=== PATIENT | male | born 1940 | race Caucasian/White ===

== ENCOUNTER 2016-11-13 10:37 | Day surgery (SDC) | payer MEDICARE, BC ==
[2016-11-13] MEDS ORDERED: ALBUTEROL NEB (CONC) 2.5 MG/0.5 ML INHALATION STA (11:07)
[2016-11-13 11:08] VITALS: TEMP 97.5
[2016-11-13 11:39] LABS: Glucose,Whole Blood 144 mg/dL (75-99)
[2016-11-13] MEDS ORDERED: LACTATED RINGERS 1,000 ML IV ONE (11:40)
[2016-11-13] MEDS ORDERED: LIDOCAINE 1% 20 ML VIAL (10MG/ML) FOR IV START INTRADERMA ONE (11:41)
[2016-11-13] MEDS ORDERED: LIDOCAINE 1% INJ 10MG/ML (20 ML MDV) ONE (11:46)
[2016-11-13] MEDS ORDERED: PROPOFOL 10 MG/ML 20 ML VIAL IV ONE (11:46)
[2016-11-13] MEDS ORDERED: LIDOCAINE 2% INJ 20 MG/ML INTRATRACH ONE (11:54)
[2016-11-13] MEDS ORDERED: ATROPINE SULFATE 0.4 MG/ML 1 ML VIAL IM ONE (12:00)
[2016-11-13 12:11] VITALS: RESP 16
[2016-11-13 12:30] VITALS: BP 142/84; PULSE 90
--- NOTE | 2016-11-13 20:51 | PCN ---
PREOPERATIVE DIAGNOSIS: Tracheobronchomalacia, bronchiectasis, right middle lobe syndrome, asthma, retained secretions. POSTOPERATIVE DIAGNOSIS: Tracheobronchomalacia, bronchiectasis, right middle lobe syndrome, asthma, retained secretions. ELIGIBILITY SERVICES REPRESENTATIVE provided general anesthesia and unconscious sedation. The patient's procedure was done in room #2. There was informed consent. There was universal timeout. After the patient was adequately sedated and being fully monitored, the bronchoscope was inserted through the right nostril. It passed through the right nasopharynx into the oropharynx. The hypopharynx was identified and topicalized. The hypopharyngeal structures, including the anterior commissure, true cords, false cords, arytenoids, piriform sinus, valleculae and epiglottis all appeared normal. After the area was inspected, the glottic opening was topicalized. The bronchoscope was pushed through the glottic opening into the trachea. Trachea was very collapsible. The patient had clear-cut tracheomalacia. The trachea was somewhat erythematous and hyperemic. There were secretions noted throughout the trachea. Tracheal callie was sharp. Right and left mainstem were topicalized. Likewise, there was significant bronchomalacia bilaterally. Right upper lobe and its 3 segments, right middle lobe and its 3 segments, right lower lobe and its 5 segments, the left upper lobe proper and its 2 segments, lingula and its 2 segments and left lower lobe and its 4 segments all had similar findings of diffuse erythema and hyperemia. There was a fair amount of bronchitis throughout. There was mucosal friability. The bronchial mucosa bled easily. There were no dominant mass or lesions. There were thick secretions noted throughout. They were suctioned. The bronchoscope was then wedged into the right middle lobe. BAL took place. Additional topicalization took place in saline, was used to cleanse the rest of the airways. The patient tolerated the procedure well. The bronchoscope was then withdrawn.
[2016-11-13 21:30] LABS: RBC, Body Fluid 5038 /uL
== END 2016-11-13 12:51 | disposition home or self-care (01) ==
LOC: ORWHC2ENDO 10:37
PROVIDERS: ATTEND Internal Medicine Critical Care Medicine
DX: J40 Bronchitis, not specified as acute or chronic (principal); J39.8 Other specified diseases of upper respiratory tract; J98.09 Other diseases of bronchus, not elsewhere classified; J45.909 Unspecified asthma, uncomplicated; J98.11 Atelectasis; J44.9 Chronic obstructive pulmonary disease, unspecified; K21.9 Gastro-esophageal reflux disease without esophagitis; E11.9 Type 2 diabetes mellitus without complications; Z79.84 Long term (current) use of oral hypoglycemic drugs; Z79.51 Long term (current) use of inhaled steroids; Z79.899 Other long term (current) drug therapy; Z88.2 Allergy status to sulfonamides; Z88.8 Allergy status to other drugs, medicaments and biological substances
CPT/HCPCS: 94640; 88108; 88305; 89050; 87252; 87070; 87205; 87116; 87102; 87077; 87186; 87206; 31624; J2001 ×2; J0461; J2704; 87496; 87498; 87502; 87529; 87798

== ENCOUNTER 2016-11-19 05:53 | Emergency (ER) | payer MEDICARE, BC ==
[2016-11-19] MEDS ORDERED: ACETAMINOPHEN TAB 500 MG TAB PO STA (06:33)
--- NOTE | 2016-11-19 06:37 | ED ---
General Adult HPI - General Source: patient, family, RN notes reviewed Mode of arrival: ambulatory Limitations: no limitations <Bib Pratt - Last Filed: 11/19/16 06:34> <Hawk Holder - Last Filed: 11/19/16 09:51> - General Chief complaint: Fever Stated complaint: Restless Time Seen by Provider: 11/19/16 06:20 - History of Present Illness Initial comments: Patient is a pleasant 76-year-old male presenting to the emergency department for feeling restless. Patient did have a recent bronchoscopy. Patient was found to have pseudomonas and started on meropenem. Patient has 3 doses yesterday, last at 11 PM. Patient has felt restless since that time. Patient had no fever at that time. Patient states he feels tired but just could not sleep. Patient has had some mild cough and dyspnea for several days and that's why the bronchoscopy was done. Patient does have a history of pseudomonas in his lungs multiple times previously. No leg pain or leg swelling. No cough. No dysuria. No abdominal pain. (Bib Pratt) - Related Data Home Medications Medication Instructions Recorded Confirmed Albuterol Inhaler [Ventolin Hfa 2 puff INHALATION Q4H PRN 01/05/14 11/19/16 Inhaler] Linagliptin [Tradjenta] 5 mg PO QAM 01/05/14 11/19/16 Omeprazole [PriLOSEC] 20 mg PO BID 01/05/14 11/19/16 Ramipril [Altace] 2.5 mg PO W/SUPPER 01/05/14 11/19/16 glyBURIDE/METFORMIN HCL 1 tab PO BID 01/05/14 11/19/16 [Glucovance 5-500 mg Tablet] Ipratropium-Albuterol Nebulize 1 applicate IH RT-QID PRN 04/03/15 11/19/16 [Duoneb 0.5 mg-3 mg/3 ml Soln] Fluticasone Propionate [Flovent 2 puff INHALATION RT-BID 08/08/15 11/19/16 Hfa 220MCG] Salmeterol Xinafoate [Serevent 1 puff IH RT-BID 10/13/15 11/19/16 Diskus] Exenatide Microspheres [Bydureon 2 mg INJ SA 03/13/16 11/19/16 Pen] Amoxic-Pot Clav 875-125Mg 1 tab PO Q12HR PRN 10/15/16 11/19/16 [Augmentin 875-125] Ketotifen Fumarate [Zaditor] 1 drop BOTH EYES DAILY PRN 11/19/16 11/19/16 Meropenem [Merrem] 1 gm IVPB TID 11/19/16 11/19/16 Mometasone Furoate [Nasonex Nasal 2 spr EA NOSTRIL DAILY PRN 11/19/16 11/19/16 [place]] Allergies Allergy/AdvReac Type Severity Reaction Status Date / Time aspirin Allergy Dyspnea Verified 11/19/16 08:45 levofloxacin [From Levaquin] Allergy "HAD Verified 11/19/16 08:45 RUPTURED TENDON" NSAIDS (Non-Steroidal Allergy Dyspnea Verified 11/19/16 08:45 Anti-Inflamma Sulfa (Sulfonamide Allergy Rash/Hives Verified 11/19/16 08:45 Antibiotics) cephalexin [Cephalexin] AdvReac Nausea & Verified 11/19/16 08:45 Vomiting codeine phosphate AdvReac Vomiting Verified 11/19/16 08:45 [From Tylenol-Codeine #3] erythromycin base AdvReac Abdominal Verified 11/19/16 08:45 [Erythromycin Base] Pain prednisone AdvReac TRIES TO Verified 11/19/16 08:45 AVOID, "GAVE HIM CATARACTS" DAIRY PRODUCTS Allergy WAS TESTED Uncoded 11/19/16 06:00 & TOLD ALLERGIC Review of Systems ROS Other: All systems not noted in ROS Statement are negative. Constitutional: Reports: chills Eyes: Denies: eye pain ENT: Denies: ear pain Respiratory: Reports: cough, dyspnea Cardiovascular: Denies: chest pain Endocrine: Reports: fatigue Gastrointestinal: Reports: nausea, vomiting (Times one). Denies: abdominal pain Genitourinary: Denies: dysuria Musculoskeletal: Denies: back pain Skin: Denies: rash Neurological: Denies: weakness <Bib Pratt - Last Filed: 11/19/16 06:34> ROS Other: All systems not noted in ROS Statement are negative. <Hawk Holder - Last Filed: 11/19/16 09:51> ROS Statement: Those systems with pertinent positive or pertinent negative responses have been documented in the HPI. Past Medical History Past Medical History: Asthma, Cancer, COPD, Diabetes Mellitus, GERD/Reflux, Respiratory Disorder Additional Past Medical History / Comment(s): PULMONARY PSEUDOMONAS, SKIN CA NOSE and LIP, History of Any Multi-Drug Resistant Organisms: MRSA Date of last positivie culture/infection: 08/13/2012 MDRO Source:: SPUTUM Past Surgical History: Hernia Repair, Orthopedic Surgery Additional Past Surgical History / Comment(s): PORT RT. CHEST, PREVIOUS BRONCHOSCOPIES, Rt Foot(Achilles) Surgery, Sinus Surgery x 3, Picc line & removed,skin cancer removed from lower lip & nose- removal of part of lower lip with reconstruction, ray cataracts with lens implants, umbilical hernia, Past Anesthesia/Blood Transfusion Reactions: No Reported Reaction Additional Past Anesthesia/Blood Transfusion Reaction / Comment(s): . Past Psychological History: No Psychological Hx Reported Smoking Status: Former smoker Past Alcohol Use History: None Reported Additional Past Alcohol Use History / Comment(s): quit smoking 1970-started age 16(1956)-25 yrs total was 2 ppd Past Drug Use History: None Reported - Past Family History Mother Family Medical History: Deep Vein Thrombosis (DVT) Father Family Medical History: Osteoarthritis (OA) Sister(s) Family Medical History: Cancer, Deep Vein Thrombosis (DVT) Additional Family Medical History / Comment(s): one sister with colon ca- then went to lung & brain, <Bib Pratt - Last Filed: 11/19/16 06:34> General Exam Limitations: no limitations General appearance: alert, in no apparent distress Head exam: Present: atraumatic Eye exam: Present: normal appearance, PERRL ENT exam: Present: normal oropharynx Neck exam: Present: normal inspection Respiratory exam: Present: wheezes, rales Cardiovascular Exam: Present: regular rate, normal rhythm GI/Abdominal exam: Present: soft. Absent: tenderness Extremities exam: Present: normal inspection Neurological exam: Present: alert Psychiatric exam: Present: normal affect, normal mood Skin exam: Present: other (Patient has a mild erythematous appearance diffusely of the skin which he states is chronic.) <Bib Pratt - Last Filed: 11/19/16 06:34> EKG Findings - EKG Comments: EKG Findings:: Normal sinus rhythm and 96. Normal intervals. Left axis. Voltage criteria for LVH. Inverted T waves inferior. <Pratt,Bib - Last Filed: 11/19/16 06:34> Medical Decision Making <Bib Pratt - Last Filed: 11/19/16 06:34> - Lab Data Result diagrams: 11/19/16 06:30 11/19/16 06:30 <Hawk Holder - Last Filed: 11/19/16 09:51> - Medical Decision Making I went back into reevaluate the patient he wanted to be discharged home because he felt back to his baseline. I spoke with Dr. Armstrong he was in agreement with discharging the patient is on C continue with antibiotics treatment. (Hawk Holder) - Lab Data Lab Results 11/19/16 11/19/16 11/19/16 Range/Units 06:30 06:30 06:30 WBC 8.1 (3.8-10.6) k/uL RBC 4.66 (4.30-5.90) m/uL Hgb 14.4 (13.0-17.5) gm/dL Hct 45.5 (39.0-53.0) % MCV 97.6 (80.0-100.0) fL MCH 30.8 (25.0-35.0) pg MCHC 31.6 (31.0-37.0) g/dL RDW 13.6 (11.5-15.5) % Plt Count 187 (150-450) k/uL Neutrophils % 93 % Lymphocytes % 2 % Monocytes % 2 % Eosinophils % 2 % Basophils % 0 % Neutrophils # 7.5 (1.3-7.7) k/uL Lymphocytes # 0.1 L (1.0-4.8) k/uL Monocytes # 0.2 (0-1.0) k/uL Eosinophils # 0.1 (0-0.7) k/uL Basophils # 0.0 (0-0.2) k/uL PT (9.0-12.0) sec INR (<1.1) APTT (22.0-30.0) sec Sodium 137 (137-145) mmol/L Potassium 4.7 (3.5-5.1) mmol/L Chloride 103 (98-107) mmol/L Carbon Dioxide 27 (22-30) mmol/L Anion Gap 7 mmol/L BUN 13 (9-20) mg/dL Creatinine 1.26 H (0.66-1.25) mg/dL Est GFR (MDRD) Af Amer >60 (>60 ml/min/1.73 sqM) Est GFR (MDRD) Non-Af 56 (>60 ml/min/1.73 sqM) Glucose 242 H (74-99) mg/dL Plasma Lactic Acid Angelo (0.7-2.0) mmol/L Calcium 9.1 (8.4-10.2) mg/dL Total Bilirubin 1.2 (0.2-1.3) mg/dL AST 27 (17-59) U/L ALT 36 (21-72) U/L Alkaline Phosphatase 66 (38-126) U/L Total Creatine Kinase 96 (55-170) U/L CK-MB (CK-2) 1.1 (0.0-2.4) ng/mL CK-MB (CK-2) Rel Index 1.1 Troponin I <0.012 (0.000-0.034) ng/mL Total Protein 6.4 (6.3-8.2) g/dL Albumin 3.6 (3.5-5.0) g/dL Urine Color Urine Appearance (Clear) Urine pH (5.0-8.0) Ur Specific [place] (1.001-1.035) Urine Protein (Negative) Urine Glucose (UA) (Negative) Urine Ketones (Negative) Urine Blood (Negative) Urine Nitrate (Negative) Urine Bilirubin (Negative) Urine Urobilinogen (<2.0) mg/dL Ur Leukocyte Esterase (Negative) Urine WBC (0-5) /hpf Ur Squamous Epith Cells (0-4) /hpf Influenza Type A RNA (Not Detectd) Influenza Type B (PCR) (Not Detectd) 11/19/16 11/19/16 11/19/16 Range/Units 06:30 06:30 06:35 WBC (3.8-10.6) k/uL RBC (4.30-5.90) m/uL Hgb (13.0-17.5) gm/dL Hct (39.0-53.0) % MCV (80.0-100.0) fL MCH (25.0-35.0) pg MCHC (31.0-37.0) g/dL RDW (11.5-15.5) % Plt Count (150-450) k/uL Neutrophils % % Lymphocytes % % Monocytes % % Eosinophils % % Basophils % % Neutrophils # (1.3-7.7) k/uL Lymphocytes # (1.0-4.8) k/uL Monocytes # (0-1.0) k/uL Eosinophils # (0-0.7) k/uL Basophils # (0-0.2) k/uL PT 10.3 (9.0-12.0) sec INR 1.0 (<1.1) APTT 23.4 (22.0-30.0) sec Sodium (137-145) mmol/L Potassium (3.5-5.1) mmol/L Chloride (98-107) mmol/L Carbon Dioxide (22-30) mmol/L Anion Gap mmol/L BUN (9-20) mg/dL Creatinine (0.66-1.25) mg/dL Est GFR (MDRD) Af Amer (>60 ml/min/1.73 sqM) Est GFR (MDRD) Non-Af (>60 ml/min/1.73 sqM) Glucose (74-99) mg/dL Plasma Lactic Acid Angelo 1.2 (0.7-2.0) mmol/L Calcium (8.4-10.2) mg/dL Total Bilirubin (0.2-1.3) mg/dL AST (17-59) U/L ALT (21-72) U/L Alkaline Phosphatase (38-126) U/L Total Creatine Kinase (55-170) U/L CK-MB (CK-2) (0.0-2.4) ng/mL CK-MB (CK-2) Rel Index Troponin I (0.000-0.034) ng/mL Total Protein (6.3-8.2) g/dL Albumin (3.5-5.0) g/dL Urine Color Urine Appearance (Clear) Urine pH (5.0-8.0) Ur Specific [place] (1.001-1.035) Urine Protein (Negative) Urine Glucose (UA) (Negative) Urine Ketones (Negative) Urine Blood (Negative) Urine Nitrate (Negative) Urine Bilirubin (Negative) Urine Urobilinogen (<2.0) mg/dL Ur Leukocyte Esterase (Negative) Urine WBC (0-5) /hpf Ur Squamous Epith Cells (0-4) /hpf Influenza Type A RNA Not Detected (Not Detectd) Influenza Type B (PCR) Not Detected (Not Detectd) 11/19/16 Range/Units 08:00 WBC (3.8-10.6) k/uL RBC (4.30-5.90) m/uL Hgb (13.0-17.5) gm/dL Hct (39.0-53.0) % MCV (80.0-100.0) fL MCH (25.0-35.0) pg MCHC (31.0-37.0) g/dL RDW (11.5-15.5) % Plt Count (150-450) k/uL Neutrophils % % Lymphocytes % % Monocytes % % Eosinophils % % Basophils % % Neutrophils # (1.3-7.7) k/uL Lymphocytes # (1.0-4.8) k/uL Monocytes # (0-1.0) k/uL Eosinophils # (0-0.7) k/uL Basophils # (0-0.2) k/uL PT (9.0-12.0) sec INR (<1.1) APTT (22.0-30.0) sec Sodium (137-145) mmol/L Potassium (3.5-5.1) mmol/L Chloride (98-107) mmol/L Carbon Dioxide (22-30) mmol/L Anion Gap mmol/L BUN (9-20) mg/dL Creatinine (0.66-1.25) mg/dL Est GFR (MDRD) Af Amer (>60 ml/min/1.73 sqM) Est GFR (MDRD) Non-Af (>60 ml/min/1.73 sqM) Glucose (74-99) mg/dL Plasma Lactic Acid Angelo (0.7-2.0) mmol/L Calcium (8.4-10.2) mg/dL Total Bilirubin (0.2-1.3) mg/dL AST (17-59) U/L ALT (21-72) U/L Alkaline Phosphatase (38-126) U/L Total Creatine Kinase (55-170) U/L CK-MB (CK-2) (0.0-2.4) ng/mL CK-MB (CK-2) Rel Index Troponin I (0.000-0.034) ng/mL Total Protein (6.3-8.2) g/dL Albumin (3.5-5.0) g/dL Urine Color Yellow Urine Appearance Clear (Clear) Urine pH 6.5 (5.0-8.0) Ur Specific [place] 1.017 (1.001-1.035) Urine Protein 1+ H (Negative) Urine Glucose (UA) 1+ H (Negative) Urine Ketones Negative (Negative) Urine Blood Negative (Negative) Urine Nitrate Negative (Negative) Urine Bilirubin Negative (Negative) Urine Urobilinogen <2.0 (<2.0) mg/dL Ur Leukocyte Esterase Negative (Negative) Urine WBC 3 (0-5) /hpf Ur Squamous Epith Cells <1 (0-4) /hpf Influenza Type A RNA (Not Detectd) Influenza Type B (PCR) (Not Detectd) Disposition <Bib Pratt - Last Filed: 11/19/16 06:34> Time of Disposition: 09:51 <Hawk Holder - Last Filed: 11/19/16 09:51> Clinical Impression: Pneumonia Disposition: HOME SELF-CARE Instructions: Pneumonia (ED) Additional Instructions: Patient should continue following through with his outpatient antibiotic treatments Referrals: Alberto Rodriguez MD [Primary Care Provider] - 1-2 days
[2016-11-19] MEDS: SODIUM CHLORIDE 0.9% 500 ML IV SCH ×2 (06:44→10:22)
[2016-11-19 06:45] LABS: Basophils % (A) 0 %; CH 32.1; Eosinophils # (A) 0.1 k/uL (0-0.7); Eosinophils % (A) 2 %; HCT 45.5 % (39.0-53.0); HDW 2.65; HGB 14.4 gm/dL (13.0-17.5); Luc # (Auto) 0.07; Luc % (Auto) 1; Lymphocytes # (A) 0.1 k/uL (1.0-4.8); Lymphocytes % (A) 2 %; MCH 30.8 pg (25.0-35.0); MCHC 31.6 g/dL (31.0-37.0); MCV 97.6 fL (80.0-100.0); Mean Platelet Volume 7.2; Monocytes # (A) 0.2 k/uL (0-1.0); Monocytes % (A) 2 %; Neutrophils # (A) 7.5 k/uL (1.3-7.7); Neutrophils % (A) 93 %; RBC 4.66 m/uL (4.30-5.90); RDW 13.6 % (11.5-15.5); WBC 8.1 k/uL (3.8-10.6); WBC (Perox) 8.16
[2016-11-19 06:55] LABS: Partial Thromboplastin Time 23.4 sec (22.0-30.0); Prothrombin Time 10.3 sec (9.0-12.0)
[2016-11-19 06:57] LABS: ALT 36 U/L (21-72); AST 27 U/L (17-59); Alkaline Phosphatase 66 U/L (38-126); Anion Gap 7 mmol/L; Blood Urea Nitrogen 13 mg/dL (9-20); Calcium 9.1 mg/dL (8.4-10.2); Carbon Dioxide 27 mmol/L (22-30); Chloride 103 mmol/L (98-107); Glucose 242 mg/dL (74-99); Non-African American GFR(MDRD) 56 (>60 ml/min/1.73 sqM); Potassium 4.7 mmol/L (3.5-5.1); Sodium 137 mmol/L (137-145); Total Bilirubin 1.2 mg/dL (0.2-1.3); Total Protein 6.4 g/dL (6.3-8.2)
[2016-11-19 07:12] LABS: Creatine Kinase 96 U/L (55-170)
[2016-11-19 07:14] VITALS: RESP 14
[2016-11-19 07:22] LABS: Creatine Kinase MB 1.1 ng/mL (0.0-2.4)
[2016-11-19 07:26] LABS: Troponin I <0.012 ng/mL (0.000-0.034)
--- NOTE | 2016-11-19 07:45 | XR ---
EXAMINATION TYPE: XR chest 2V DATE OF EXAM: 11/19/2016 7:00 AM COMPARISON: Prior chest x-ray April 30, 2016. HISTORY: Fever. TECHNIQUE: Frontal and lateral views of the chest are obtained. FINDINGS: Right internal jugular Mediport catheter is stable in appearance. There is and bibasilar o pacity present. There is no pleural effusion or pneumothorax seen. Underlying emphysematous change is felt present. The cardiac silhouette size is within normal limits with atherosclerotic thoracic aort a. The osseous structures are intact. IMPRESSION: Right greater than left bibasilar infiltrate and/or atelectasis identified similar in ap pearance to prior study.
[2016-11-19 08:39] LABS: Appearance,Urine Clear (Clear); Bilirubin,Urine Negative (Negative); Glucose,Urine (UA) 1+ (Negative); Ketones,Urine Negative (Negative); Leukocyte Esterase,Urine Negative (Negative); Nitrite,Urine Negative (Negative); PH, Urine 6.5 (5.0-8.0); Particle Count 632; Protein,Urine 1+ (Negative); Specific Gravity,Urine 1.017 (1.001-1.035); Squamous Epithelial Cell,Urine <1 /hpf (0-4); UA Billing (MACRO vs. MICRO) MICRO; Urobilinogen,Urine <2.0 mg/dL (<2.0); WBC,Urine 3 /hpf (0-5)
[2016-11-19 10:21] VITALS: BP 133/79; PULSE 81; TEMP 97.9
== END 2016-11-19 10:22 | disposition home or self-care (01) ==
LOC: EC 05:53
DX: J44.0 Chronic obstructive pulmonary disease with (acute) lower respiratory infection (principal); J18.9 Pneumonia, unspecified organism; E11.9 Type 2 diabetes mellitus without complications; J45.909 Unspecified asthma, uncomplicated; K21.9 Gastro-esophageal reflux disease without esophagitis; Z85.828 Personal history of other malignant neoplasm of skin; Z87.891 Personal history of nicotine dependence; Z88.6 Allergy status to analgesic agent; Z88.1 Allergy status to other antibiotic agents; Z88.2 Allergy status to sulfonamides; Z91.011 Allergy to milk products; Z88.5 Allergy status to narcotic agent; Z79.84 Long term (current) use of oral hypoglycemic drugs; Z79.51 Long term (current) use of inhaled steroids; Z79.899 Other long term (current) drug therapy
CPT/HCPCS: 36415; 71020; 80053; 81001; 82533; 82550; 82553; 83605; 84484; 85025; 85610; 85730; 87040; 87086; 87502; 93005; 96360; 96361; 99284

== ENCOUNTER 2016-11-25 08:17 | Day surgery (SDC) | payer MEDICARE, BC ==
[2016-11-24 11:21] VITALS: BMI 29.6
[2016-11-25 08:34] VITALS: BP 161/97; PULSE 82; RESP 20; TEMP 98.2
[2016-11-25 08:35] LABS: Glucose,Whole Blood 166 mg/dL (75-99)
[2016-11-25] MEDS ORDERED: IODIXANOL 320 MG/ML 100 ML IV ONE (08:44)
--- NOTE | 2016-12-05 15:04 | IR ---
Fluoroscopic portogram([facility]). HISTORY: Device malfunction. The patient presented to the CVL with a Forte needle within the port. Preliminary fluoroscopy demons trated the catheter to be intact. Fluoro 0.2 min IMPRESSION: 1. No obstruction or extravasation. See above.
== END 2016-11-25 09:15 | disposition home or self-care (01) ==
LOC: CATHCVL 08:17
PROVIDERS: ATTEND Radiology Diagnostic Radiology
DX: T85.618A Breakdown (mechanical) of other specified internal prosthetic devices, implants and grafts, initial encounter (principal)
CPT/HCPCS: 36598; Q9967

== ENCOUNTER → 2017-01-06 | Outpatient (CLI) | payer MEDICARE, BC ==
--- NOTE | 2017-01-06 12:27 | US ---
EXAMINATION TYPE: US duplex aorta DATE OF EXAM: 01/06/2017 11:05 AM COMPARISON: NONE CLINICAL HISTORY: Z13.9 ENCOUNTER FOR SCREENING. EXAM MEASUREMENTS: Abdominal Aorta: Proximal: 2.0 x 2.4 cm Mid: 2.0 x 1.9 cm Distal: only measured in transverse 1.9 cm Bifurcation: right 1.4 cm left 1.3 cm Patient is obese with a large belly and imaging is technically difficult, imaged areas of aorta are w nl. Exam is suboptimal per technologist. Visualized portion show no evidence of aneurysmal change. IMPRESSION: Suboptimal study, visualized portion of aorta shows no greater than 3 cm aneurysm.
== END | disposition home or self-care (01) ==
LOC: RADUSWWP 09:59
PROVIDERS: ATTEND Family Medicine
DX: Z13.9 Encounter for screening, unspecified (principal); I71.4 Abdominal aortic aneurysm, without rupture; B96.5 Pseudomonas (aeruginosa) (mallei) (pseudomallei) as the cause of diseases classified elsewhere
CPT/HCPCS: 93979

== ENCOUNTER 2017-01-19 19:54 | Emergency (ER) | payer MEDICARE, BC ==
[2017-01-19] MEDS ORDERED: IPRATROPIUM-ALBUTEROL 3 ML NEB INHALATION STA (21:25)
--- NOTE | 2017-01-19 21:26 | ED ---
General Adult HPI - General Chief complaint: Shortness of Breath Stated complaint: JOE Time Seen by Provider: 01/19/17 21:06 Source: patient Mode of arrival: ambulatory Limitations: no limitations - History of Present Illness Initial comments: 76-year-old male presenting for cough and shortness of breath. Patient states that he has a history of recurrent pseudomonal pneumonias. He states he follows with Dr. Armstrong for this. He was recently on a 10 day course of cefepime through his mediport. However his symptoms did not improve. States that he has had a bronchoscopy every 3 months for the last 20 years. However he did not recently have a bronchoscopy done prior to antibiotic initiation and believes he needs one. States he is coughing up brown colored sputum. Does have a history of COPD. States he's had some intermittent fevers as well. He states he took Tylenol shortly prior to coming to the ER tonight. He denies any chest pain associated. - Related Data Home Medications Medication Instructions Recorded Confirmed Albuterol Inhaler [Ventolin Hfa 2 puff INHALATION RT-Q4H PRN 01/05/14 01/19/17 Inhaler] Linagliptin [Tradjenta] 5 mg PO QAM 01/05/14 01/19/17 Omeprazole [PriLOSEC] 20 mg PO BID 01/05/14 01/19/17 Ramipril [Altace] 2.5 mg PO W/SUPPER 01/05/14 01/19/17 Ipratropium-Albuterol Nebulize 1 applicate INHALATION RT-QID PRN 04/03/15 [Duoneb 0.5 mg-3 mg/3 ml Soln] Fluticasone Propionate [Flovent 2 puff INHALATION RT-BID 08/08/15 01/19/17 Hfa 220MCG] Salmeterol Xinafoate [Serevent 1 puff INHALATION RT-BID 10/13/15 01/19/17 Diskus] Exenatide Microspheres [Bydureon 2 mg SQ YAÑEZ 03/13/16 01/19/17 Pen] Budesonide [Pulmicort Flexhaler] 3 - 4 puff INHALATION RT-BID 01/19/17 01/19/17 Furosemide [Lasix] 20 mg PO DAILY 01/19/17 01/19/17 Hydrocortisone Pr Cream 1 applic RECTAL TID PRN 01/19/17 01/19/17 [Proctosol-Hc 2.5%] Mupirocin [Mupirocin 2%] 1 applic TOPICAL BID 01/19/17 01/19/17 Nystatin 100,000 Unit/ml Susp 5 ml PO QID PRN 01/19/17 01/19/17 [Mycostatin Oral Susp] glyBURIDE/METFORMIN HCL 1 tab PO BID 01/19/17 01/19/17 [Glucovance 2.5-500 mg Tablet] Allergies Allergy/AdvReac Type Severity Reaction Status Date / Time aspirin Allergy Dyspnea Verified 01/19/17 21:53 levofloxacin [From Levaquin] Allergy "HAD Verified 01/19/17 21:53 RUPTURED TENDON" NSAIDS (Non-Steroidal Allergy Dyspnea Verified 01/19/17 21:53 Anti-Inflamma Sulfa (Sulfonamide Allergy Rash/Hives Verified 01/19/17 21:53 Antibiotics) cephalexin [Cephalexin] AdvReac Nausea & Verified 01/19/17 21:53 Vomiting codeine phosphate AdvReac Vomiting Verified 01/19/17 21:53 [From Tylenol-Codeine #3] erythromycin base AdvReac Abdominal Verified 01/19/17 21:53 [Erythromycin Base] Pain prednisone AdvReac TRIES TO Verified 01/19/17 21:53 AVOID, "GAVE HIM CATARACTS" DAIRY PRODUCTS Allergy WAS TESTED Uncoded 01/16/17 11:01 & TOLD ALLERGIC Review of Systems ROS Statement: Those systems with pertinent positive or pertinent negative responses have been documented in the HPI. ROS Other: All systems not noted in ROS Statement are negative. Past Medical History Past Medical History: Asthma, Cancer, COPD, Diabetes Mellitus, GERD/Reflux, Respiratory Disorder Additional Past Medical History / Comment(s): PULMONARY PSEUDOMONAS, SKIN CA NOSE and LIP, History of Any Multi-Drug Resistant Organisms: MRSA Date of last positivie culture/infection: 08/13/2012 MDRO Source:: SPUTUM Past Surgical History: Hernia Repair, Orthopedic Surgery Additional Past Surgical History / Comment(s): PORT RT. CHEST, PREVIOUS BRONCHOSCOPIES, Rt Foot(Achilles) Surgery, Sinus Surgery x 3, Picc line & removed,skin cancer removed from lower lip & nose- removal of part of lower lip with reconstruction, ray cataracts with lens implants, umbilical hernia, Past Anesthesia/Blood Transfusion Reactions: No Reported Reaction Additional Past Anesthesia/Blood Transfusion Reaction / Comment(s): . Past Psychological History: No Psychological Hx Reported Smoking Status: Never smoker Past Alcohol Use History: None Reported Additional Past Alcohol Use History / Comment(s): quit smoking 1971-started age 16(1956)-25 yrs total was 2 ppd Past Drug Use History: None Reported - Past Family History Mother Family Medical History: Deep Vein Thrombosis (DVT) Father Family Medical History: Osteoarthritis (OA) Sister(s) Family Medical History: Cancer, Deep Vein Thrombosis (DVT) Additional Family Medical History / Comment(s): one sister with colon ca- then went to lung & brain, General Exam - General Exam Comments Initial Comments: General: Awake and Alert. No acute distress. Does not appear acutely ill. Eyes: SORIN, EOM intact. No nystagmus. No scleral icterus. HENT: Atraumatic, normocephalic. Mucous membranes moist. Trachea midline. Neck: The neck is supple, there is no tenderness or JVD. Cardiovascular: Regular rate and rhythm. No murmur, rub, or gallop is appreciated. Distal pulses intact. Respiratory: Lungs are clear to auscultation bilaterally. Mild wheezes. No rales, rhonchi. No respiratory distress. Gastrointestinal: Soft, Nontender. No rebound or guarding. Non-distended. No masses or organomegaly noted. No CVA tenderness. Musculoskeletal: No tenderness. Normal ROM. No gross deformity. No strength deficits. Neurological: A&Ox3. CN II-XII grossly intact, There are no obvious motor or sensory deficits. Coordination appears grossly intact. Speech is normal. Skin: Skin is warm and dry and no rashes or lesions are noted. Mediport present right chest. Psychiatric: Cooperative, appropriate mood & affect, normal judgment. Limitations: no limitations Course Vital Signs 01/19/17 01/19/17 01/19/17 20:51 21:55 22:18 Temperature 98.7 F 99.4 F Pulse Rate 93 82 92 Respiratory 20 16 Rate Blood Pressure 192/108 191/101 O2 Sat by Pulse 95 95 Oximetry 01/19/17 01/19/17 01/20/17 22:31 23:00 00:24 Temperature 98.8 F Pulse Rate 94 78 81 Respiratory 18 20 Rate Blood Pressure 154/90 156/82 O2 Sat by Pulse 97 98 Oximetry Medical Decision Making - Medical Decision Making 76 year old male with history of recurrent pseudomonal pneumonias presenting for persistent symptoms in spite of cefepime regimen as an outpatient. States he followed up with Dr. Armstrong earlier today. Patient states he feels he needs a bronchoscopy done. Discussed plan for workup and imaging. Breathing treatment ordered. Vitals stable, afebrile, no hypoxia. Lab work is stable CBC. Stable BMP. Chest x-ray stable. Patient reevaluated and feeling improved after breathing treatment. Appears nontoxic, does not appear to be septic at this time. Breathing is unlabored without respiratory distress. Spoke with Dr. Lowe who agrees with assessment the patient doesn't meet for admission criteria at this time. He recommends continued outpatient infusions as patient has a port and does not appear septic at this time. I called and spoke with Dr. Armstrong as well. He agrees with the plan for discharge home and outpatient follow-up for continued infusions. I did review prior bronchiolar lavage cultures. Patient has had multiple different organisms on prior cultures. He did have a pseudomonal infection previously that was susceptible to meropenem. Patient was given a dose of meropenem in the ED. Discussed continued infusions as an outpatient. Patient appears stable this time. No respiratory distress. Data patient on results and imaging. Discussed recommendation for further outpatient management of this time. He is agreeable to that. Discussed follow-up with Dr. Armstrong tomorrow. Patient with noted hypertension during his course the ED. Denies being on any antihypertensive. This did come down on its own without intervention. Discussed follow-up with PCP for repeat BP testing. Discussed concerning signs symptoms for immediate return to the ED. Patient and family agreeable with plan and discharge home. - Lab Data Result diagrams: 01/19/17 21:10 01/19/17 21:10 Lab Results 01/19/17 01/19/17 Range/Units 21:10 21:10 WBC 7.8 (3.8-10.6) k/uL RBC 4.63 (4.30-5.90) m/uL Hgb 14.1 (13.0-17.5) gm/dL Hct 43.8 (39.0-53.0) % MCV 94.7 (80.0-100.0) fL MCH 30.6 (25.0-35.0) pg MCHC 32.3 (31.0-37.0) g/dL RDW 13.5 (11.5-15.5) % Plt Count 195 (150-450) k/uL Neutrophils % 78 % Lymphocytes % 12 % Monocytes % 6 % Eosinophils % 1 % Basophils % 0 % Neutrophils # 6.1 (1.3-7.7) k/uL Lymphocytes # 1.0 (1.0-4.8) k/uL Monocytes # 0.4 (0-1.0) k/uL Eosinophils # 0.1 (0-0.7) k/uL Basophils # 0.0 (0-0.2) k/uL Sodium 134 L (137-145) mmol/L Potassium 5.1 (3.5-5.1) mmol/L Chloride 103 (98-107) mmol/L Carbon Dioxide 24 (22-30) mmol/L Anion Gap 7 mmol/L BUN 20 (9-20) mg/dL Creatinine 1.18 (0.66-1.25) mg/dL Est GFR (MDRD) Af Amer >60 (>60 ml/min/1.73 sqM) Est GFR (MDRD) Non-Af >60 (>60 ml/min/1.73 sqM) Glucose 191 H (74-99) mg/dL Calcium 9.5 (8.4-10.2) mg/dL - Radiology Data Radiology results: report reviewed, image reviewed Disposition Clinical Impression: History of Pseudomonas pneumonia, Productive cough Disposition: HOME SELF-CARE Condition: Stable Instructions: Chronic Cough (ED) Additional Instructions: Please follow up with Dr. Armstrong tomorrow and discuss further evaluation and antibiotic management. You received a dose of Meropenem tonight. Referrals: Alberto Rodriguez MD [Primary Care Provider] - 1-2 days Moe Armstrong DO [Doctor of Osteopathic Medicine] - 1-2 days Time of Disposition: 00:27
[2017-01-19 21:49] LABS: Basophils % (A) 0 %; CH 31.6; CHCM 33.5; Eosinophils # (A) 0.1 k/uL (0-0.7); Eosinophils % (A) 1 %; HCT 43.8 % (39.0-53.0); HDW 2.53; HGB 14.1 gm/dL (13.0-17.5); Luc # (Auto) 0.18; Luc % (Auto) 2; Lymphocytes % (A) 12 %; MCH 30.6 pg (25.0-35.0); MCHC 32.3 g/dL (31.0-37.0); MCV 94.7 fL (80.0-100.0); Mean Platelet Volume 6.9; Monocytes # (A) 0.4 k/uL (0-1.0); Monocytes % (A) 6 %; Neutrophils # (A) 6.1 k/uL (1.3-7.7); Neutrophils % (A) 78 %; RBC 4.63 m/uL (4.30-5.90); RDW 13.5 % (11.5-15.5); WBC 7.8 k/uL (3.8-10.6); WBC (Perox) 7.69
[2017-01-19 22:02] LABS: Anion Gap 7 mmol/L; Blood Urea Nitrogen 20 mg/dL (9-20); Calcium 9.5 mg/dL (8.4-10.2); Carbon Dioxide 24 mmol/L (22-30); Chloride 103 mmol/L (98-107); Glucose 191 mg/dL (74-99); Non-African American GFR(MDRD) >60 (>60 ml/min/1.73 sqM); Potassium 5.1 mmol/L (3.5-5.1); Sodium 134 mmol/L (137-145)
[2017-01-19] MEDS ORDERED: MEROPENEM 1 GM in SODIUM CHLORIDE 0.9% 100 ML IVPB STA (23:02)
--- NOTE | 2017-01-19 23:09 | XR ---
EXAM: XR Chest, 2 Views CLINICAL HISTORY: Reason: cough TECHNIQUE: Frontal and lateral views of the chest. COMPARISON: 11/19/16 two-view chest. FINDINGS: Lungs: If anything there has been some interval improvement in bibasilar aeration. Persistent linear opacity is seen suggesting atelectasis or scarring at the right base. No new superimposed infiltrate. Pleural space: Unremarkable. No pneumothorax. Heart: Unremarkable. No cardiomegaly. Mediastinum: Mediastinal contours are stable including mild aortic ectasia. Bones/joints: Bones stable including degenerative changes. Tubes, lines and devices: Stable appearance of right IJ catheter with tip again located just inferior to the right clavicular head. IMPRESSION: Stable to slight improvement in bibasilar aeration, without new superimposed acute process seen within the chest, as above.
[2017-01-20 00:25] VITALS: BP 156/82; PULSE 81; RESP 20; TEMP 98.8
== END 2017-01-20 00:36 | disposition home or self-care (01) ==
LOC: EC 19:54
DX: R05 Cough (principal); I10 Essential (primary) hypertension; R06.02 Shortness of breath; R50.9 Fever, unspecified; J45.909 Unspecified asthma, uncomplicated; J44.9 Chronic obstructive pulmonary disease, unspecified; E11.9 Type 2 diabetes mellitus without complications; K21.9 Gastro-esophageal reflux disease without esophagitis; Z87.891 Personal history of nicotine dependence; Z79.84 Long term (current) use of oral hypoglycemic drugs; Z79.51 Long term (current) use of inhaled steroids; Z79.899 Other long term (current) drug therapy; Z88.6 Allergy status to analgesic agent; Z88.2 Allergy status to sulfonamides; Z88.1 Allergy status to other antibiotic agents; Z88.5 Allergy status to narcotic agent; Z88.8 Allergy status to other drugs, medicaments and biological substances; Z91.011 Allergy to milk products; Z87.01 Personal history of pneumonia (recurrent); Z85.828 Personal history of other malignant neoplasm of skin; Z98.890 Other specified postprocedural states
CPT/HCPCS: 99285; 96365; 36415; 94640; 80048; 85025; 71020; J2185

== ENCOUNTER 2017-01-23 05:16 | Emergency (ER) | payer MEDICARE, BC ==
[2017-01-23] MEDS ORDERED: IPRATROPIUM-ALBUTEROL 3 ML NEB INHALATION STA (07:43)
[2017-01-23] MEDS ORDERED: hydrALAZINE HCL 20 MG/ML 1 ML VIAL IVP STA (07:44)
[2017-01-23 08:43] VITALS: RESP 20
--- NOTE | 2017-01-23 08:57 | XR ---
EXAMINATION TYPE: XR chest 2V DATE OF EXAM: 01/23/2017 8:17 AM COMPARISON: 01/19/2017 HISTORY: 76-year-old male difficulty in breathing and shortness of breath TECHNIQUE: PA and lateral views FINDINGS: Right anterior chest wall injection port with catheter tip at the extremity and brachiocephalic vein confluence. Heart is normal size. Mild elongation of the thoracic aorta. Mild interstitial prominence is unchanged. There is some patchy medial right basilar opacity noted. No pleural effusion. IMPRESSION: Chronic changes with some patchy medial right basilar atelectasis or early infiltrate.
[2017-01-23 09:17] LABS: Basophils % (A) 0 %; CH 31.2; Eosinophils # (A) 0.1 k/uL (0-0.7); Eosinophils % (A) 1 %; HCT 43.6 % (39.0-53.0); HDW 2.52; HGB 14.5 gm/dL (13.0-17.5); Luc # (Auto) 0.19; Luc % (Auto) 2; Lymphocytes % (A) 9 %; MCH 31.6 pg (25.0-35.0); MCHC 33.3 g/dL (31.0-37.0); MCV 95.1 fL (80.0-100.0); Mean Platelet Volume 7.2; Monocytes # (A) 0.5 k/uL (0-1.0); Monocytes % (A) 4 %; Neutrophils # (A) 9.7 k/uL (1.3-7.7); Neutrophils % (A) 84 %; RBC 4.59 m/uL (4.30-5.90); RDW 13.2 % (11.5-15.5); WBC 11.5 k/uL (3.8-10.6); WBC (Perox) 11.66
[2017-01-23] MEDS ORDERED: CEFEPIME 2 GM in SODIUM CHLORIDE 0.9% 50 ML IVPB STA (09:18)
[2017-01-23 09:20] LABS: ALT 29 U/L (21-72); AST 18 U/L (17-59); Alkaline Phosphatase 67 U/L (38-126); Anion Gap 14 mmol/L; Blood Urea Nitrogen 29 mg/dL (9-20); Calcium 9.6 mg/dL (8.4-10.2); Carbon Dioxide 18 mmol/L (22-30); Chloride 105 mmol/L (98-107); Glucose 180 mg/dL (74-99); Non-African American GFR(MDRD) >60 (>60 ml/min/1.73 sqM); Potassium 4.6 mmol/L (3.5-5.1); Sodium 137 mmol/L (137-145); Total Bilirubin 1.3 mg/dL (0.2-1.3); Total Protein 7.3 g/dL (6.3-8.2)
--- NOTE | 2017-01-23 09:22 | ED ---
General Adult HPI - General Chief complaint: Recheck/Abnormal Lab/Rx Stated complaint: High BP Time Seen by Provider: 01/23/17 07:14 Source: patient, family, RN notes reviewed Mode of arrival: ambulatory Limitations: no limitations - History of Present Illness Initial comments: Patient is a pleasant 76-year-old male presenting to the emergency department with complaints of cough. 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 Patient has had multiple previous bronchoscopies. Patient requests starting on merrem or Fortaz. Patient states he did recently see Dr. Armstrong and Dr. Tong. No fever. Patient does have occasional productive sputum. - Related Data Home Medications Medication Instructions Recorded Confirmed Albuterol Inhaler [Ventolin Hfa 2 puff INHALATION RT-Q4H PRN 01/05/14 01/23/17 Inhaler] Linagliptin [Tradjenta] 5 mg PO QAM 01/05/14 01/23/17 Omeprazole [PriLOSEC] 20 mg PO BID 01/05/14 01/23/17 Ramipril [Altace] 2.5 mg PO W/SUPPER 01/05/14 01/23/17 Ipratropium-Albuterol Nebulize 3 ml INHALATION RT-QID PRN 04/03/15 01/23/17 [Duoneb 0.5 mg-3 mg/3 ml Soln] Fluticasone Propionate [Flovent 2 puff INHALATION RT-BID 08/08/15 01/23/17 Hfa 220MCG] Salmeterol Xinafoate [Serevent 1 puff INHALATION RT-BID 10/13/15 01/23/17 Diskus] Exenatide Microspheres [Bydureon 2 mg SQ YAÑEZ 03/13/16 01/23/17 Pen] Budesonide [Pulmicort Flexhaler] 3 - 4 puff INHALATION RT-BID 01/19/17 01/23/17 Furosemide [Lasix] 20 mg PO DAILY 01/19/17 01/23/17 Hydrocortisone Pr Cream 1 applic RECTAL TID PRN 01/19/17 01/23/17 [Proctosol-Hc 2.5%] Mupirocin [Mupirocin 2%] 1 applic TOPICAL BID 01/19/17 01/23/17 Nystatin 100,000 Unit/ml Susp 500,000 unit PO QID PRN 01/19/17 01/23/17 [Mycostatin Oral Susp] glyBURIDE/METFORMIN HCL 1 tab PO BID 01/19/17 01/23/17 [Glucovance 2.5-500 mg Tablet] Previous Rx's Medication Instructions Recorded amLODIPine [Norvasc] 5 mg PO DAILY #7 tab 01/23/17 Allergies Allergy/AdvReac Type Severity Reaction Status Date / Time aspirin Allergy Dyspnea Verified 01/23/17 07:55 levofloxacin [From Levaquin] Allergy "HAD Verified 01/23/17 07:55 RUPTURED TENDON" Milk Containing Products Allergy WAS TESTED Verified 01/23/17 07:56 [Dairy] & TOLD ALLERGIC NSAIDS (Non-Steroidal Allergy Dyspnea Verified 01/23/17 07:55 Anti-Inflamma Sulfa (Sulfonamide Allergy Rash/Hives Verified 01/23/17 07:55 Antibiotics) cephalexin [Cephalexin] AdvReac Nausea & Verified 01/23/17 07:55 Vomiting codeine phosphate AdvReac Vomiting Verified 01/23/17 07:55 [From Tylenol-Codeine #3] erythromycin base AdvReac Abdominal Verified 01/23/17 07:55 [Erythromycin Base] Pain prednisone AdvReac TRIES TO Verified 01/23/17 07:55 AVOID, "GAVE HIM CATARACTS" Review of Systems ROS Statement: Those systems with pertinent positive or pertinent negative responses have been documented in the HPI. ROS Other: All systems not noted in ROS Statement are negative. Constitutional: Denies: fever Eyes: Denies: eye pain ENT: Denies: ear pain Respiratory: Reports: cough, dyspnea Cardiovascular: Denies: chest pain Endocrine: Reports: fatigue Gastrointestinal: Denies: abdominal pain Genitourinary: Denies: dysuria Musculoskeletal: Denies: back pain Skin: Denies: rash Neurological: Denies: weakness Past Medical History Past Medical History: Asthma, Cancer, COPD, Diabetes Mellitus, GERD/Reflux, Respiratory Disorder Additional Past Medical History / Comment(s): PULMONARY PSEUDOMONAS, SKIN CA NOSE and LIP, History of Any Multi-Drug Resistant Organisms: MRSA Date of last positivie culture/infection: 08/13/2012 MDRO Source:: SPUTUM Past Surgical History: Hernia Repair, Orthopedic Surgery Additional Past Surgical History / Comment(s): PORT RT. CHEST, PREVIOUS BRONCHOSCOPIES, Rt Foot(Achilles) Surgery, Sinus Surgery x 3, Picc line & removed,skin cancer removed from lower lip & nose- removal of part of lower lip with reconstruction, ray cataracts with lens implants, umbilical hernia, Past Anesthesia/Blood Transfusion Reactions: No Reported Reaction Additional Past Anesthesia/Blood Transfusion Reaction / Comment(s): . Past Psychological History: No Psychological Hx Reported Smoking Status: Never smoker Past Alcohol Use History: None Reported Additional Past Alcohol Use History / Comment(s): quit smoking 1971-started age 16(1956)-25 yrs total was 2 ppd Past Drug Use History: None Reported - Past Family History Mother Family Medical History: Deep Vein Thrombosis (DVT) Father Family Medical History: Osteoarthritis (OA) Sister(s) Family Medical History: Cancer, Deep Vein Thrombosis (DVT) Additional Family Medical History / Comment(s): one sister with colon ca- then went to lung & brain, General Exam Limitations: no limitations General appearance: alert, in no apparent distress Head exam: Present: atraumatic Eye exam: Present: normal appearance, PERRL ENT exam: Present: normal oropharynx Neck exam: Present: normal inspection Respiratory exam: Present: wheezes Cardiovascular Exam: Present: regular rate, normal rhythm GI/Abdominal exam: Present: soft. Absent: tenderness Extremities exam: Present: normal inspection Neurological exam: Present: alert Psychiatric exam: Present: normal affect, normal mood Skin exam: Present: normal color Course Vital Signs 01/23/17 01/23/17 01/23/17 05:22 06:57 07:00 Temperature 98.0 F Pulse Rate 83 91 Respiratory 16 18 Rate Blood Pressure 186/104 192/96 181/100 O2 Sat by Pulse 98 96 Oximetry 01/23/17 01/23/17 01/23/17 08:03 08:09 08:42 Temperature Pulse Rate 84 88 87 Respiratory 20 Rate Blood Pressure 178/115 O2 Sat by Pulse 97 Oximetry - Reevaluation(s) Reevaluation #1: 01/23/17 09:19 Case was discussed in detail with Dr. Tong who is familiar with this patient. He states we can start cefepime 2 g and he will continue this as an outpatient. Dr. Lowe was contacted who deferred to Dr. Armstrong. Dr. Armstrong is out of town. Medical Decision Making - Medical Decision Making Patient reevaluated and resting comfortably in bed. Patient and family updated on results and need for follow-up. - Lab Data Result diagrams: 01/23/17 08:48 01/23/17 08:48 Lab Results 01/23/17 01/23/17 Range/Units 08:48 08:48 WBC 11.5 H (3.8-10.6) k/uL RBC 4.59 (4.30-5.90) m/uL Hgb 14.5 (13.0-17.5) gm/dL Hct 43.6 (39.0-53.0) % MCV 95.1 (80.0-100.0) fL MCH 31.6 (25.0-35.0) pg MCHC 33.3 (31.0-37.0) g/dL RDW 13.2 (11.5-15.5) % Plt Count 220 (150-450) k/uL Neutrophils % 84 % Lymphocytes % 9 % Monocytes % 4 % Eosinophils % 1 % Basophils % 0 % Neutrophils # 9.7 H (1.3-7.7) k/uL Lymphocytes # 1.0 (1.0-4.8) k/uL Monocytes # 0.5 (0-1.0) k/uL Eosinophils # 0.1 (0-0.7) k/uL Basophils # 0.0 (0-0.2) k/uL Sodium 137 (137-145) mmol/L Potassium 4.6 (3.5-5.1) mmol/L Chloride 105 (98-107) mmol/L Carbon Dioxide 18 L (22-30) mmol/L Anion Gap 14 mmol/L BUN 29 H (9-20) mg/dL Creatinine 1.10 (0.66-1.25) mg/dL Est GFR (MDRD) Af Amer >60 (>60 ml/min/1.73 sqM) Est GFR (MDRD) Non-Af >60 (>60 ml/min/1.73 sqM) Glucose 180 H (74-99) mg/dL Calcium 9.6 (8.4-10.2) mg/dL Total Bilirubin 1.3 (0.2-1.3) mg/dL AST 18 (17-59) U/L ALT 29 (21-72) U/L Alkaline Phosphatase 67 (38-126) U/L Total Protein 7.3 (6.3-8.2) g/dL Albumin 4.2 (3.5-5.0) g/dL - Radiology Data Radiology results: image reviewed (Chest x-ray shows right middle lung atelectasis versus early infiltrate. Previous x-rays with similar findings.) Disposition Clinical Impression: Bronchitis, Hypertension Disposition: HOME SELF-CARE Condition: Stable Instructions: Acute Bronchitis (ED), Hypertension (ED) Additional Instructions: Please call Dr. Tong office today to get set up for further antibiotic infusion. Please follow-up with Dr. Armstrong in the beginning of the week. Return for fevers, weakness, difficulty breathing, worsening symptoms or other concerns. Please also follow-up primary care physician in the beginning of the week regarding high blood pressure. Prescriptions: amLODIPine [Norvasc] 5 mg PO DAILY #7 tab Referrals: Alberto Rodriguez MD [Primary Care Provider] - 1-2 days Alberto Tong MD [STAFF PHYSICIAN] - 1-2 days Moe Armstrong DO [Doctor of Osteopathic Medicine] - 1-2 days
[2017-01-23] MEDS ORDERED: amLODIPine 5 MG TAB PO STA (09:47)
[2017-01-23 11:18] VITALS: BP 180/96; PULSE 83; TEMP 98.5
== END 2017-01-23 11:40 | disposition home or self-care (01) ==
LOC: EC 05:16
DX: J40 Bronchitis, not specified as acute or chronic (principal); I10 Essential (primary) hypertension; E11.9 Type 2 diabetes mellitus without complications; J44.9 Chronic obstructive pulmonary disease, unspecified; K21.9 Gastro-esophageal reflux disease without esophagitis; Z85.828 Personal history of other malignant neoplasm of skin; Z79.51 Long term (current) use of inhaled steroids; Z79.899 Other long term (current) drug therapy; Z79.84 Long term (current) use of oral hypoglycemic drugs; Z88.6 Allergy status to analgesic agent; Z88.1 Allergy status to other antibiotic agents; Z91.011 Allergy to milk products; Z88.2 Allergy status to sulfonamides; Z88.5 Allergy status to narcotic agent; Z88.8 Allergy status to other drugs, medicaments and biological substances
CPT/HCPCS: 99283; 96365; 96375; 36415; 94640; 80053; 85025; 87040; 71020; J0360; J0692

== ENCOUNTER 2017-03-06 10:55 | Day surgery (SDC) | payer MEDICARE, BC ==
[~2017-03-06 10:55] MED LIST: ALBUTEROL NEB (CONC) 2.5 MG/0.5 ML INHALATION ONE; ATROPINE SULFATE 0.4 MG/ML 1 ML VIAL IM ONE; LACTATED RINGERS 1,000 ML IV ONE; LIDOCAINE 2% (PF) 20 MG/ML 10ML INHALATION ONE; Pre Op ABX Message 1 EACH MISC MISCELLANE ONE
[2017-03-06 11:37] VITALS: RESP 16; TEMP 98.1
[2017-03-06] MEDS ORDERED: LIDOCAINE 1% 20 ML VIAL (10MG/ML) FOR IV START INTRADERMA ONE (11:37)
[2017-03-06 12:02] LABS: Glucose,Whole Blood 129 mg/dL (75-99)
[2017-03-06] MEDS ORDERED: PROPOFOL 10 MG/ML 20 ML VIAL IV ONE (12:19)
[2017-03-06] MEDS ORDERED: LIDOCAINE 2% INJ 20 MG/ML INTRATRACH ONE (12:35)
--- NOTE | 2017-03-06 12:51 | P.PCN ---
Date of Procedure: 03/06/17 Preoperative Diagnosis: Tracheo bronchomalacia, right middle lobe syndrome, asthma Postoperative Diagnosis: as above Procedure(s) Performed: Bronchoscopy, BAL RML Implants: Anesthesia: SNEHAA Surgeon: Moe Armstrong Pathology: other (BAL fluid sent for cytology and microbiology) Condition: stable Disposition: other (discharge home) Indications for Procedure: Tracheobronhomalacia, asthma, bronchiectasis Operative Findings: bronchitis, retained secretions Description of Procedure: as above Plan - Discharge Summary New Discharge Prescriptions: No Action Albuterol Inhaler [Ventolin Hfa Inhaler] 2 puff INHALATION RT-Q4H PRN PRN Reason: Shortness Of Breath Ramipril [Altace] 10 mg PO DAILY Omeprazole [PriLOSEC] 20 mg PO BID Linagliptin [Tradjenta] 5 mg PO QAM Ipratropium-Albuterol Nebulize [Duoneb 0.5 mg-3 mg/3 ml Soln] 3 ml INHALATION RT-QID PRN PRN Reason: COPD Fluticasone Propionate [Flovent Hfa 220MCG] 2 puff INHALATION RT-BID Salmeterol Xinafoate [Serevent Diskus] 1 puff INHALATION RT-BID Exenatide Microspheres [Bydureon Pen] 2 mg SQ YAÑEZ Budesonide [Pulmicort Flexhaler] 3 - 4 puff INHALATION RT-BID Nystatin 100,000 Unit/ml Susp [Mycostatin Oral Susp] 500,000 unit PO QID PRN PRN Reason: Mouth Irritation Hydrocortisone Pr Cream [Proctosol-Hc 2.5%] 1 applic RECTAL TID PRN PRN Reason: Hemorrhoids Mupirocin [Mupirocin 2%] 1 applic TOPICAL BID PRN PRN Reason: skin breakdown Furosemide [Lasix] 20 mg PO DAILY PRN PRN Reason: Edema glyBURIDE/METFORMIN HCL [Glucovance 2.5-500 mg Tablet] 1 tab PO BID predniSONE 5 mg PO DAILY Tiotropium Garrison [Spiriva Respimat] 2 puff INHALATION DAILY Ciprofloxacin HCl [Cipro] 500 mg PO BID Discharge Medication List Albuterol Inhaler [Ventolin Hfa Inhaler] 2 puff INHALATION RT-Q4H PRN 01/05/14 [ History] Linagliptin [Tradjenta] 5 mg PO QAM 01/05/14 [History] Omeprazole [PriLOSEC] 20 mg PO BID 01/05/14 [History] Ramipril [Altace] 10 mg PO DAILY 01/05/14 [History] Ipratropium-Albuterol Nebulize [Duoneb 0.5 mg-3 mg/3 ml Soln] 3 ml INHALATION RT -QID PRN 04/03/15 [History] Fluticasone Propionate [Flovent Hfa 220MCG] 2 puff INHALATION RT-BID 08/08/15 [ History] Salmeterol Xinafoate [Serevent Diskus] 1 puff INHALATION RT-BID 10/13/15 [ History] Exenatide Microspheres [Bydureon Pen] 2 mg SQ YAÑEZ 03/13/16 [History] Budesonide [Pulmicort Flexhaler] 3 - 4 puff INHALATION RT-BID 01/19/17 [History] Furosemide [Lasix] 20 mg PO DAILY PRN 01/19/17 [History] Hydrocortisone Pr Cream [Proctosol-Hc 2.5%] 1 applic RECTAL TID PRN 01/19/17 [ History] Mupirocin [Mupirocin 2%] 1 applic TOPICAL BID PRN 01/19/17 [History] Nystatin 100,000 Unit/ml Susp [Mycostatin Oral Susp] 500,000 unit PO QID PRN [History] glyBURIDE/METFORMIN HCL [Glucovance 2.5-500 mg Tablet] 1 tab PO BID 01/19/17 [ History] predniSONE 5 mg PO DAILY 01/29/17 [History] Tiotropium [place] [Spiriva Respimat] 2 puff INHALATION DAILY 03/05/17 [History] Ciprofloxacin HCl [Cipro] 500 mg PO BID 03/06/17 [History]
[2017-03-06 12:59] VITALS: BP 132/80; PULSE 102
[2017-03-06] MEDS ORDERED: LACTATED RINGERS 1,000 ML IV SCH (13:01)
[2017-03-06 17:29] LABS: RBC, Body Fluid 250 /uL
--- NOTE | 2017-04-15 10:55 | CDI ---
Dear. Dr. Armstrong, In order to code and bill the procedure for this encounter, a procedure description is necessary. Unfortunately,"Bronchoscopy, BAL RML" is only the title/name of a procedure and not actually a description. Please provide a detailed description of the procedure performed in an addendum to the operative report. Thank you, GHAZALA Marino
--- NOTE | 2017-04-21 09:33 | CDI ---
Dear. Dr. Armstrong, This is the 2nd query request and an answer is needed. In order to code and bill the procedure for this encounter, a procedure description is necessary. Unfortunately,"Bronchoscopy, BAL RML" is only the title/name of a procedure and not actually a description. Please provide a detailed description of the procedure performed in an addendum to the operative report. If you do not understand what is needed from you, please contact my manager pipeline, Greta Paul [phone]. Thank you, GHAZALA Marino
== END 2017-03-06 13:21 | disposition home or self-care (01) ==
LOC: ORWHC2ENDO 10:55
PROVIDERS: ATTEND Internal Medicine Critical Care Medicine
DX: J98.09 Other diseases of bronchus, not elsewhere classified (principal); J98.19 Other pulmonary collapse; J98.11 Atelectasis; J47.9 Bronchiectasis, uncomplicated; J40 Bronchitis, not specified as acute or chronic; I10 Essential (primary) hypertension; E11.9 Type 2 diabetes mellitus without complications; E61.1 Iron deficiency; K21.9 Gastro-esophageal reflux disease without esophagitis; Z79.51 Long term (current) use of inhaled steroids; Z79.899 Other long term (current) drug therapy; Z79.2 Long term (current) use of antibiotics; Z79.84 Long term (current) use of oral hypoglycemic drugs; Z79.52 Long term (current) use of systemic steroids; Z88.6 Allergy status to analgesic agent; Z88.1 Allergy status to other antibiotic agents; Z88.5 Allergy status to narcotic agent; Z88.2 Allergy status to sulfonamides; Z87.891 Personal history of nicotine dependence
CPT/HCPCS: 94640; 87798 ×4; 87496; 87498; 87529 ×2; 88108; 88305; 89050; 87252; 87502 ×2; 87070; 87205; 87116; 87102; 87206; 31624; J2001 ×2; J0461; J2704

== ENCOUNTER → 2017-03-26 | Outpatient (CLI) | payer MEDICARE, BC ==
--- NOTE | 2017-03-26 13:40 | ECHOF ---
Referral Reason:R06.00 Dyspnea MEASUREMENTS -------- HEIGHT: 172.7 cm WEIGHT: 83.9 kg BP: 155/90 RVIDd: 3.4 cm (< 3.3) IVSd: 1.2 cm (0.6 - 1.1) LVIDd: 4.9 cm (3.9 - 5.3) LVPWd: 1.1 cm (0.6 - 1.1) IVSs: 1.7 cm LVIDs: 3.3 cm LVPWs: 2.0 cm LA Diam: 3.8 cm (2.7 - 3.8) LAESV Index (A-L): 29.49 ml/m Ao Diam: 3.9 cm (2.0 - 3.7) AV Cusp: 2.3 cm (1.5 - 2.6) MV EXCURSION: 13.189 mm (> 18.000) MV EF SLOPE: 67 mm/s (70 - 150) EPSS: 0.9 cm MV E Jozef: 0.70 m/s MV DecT: 163 ms MV A Jozef: 0.91 m/s MV E/A Ratio: 0.76 FINDINGS -------- Sinus rhythm with extra systolic beats. This was a technically good study. The left ventricular size is normal. There is borderline concentric left ventricular hypertrophy. Overall left ventricular systolic function is low-normal with, an EF between 50 - 55 %. The right ventricle is mildly enlarged. LA is midly dilated 29-33ml/m2. The right atrium is normal in size. The aortic valve is trileaflet and appears structurally normal. Trace to mild aortic regurgitation. The mitral valve is normal. There is trace to mild mitral regurgitation. The tricuspid valve appears structurally normal. The pulmonic valve is normal. The aortic root is dilated measuring 3.9cm. Normal inferior vena cava with normal inspiratory collapse consistent with estimated right atrial pressure of 5 mmHg. There is no pericardial effusion. CONCLUSIONS -------- 1. Sinus rhythm with extra systolic beats. 2. There is trace to mild mitral regurgitation. 3. The tricuspid valve appears structurally normal. 4. The pulmonic valve is normal. 5. The aortic root is dilated measuring 3.9cm. 6. Normal inferior vena cava with normal inspiratory collapse consistent with estimated right atrial pressure of 5 mmHg. 7. There is no pericardial effusion. 8. This was a technically good study. 9. There is borderline concentric left ventricular hypertrophy. 10. Overall left ventricular systolic function is low-normal with, an EF between 50 - 55 %. 11. The right ventricle is mildly enlarged. 12. LA is midly dilated 29-33ml/m2. 13. The aortic valve is trileaflet and appears structurally normal. 14. Trace to mild aortic regurgitation. 15. The mitral valve is normal. WEB DEVELOPER PROGRAMMER: Cynthia Curry RDCS
== END | disposition home or self-care (01) ==
LOC: RADECHMAIN 11:11
PROVIDERS: ATTEND Family Medicine
DX: I08.0 Rheumatic disorders of both mitral and aortic valves (principal)
CPT/HCPCS: 93306

== ENCOUNTER 2017-04-09 09:37 | Emergency (ER) | payer MEDICARE, BC ==
[2017-04-09 09:58] VITALS: BP 157/81; PULSE 102; RESP 20; TEMP 98.1
--- NOTE | 2017-04-09 10:18 | ED ---
ENT HPI - General Chief complaint: ENT Stated complaint: Throat pain Time Seen by Provider: 04/09/17 10:06 Source: patient Mode of arrival: ambulatory Limitations: no limitations - History of Present Illness Initial comments: This 76-year-old white male presents with a complaint of a hoarse voice. He states that he was prescribed some all case in January and it seems as though his symptoms started shortly thereafter. He is stop the Altace but the hoarseness has continued. He is maximized PPI medications without relief. His primary doctor also put him on some nystatin without relief. His been on a prednisone taper and this has not caused any relief of his symptoms. He states that this morning it was somewhat worse. He is wondering if there is anything further that we could do for treatment for him in the emergency department. He normally sees Dr. Valenzuela from ENT and has been told that he likely will need a ENT scope for further evaluation. He denies any throat pain or soreness. He denies any neck pain or fever. There is no shortness of breath. No other complaints or modifying factors. - Related Data Home Medications Medication Instructions Recorded Confirmed Albuterol Inhaler [Ventolin Hfa 2 puff INHALATION RT-Q4H PRN 01/05/14 03/06/17 Inhaler] Linagliptin [Tradjenta] 5 mg PO QAM 01/05/14 03/06/17 Omeprazole [PriLOSEC] 20 mg PO BID 01/05/14 03/06/17 Ramipril [Altace] 10 mg PO DAILY 01/05/14 03/06/17 Ipratropium-Albuterol Nebulize 3 ml INHALATION RT-QID PRN 04/03/15 03/06/17 [Duoneb 0.5 mg-3 mg/3 ml Soln] Fluticasone Propionate [Flovent 2 puff INHALATION RT-BID 08/08/15 03/06/17 Hfa 220MCG] Salmeterol Xinafoate [Serevent 1 puff INHALATION RT-BID 10/13/15 03/06/17 Diskus] Exenatide Microspheres [Bydureon 2 mg SQ YAÑEZ 03/13/16 03/06/17 Pen] Budesonide [Pulmicort Flexhaler] 3 - 4 puff INHALATION RT-BID 01/19/17 03/06/17 Furosemide [Lasix] 20 mg PO DAILY PRN 01/19/17 03/06/17 Hydrocortisone Pr Cream 1 applic RECTAL TID PRN 01/19/17 03/06/17 [Proctosol-Hc 2.5%] Mupirocin [Mupirocin 2%] 1 applic TOPICAL BID PRN 01/19/17 03/06/17 Nystatin 100,000 Unit/ml Susp 500,000 unit PO QID PRN 01/19/17 03/06/17 [Mycostatin Oral Susp] glyBURIDE/METFORMIN HCL 1 tab PO BID 01/19/17 03/06/17 [Glucovance 2.5-500 mg Tablet] predniSONE 5 mg PO DAILY 01/29/17 03/06/17 Tiotropium Colstrip [Spiriva 2 puff INHALATION DAILY 03/05/17 03/06/17 Respimat] Ciprofloxacin HCl [Cipro] 500 mg PO BID 03/06/17 03/06/17 Allergies Allergy/AdvReac Type Severity Reaction Status Date / Time aspirin Allergy Dyspnea Verified 04/09/17 09:58 levofloxacin [From Levaquin] Allergy "HAD Verified 04/09/17 09:58 RUPTURED TENDON" Milk Containing Products Allergy WAS TESTED Verified 04/09/17 09:58 [Dairy] & TOLD ALLERGIC NSAIDS (Non-Steroidal Allergy Dyspnea Verified 04/09/17 09:58 Anti-Inflamma Sulfa (Sulfonamide Allergy Rash/Hives Verified 04/09/17 09:58 Antibiotics) cephalexin [Cephalexin] AdvReac Nausea & Verified 04/09/17 09:58 Vomiting codeine phosphate AdvReac Vomiting Verified 04/09/17 09:58 [From Tylenol-Codeine #3] erythromycin base AdvReac Abdominal Verified 04/09/17 09:58 [Erythromycin Base] Pain Review of Systems ROS Statement: Those systems with pertinent positive or pertinent negative responses have been documented in the HPI. ROS Other: All systems not noted in ROS Statement are negative. Past Medical History Past Medical History: Asthma, Cancer, COPD, Diabetes Mellitus, GERD/Reflux, Respiratory Disorder Additional Past Medical History / Comment(s): PULMONARY PSEUDOMONAS, SKIN CA NOSE and LIP, History of Any Multi-Drug Resistant Organisms: MRSA Date of last positivie culture/infection: 08/13/2012 MDRO Source:: SPUTUM Past Surgical History: Hernia Repair, Orthopedic Surgery Additional Past Surgical History / Comment(s): PORT RT. CHEST, PREVIOUS BRONCHOSCOPIES, Rt Foot(Achilles) Surgery, Sinus Surgery x 3, Picc line & removed,skin cancer removed from lower lip & nose- removal of part of lower lip with reconstruction, ray cataracts with lens implants, umbilical hernia, Past Anesthesia/Blood Transfusion Reactions: No Reported Reaction Additional Past Anesthesia/Blood Transfusion Reaction / Comment(s): . Past Psychological History: No Psychological Hx Reported Smoking Status: Former smoker Past Alcohol Use History: None Reported Past Drug Use History: None Reported - Past Family History Mother Family Medical History: Deep Vein Thrombosis (DVT) Father Family Medical History: Osteoarthritis (OA) Sister(s) Family Medical History: Cancer, Deep Vein Thrombosis (DVT) Additional Family Medical History / Comment(s): one sister with colon ca- then went to lung & brain, General Exam Limitations: no limitations General appearance: alert, in no apparent distress Head exam: Present: atraumatic, normocephalic Eye exam: Present: normal appearance ENT exam: Present: normal exam, normal oropharynx, mucous membranes moist Neck exam: Present: normal inspection. Absent: tenderness, lymphadenopathy Respiratory exam: Present: normal lung sounds bilaterally. Absent: respiratory distress, wheezes, rales, rhonchi Cardiovascular Exam: Present: regular rate, normal rhythm Course Vital Signs 04/09/17 09:54 Temperature 98.1 F Pulse Rate 102 H Respiratory 20 Rate Blood Pressure 157/81 O2 Sat by Pulse 95 Oximetry Medical Decision Making - Medical Decision Making The patient was seen and examined. Overall, it is felt as though he is on maximal treatment for his symptoms currently and that he is certainly in need of further evaluation with ENT and likely would benefit from an ENT scope to rule out further pathology in the larynx region. He is in understanding. He subsequently discharge and states that he will set up an appointment with his doctor as soon as possible. Disposition Clinical Impression: Hoarseness of voice Disposition: HOME SELF-CARE Condition: Good Additional Instructions: We saw you today for having a hoarse voice. Please follow-up with ENT as soon as possible for further evaluation. Referrals: Alberto Rodriguez MD [Primary Care Provider] - 1-2 days Harsh Neville DO [Doctor of Osteopathic Medicine] - 1-2 days Time of Disposition: 10:18
== END 2017-04-09 10:30 | disposition home or self-care (01) ==
LOC: EC 09:37
DX: R49.0 Dysphonia (principal); J45.909 Unspecified asthma, uncomplicated; E11.9 Type 2 diabetes mellitus without complications; J44.9 Chronic obstructive pulmonary disease, unspecified; K21.9 Gastro-esophageal reflux disease without esophagitis; Z88.1 Allergy status to other antibiotic agents; Z88.2 Allergy status to sulfonamides; Z88.5 Allergy status to narcotic agent; Z88.6 Allergy status to analgesic agent; Z91.011 Allergy to milk products; Z79.51 Long term (current) use of inhaled steroids; Z79.84 Long term (current) use of oral hypoglycemic drugs; Z79.899 Other long term (current) drug therapy; Z87.891 Personal history of nicotine dependence
CPT/HCPCS: 99282

== ENCOUNTER 2017-09-14 06:19 | Day surgery (SDC) | payer MEDICARE, BC ==
[2017-09-09 23:26] VITALS: BMI 27.2
[~2017-09-14 06:19] MED LIST changes: -ALBUTEROL NEB (CONC) 2.5 MG/0.5 ML INHALATION ONE; +ALPRAZolam 0.25 MG TAB PO PRN; -ATROPINE SULFATE 0.4 MG/ML 1 ML VIAL IM ONE; -LACTATED RINGERS 1,000 ML IV ONE; -LIDOCAINE 2% (PF) 20 MG/ML 10ML INHALATION ONE; -Pre Op ABX Message 1 EACH MISC MISCELLANE ONE; +SODIUM CHLORIDE 0.9% 1,000 ML in EMPTY BAG 1 BAG IV ONE
[2017-09-14 07:11] LABS: Glucose,Whole Blood 128 mg/dL (75-99)
[2017-09-14] MEDS ORDERED: LIDOCAINE 2% INJ 20 MG/ML (20 ML MDV) ONE (07:20)
[2017-09-14] MEDS ORDERED: IV FLUID CONTINUATION 950 ML IV ONE (07:21)
[2017-09-14] MEDS ORDERED: diphenhydrAMINE 50 MG/ML 1 ML VIAL ONE (07:27)
[2017-09-14] MEDS ORDERED: MIDAZOLAM 2 MG/2 ML VIAL ONE (07:27)
[2017-09-14] MEDS ORDERED: diphenhydrAMINE 50 MG/ML 1 ML VIAL IVP ONE (07:47)
[2017-09-14] MEDS: MIDAZOLAM 2 MG/2 ML VIAL IV ONE ×3 (07:49→08:13)
[2017-09-14] MEDS ORDERED: LIDOCAINE 2% INJ 20 MG/ML SQ ONE (08:04)
[2017-09-14] MEDS ORDERED: niCARdipine 25 MG/10 ML VIAL ONE (08:05)
[2017-09-14] MEDS ORDERED: BIVALIRUDIN BOLUS 250 MG/50 ML IV ONE (08:09)
[2017-09-14] MEDS ORDERED: BIVALIRUDIN 250 MG in SODIUM CHLORIDE 0.9% 50 ML IV ONE (08:10)
[2017-09-14] MEDS: NITROGLYCERIN 1000MCG/10ML SYRINGE INTRACORON ONE ×3 (08:12→08:55)
[2017-09-14] MEDS ORDERED: CLOPIDOGREL 75 MG TAB ONE (08:37)
[2017-09-14] MEDS ORDERED: niCARdipine Syringe (1,000 mcg/10 mL) INTRACORON ONE (08:55)
[2017-09-14] MEDS ORDERED: NITROGLYCERIN SL TABS 0.4 MG TAB SUBLINGUAL PRN (09:04)
[2017-09-14] MEDS ORDERED: ALBUTEROL NEBULIZED 2.5 MG/3 ML INHALATION PRN (09:04)
[2017-09-14] MEDS ORDERED: NYSTATIN 100,000 UNIT/ML SUSP 500,000 UNIT/5 ML CUP PO PRN (09:04)
[2017-09-14] MEDS ORDERED: IPRATROPIUM-ALBUTEROL 3 ML NEB INHALATION PRN (09:04)
[2017-09-14] MEDS ORDERED: HYDROCORTISONE 2.5% RECTAL CREAM 30 GM TUBE RECTAL PRN (09:04)
[2017-09-14] MEDS ORDERED: IODIXANOL 320 MG/ML 100 ML INTRAARTER ONE (09:10)
[2017-09-14] MEDS ORDERED: CLOPIDOGREL 75 MG TAB PO ONE (09:10)
[2017-09-14] MEDS ORDERED: SODIUM CHLORIDE 0.9% 1,000 ML IV SCH (09:45)
[2017-09-14 12:10] LABS: Glucose,Whole Blood 106 mg/dL (75-99)
--- NOTE | 2017-09-14 12:34 | PTCA ---
PERCUTANEOUSTRANS CORORONARY ANGIOGRAPHY DATE OF SERVICE: 09/14/2017 PERFORMING PHYSICIAN: Tanner Fink MD, Rehab Physician. PROCEDURES PERFORMED: 1. Successful stenting of the mid LAD using 2.25 x 32 mm Promus Premier drug-eluting stent with good angiographic results. 2. Successful stenting of the proximal LAD using 2.75 x 38 mm Xience Alpine drug- eluting stent with good angiographic results. 3. Successful stenting of the second diagonal branch of the LAD using 2.5 x 18 mm Xience Alpine drug-eluting stent with good angiographic results. INDICATION: This is a pleasant 77-year-old gentleman who was admitted to the hospital a few weeks ago with acute non-STEMI and underwent a heart catheterization by Dr. Alicia and was found to have severe triple-vessel CAD. He underwent stenting of the RCA and left circumflex and was brought today to undergo stenting of the LAD. APPROACH: Right common femoral artery. COMPLICATION: None. LEVEL OF SEDATION: Moderate with sedation length of 53 minutes. PROCEDURE DESCRIPTION: After obtaining an informed consent, the patient was brought to the Cardiac Business Banking Relationship Manager. The right common femoral artery was cannulated using micropuncture technique and a micropuncture wire passed easily, then I placed a 6-Nepalese sheath in the right common femoral artery. After that, I did selective left coronary angiogram. At that point, anticoagulation was initiated using Angiomax. I took an XB3.5 LAD guide and the left main was engaged. A Whisper wire was used to cross the chronic total occlusion in the mid LAD. After that, I did balloon angioplasty initially using 1.5 mm balloon and then using 2.0 mm balloon. After that, I deployed in the distal LAD 2.25 x 32 mm Promus Premier drug-eluting stent where the stent was positioned under fluoroscopy guidance and deployed under its nominal pressure. In the proximal LAD, I deployed 2.75 x 38 mm another Xience RAFAEL where the stent was again positioned under fluoroscopy guidance with about 2 mm overlap between the previous stent and the second stent was deployed under its nominal pressure. The following angiogram showed good angiographic results. After that, I did direct my wire towards the second diagonal branch where I did direct stenting on that lesion using 2.5 x 18 mm Xience Bovine drug-eluting stent where the stent again was positioned under fluoroscopy guidance and deployed under its nominal pressure. The following angiogram showed great angiographic results. The procedure was completed without any complication. POSTPROCEDURE MANAGEMENT: 1. Dual anti-platelet therapy. 2. Risk factor modifications. 3. Follow up with the patient. SCOTT / KAYLA: [id number] /
[2017-09-14 15:08] VITALS: RESP 18
--- NOTE | 2017-09-14 15:53 | P.CNPUL ---
History of Present Illness Consult date: 09/14/17 Requesting physician: Tanner Fink Reason for consult: COPD Chief complaint: Coronary artery disease, status post stenting of the LAD. History of present illness: This is a 77-year-old white male familiar to my service, known history of COPD, recent acute non-ST elevation myocardial infarction requiring [address] Brumfield, RCA was stented at the time, patient was eventually discharged home on multiple cardiac meds including Plavix and aspirin. Patient is known to have history of significant COPD and underlying pseudomonal infection for which she finished a recent course of ciprofloxacin. He normally sees Dr. Armstrong on a regular basis for his pseudomonal infection and underlying COPD. His last cardiac catheterization showed totally occluded LAD, collaterals from the right, patient had previous stenting of the circumflex, and I believe he underwent stenting of the RCA. Today, the patient had successful stenting of the mid LAD, successful stenting of the proximal LAD, and successful stenting of the second diagonal branch of the LAD. Previously he had stenting of the RCA and left circumflex successfully. Considering his COPD and history of pseudomonal infections, I was asked to see him on consultation. Presently the patient is asymptomatic, no cough no wheezing no shortness of breath, just finished recently a course of ciprofloxacin. Presently the patient is asymptomatic, no chest pain, no fever, no chills, no nausea, no vomiting, no abdominal pain. Review of Systems 14 point review of systems were obtained please refer to pertinent positives and negatives in HPI otherwise remaining systems are negative. Past Medical History Past Medical History: Asthma, Cancer, COPD, Diabetes Mellitus, GERD/Reflux, Hypertension, Myocardial Infarction ([place]), Respiratory Disorder Additional Past Medical History / Comment(s): Bronchiectasis, acquired bronchomalacia, recurrent pseudomonal infections, right middle lobe syndrome, skin cancer of the nose and lip,pt has dry thin fragile skin please use paper tape only. Last Myocardial Infarction Date:: 08/25/17 History of Any Multi-Drug Resistant Organisms: MRSA Date of last positivie culture/infection: 08/13/2012 MDRO Source:: SPUTUM Past Surgical History: Heart Catheterization With Stent, Hernia Repair, Orthopedic Surgery Additional Past Surgical History / Comment(s): PORT RT. CHEST, PREVIOUS BRONCHOSCOPIES, Rt Foot(Achilles) Surgery, Sinus Surgery x 3, Picc line & removed,skin cancer removed from lower lip & nose- removal of part of lower lip with reconstruction, ray cataracts with lens implants, umbilical hernia, bronchoscopy, 3 stents placed on 08/26/17. Past Anesthesia/Blood Transfusion Reactions: No Reported Reaction Additional Past Anesthesia/Blood Transfusion Reaction / Comment(s): . Date of Last Stent Placement:: 08/26/17 Smoking Status: Former smoker - Past Family History Mother Family Medical History: Deep Vein Thrombosis (DVT) Father Family Medical History: Osteoarthritis (OA) Sister(s) Family Medical History: Cancer, Deep Vein Thrombosis (DVT) Additional Family Medical History / Comment(s): one sister with colon ca- then went to lung & brain, Medications and Allergies Home Medications Medication Instructions Recorded Confirmed Type Albuterol Inhaler [Ventolin Hfa 2 puff INHALATION RT-Q4H PRN 01/05/14 09/09/17 History Inhaler] Linagliptin [Tradjenta] 5 mg PO DAILY 01/05/14 09/14/17 History Omeprazole [PriLOSEC] 20 mg PO BID 01/05/14 09/09/17 History Ipratropium-Albuterol Nebulize 3 ml INHALATION RT-QID PRN 04/03/15 09/09/17 History [Duoneb 0.5 mg-3 mg/3 ml Soln] Fluticasone Propionate [Flovent 2 puff INHALATION RT-BID 08/08/15 09/09/17 History Hfa 220MCG] Salmeterol Xinafoate [Serevent 1 puff INHALATION RT-BID 10/13/15 09/09/17 History Diskus] Exenatide Microspheres [Bydureon 2 mg SQ TU 03/13/16 09/14/17 History Pen] Furosemide [Lasix] 40 mg PO DAILY 01/19/17 09/14/17 History Hydrocortisone Pr Cream 1 applic RECTAL TID PRN 01/19/17 09/09/17 History [Proctosol-Hc 2.5%] Nystatin 100,000 Unit/ml Susp 500,000 unit PO QID PRN 01/19/17 09/14/17 History [Mycostatin Oral Susp] Mometasone Furoate [Asmanex Hfa] 1 puff INHALATION RT-DAILY 07/01/17 09/14/17 History Aspirin 81 mg PO DAILY #30 chew 08/27/17 09/09/17 Rx Atorvastatin [Lipitor] 40 mg PO DAILY #30 tab 08/27/17 09/14/17 Rx Clopidogrel [Plavix] 75 mg PO DAILY #30 tab 08/27/17 09/09/17 Rx Losartan [Cozaar] 25 mg PO DAILY #30 tab 08/27/17 09/09/17 Rx Metoprolol Succinate (ER) [Toprol 50 mg PO DAILY #30 tab.er.24h 08/27/17 Rx XL] Nitroglycerin Sl Tabs [Nitrostat] 0.4 mg SUBLINGUAL Q5M PRN #25 tab 08/27/1704/24 Rx Insulin Degludec [Tresiba 16 unit SQ [id number] 09/09/17 09/14/17 History Flextouch U-100] Azithromycin [Azithromycin] 250 mg PO MOWEFR@1900 09/14/17 09/14/17 History Allergies Allergy/AdvReac Type Severity Reaction Status Date / Time NUNU Inhibitors Allergy Dyspnea Verified 09/09/17 15:12 aspirin Allergy Dyspnea Verified 09/09/17 15:12 levofloxacin [From Levaquin] Allergy "HAD Verified 09/09/17 15:12 RUPTURED TENDON" Milk Containing Products Allergy WAS TESTED Verified 09/09/17 15:12 [Dairy] & TOLD ALLERGIC NSAIDS (Non-Steroidal Allergy Dyspnea Verified 09/09/17 15:12 Anti-Inflamma Sulfa (Sulfonamide Allergy Rash/Hives Verified 09/09/17 15:12 Antibiotics) cephalexin [Cephalexin] AdvReac Nausea & Verified 09/09/17 15:12 Vomiting codeine phosphate AdvReac Vomiting Verified 09/09/17 15:12 [From Tylenol-Codeine #3] erythromycin base AdvReac Abdominal Verified 09/09/17 15:12 [Erythromycin Base] Pain Physical Exam Vitals: Vital Signs Temp Pulse Resp BP BP BP Pulse Ox 09/14/17 14:20 18 130/70 97 09/14/17 13:30 18 133/77 98 09/14/17 12:30 18 132/80 97 09/14/17 11:30 20 130/83 97 09/14/17 11:15 20 132/80 124/77 98 09/14/17 11:00 20 140/66 128/83 98 09/14/17 10:45 20 140/66 129/77 98 09/14/17 10:15 20 125/85 140/66 98 09/14/17 10:00 18 141/76 146/68 99 09/14/17 09:45 20 144/70 125/85 98 09/14/17 09:30 18 141/76 148/72 97 09/14/17 06:52 98.0 F 82 20 165/95 140/78 96 Intake and Output 09/14/17 09/14/17 09/14/17 06:59 14:59 22:59 Intake Total 740.8 Balance 740.8 Intake: IV 340.8 Sodium Chloride 0.9% 1, 100 000 ml @ 100 mls/hr IV . Q10H KENIA Rx#:[id number] Oral 400 Physical Exam: Revealed a 77-year-old white male in no distress. HEENT:[Neck is supple.] [No neck masses.] [No thyromegaly.] [No JVD.] Chest: [Diminished breath sounds at the bases no crackles, no rhonchi, no wheezes.] No chest wall tenderness. Cardiac Exam: [Normal S1 and S2, no S3 gallop, no murmur.] Abdomen: [Soft, nontender, no megaly, no rebound, no guarding, normal bowel sounds.] Extremities: [No clubbing, no edema, no cyanosis.] Neurological Exam: [No focal neurologic deficit.] Pharynx: No lymphadenopathy Psychiatric: Normal mood affect and mental status exam. Results - Laboratory Findings Abnormal lab findings: Abnormal Labs 09/14/17 09/14/17 07:01 12:07 POC Glucose (mg/dL) 128 H 106 H Assessment and Plan Assessment: Impression: 1 successful stenting of the mid LAD, proximal LAD and second diagonal branch of the LAD. 2 Previous stenting of the RCA and left circumflex, this was done on the last admission. Multiple comorbidities including severe COPD, recurrent pseudomonal infections, diabetes, hypertension, previous [place], and history of GERD history of bronchiectasis and tracheobronchomalacia. History of right middle lobe syndrome. History of non-ST segment elevation myocardial infarction history of ischemic cardiomyopathy and LV dysfunction with ejection fraction of 35-40%. Recommendation: Fully agree with the present treatment plan, patient will likely be discharged home in the morning. And he will follow up with Dr. Armstrong on outpatient basis. Time with Patient: Greater than 30
[2017-09-14 17:24] LABS: Glucose,Whole Blood 169 mg/dL (75-99)
[2017-09-14] MEDS ORDERED: AZITHROMYCIN 250 MG TAB PO SCH (19:00)
[2017-09-14] MEDS: FORMOTEROL FUMARATE 20 MCG/2 ML NEBU INHALATION SCH (20:32)
[2017-09-14] MEDS: BUDESONIDE 1 MG/2 ML NEBU INHALATION SCH (20:32)
[2017-09-14 20:52] LABS: Glucose,Whole Blood 258 mg/dL (75-99)
[2017-09-14] MEDS: PANTOPRAZOLE 40 MG TABLET PO SCH (21:51)
[2017-09-15] MEDS: PANTOPRAZOLE 40 MG TABLET PO SCH (06:18)
[2017-09-15 06:30] LABS: Glucose,Whole Blood 155 mg/dL (75-99)
[2017-09-15] MEDS ORDERED: MOMETASONE FUROATE INHALATION SCH (08:00)
[2017-09-15] MEDS: FUROSEMIDE 40 MG TAB PO SCH ×2 (08:24→08:38)
[2017-09-15 08:41] VITALS: BP 111/70; TEMP 97.1
[2017-09-15] MEDS: BUDESONIDE 1 MG/2 ML NEBU INHALATION SCH (08:56)
[2017-09-15] MEDS: FORMOTEROL FUMARATE 20 MCG/2 ML NEBU INHALATION SCH (08:56)
[2017-09-15 08:57] LABS: Basophils # (A) 0.1 k/uL (0-0.2); Basophils % (A) 1 %; Eosinophils # (A) 0.1 k/uL (0-0.7); Eosinophils % (A) 2 %; HGB 11.5 gm/dL (13.0-17.5); Lymphocytes # (A) 0.8 k/uL (1.0-4.8); Lymphocytes % (A) 12 %; MCH 30.4 pg (25.0-35.0); MCHC 32.1 g/dL (31.0-37.0); MCV 94.8 fL (80.0-100.0); Mean Platelet Volume 7.2; Monocytes # (A) 0.4 k/uL (0-1.0); Monocytes % (A) 5 %; Neutrophils # (A) 5.4 k/uL (1.3-7.7); Neutrophils % (A) 79 %; Platelet Count 200 k/uL (150-450); RDW 13.9 % (11.5-15.5); WBC 6.8 k/uL (3.8-10.6)
[2017-09-15] MEDS ORDERED: BYDUREON 2 MG SQ SCH (09:00)
[2017-09-15] MEDS ORDERED: LINAGLIPTIN 5 MG TABLET PO SCH (09:00)
[2017-09-15] MEDS ORDERED: CLOPIDOGREL 75 MG TAB PO SCH (09:00)
[2017-09-15] MEDS ORDERED: ATORVASTATIN 40 MG TAB PO SCH (09:00)
[2017-09-15] MEDS ORDERED: LOSARTAN 25 MG TAB PO SCH (09:00)
[2017-09-15] MEDS ORDERED: METOPROLOL SUCCINATE (ER) 50 MG TAB.ER.24H PO SCH (09:00)
[2017-09-15] MEDS ORDERED: ASPIRIN 81 MG PO SCH (09:00)
[2017-09-15 09:11] VITALS: PULSE 80
[2017-09-15 09:25] LABS: Anion Gap 6 mmol/L; Blood Urea Nitrogen 20 mg/dL (9-20); Carbon Dioxide 28 mmol/L (22-30); Chloride 104 mmol/L (98-107); Glucose 172 mg/dL (74-99); Potassium 4.1 mmol/L (3.5-5.1); Sodium 138 mmol/L (137-145)
--- NOTE | 2017-09-15 13:20 | DS ---
DISCHARGE SUMMARY ADMISSION DATE: September 14, 2017. DISCHARGE DATE: September 15, 2017. BRIEF HISTORY: This is a pleasant 77-year-old gentleman who sees Dr. Alicia in the office as an outpatient who was admitted to the hospital and underwent successful stenting of the LAD as well as 2nd diagonal branch of the LAD with good angiographic results and without any complication. The procedure was performed from the right groin. The patient continues to be stable and asymptomatic during the night. There was no blood work from the last night and I just ordered a CBC and BMP on him. He continues to be on dual anti-platelet therapy. The patient is going to be discharged home and follow up with Dr. Alicia in the office in a week. MMODL / IJN: [id number] /
--- NOTE | 2017-09-15 14:37 | P.PN ---
Subjective Progress Note Date: 09/15/17 Principal diagnosis: Coronary artery disease This is a 77-year-old white male familiar to my service, known history of COPD, recent acute non-ST elevation myocardial infarction requiring [address] Fink, RCA was stented at the time, patient was eventually discharged home on multiple cardiac meds including Plavix and aspirin. Patient is known to have history of significant COPD and underlying pseudomonal infection for which she finished a recent course of ciprofloxacin. He normally sees Dr. Armstrong on a regular basis for his pseudomonal infection and underlying COPD. His last cardiac catheterization showed totally occluded LAD, collaterals from the right, patient had previous stenting of the circumflex, and I believe he underwent stenting of the RCA. Today, the patient had successful stenting of the mid LAD, successful stenting of the proximal LAD, and successful stenting of the second diagonal branch of the LAD. Previously he had stenting of the RCA and left circumflex successfully. Considering his COPD and history of pseudomonal infections, I was asked to see him on consultation. Presently the patient is asymptomatic, no cough no wheezing no shortness of breath, just finished recently a course of ciprofloxacin. Presently the patient is asymptomatic, no chest pain, no fever, no chills, no nausea, no vomiting, no abdominal pain. The patient is seen again today 09/15/2017 in follow-up on the selective care unit. He is awake and alert in no acute distress. He denies any shortness of breath, cough or congestion. He has completed his round of Cipro. He is maintained on a azithromycin Thursday for his pseudomonal infection. He denies any chest pain, palpitations lightheadedness or dizziness. He's been up ambulating in the malhotra without any distress. He is anxious to go home. Hemoglobin 11.5 creatinine 1.38. Objective - Vital Signs Vital signs: Vital Signs Temp 97.1 F L 09/15/17 08:00 Pulse 80 09/15/17 09:12 Resp 18 09/15/17 08:00 BP 111/70 09/15/17 08:00 Pulse Ox 97 09/15/17 08:00 Intake & Output 09/14/17 09/15/17 09/15/17 18:59 06:59 18:59 Intake Total 980.8 1000 240 Output Total 400 Balance 580.8 1000 240 Weight 81.193 kg 82.8 kg Intake: IV 340.8 Sodium Chloride 0.9% 1, 100 000 ml @ 100 mls/hr IV . Q10H KENIA Rx#:[id number] Intake, IV Titration 1000 Amount Sodium Chloride 0.9% 1, 1000 000 ml @ 100 mls/hr IV . Q10H KENIA Rx#:[id number] Oral 640 240 Output: Urine 400 Other: Voiding Method Urinal Urinal Urinal # Voids 2 - Exam GENERAL EXAM: Alert, active, comfortable in no apparent distress. HEAD: Normocephalic. EYES: Normal reaction of pupils, equal size. NOSE: Clear with pink turbinates. THROAT: No erythema or exudates. NECK: No masses, no JVD. CHEST: No chest wall deformity. LUNGS: Equal air entry with no crackles, wheeze, rhonchi or dullness. CVS: S1 and S2 normal with no audible murmur, regular rhythm. ABDOMEN: No hepatosplenomegaly, normal bowel sounds, no guarding or rigidity. SPINE: No scoliosis or deformity SKIN: No rashes CENTRAL NERVOUS SYSTEM: No focal deficits, tone is normal in all 4 extremities. EXTREMITIES: There is no peripheral edema. No clubbing, no cyanosis. Peripheral pulses are intact. - Labs CBC & Chem 7: 09/15/17 08:42 09/15/17 08:42 Labs: Abnormal Lab Results - Last 24 Hours (Table) 09/14/17 09/14/17 09/15/17 Range/Units 16:59 20:50 06:20 RBC (4.30-5.90) m/uL Hgb (13.0-17.5) gm/dL Hct (39.0-53.0) % Lymphocytes # (1.0-4.8) k/uL Creatinine (0.66-1.25) mg/dL Glucose (74-99) mg/dL POC Glucose (mg/dL) 169 H 258 H 155 H (75-99) mg/dL 09/15/17 09/15/17 Range/Units 08:42 08:42 RBC 3.80 L (4.30-5.90) m/uL Hgb 11.5 L (13.0-17.5) gm/dL Hct 36.0 L (39.0-53.0) % Lymphocytes # 0.8 L (1.0-4.8) k/uL Creatinine 1.38 H (0.66-1.25) mg/dL Glucose 172 H (74-99) mg/dL POC Glucose (mg/dL) (75-99) mg/dL Assessment and Plan Assessment: Impression: #1 Coronary artery disease status post stenting of the mid LAD, proximal LAD and second diagonal branch of the LAD. #2 Previous stenting of the RCA and left circumflex on previous admission. #3 Ischemic cardiomyopathy with left ventricular systolic function of 35-40%. #4 Chronic obstructive pulmonary disease, currently inactive and stable. #4 Recurrent pseudomonal infections treated with Cipro and remains on a Zithromax and Thursday. 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 #6 Hypertension. #7 Gastroesophageal reflux disease. #8 Diabetes mellitus, type II. Plan: The patient was seen and evaluated by Dr. Keyes. He is stable from the pulmonary standpoint. He is cleared for discharge once cleared by cardiology. He'll follow up with Dr. Armstrong in our office as scheduled. He is however encouraged to call with any pulmonary concerns or complaints. I, the cosigning physician, have performed a history and physical examination on the patient. Lung sounds are clear. Maintaining good O2 saturations in the 90s on room air. I have discussed the assessment and plan of care with my nurse practitioner, Holly Pak. I attest to the above note as dictated by her.
== END 2017-09-15 10:20 | disposition home or self-care (01) ==
LOC: CATHCVL 06:19 → 6SEL 09:02 → CATHCVL 09-15 10:20
PROVIDERS: ATTEND Internal Medicine Interventional Cardiology
DX: I25.10 Atherosclerotic heart disease of native coronary artery without angina pectoris (principal); I25.82 Chronic total occlusion of coronary artery; J47.9 Bronchiectasis, uncomplicated; J98.09 Other diseases of bronchus, not elsewhere classified; A49.8 Other bacterial infections of unspecified site; I25.2 Old myocardial infarction; Z95.5 Presence of coronary angioplasty implant and graft; I11.9 Hypertensive heart disease without heart failure; I25.5 Ischemic cardiomyopathy; E11.9 Type 2 diabetes mellitus without complications; E78.2 Mixed hyperlipidemia; K21.9 Gastro-esophageal reflux disease without esophagitis; Z85.828 Personal history of other malignant neoplasm of skin; Z79.84 Long term (current) use of oral hypoglycemic drugs; Z79.02 Long term (current) use of antithrombotics/antiplatelets; Z79.4 Long term (current) use of insulin; Z79.82 Long term (current) use of aspirin; Z79.51 Long term (current) use of inhaled steroids; Z79.899 Other long term (current) drug therapy; Z79.2 Long term (current) use of antibiotics; Z86.14 Personal history of Methicillin resistant Staphylococcus aureus infection; Z88.6 Allergy status to analgesic agent; Z88.1 Allergy status to other antibiotic agents; Z88.5 Allergy status to narcotic agent; Z88.8 Allergy status to other drugs, medicaments and biological substances; Z88.2 Allergy status to sulfonamides; Z87.891 Personal history of nicotine dependence
CPT/HCPCS: 94640 ×4; 80048; 85025; C9600; C9601; C1769 ×3; C1725 ×4; C1887; C1894; C1874 ×2; J2001; J2250; J1200; Q9967; J0583

== ENCOUNTER 2017-12-08 10:34 | Day surgery (SDC) | payer MEDICARE, BC ==
[2017-12-07 09:28] VITALS: BMI 26.6
[~2017-12-08 10:34] MED LIST changes: +ALBUTEROL NEB (CONC) 2.5 MG/0.5 ML INHALATION ONE; -ALPRAZolam 0.25 MG TAB PO PRN; +ATROPINE SULFATE 0.4 MG/ML 1 ML VIAL IM ONE; +LACTATED RINGERS 1,000 ML IV ONE; +LACTATED RINGERS 1,000 ML IV SCH; +LIDOCAINE 2% (PF) 20 MG/ML 2 ML AMP INHALATION ONE; +Pre Op ABX Message 1 EACH MISC MISCELLANE ONE; -SODIUM CHLORIDE 0.9% 1,000 ML in EMPTY BAG 1 BAG IV ONE
[2017-12-08 11:27] LABS: Glucose,Whole Blood 135 mg/dL (75-99)
[2017-12-08 11:28] VITALS: TEMP 98
[2017-12-08] MEDS ORDERED: LIDOCAINE 1% 20 ML VIAL (10MG/ML) FOR IV START INTRADERMA ONE (11:28)
[2017-12-08] MEDS ORDERED: PROPOFOL 10 MG/ML 20 ML VIAL IV ONE (12:00)
[2017-12-08] MEDS ORDERED: LIDOCAINE 2% INJ 20 MG/ML INTRATRACH ONE ×2 (12:07→12:10)
[2017-12-08 12:27] VITALS: BP 98/54
[2017-12-08 12:45] VITALS: PULSE 80; RESP 18
[2017-12-08 14:26] LABS: Appearance,BF Hazy; Nucleated Cells, Body Fluid 1100 /uL
[2017-12-08 14:27] LABS: RBC, Body Fluid 4660 /uL
[2017-12-08 14:30] LABS: Mononuclear WBC,Body Fluid 10 %; Polynuclear WBC,Body Fluid 90 %; Total Cells Counted,Body Fluid 100
--- NOTE | 2017-12-08 18:11 | PCN ---
PROCEDURE NOTE PROCEDURE: Bronchoscopy, airway examination, therapeutic lavage, BAL right middle lobe. PREOPERATIVE DIAGNOSES: 1. Severe asthma. 2. Tracheobronchomalacia. 3. Bronchiectasis. 4. Right middle lobe syndrome. POSTOPERATIVE DIAGNOSES: 1. Severe asthma. 2. Tracheobronchomalacia. 3. Bronchiectasis. 4. Right middle lobe syndrome. ULTRA SOUND TECHNICIAN provided unconscious sedation with general anesthesia. The patient's procedure was done in room #2. There was universal timeout and informed consent. DESCRIPTION OF PROCEDURE: After the patient was adequately sedated and being fully monitored, the bronchoscope was inserted through the right nostril. It passed through the right nasopharynx into the oropharynx. The hypopharynx was identified. There were some secretions noted in the hypopharynx. The anterior commissure, true cords, false cords, arytenoids, piriform sinuses, right and left valleculae all appeared normal. After topicalization, the bronchoscope was placed through the glottic opening into the trachea. There was a severe degree of tracheomalacia. There were secretions noted throughout the trachea. They were yellow and thick. They were suctioned with some difficulty. There was no bleeding. There was no dominant mass. The tracheal callie was sharp. The right and left mainstem were topicalized. The right upper lobe and its 3 segments, right middle lobe and its 2 segments, the right lower lobe and its 5 segments, the left upper lobe proper and its 2 segments, the lingula and its 2 segments and the left lower lobe and its 4 segments all had similar findings of diffuse moderate to severe bronchitis. There was diffuse erythema and hyperemia of the airways. The airways were friable. They bled easily. There were secretions noted throughout. They were yellow and thick. There was no dominant mass or lesion. The airways were suctioned with saline assistance. Next the bronchoscope was wedged into the right middle lobe. The BAL took place. The patient tolerated the procedure well. After all the secretions were suctioned, the bronchoscope was withdrawn. There was no immediate complication. The patient will be taken next door to be recovered. MMODL / IJN: [id number] /
== END 2017-12-08 12:57 | disposition home or self-care (01) ==
LOC: ORWHC2ENDO 10:34
PROVIDERS: ATTEND Internal Medicine Critical Care Medicine
DX: J45.909 Unspecified asthma, uncomplicated (principal); J98.09 Other diseases of bronchus, not elsewhere classified; J47.9 Bronchiectasis, uncomplicated; J98.19 Other pulmonary collapse; I25.10 Atherosclerotic heart disease of native coronary artery without angina pectoris; Z95.5 Presence of coronary angioplasty implant and graft; R60.9 Edema, unspecified; I10 Essential (primary) hypertension; D50.9 Iron deficiency anemia, unspecified; E11.9 Type 2 diabetes mellitus without complications; K21.9 Gastro-esophageal reflux disease without esophagitis; I25.2 Old myocardial infarction; Z88.1 Allergy status to other antibiotic agents; Z88.5 Allergy status to narcotic agent; Z79.02 Long term (current) use of antithrombotics/antiplatelets; Z79.4 Long term (current) use of insulin; Z79.51 Long term (current) use of inhaled steroids; Z79.899 Other long term (current) drug therapy; Z79.84 Long term (current) use of oral hypoglycemic drugs; Z87.891 Personal history of nicotine dependence
CPT/HCPCS: 94640; 88108; 88305; 89050; 87252; 87070; 87205; 87116; 87102; 87206; 31624; J2001 ×2; J2704; 87077; 87186; 87496; 87498; 87502; 87529; 87634; 87798

== ENCOUNTER → 2017-12-11 | Day surgery (SDC) | payer MEDICARE, BC ==
[~2017-12-11] MED LIST changes: -ALBUTEROL NEB (CONC) 2.5 MG/0.5 ML INHALATION ONE; -ATROPINE SULFATE 0.4 MG/ML 1 ML VIAL IM ONE; -LACTATED RINGERS 1,000 ML IV ONE; -LACTATED RINGERS 1,000 ML IV SCH; -LIDOCAINE 2% (PF) 20 MG/ML 2 ML AMP INHALATION ONE; +LIDOCAINE 2% INJ 20 MG/ML SQ ONE; +MEROPENEM 1 GM in SODIUM CHLORIDE 0.9% 100 ML IVPB STA; -Pre Op ABX Message 1 EACH MISC MISCELLANE ONE
[2017-12-11 11:00] VITALS: BP 156/83; PULSE 87; RESP 20; TEMP 98.1
--- NOTE | 2017-12-11 12:58 | IR ---
PICC LINE PLACEMENT: HISTORY: Infection requiring long-term antibiotic therapy PROCEDURE: Ultrasound and fluoroscopic guidance of PICC line placement. COMPLICATIONS: None ANESTHESIA: 1. 1% Lidocaine locally. FINDINGS/TECHNIQUE: The procedure was explained to the patient. The risks, complications, benefits and alternatives were discussed and any questions were answered. Informed consent was obtained. The patient was placed supine on the fluoroscopic table and prepped and draped in the usual sterile [facility] ion. Utilizing a 21 gauge needle and sonographic and fluoroscopic guidance, access in the vein was achieved and there is placement of a 0.018 guidewire. The vein is patent. A 4-F sheath was placed o edda the guidewire. The guidewire and dilator were removed and a 4-F. PICC line was placed through th e sheath with the tip at the level of the SVC. The sheath was removed, the catheter was flushed and sutured into position. The patient was stable throughout the procedure and remained stable upon disc harge from the Department of Radiology. The vein puncture was patent under ultrasound. A holliday scale image was obtained to document patency of the vein punctured. All elements of the maximal barrier technique were utilized. FLUOROSCOPY TIME: 1.2 minutes, one image submitted IMPRESSION: Successful PICC line placement under ultrasound and fluoroscopic guidance.
== END ==
LOC: CATHCVL 10:29
PROVIDERS: ATTEND Radiology Diagnostic Radiology
DX: J47.9 Bronchiectasis, uncomplicated (principal); B96.5 Pseudomonas (aeruginosa) (mallei) (pseudomallei) as the cause of diseases classified elsewhere; J98.09 Other diseases of bronchus, not elsewhere classified; J98.19 Other pulmonary collapse; J45.909 Unspecified asthma, uncomplicated; I25.10 Atherosclerotic heart disease of native coronary artery without angina pectoris; I10 Essential (primary) hypertension; E11.9 Type 2 diabetes mellitus without complications; D50.9 Iron deficiency anemia, unspecified; I25.2 Old myocardial infarction; Z95.5 Presence of coronary angioplasty implant and graft; Z79.02 Long term (current) use of antithrombotics/antiplatelets; Z79.899 Other long term (current) drug therapy; Z79.84 Long term (current) use of oral hypoglycemic drugs; Z79.4 Long term (current) use of insulin; Z88.1 Allergy status to other antibiotic agents; Z88.5 Allergy status to narcotic agent; Z87.891 Personal history of nicotine dependence
CPT/HCPCS: 36569; 76937; 77001; C1751; C1769 ×2; J2001; J2185

== ENCOUNTER 2018-02-19 10:20 | Day surgery (SDC) | payer MEDICARE, BC ==
[2018-02-16 14:21] VITALS: BMI 28.1
[~2018-02-19 10:20] MED LIST changes: +LACTATED RINGERS 1,000 ML IV SCH; -LIDOCAINE 2% INJ 20 MG/ML SQ ONE; -MEROPENEM 1 GM in SODIUM CHLORIDE 0.9% 100 ML IVPB STA; +Pre Op ABX Message 1 EACH MISC MISCELLANE ONE
[2018-02-19 10:51] VITALS: TEMP 97.1
[2018-02-19] MEDS ORDERED: LIDOCAINE 1% 20 ML VIAL (10MG/ML) FOR IV START INTRADERMA ONE (10:51)
[2018-02-19 10:54] LABS: Glucose,Whole Blood 107 mg/dL (75-99)
[2018-02-19] MEDS ORDERED: LIDOCAINE 2% (PF) 20 MG/ML 2 ML AMP INHALATION ONE (10:54)
[2018-02-19] MEDS ORDERED: PROPOFOL 10 MG/ML 20 ML VIAL IV ONE (11:29)
[2018-02-19] MEDS ORDERED: LIDOCAINE 1% INJ 10MG/ML (20 ML MDV) ONE (11:29)
[2018-02-19] MEDS ORDERED: MIDAZOLAM 2 MG/2 ML VIAL ONE (11:29)
[2018-02-19] MEDS ORDERED: GLYCOPYRROLATE 0.2 MG/ML 2 ML VIAL ONE (11:29)
[2018-02-19] MEDS ORDERED: KETAMINE 10 MG/ML 20 ML VIAL ONE (11:29)
[2018-02-19] MEDS ORDERED: LIDOCAINE 1% INJ 10MG/ML (20 ML MDV) INTRATRACH ONE (11:46)
[2018-02-19] MEDS ORDERED: ALBUTEROL NEB (CONC) 2.5 MG/0.5 ML INHALATION SCH (12:00)
--- NOTE | 2018-02-19 12:01 | PCN ---
PROCEDURE NOTE PROCEDURE NOTE: Bronchoscopy, airway examination, therapeutic lavage, BAL right middle lobe. PREOPERATIVE DIAGNOSIS: Retained secretions, asthma, bronchiectasis, and tracheobronchomalacia. POSTOPERATIVE DIAGNOSIS: Retained secretions, asthma, bronchiectasis, and tracheobronchomalacia. Dr. Joshi and nurse practitioner provided unconscious sedation and general anesthesia. The patient's procedure took place in room #1. There was informed consent and universal timeout. The operators were Dr. Armstrong and Dr. Pak. After the patient was adequately sedated and being fully monitored, the bronchoscope was inserted through the right nostril. It passed through the right nasopharynx into the oropharynx. The hypopharynx was identified and topicalized. The hypopharyngeal structures including anterior commissure, true cords, false cords, arytenoids, piriform sinuses, right and left vallecula and epiglottis all appeared relatively normal. After topicalization, the bronchoscope was pushed through the glottic opening into the trachea. Trachea appeared normal. Trachea callie was sharp. There were thick secretions noted in the mid to distal trachea. Next, after topicalization of the right and left mainstem, the right upper lobe and its 3 segments, right middle lobe and its 2 segments, right lower lobe and its 5 segments, left upper lobe proper and its 2 segments, lingula and its 2 segments and left lower lobe and its 4 segments were evaluated. Findings were similar, although secretion load was much greater in the right lower lobe. Anyway, there was diffuse bronchitis. There was mild to diffuse erythema and hyperemia of the airways. No dominant mass or tumor. Secretions were noted throughout. They were much thicker and much more significant quantity in the right middle lobe and right lower lobe. Next, the bronchoscope was wedged into the right middle lobe. The BAL took place. There was no immediate complication. Additional secretions were suctioned with the aid of saline lavage. Subsequent to that, the bronchoscope was withdrawn. There was no immediate complication. The patient will be recovered. MMODL / IJN: [id number] /
[2018-02-19 12:19] VITALS: BP 128/89; PULSE 89; RESP 18
[2018-02-19 12:27] LABS: Glucose,Whole Blood 105 mg/dL (75-99)
[2018-02-19 14:54] LABS: Appearance,BF Cloudy; Nucleated Cells, Body Fluid 840 /uL; RBC, Body Fluid 6490 /uL
[2018-02-19 14:59] LABS: Mononuclear WBC,Body Fluid 10 %; Polynuclear WBC,Body Fluid 90 %; Total Cells Counted,Body Fluid 100
== END 2018-02-19 12:36 | disposition home or self-care (01) ==
LOC: ORWHC2ENDO 10:20
PROVIDERS: ATTEND Internal Medicine Critical Care Medicine
DX: J47.9 Bronchiectasis, uncomplicated (principal); J39.8 Other specified diseases of upper respiratory tract; J98.19 Other pulmonary collapse; I25.2 Old myocardial infarction; E11.9 Type 2 diabetes mellitus without complications; I25.10 Atherosclerotic heart disease of native coronary artery without angina pectoris; I10 Essential (primary) hypertension; J98.11 Atelectasis; Z95.5 Presence of coronary angioplasty implant and graft; Z79.82 Long term (current) use of aspirin; Z79.899 Other long term (current) drug therapy; Z88.6 Allergy status to analgesic agent; Z88.5 Allergy status to narcotic agent; Z88.1 Allergy status to other antibiotic agents; Z88.3 Allergy status to other anti-infective agents; Z79.02 Long term (current) use of antithrombotics/antiplatelets; Z79.51 Long term (current) use of inhaled steroids; Z79.84 Long term (current) use of oral hypoglycemic drugs; Z87.891 Personal history of nicotine dependence
CPT/HCPCS: 94640; 87798 ×3; 87496; 87498; 87529 ×2; 88108; 88305; 89050; 87252; 87502; 87634; 87070; 87205; 87116; 87102; 87077; 87186; 87206; 31624; J2250; J2001 ×2; J2704

== ENCOUNTER → 2018-02-24 | Day surgery (SDC) | payer MEDICARE, BC ==
[2018-02-23 11:06] VITALS: BMI 28.1
[~2018-02-24] MED LIST changes: +HEPARIN SODIUM 1,000 UN/ML (10ML VL) ONE; -LACTATED RINGERS 1,000 ML IV SCH; +LIDOCAINE 2% SYG (PF) 100 MG/5 ML MISCELLANE ONE; +MEROPENEM 1 GM in SODIUM CHLORIDE 0.9% 100 ML IVPB ONE; -Pre Op ABX Message 1 EACH MISC MISCELLANE ONE
[2018-02-24 13:56] VITALS: RESP 18; TEMP 98.2
[2018-02-24 13:59] LABS: Glucose,Whole Blood 131 mg/dL (75-99)
[2018-02-24 14:06] LABS: Basophils % (A) 0 %; Eosinophils # (A) 0.2 k/uL (0-0.7); Eosinophils % (A) 2 %; HCT 40.8 % (39.0-53.0); HGB 13.3 gm/dL (13.0-17.5); Lymphocytes # (A) 1.2 k/uL (1.0-4.8); Lymphocytes % (A) 13 %; MCH 31.8 pg (25.0-35.0); MCHC 32.5 g/dL (31.0-37.0); MCV 97.9 fL (80.0-100.0); Mean Platelet Volume 7.4; Monocytes # (A) 0.5 k/uL (0-1.0); Monocytes % (A) 5 %; Neutrophils # (A) 7.5 k/uL (1.3-7.7); Neutrophils % (A) 79 %; Platelet Count 166 k/uL (150-450); RBC 4.17 m/uL (4.30-5.90); RDW 14.8 % (11.5-15.5); WBC 9.5 k/uL (3.8-10.6)
[2018-02-24 14:14] LABS: Potassium 4.1 mmol/L (3.5-5.1)
[2018-02-24 15:40] VITALS: BP 138/84; PULSE 74
--- NOTE | 2018-02-25 12:13 | IR ---
PICC LINE PLACEMENT: HISTORY: Infection requiring long-term antibiotic therapy PROCEDURE: Ultrasound and fluoroscopic guidance of PICC line placement. COMPLICATIONS: None ANESTHESIA: 1. 1% Lidocaine locally. FINDINGS/TECHNIQUE: The procedure was explained to the patient. The risks, complications, benefits and alternatives were discussed and any questions were answered. Informed consent was obtained. The patient was placed supine on the fluoroscopic table and prepped and draped in the usual sterile [facility] ion. Utilizing a 21 gauge needle and sonographic and fluoroscopic guidance, access in the vein was achieved and there is placement of a 0.018 guidewire. The vein is patent. A 4-F sheath was placed o edda the guidewire. The guidewire and dilator were removed and a 4-F. PICC line was placed through th e sheath with the tip at the level of the SVC. The sheath was removed, the catheter was flushed and sutured into position. The patient was stable throughout the procedure and remained stable upon disc harge from the Department of Radiology. The vein puncture was patent under ultrasound. A ohlliday scale image was obtained to document patency of the vein punctured. All elements of the maximal barrier technique were utilized. FLUOROSCOPY TIME: 0.5 minutes, one image submitted IMPRESSION: Successful PICC line placement under ultrasound and fluoroscopic guidance.
== END ==
LOC: CATHCVL 13:10
PROVIDERS: ATTEND Radiology Diagnostic Radiology
DX: J47.9 Bronchiectasis, uncomplicated (principal); J98.19 Other pulmonary collapse; J98.09 Other diseases of bronchus, not elsewhere classified; J39.8 Other specified diseases of upper respiratory tract; E11.9 Type 2 diabetes mellitus without complications; D50.9 Iron deficiency anemia, unspecified; I10 Essential (primary) hypertension; I25.10 Atherosclerotic heart disease of native coronary artery without angina pectoris; R60.9 Edema, unspecified; I25.2 Old myocardial infarction; Z95.5 Presence of coronary angioplasty implant and graft; Z79.02 Long term (current) use of antithrombotics/antiplatelets; Z79.82 Long term (current) use of aspirin; Z79.51 Long term (current) use of inhaled steroids; Z79.899 Other long term (current) drug therapy; Z79.4 Long term (current) use of insulin; Z88.6 Allergy status to analgesic agent; Z88.1 Allergy status to other antibiotic agents; Z88.5 Allergy status to narcotic agent; Z88.2 Allergy status to sulfonamides; Z87.891 Personal history of nicotine dependence
CPT/HCPCS: 36569; 76937; 77001; 80051; 82565; 84520; 85025; C1751; C1769; J2001; J2185

== ENCOUNTER → 2018-03-04 | Outpatient (CLI) | payer MEDICARE, BC ==
--- NOTE | 2018-03-04 10:30 | XR ---
EXAMINATION TYPE: XR chest 2V DATE OF EXAM: 03/04/2018 COMPARISON: 08/30/2017 HISTORY: 77-year-old male Port-A-Cath malfunction, preop exam TECHNIQUE: Frontal and lateral views FINDINGS: Right anterior chest wall injection port with catheter looped in the internal jugular vein. Left PICC tip at the lower SVC level. Heart normal size. Mild elongation thoracic aorta. Mild diffuse intersti tial prominence unchanged. Strandy atelectasis at both lung bases. No consolidation or pleural effusi on. IMPRESSION: 1. Right-sided injection port catheter looped multiple times in the internal jugular vein region, sim ilar to 08/30/2017. 2. Left PICC tip in the lower SVC. 3. Chronic changes with strandy bibasilar atelectasis.
== END | disposition home or self-care (01) ==
LOC: RADXRMAIN 09:57
PROVIDERS: ATTEND Surgery
DX: J98.11 Atelectasis (principal); Z98.890 Other specified postprocedural states; T82.9XXA Unspecified complication of cardiac and vascular prosthetic device, implant and graft, initial encounter
CPT/HCPCS: 71046

== ENCOUNTER 2018-05-12 06:00 | Day surgery (SDC) | payer MEDICARE, BC ==
[2018-05-06 11:56] VITALS: BMI 29.2
[~2018-05-12 06:00] MED LIST changes: -HEPARIN SODIUM 1,000 UN/ML (10ML VL) ONE; +HEPARIN SODIUM,PORCINE 5,000 UNIT/ML 1 ML VIAL SQ ONE; -LIDOCAINE 2% SYG (PF) 100 MG/5 ML MISCELLANE ONE; -MEROPENEM 1 GM in SODIUM CHLORIDE 0.9% 100 ML IVPB ONE; +Pre Op ABX Message 1 EACH MISC MISCELLANE ONE
[2018-05-12] MEDS ORDERED: ONDANSETRON 4 MG/2 ML VIAL IVP ONE (06:09)
[2018-05-12] MEDS ORDERED: SCOPOLAMINE 1.5MG/72HR PATCH TRANSDERM ONE (06:09)
[2018-05-12] MEDS ORDERED: MIDAZOLAM 2 MG/2 ML VIAL IV PRN (06:09)
[2018-05-12] MEDS ORDERED: LACTATED RINGERS 1,000 ML IV SCH (06:09)
[2018-05-12] MEDS ORDERED: LIDOCAINE 1% 20 ML VIAL (10MG/ML) FOR IV START INTRADERMA PRN (06:09)
[2018-05-12] MEDS ORDERED: DEXAMETHASONE SOD PHOSPHATE 10 MG/ML 1 ML VIAL IV ONE (06:09)
[2018-05-12] MEDS ORDERED: HYDROmorphone 0.5 MG/0.5 ML SYRINGE IVP PRN (06:09)
[2018-05-12 06:23] VITALS: TEMP 97.9
[2018-05-12 06:34] LABS: Glucose,Whole Blood 139 mg/dL (75-99)
[2018-05-12] MEDS ORDERED: LACTATED RINGERS 1,000 ML IV ONE (06:42)
--- NOTE | 2018-05-12 07:54 | P.GSHP ---
History of Present Illness H&P Date: 05/12/18 Chief Complaint: Malfunctioning Port-A-Cath Patient here today for Port-A-Cath removal and replacement. Patient's Port-A- Cath was placed over a year ago. Shortly after placement the catheter was noted to extend from the insertion site in the neck proximally into the distal IJ. He believes is related to a vibrating vest he was wearing. He requires the catheter chronically for frequent antibiotic use. 8 [place] catheter preferred. Past Medical History Past Medical History: Asthma, Coronary Artery Disease (CAD), Cancer, COPD, Diabetes Mellitus, GERD/Reflux, Hypertension, Myocardial Infarction (DE), Respiratory Disorder, Skin Disorder Additional Past Medical History / Comment(s): Bronchiectasis, acquired bronchomalacia, recurrent pseudomonal infections, right middle lobe syndrome, skin cancer of the nose and lip, pt has dry thin fragile skin please use paper tape only. Last Myocardial Infarction Date:: 08/25/17 History of Any Multi-Drug Resistant Organisms: MRSA Date of last positivie culture/infection: 08/13/2012 MDRO Source:: SPUTUM Past Surgical History: Heart Catheterization With Stent, Hernia Repair, Orthopedic Surgery Additional Past Surgical History / Comment(s): PORT RT. CHEST, PREVIOUS BRONCHOSCOPIES, Rt Foot(Achilles) Surgery, Sinus Surgery x 3, Picc line/later removed,skin cancer removed from lower lip & nose- removal of part of lower lip with reconstruction, ray cataracts with lens implants, umbilical hernia, 3 cardiac stents placed on 08/26/17 and 2 stents 09/14/17 Past Anesthesia/Blood Transfusion Reactions: No Reported Reaction Additional Past Anesthesia/Blood Transfusion Reaction / Comment(s): . Date of Last Stent Placement:: 09/24/17 Smoking Status: Former smoker - Past Family History Mother Family Medical History: Deep Vein Thrombosis (DVT) Father Family Medical History: Osteoarthritis (OA) Sister(s) Family Medical History: Cancer, Deep Vein Thrombosis (DVT) Additional Family Medical History / Comment(s): one sister with colon ca- then went to lung & brain, Medications and Allergies Home Medications Medication Instructions Recorded Confirmed Type Albuterol Inhaler [Ventolin Hfa 2 puff INHALATION Q4HR PRN 01/05/14 05/06/18 History Inhaler] Linagliptin [Tradjenta] 5 mg PO DAILY 01/05/14 05/06/18 History Omeprazole [PriLOSEC] 20 mg PO BID 01/05/14 05/06/18 History Ipratropium-Albuterol Nebulize 3 ml INHALATION QID PRN 04/03/15 05/06/18 History [Duoneb 0.5 mg-3 mg/3 ml Soln] Fluticasone Propionate [Flovent 2 puff INHALATION BID 08/08/15 05/06/18 History Hfa 220MCG] Salmeterol Xinafoate [Serevent 1 puff INHALATION BID 10/13/15 05/06/18 History Diskus] Furosemide [Lasix] 80 mg PO HS 01/19/17 05/06/18 History Hydrocortisone Pr Cream 1 applic RECTAL TID PRN 01/19/17 05/06/18 History [Proctosol-Hc 2.5%] Nystatin 100,000 Unit/ml Susp 500,000 unit PO QID PRN 01/19/17 05/06/18 History [Mycostatin Oral Susp] Mometasone Furoate [Asmanex Hfa] 2 puff INHALATION DAILY 07/01/17 05/06/18 History Aspirin 81 mg PO DAILY #30 chew 08/27/17 05/06/18 Rx Atorvastatin [Lipitor] 40 mg PO DAILY #30 tab 08/27/17 05/06/18 Rx Clopidogrel [Plavix] 75 mg PO DAILY #30 tab 08/27/17 05/06/18 Rx Losartan [Cozaar] 25 mg PO DAILY #30 tab 08/27/17 05/06/18 Rx Metoprolol Succinate (ER) [Toprol 50 mg PO DAILY #30 tab.er.24h 08/27/17 Rx XL] Nitroglycerin Sl Tabs [Nitrostat] 0.4 mg SUBLINGUAL Q5M PRN #25 tab 08/27/17 Rx Insulin Degludec [Tresiba 30 unit SQ AC-BRKFST 09/09/17 05/06/18 History Flextouch U-100] Exenatide Microspheres [Bydureon 2 mg SQ TU 12/07/17 05/06/18 History Pen] Mometasone Furoate [Nasonex Nasal 2 spr EA NOSTRIL DAILY PRN 12/11/17 05/06/18 History [place]] Azithromycin 250 mg PO MOWEFR 05/06/18 05/06/18 History Allergies Allergy/AdvReac Type Severity Reaction Status Date / Time NUNU Inhibitors Allergy Dyspnea Verified 05/06/18 11:50 adhesive tape Allergy skin Verified 05/06/18 11:50 irritations aspirin Allergy Dyspnea Verified 05/06/18 11:50 levofloxacin [From Levaquin] Allergy "HAD Verified 05/06/18 11:50 RUPTURED TENDON" Milk Containing Products Allergy WAS TESTED Verified 05/06/18 11:50 [Dairy] & TOLD ALLERGIC NSAIDS (Non-Steroidal Allergy Dyspnea Verified 05/06/18 11:50 Anti-Inflamma Sulfa (Sulfonamide Allergy Rash/Hives Verified 05/06/18 11:50 Antibiotics) cephalexin [Cephalexin] AdvReac Nausea & Verified 05/06/18 11:50 Vomiting codeine phosphate AdvReac Vomiting Verified 05/06/18 11:50 [From Tylenol-Codeine #3] erythromycin base AdvReac Abdominal Verified 05/06/18 11:50 [Erythromycin Base] Pain prednisone AdvReac yeast Verified 05/06/18 11:50 infection of vocal cords Surgical - Exam Vital Signs Temp Pulse Resp BP Pulse Ox 97.9 F 77 18 139/81 95 05/12/18 06:22 05/12/18 06:22 05/12/18 06:22 05/12/18 06:22 05/12/18 06:22 Physical exam: General: Well-developed, well-nourished HEENT: Normocephalic, sclerae nonicteric Abdomen: Nontender, nondistended Extremities: No edema Neuro: Alert and oriented Results - Labs Abnormal Lab Results - Last 24 Hours (Table) 05/12/18 Range/Units 06:32 POC Glucose (mg/dL) 139 H (75-99) mg/dL Assessment and Plan (1) Poor intravenous access Narrative/Plan: Will proceed with Port-A-Cath removal and replacement at this time. Risks of bleeding, infection, DVT, pneumothorax, catheter malfunction, anesthesia related complications were discussed. The patient understands and wishes to proceed. Current Visit: No Status: Acute Code(s): Z78.9 - OTHER SPECIFIED HEALTH STATUS SNOMED Code(s): 638091958
[2018-05-12] MEDS ORDERED: LIDOCAINE 1% INJ 10MG/ML (20 ML MDV) ONE (08:07)
[2018-05-12] MEDS ORDERED: PROPOFOL 10 MG/ML 20 ML VIAL IV ONE (08:07)
[2018-05-12] MEDS ORDERED: MIDAZOLAM 2 MG/2 ML VIAL ONE (08:07)
[2018-05-12] MEDS ORDERED: SODIUM CHLORIDE 0.9% 50 ML with CLINDAMYCIN 600 MG IV ONE ×2 (08:20)
[2018-05-12] MEDS ORDERED: LIDOCAINE 1% (PF) 10 MG/ML (30 ML SDV) SQ ONE (08:23)
[2018-05-12] MEDS ORDERED: LIDOCAINE 1% INJ 10MG/ML (20 ML MDV) SQ ONE (08:23)
--- NOTE | 2018-05-12 09:05 | FL ---
Fluoroscopy INDICATION: Pain FINDINGS: Fluoroscopy time: 32 seconds. Images obtained: 1. IMPRESSIONS: 1. Documentation of fluoroscopy.
[2018-05-12] MEDS ORDERED: NALOXONE 0.4 MG/ML 1 ML VIAL IV PRN (09:15)
--- NOTE | 2018-05-12 09:18 | P.OP ---
Date of Procedure: 05/12/18 Procedure(s) Performed: PREOPERATIVE DIAGNOSIS: Chronic lung infection with poor IV access, Port-A-Cath malfunction POSTOPERATIVE DIAGNOSIS: Same PROCEDURE: Port-A-Cath removal and replacement SURGEON: Kaila EBL: Minimal ANESTHESIA: Sedation COMPLICATIONS: None OPERATIVE PROCEDURE: Patient was placed in the supine position. The patient was sedated per anesthesia that time. The chest was prepped and draped in the usual sterile fashion. The skin was localized with Marcaine solution. The previous incision was re-incised using a scalpel. The port was easily excised using accommodation of blunt dissection sharp dissection and electrocautery. The ultrasound probe was used to identify the location of the right internal jugular vein. The skin was localized with lidocaine. The size of the right internal jugular vein was extremely small. I was able to access this using the Seldinger needle needle with the ultrasound guidance however I was unable to advance the guidewire. This appeared to be chronically partially occluded. I decided at that point to move the left chest. The left neck was evaluated using the ultrasound probe. The course of the left IJ was identified. The Seldinger needle was advanced into the left IJ under ultrasound guidance. The wire was advanced through the needle under fluoroscopic guidance into the superior vena cava. A port pocket was created in the left infraclavicular location. The catheter was tunneled from the wire entrance site to the port pocket. The port was then connected to the catheter. The dilator introducer was threaded over the guidewire. The guidewire and dilator were then removed. The catheter was advanced through the introducer and introducer was then removed. The tip was seen to be in the right atrial junction. Port was flushed with both saline and a Hep-Lock solution. There was good flow both in and out of the port. The port was sutured in underlying tissues using 3-0 silk sutures. The subcutaneous tissues were reapproximated using 3-0 Vicryl sutures and the skin at both locations using 4-0 Monocryl sutures. Steri-Strips and sterile dressings then applied. DISPOSITION: Stable to recovery room
[2018-05-12 09:36] VITALS: BP 119/74; PULSE 69; RESP 16
== END 2018-05-12 10:08 | disposition home or self-care (01) ==
LOC: OR 06:00
PROVIDERS: ATTEND Surgery
DX: T85.618A Breakdown (mechanical) of other specified internal prosthetic devices, implants and grafts, initial encounter (principal); A49.8 Other bacterial infections of unspecified site; J47.9 Bronchiectasis, uncomplicated; I25.10 Atherosclerotic heart disease of native coronary artery without angina pectoris; I10 Essential (primary) hypertension; Z87.891 Personal history of nicotine dependence; J98.19 Other pulmonary collapse; E11.9 Type 2 diabetes mellitus without complications; K21.9 Gastro-esophageal reflux disease without esophagitis; I25.2 Old myocardial infarction; Z86.14 Personal history of Methicillin resistant Staphylococcus aureus infection; Z79.2 Long term (current) use of antibiotics; Z79.4 Long term (current) use of insulin; Z79.51 Long term (current) use of inhaled steroids; Z79.899 Other long term (current) drug therapy
CPT/HCPCS: 77001; 36590; 36561; 76937; C1788; J2250; J1644; J1100; J2405; J2001; J1642; J2704

== ENCOUNTER 2018-06-03 09:47 | Day surgery (SDC) | payer MEDICARE, BC ==
[2018-06-01 11:31] VITALS: BMI 29.6
[~2018-06-03 09:47] MED LIST changes: +ALBUTEROL NEB (CONC) 2.5 MG/0.5 ML INHALATION ONE; +ATROPINE SULFATE 0.4 MG/ML 1 ML VIAL IM ONE; -HEPARIN SODIUM,PORCINE 5,000 UNIT/ML 1 ML VIAL SQ ONE; +LACTATED RINGERS 1,000 ML IV ONE; +LACTATED RINGERS 1,000 ML IV SCH; +LIDOCAINE 2% (PF) 20 MG/ML 2 ML AMP INHALATION ONE; +LIDOCAINE VISCOUS 300 MG/15 ML CUP MUCOUS MEM NR; -Pre Op ABX Message 1 EACH MISC MISCELLANE ONE
[2018-06-03] MEDS ORDERED: LIDOCAINE 1% 20 ML VIAL (10MG/ML) FOR IV START INTRADERMA ONE (10:13)
[2018-06-03 10:14] VITALS: RESP 18; TEMP 97.7
[2018-06-03 10:18] LABS: Glucose,Whole Blood 95 mg/dL (75-99)
[2018-06-03] MEDS ORDERED: KETAMINE 10 MG/ML 20 ML VIAL ONE (11:08)
[2018-06-03] MEDS ORDERED: MIDAZOLAM 2 MG/2 ML VIAL ONE (11:08)
[2018-06-03] MEDS ORDERED: GLYCOPYRROLATE 0.2 MG/ML 2 ML VIAL ONE (11:08)
[2018-06-03] MEDS ORDERED: LIDOCAINE 1% INJ 10MG/ML (20 ML MDV) ONE (11:08)
[2018-06-03] MEDS ORDERED: PROPOFOL 10 MG/ML 20 ML VIAL IV ONE (11:08)
[2018-06-03] MEDS ORDERED: LIDOCAINE 2% INJ 20 MG/ML INTRATRACH ONE (11:16)
[2018-06-03 11:41] VITALS: BP 119/71; PULSE 88
--- NOTE | 2018-06-03 11:52 | PCN ---
PROCEDURE NOTE PROCEDURE: Bronchoscopy, airway examination, therapeutic lavage, and BAL right middle lobe. PREOPERATIVE DIAGNOSIS: Chronic obstructive pulmonary disease/asthma, retained secretions, tracheobronchomalacia, right middle lobe syndrome. POSTOPERATIVE DIAGNOSIS: Chronic obstructive pulmonary disease/asthma, retained secretions, tracheobronchomalacia, right middle lobe syndrome. OPERATORS: Dr. Armstrong and Dr. Pak. The ORDER BOOKER provided IV unconscious sedation and general anesthesia. PROCEDURE: There was informed consent. There was universal timeout. After the patient was adequately sedated and being fully monitored, the bronchoscope was inserted through the right nostril. It passed through the right nasopharynx into the oropharynx. The hypopharynx was identified and topicalized. There were some secretions noted in the piriform sinuses bilaterally. The hypopharynx looked otherwise normal. The anterior commissure, true cords, false cords, arytenoids, piriform sinuses, right and left vallecula and epiglottis all appeared relatively normal. After topicalization, the bronchoscope was pushed through the glottic opening into the trachea. The trachea appeared relatively normal. There was some collapsibility to the trachea. Tracheal callie was sharp. There was some thick yellow secretions noted in the mid to distal trachea. The right and left mainstem were topicalized. After topicalization, the left upper lobe proper and its 2 segments, the lingula and its 2 segments, the left lower lobe and its 4 segments, the right upper lobe and its 3 segments, the right middle lobe and its 2 segments and the right lower lobe and its 5 segments were evaluated. The patient had diffuse similar findings throughout including erythema, hyperemia, mucosal friability, engorged blood vessels and thick yellow-green secretions noted throughout. After topicalization, the bronchoscope was wedged into the right middle lobe. The BAL took place. The patient tolerated the procedure well. The fluid will be sent for analysis. Additional secretions were suctioned with the aid of the saline lavage. After the procedure was performed and all the secretions were removed, the bronchoscope was withdrawn. The patient will be recovered. There was no immediate complication. SCOTT / JERALDN: [id number] /
[2018-06-03 17:40] LABS: Appearance,BF Hazy; Color,BF Colorless; Nucleated Cells, Body Fluid 1195 /uL; RBC, Body Fluid 290 /uL
[2018-06-03 17:43] LABS: Mononuclear WBC,Body Fluid 3 %; Polynuclear WBC,Body Fluid 97 %; Total Cells Counted,Body Fluid 100
== END 2018-06-03 12:05 | disposition home or self-care (01) ==
LOC: ORWHC2ENDO 09:47
PROVIDERS: ATTEND Internal Medicine Critical Care Medicine
DX: J47.9 Bronchiectasis, uncomplicated (principal); J98.09 Other diseases of bronchus, not elsewhere classified; Z88.6 Allergy status to analgesic agent; Z88.2 Allergy status to sulfonamides; Z88.1 Allergy status to other antibiotic agents; E11.9 Type 2 diabetes mellitus without complications; I10 Essential (primary) hypertension; J45.909 Unspecified asthma, uncomplicated; I25.10 Atherosclerotic heart disease of native coronary artery without angina pectoris; I25.2 Old myocardial infarction; J98.11 Atelectasis; E78.5 Hyperlipidemia, unspecified; K21.9 Gastro-esophageal reflux disease without esophagitis; Z88.3 Allergy status to other anti-infective agents; Z79.82 Long term (current) use of aspirin; Z79.899 Other long term (current) drug therapy; Z95.5 Presence of coronary angioplasty implant and graft; Z79.02 Long term (current) use of antithrombotics/antiplatelets; Z79.51 Long term (current) use of inhaled steroids; Z79.84 Long term (current) use of oral hypoglycemic drugs; Z87.891 Personal history of nicotine dependence
CPT/HCPCS: 94640; 88108; 88305; 89050; 87252; 87070; 87205; 87116; 87102; 87206; 31624; J2001 ×3; J2250; J2704; 87077; 87186; 87496; 87498; 87502; 87529; 87634; 87798

== ENCOUNTER 2018-09-16 09:36 | Day surgery (SDC) | payer MEDICARE, BC ==
[2018-09-15 09:14] VITALS: BMI 30.4
[~2018-09-16 09:36] MED LIST changes: +LIDOCAINE 1% 20 ML VIAL (10MG/ML) FOR IV START INTRADERMA PRN; -LIDOCAINE 2% (PF) 20 MG/ML 2 ML AMP INHALATION ONE; +LIDOCAINE HCL/PF 20 MG/ML ML INHALATION ONE; +LIDOCAINE VISCOUS 2% 15 ML CUP MUCOUS MEM ONE; -LIDOCAINE VISCOUS 300 MG/15 ML CUP MUCOUS MEM NR
[2018-09-16 10:32] VITALS: RESP 16; TEMP 98.3
[2018-09-16] MEDS ORDERED: MIDAZOLAM 2 MG/2 ML VIAL ONE (11:00)
[2018-09-16] MEDS ORDERED: GLYCOPYRROLATE 0.2 MG/ML 2 ML VIAL ONE (11:00)
[2018-09-16] MEDS ORDERED: LIDOCAINE 1% INJ 10MG/ML (20 ML MDV) ONE (11:00)
[2018-09-16] MEDS ORDERED: fentaNYL (PF) 50 MCG/ML 2 ML AMP ONE (11:00)
[2018-09-16] MEDS ORDERED: PROPOFOL 10 MG/ML 20 ML VIAL IV ONE (11:00)
[2018-09-16] MEDS ORDERED: MORPHINE SULFATE IR 15 MG TABLET ONE (11:00)
[2018-09-16 11:12] LABS: Glucose,Whole Blood 111 mg/dL (75-99)
[2018-09-16] MEDS ORDERED: LIDOCAINE 2% INJ 20 MG/ML INTRATRACH ONE (11:22)
[2018-09-16 11:36] LABS: Glucose,Whole Blood 130 mg/dL (75-99)
--- NOTE | 2018-09-16 11:52 | PCN ---
PROCEDURE NOTE PROCEDURE NOTE: Bronchoscopy, airway examination, therapeutic lavage, BAL right middle lobe, brushes right middle lobe. PREOPERATIVE DIAGNOSIS: Severe asthma, tracheobronchomalacia, bronchiectasis, and right middle lobe syndrome. POSTOPERATIVE DIAGNOSIS: Severe asthma, tracheobronchomalacia, bronchiectasis, and right middle lobe syndrome. ANESTHESIA: Provided on conscious sedation/general anesthesia. The patient's procedure was done in room #2. There was informed consent, there was universal timeout. After the patient was adequately sedated, the bronchoscope was inserted through the right nostril. It passed through the right nasopharynx into the oropharynx. The hypopharynx was identified and topicalized. The hypopharyngeal structures including anterior commissure, true cords, false cords, arytenoids, piriform sinuses, right and left vallecula and epiglottis all appeared relatively normal. There were a few secretions noted in the hypopharynx. After topicalization, bronchoscope was pushed through the glottic opening into the trachea. There was significant tracheomalacia. The membranous trachea ballooned anteriorly throughout the procedure. The tracheal callie was sharp. The right and left mainstem were topicalized. The right upper lobe and its three segments, the right lower lobe and its five segments, the left upper lobe proper and its two segments, the lingula and its two segments and the left lower lobe and its four segments all had similar findings of diffuse moderate bronchitis. There was airway erythema and hyperemia. There was some secretions noted throughout. They were suctioned. Next, the bronchoscope was moved into the right middle lobe. We noted that the anterior portion of the entrance of the right middle lobe was a little unusual in its appearance. It seemed to bulge a little bit. The mucosa appeared erythematous and abnormal. We brushed this area. Next, the bronchoscope was wedged into the right middle lobe. The BAL took place. The patient tolerated the procedure well. The bronchoscope was withdrawn. There was no significant bleeding. The patient will be recovered. The patient will follow up in my office for results of the sampling. MMODL / IJN: [id number] /
[2018-09-16 12:20] VITALS: BP 124/74; PULSE 80
[2018-09-16 16:00] LABS: Appearance,BF Cloudy; Color,BF Red
[2018-09-16 16:53] LABS: Nucleated Cells, Body Fluid 100 /uL; RBC, Body Fluid 1600 /uL
[2018-09-16 16:58] LABS: Mononuclear WBC,Body Fluid 12 %; Polynuclear WBC,Body Fluid 88 %; Total Cells Counted,Body Fluid 100
== END 2018-09-16 12:23 | disposition home or self-care (01) ==
LOC: ORWHC2ENDO 09:36
PROVIDERS: ATTEND Internal Medicine Critical Care Medicine
DX: J40 Bronchitis, not specified as acute or chronic (principal); J47.9 Bronchiectasis, uncomplicated; J98.11 Atelectasis; J45.909 Unspecified asthma, uncomplicated; J39.8 Other specified diseases of upper respiratory tract; J98.09 Other diseases of bronchus, not elsewhere classified; I25.10 Atherosclerotic heart disease of native coronary artery without angina pectoris; I11.0 Hypertensive heart disease with heart failure; I50.9 Heart failure, unspecified; F17.200 Nicotine dependence, unspecified, uncomplicated; J44.9 Chronic obstructive pulmonary disease, unspecified; E11.9 Type 2 diabetes mellitus without complications; I25.2 Old myocardial infarction; E78.5 Hyperlipidemia, unspecified; K21.9 Gastro-esophageal reflux disease without esophagitis; Z79.02 Long term (current) use of antithrombotics/antiplatelets; Z79.4 Long term (current) use of insulin; Z79.899 Other long term (current) drug therapy; Z88.6 Allergy status to analgesic agent; Z88.1 Allergy status to other antibiotic agents; Z88.5 Allergy status to narcotic agent; Z88.2 Allergy status to sulfonamides; Z88.8 Allergy status to other drugs, medicaments and biological substances; Z91.09 Other allergy status, other than to drugs and biological substances
CPT/HCPCS: 94640; 87798 ×3; 87496; 87498; 87529 ×2; 88104; 88108; 88305; 89050; 87252; 87502; 87634; 87070; 87205; 87116; 87102; 87077; 87186; 87206; 31623; 31624; J2001 ×3; J2250; J3010; J2704

== ENCOUNTER 2018-12-17 11:15 | Day surgery (SDC) | payer MEDICARE, BC ==
[2018-12-16 09:31] VITALS: BMI 31.9
[~2018-12-17 11:15] MED LIST changes: -LACTATED RINGERS 1,000 ML IV ONE; -LIDOCAINE 1% 20 ML VIAL (10MG/ML) FOR IV START INTRADERMA PRN; +LIDOCAINE 2% (PF) 20 MG/ML 10 ML AMP INHALATION ONE; -LIDOCAINE HCL/PF 20 MG/ML ML INHALATION ONE; -LIDOCAINE VISCOUS 2% 15 ML CUP MUCOUS MEM ONE; +LIDOCAINE VISCOUS 300 MG/15 ML CUP MUCOUS MEM ONE; +SODIUM CHLORIDE 0.9% 1,000 ML IV SCH
[2018-12-17 11:27] VITALS: RESP 18; TEMP 97.8
[2018-12-17] MEDS ORDERED: LIDOCAINE 2% (PF) 20 MG/ML 5 ML VIAL INHALATION ONE (11:40)
[2018-12-17 11:46] LABS: Glucose,Whole Blood 176 mg/dL (75-99)
[2018-12-17] MEDS ORDERED: LIDOCAINE 1% 20 ML VIAL (10MG/ML) FOR IV START INTRADERMA ONE (11:46)
[2018-12-17] MEDS ORDERED: KETAMINE 10 MG/ML 20 ML VIAL ONE (12:27)
[2018-12-17] MEDS ORDERED: MIDAZOLAM 2 MG/2 ML VIAL ONE (12:27)
[2018-12-17] MEDS ORDERED: PROPOFOL 10 MG/ML 20 ML VIAL IV ONE (12:27)
[2018-12-17] MEDS ORDERED: LIDOCAINE 2% INJ 20 MG/ML INTRATRACH ONE (12:38)
[2018-12-17 12:54] VITALS: PULSE 67
--- NOTE | 2018-12-17 13:08 | PCN ---
PROCEDURE NOTE PROCEDURE: Bronchoscopy, airway examination, therapeutic lavage, BAL. PREOPERATIVE DIAGNOSIS: Severe asthma, tracheobronchomalacia, right middle lobe syndrome, retained secretions. POSTOPERATIVE DIAGNOSIS: Severe asthma, tracheobronchomalacia, right middle lobe syndrome, retained secretions. COMFORT ADVISOR provided general anesthesia/unconscious sedation. The patient's procedure was done in the endoscopy suite [facility]. There was informed consent. There was universal timeout. ARCHITECTURAL DRAFTER: Dr. Armstrong. PROCEDURE: After the patient was adequately sedated and being fully monitored, the bronchoscope was inserted through the right nostril. It passed through the right nasopharynx into the oropharynx. The hypopharynx was identified and topicalized. The hypopharyngeal structures including anterior commissure, true cords, false cords, arytenoids, piriform sinuses, right and left vallecula and epiglottis all appeared normal. There was some pooled secretions noted in the hypopharynx. These were suctioned. The glottic opening was topicalized. The bronchoscope was pushed through the glottic opening into the trachea. The trachea was erythematous. The trachea showed evidence of malacia. Tracheal callie was sharp. Right and left mainstem were topicalized. The right upper lobe and its 3 segments, right middle lobe and its 2 segments, right lower lobe and its 5 segments, the left upper lobe proper and its 2 segments, the lingula and its 2 segments and the left lower lobe and its 4 segments all had similar findings of diffuse erythema and hyperemia of the airways. There was diffuse moderate bronchitis throughout. There was some vascular engorgement. There was some mucosal friability. There was no dominant mass. There were thick yellow secretions noted throughout. The bronchoscope was wedged into the right middle lobe. We did a BAL. The patient tolerated the procedure well. Thirty milliliters was recovered. It will be sent to the laboratory for analysis. Thick yellow purulent secretions were suctioned with saline assistance. There was no immediate complication. The bronchoscope was withdrawn and the patient will be recovered. MMODL / IJN: [id number] /
[2018-12-17 13:11] VITALS: BP 116/75
[2018-12-17 18:13] LABS: Color,BF Red
[2018-12-17 18:14] LABS: Appearance,BF Cloudy; Nucleated Cells, Body Fluid 2200 /uL; RBC, Body Fluid 8550 /uL
[2018-12-17 18:18] LABS: Mononuclear WBC,Body Fluid 7 %; Polynuclear WBC,Body Fluid 93 %; Total Cells Counted,Body Fluid 100
== END 2018-12-17 13:21 | disposition home or self-care (01) ==
LOC: ORWHC2ENDO 11:15
PROVIDERS: ATTEND Internal Medicine Critical Care Medicine
DX: J44.9 Chronic obstructive pulmonary disease, unspecified (principal); J98.09 Other diseases of bronchus, not elsewhere classified; J98.11 Atelectasis; J39.8 Other specified diseases of upper respiratory tract; E11.9 Type 2 diabetes mellitus without complications; I25.10 Atherosclerotic heart disease of native coronary artery without angina pectoris; I10 Essential (primary) hypertension; E78.5 Hyperlipidemia, unspecified; I25.2 Old myocardial infarction; K21.9 Gastro-esophageal reflux disease without esophagitis; D50.9 Iron deficiency anemia, unspecified; Z95.5 Presence of coronary angioplasty implant and graft; Z87.01 Personal history of pneumonia (recurrent); Z79.02 Long term (current) use of antithrombotics/antiplatelets; Z79.82 Long term (current) use of aspirin; Z79.4 Long term (current) use of insulin; Z79.51 Long term (current) use of inhaled steroids; Z79.899 Other long term (current) drug therapy; Z88.6 Allergy status to analgesic agent; Z88.1 Allergy status to other antibiotic agents; Z88.5 Allergy status to narcotic agent; Z87.891 Personal history of nicotine dependence
CPT/HCPCS: 94640; 87798 ×3; 87496; 87498; 87529; 88108; 88305; 89050; 87252; 87502; 87634; 87070; 87205; 87116; 87102; 87077; 87186; 87206; 31624; J2001 ×2; J2250; J2704

== ENCOUNTER → 2019-01-24 | Outpatient (CLI) | payer MEDICARE, BC ==
--- NOTE | 2019-01-24 15:43 | XR ---
EXAMINATION TYPE: XR chest 2V DATE OF EXAM: 01/24/2019 COMPARISON: 03/04/2018 INDICATION: Pneumonia TECHNIQUE: Frontal and lateral views of the chest are obtained. FINDINGS: The heart size is normal. The pulmonary vasculature is normal. The lungs are clear. Port is present on the left with the tip in the superior vena cava region. No p neumothorax is evident. Previous left-sided PICC is been removed. Previous right sided central venous catheter is been removed. IMPRESSION: 1. No acute pulmonary process. 2. Left side port present with the tip in the superior vena cava region.
== END | disposition home or self-care (01) ==
LOC: RADXRMAIN 15:12
PROVIDERS: ATTEND Internal Medicine Infectious Disease
DX: J15.1 Pneumonia due to Pseudomonas (principal); Z98.890 Other specified postprocedural states
CPT/HCPCS: 71046

== ENCOUNTER 2019-07-05 10:23 | Day surgery (SDC) | payer MEDICARE ==
[2019-07-04 08:38] VITALS: BMI 32.2
[~2019-07-05 10:23] MED LIST changes: +LIDOCAINE 1% 20 ML VIAL (10MG/ML) FOR IV START INTRADERMA PRN; -LIDOCAINE 2% (PF) 20 MG/ML 10 ML AMP INHALATION ONE; +LIDOCAINE 2% (PF) 20 MG/ML 5 ML VIAL INHALATION ONE
[2019-07-05 10:51] VITALS: TEMP 97.4
[2019-07-05 11:04] LABS: Glucose,Whole Blood 120 mg/dL (75-99)
[2019-07-05] MEDS ORDERED: PROPOFOL 10 MG/ML 20 ML VIAL IV ONE (11:30)
[2019-07-05] MEDS ORDERED: LIDOCAINE 1% INJ 10MG/ML (20 ML MDV) ONE (11:30)
[2019-07-05] MEDS ORDERED: MIDAZOLAM 2 MG/2 ML VIAL ONE (11:30)
[2019-07-05] MEDS ORDERED: fentaNYL (PF) 50 MCG/ML 2 ML AMP ONE (11:30)
[2019-07-05] MEDS ORDERED: KETAMINE 10 MG/ML 20 ML VIAL ONE (11:30)
[2019-07-05] MEDS ORDERED: GLYCOPYRROLATE 0.2 MG/ML 2 ML VIAL ONE (11:30)
[2019-07-05] MEDS ORDERED: LIDOCAINE 2% INJ 20 MG/ML INTRATRACH ONE (11:40)
[2019-07-05 12:07] VITALS: BP 122/71; PULSE 84; RESP 16
--- NOTE | 2019-07-05 12:19 | PCN ---
PROCEDURE NOTE PROCEDURE: Bronchoscopy, airway examination, therapeutic lavage, BAL. PREOPERATIVE DIAGNOSIS: Retained secretions, bronchiectasis, tracheobronchomalacia, right middle lobe syndrome. POSTOPERATIVE DIAGNOSIS: Retained secretions, bronchiectasis, tracheobronchomalacia, right middle lobe syndrome. Maren Carrero CRNA provided unconscious sedation and general anesthesia. RENEWABLE ENERGY BROKER: Dr. Armstrong and Dr. Pak. There was informed consent and universal timeout. The patient's procedure took place in room #2. After the patient was adequately sedated and being fully monitored, the bronchoscope was inserted through the right nostril. It passed through the right nasopharynx into the oropharynx. The hypopharynx was then evaluated. The hypopharyngeal structures including anterior commissure, true cords, false cords, arytenoids, piriform sinuses, right and left valleculae and epiglottis all appeared relatively normal. There was some crowding in the hypopharynx and there were some secretions noted in the hypopharynx. No mass or tumor. After topicalization of the glottic opening, the bronchoscope was pushed through the glottic opening into the trachea. There was a slight saber-sheath appearance of the trachea. There were thick secretions noted throughout the trachea. They were suctioned with saline assistance. The tracheal callie was sharp. The right and left mainstem were topicalized. The right upper lobe and its 3 segments, right middle lobe and its 2 segments, right lower lobe and its 5 segments, the left upper lobe proper and its 2 segments, the lingula and its 2 segments, and the left lower lobe and its 4 segments all had similar findings of diffuse airway erythema, edema and hyperemia. There were thick secretions noted throughout. They were purulent in nature. There was no dominant mass or tumor. There was no active bleeding. The secretions were thick. The bronchoscope was wedged into the right middle lobe. The BAL took place. The patient tolerated the procedure well. Afterwards, saline was used to cleanse the rest of the airways from the secretions. The patient tolerated the procedure well and the bronchoscope was withdrawn. There was no immediate complication. The patient will be recovered. MMODL / IJN: [id number] /
[2019-07-05 16:30] LABS: Appearance,BF Cloudy; Color,BF Colorless
[2019-07-05 18:12] LABS: Nucleated Cells, Body Fluid 1300 /uL; RBC, Body Fluid 300 /uL
[2019-07-05 18:14] LABS: Mononuclear WBC,Body Fluid 15 %; Polynuclear WBC,Body Fluid 85 %; Total Cells Counted,Body Fluid 100
== END 2019-07-05 12:20 | disposition home or self-care (01) ==
LOC: ORWHC2ENDO 10:23
PROVIDERS: ATTEND Internal Medicine Critical Care Medicine
DX: J47.9 Bronchiectasis, uncomplicated (principal); J39.8 Other specified diseases of upper respiratory tract; J98.19 Other pulmonary collapse; I25.10 Atherosclerotic heart disease of native coronary artery without angina pectoris; I25.2 Old myocardial infarction; I10 Essential (primary) hypertension; E11.9 Type 2 diabetes mellitus without complications; N28.9 Disorder of kidney and ureter, unspecified; K21.9 Gastro-esophageal reflux disease without esophagitis; Z88.1 Allergy status to other antibiotic agents; Z91.048 Other nonmedicinal substance allergy status; Z88.2 Allergy status to sulfonamides; Z88.5 Allergy status to narcotic agent; Z91.011 Allergy to milk products; Z88.6 Allergy status to analgesic agent; Z79.4 Long term (current) use of insulin; Z79.02 Long term (current) use of antithrombotics/antiplatelets; Z79.52 Long term (current) use of systemic steroids; Z79.899 Other long term (current) drug therapy; Z95.5 Presence of coronary angioplasty implant and graft; Z87.891 Personal history of nicotine dependence
CPT/HCPCS: 94640; 87798 ×3; 87496; 87498; 87529; 88108; 88305; 89050; 87252; 87502; 87634; 87070; 87205; 87116; 87102; 87077; 87186; 87206; 31624; J2001 ×3; J2250; J3010; J2704

== ENCOUNTER → 2020-02-22 | Day surgery (SDC) | payer MEDICARE ==
[2020-02-20 14:49] VITALS: BMI 32.6
[~2020-02-22] MED LIST changes: +KETAMINE 10 MG/ML 20 ML VIAL ONE; +LIDOCAINE 1% (10MG/ML) FOR IV START INTRADERMA ONE; -LIDOCAINE 1% 20 ML VIAL (10MG/ML) FOR IV START INTRADERMA PRN; +LIDOCAINE 1% INJ 10MG/ML (20 ML MDV) ONE; +LIDOCAINE 2% INJ 20 MG/ML INTRATRACH ONE; +PROPOFOL 10 MG/ML 20 ML VIAL IV ONE; +fentaNYL (PF) 50 MCG/ML 2 ML AMP ONE
[2020-02-22 12:33] VITALS: TEMP 97
[2020-02-22 12:39] LABS: Glucose,Whole Blood 140 mg/dL (75-99)
[2020-02-22 13:59] VITALS: BP 137/82; PULSE 70; RESP 20
--- NOTE | 2020-02-22 17:32 | PCN ---
PROCEDURE NOTE PROCEDURE: Bronchoscopy, airway examination, therapeutic lavage, BAL. OPERATORS: Dr. Armstrong and Zena Lucero. PREOPERATIVE DIAGNOSIS: Bronchiectasis, COPD, retained secretions, chronic infection, right middle lobe syndrome. POSTOPERATIVE DIAGNOSIS: Bronchiectasis, COPD, retained secretions, chronic infection, right middle lobe syndrome. There was informed consent and universal timeout. GUM MIXER provided general anesthesia. The patient's procedure was done in room #1. After the patient was adequately sedated and being fully monitored, the bronchoscope was inserted through the right nostril. It passed through the right nasopharynx into the oropharynx. The hypopharynx was identified. The hypopharyngeal structures, including the anterior commissure, true cords, false cords, arytenoids, piriform sinuses, right and left vallecula, epiglottis and tongue frenulum were all normal. After topicalization, the bronchoscope was pushed through the glottic opening into the trachea. The trachea was very collapsible. The patient did have a degree of moderate tracheomalacia. There was thick secretions noted within the trachea. The tracheal callie was sharp. Right mainstem and left mainstem were topicalized. The left upper lobe proper and its two segments, the lingula and its two segments, the left lower lobe and its four segments, right upper lobe and its three segments, the right middle lobe and its two segments and the right lower lobe and its five segments all had similar findings of diffuse moderate bronchitis. There was hyperemia and erythema of the airways. There was mucosal friability. There was vascular engorgement. There were thick yellow secretions noted throughout. They were suctioned with some difficulty. 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 Hence, right middle lobe syndrome. Bronchoscope was wedged in the area of the right middle lobe and BAL took place. Thirty mL of fluid was recovered. It was quite purulent. The patient tolerated the procedure well. The bronchoscope was withdrawn. The fluid will be sent for analysis. MMODL / IJN: [id number] /
[2020-02-22 17:45] LABS: Appearance,BF Hazy; Color,BF Colorless; Nucleated Cells, Body Fluid 250 /uL; RBC, Body Fluid 400 /uL
[2020-02-22 21:25] LABS: Mononuclear WBC,Body Fluid 8 %; Polynuclear WBC,Body Fluid 92 %; Total Cells Counted,Body Fluid 100
== END | disposition home or self-care (01) ==
LOC: ORWHC2ENDO 11:24
PROVIDERS: ATTEND Internal Medicine Critical Care Medicine
DX: J18.9 Pneumonia, unspecified organism (principal); J39.8 Other specified diseases of upper respiratory tract; J40 Bronchitis, not specified as acute or chronic; J81.1 Chronic pulmonary edema; J47.0 Bronchiectasis with acute lower respiratory infection; J98.4 Other disorders of lung; J98.19 Other pulmonary collapse; E11.9 Type 2 diabetes mellitus without complications; I25.10 Atherosclerotic heart disease of native coronary artery without angina pectoris; I25.2 Old myocardial infarction; I10 Essential (primary) hypertension; D50.9 Iron deficiency anemia, unspecified; N28.9 Disorder of kidney and ureter, unspecified; J98.09 Other diseases of bronchus, not elsewhere classified; K21.9 Gastro-esophageal reflux disease without esophagitis; Z88.6 Allergy status to analgesic agent; Z88.2 Allergy status to sulfonamides; Z88.1 Allergy status to other antibiotic agents; Z88.5 Allergy status to narcotic agent; Z88.8 Allergy status to other drugs, medicaments and biological substances; Z79.51 Long term (current) use of inhaled steroids; Z79.82 Long term (current) use of aspirin; Z79.899 Other long term (current) drug therapy; Z79.02 Long term (current) use of antithrombotics/antiplatelets; Z79.4 Long term (current) use of insulin; Z87.09 Personal history of other diseases of the respiratory system; Z87.891 Personal history of nicotine dependence; Z98.890 Other specified postprocedural states; Z98.49 Cataract extraction status, unspecified eye; Z95.5 Presence of coronary angioplasty implant and graft; Z86.19 Personal history of other infectious and parasitic diseases; Z97.2 Presence of dental prosthetic device (complete) (partial)
CPT/HCPCS: 88108; 88305; 89050; 87252; 87070; 87205; 87116; 87102; 87206; 31624; J2001 ×2; J3010; J2704; 87077; 87186; 87496; 87498; 87502; 87529; 87634; 87798

== ENCOUNTER 2020-07-04 11:16 | Day surgery (SDC) | payer MEDICARE ==
[2020-07-03 08:40] VITALS: BMI 32.6
[~2020-07-04 11:16] MED LIST changes: -KETAMINE 10 MG/ML 20 ML VIAL ONE; -LIDOCAINE 1% (10MG/ML) FOR IV START INTRADERMA ONE; -LIDOCAINE 1% INJ 10MG/ML (20 ML MDV) ONE; -LIDOCAINE 2% INJ 20 MG/ML INTRATRACH ONE; +ONDANSETRON 4 MG/2 ML VIAL IVP PRN; -PROPOFOL 10 MG/ML 20 ML VIAL IV ONE; +fentaNYL (PF) 50 MCG/ML 2 ML AMP IV PRN; -fentaNYL (PF) 50 MCG/ML 2 ML AMP ONE
[2020-07-04 12:00] VITALS: TEMP 98.2
[2020-07-04] MEDS ORDERED: LIDOCAINE 1% (10MG/ML) FOR IV START INTRADERMA ONE (12:09)
[2020-07-04 12:17] LABS: Glucose,Whole Blood 77 mg/dL (75-99)
[2020-07-04] MEDS ORDERED: PROPOFOL 10 MG/ML 20 ML VIAL IV ONE (12:59)
[2020-07-04] MEDS ORDERED: KETAMINE 10 MG/ML 20 ML VIAL ONE (12:59)
[2020-07-04] MEDS ORDERED: MIDAZOLAM 2 MG/2 ML VIAL ONE (12:59)
[2020-07-04] MEDS ORDERED: fentaNYL (PF) 50 MCG/ML 2 ML AMP ONE (12:59)
[2020-07-04] MEDS ORDERED: GLYCOPYRROLATE 0.2 MG/ML 2 ML VIAL ONE (12:59)
[2020-07-04] MEDS ORDERED: LIDOCAINE 2% INJ 20 MG/ML INTRATRACH ONE (13:12)
[2020-07-04 13:27] LABS: Glucose,Whole Blood 74 mg/dL (75-99)
[2020-07-04 13:36] VITALS: BP 132/82; PULSE 92; RESP 16
[2020-07-04 15:30] LABS: Appearance,BF Blood Tinged; Nucleated Cells, Body Fluid 145 /uL; RBC, Body Fluid 1920 /uL
[2020-07-04 15:40] LABS: Mononuclear WBC,Body Fluid 21 %; Polynuclear WBC,Body Fluid 79 %; Total Cells Counted,Body Fluid 100
--- NOTE | 2020-07-04 17:08 | PCN ---
PROCEDURE NOTE PROCEDURE: Bronchoscopy, BAL, right middle lobe airway exam therapeutic lavage. OPERATORS: Dr. Armstrong. There was informed consent and universal timeout. The patient's procedure took place in room #1. PREOPERATIVE DIAGNOSIS: Severe bronchitis, bronchiectasis, and tracheobronchomalacia. POSTOPERATIVE DIAGNOSIS: Severe bronchitis, bronchiectasis, and tracheobronchomalacia. The bronchoscope was inserted through the right nostril after the patient was sedated and being fully monitored, and it passed through the nasopharynx into the oropharynx and then into the hypopharynx. The hypopharynx was identified to be relatively normal although there were some secretions noted in the piriform sinuses right and left. Anterior commissure, true cords, false cords, arytenoids, piriform sinuses, right and left vallecula all otherwise appeared normal. After topicalization, the glottic opening was traversed with the bronchoscope into the trachea. The trachea was quite erythematous and hyperemic. There were secretions noted throughout the trachea. There was severe degree of tracheomalacia. There were some purulent secretions noted throughout. The tracheal callie was sharp. The right and left mainstem were topicalized. The right upper lobe and its 3 segments, right middle lobe and its 2 segments, right lower lobe and its 5 segments, the left upper lobe proper and its 2 segments, the lingula and its 2 segments and the left lower lobe and its 4 segments all had similar findings of diffuse airway erythema and hyperemia. There was acute bronchitis. There was mucosal friability. There was vascular engorgement. There were thick secretions noted throughout. The bronchoscope was then wedged into the right middle lobe. BAL took place. Thirty mL of fluid was recovered. The fluid will be sent for analysis. Additional secretions were removed with the aid of saline lavage. The patient tolerated the procedure well and will be taken over to the recovery area. The fluid will be sent for analysis. The patient tolerated the procedure well. There was no immediate complication. MMODL / IJN: [id number] /
== END 2020-07-04 13:50 | disposition home or self-care (01) ==
LOC: ORWHC2ENDO 11:16
PROVIDERS: ATTEND Internal Medicine Critical Care Medicine
DX: J47.0 Bronchiectasis with acute lower respiratory infection (principal); J81.1 Chronic pulmonary edema; J39.8 Other specified diseases of upper respiratory tract; J98.09 Other diseases of bronchus, not elsewhere classified; I25.10 Atherosclerotic heart disease of native coronary artery without angina pectoris; I25.2 Old myocardial infarction; J98.19 Other pulmonary collapse; I10 Essential (primary) hypertension; E11.9 Type 2 diabetes mellitus without complications; D50.9 Iron deficiency anemia, unspecified; E78.5 Hyperlipidemia, unspecified; Z88.6 Allergy status to analgesic agent; Z88.2 Allergy status to sulfonamides; Z88.1 Allergy status to other antibiotic agents; Z88.5 Allergy status to narcotic agent; Z79.51 Long term (current) use of inhaled steroids; Z79.82 Long term (current) use of aspirin; Z79.899 Other long term (current) drug therapy; Z79.02 Long term (current) use of antithrombotics/antiplatelets; Z79.52 Long term (current) use of systemic steroids; Z79.4 Long term (current) use of insulin; Z87.891 Personal history of nicotine dependence; Z98.890 Other specified postprocedural states; Z87.19 Personal history of other diseases of the digestive system; Z95.5 Presence of coronary angioplasty implant and graft; Z97.2 Presence of dental prosthetic device (complete) (partial)
CPT/HCPCS: 88108; 88305; 89050; 87252; 87070; 87205; 87116; 87102; 87206; 31624; J2001; J2250; J3010; J2704; 87496; 87498; 87502; 87529; 87634; 87798

== ENCOUNTER → 2020-09-06 | Day surgery (SDC) | payer MEDICARE ==
[2020-09-05 08:47] VITALS: BMI 32.6
[~2020-09-06] MED LIST changes: +DEXAMETHASONE SOD PHOSPHATE 4 MG/ML 1 ML VIAL IV ONE; +GLYCOPYRROLATE 0.2 MG/ML 2 ML VIAL ONE; +KETAMINE 10 MG/ML 20 ML VIAL ONE; +LIDOCAINE 1% (10MG/ML) FOR IV START INTRADERMA PRN; +LIDOCAINE 1% INJ 10MG/ML (20 ML MDV) ONE; +ONDANSETRON 4 MG/2 ML VIAL IVP ONE; -ONDANSETRON 4 MG/2 ML VIAL IVP PRN; +PROPOFOL 10 MG/ML 20 ML VIAL IV ONE; -fentaNYL (PF) 50 MCG/ML 2 ML AMP IV PRN; +fentaNYL (PF) 50 MCG/ML 2 ML AMP ONE
[2020-09-06 10:28] VITALS: TEMP 97.4
[2020-09-06 10:32] LABS: Glucose,Whole Blood 180 mg/dL (75-99)
[2020-09-06 12:04] VITALS: RESP 18
[2020-09-06 12:13] VITALS: BP 142/73; PULSE 88
--- NOTE | 2020-09-06 12:49 | OP ---
OPERATIVE REPORT PULMONARY/CRITICAL CARE PROCEDURE NOTE: PROCEDURE: A bronchoscopy, BAL right middle lobe, airway examination, therapeutic lavage. OPERATORS: Dr. Armstrong and Dr. Pak. PREOPERATIVE DIAGNOSIS: Severe COPD with retained secretions. POSTOP DIAGNOSIS: Severe COPD with retained secretions. PROCEDURE IN DETAIL: The patient's procedure was done in room #1. There was informed consent and universal timeout. Anesthesia provided unconscious sedation/general anesthesia. After the patient was adequately sedated, the bronchoscope was inserted through the right nostril. It passed through the right nasopharynx into the oropharynx. The hypopharynx was identified and topicalized. Hypopharyngeal structures including anterior commissure, true cords, false cords, arytenoids, piriform sinuses, right and left valleculae and epiglottis all appeared normal. After topicalization, bronchoscope was pushed through the glottic opening into the trachea. There was a significant amount of tracheomalacia. There were thick purulent secretions noted throughout the trachea. They were suctioned. The tracheal callie was sharp. The right and left mainstem were topicalized. The right upper lobe and its 3 segments, right middle lobe and its 2 segments, right lower lobe and its 5 segments, the left upper lobe proper and its 2 segments, the lingula and its 2 segments and the left lower lobe and its 4 segments all had similar findings of diffuse moderate to severe erythema and hyperemia of the airways. There was some vascular engorgement. There was some mucosal friability. The secretions noted throughout were very thick and tenacious. They were difficult to suction. At one point, the scope had to be removed and reinserted because the working channel of the scope was completely obstructed by mucus. The mucus was suctioned with the assistance of saline lavage. The bronchoscope was then wedged into the right middle lobe. A 30 cc BAL was obtained. The patient tolerated the procedure well. Any additional secretions were suctioned and removed. The bronchoscope was withdrawn. The patient will be recovered. The patient tolerated the procedure well. There was no immediate complication. MMODL / IJN: [id number] /
[2020-09-10 16:59] LABS: Appearance,BF Cloudy; Color,BF Colorless; Nucleated Cells, Body Fluid 1633 /uL; RBC, Body Fluid 556 /uL
[2020-09-10 17:02] LABS: Mononuclear WBC,Body Fluid 16 %; Polynuclear WBC,Body Fluid 84 %; Total Cells Counted,Body Fluid 100
== END | disposition home or self-care (01) ==
LOC: ORWHC2ENDO 10:03
PROVIDERS: ATTEND Internal Medicine Critical Care Medicine
DX: J47.9 Bronchiectasis, uncomplicated (principal); J39.8 Other specified diseases of upper respiratory tract; I10 Essential (primary) hypertension; I25.10 Atherosclerotic heart disease of native coronary artery without angina pectoris; I25.2 Old myocardial infarction; D50.9 Iron deficiency anemia, unspecified; E78.5 Hyperlipidemia, unspecified; E11.9 Type 2 diabetes mellitus without complications; Z79.4 Long term (current) use of insulin; Z79.02 Long term (current) use of antithrombotics/antiplatelets; Z79.899 Other long term (current) drug therapy; Z91.048 Other nonmedicinal substance allergy status; Z88.2 Allergy status to sulfonamides; Z88.5 Allergy status to narcotic agent; Z88.6 Allergy status to analgesic agent; Z88.1 Allergy status to other antibiotic agents; Z95.5 Presence of coronary angioplasty implant and graft; Z98.890 Other specified postprocedural states
CPT/HCPCS: 87798 ×3; 87496; 87498; 87529; 88108; 88305; 87502; 87634; 31624; J2001; J3010; J2704

== ENCOUNTER 2020-11-12 10:52 | Observation (INO) | payer MEDICARE ==
--- NOTE | 2020-11-12 11:28 | ED ---
SOB HPI - General Chief Complaint: Shortness of Breath Stated Complaint: Dr Armstrong sent Time Seen by Provider: 11/12/20 11:00 Source: patient Mode of arrival: ambulatory Limitations: no limitations - History of Present Illness Initial Comments: Patient is an 80-year-old male with history of asthma, COPD, diabetes, recurrent lung infections, presenting to the emergency Department with complaints of cough and congestion for the past week and a half. Patient states he gets frequent lung infections and usually requires IV antibiotics. He does have a port and works with Dr. Armstrong. Patient gets frequent broncho flushes every 3 months. Patient states he was recently on 10 days of Zosyn and was feeling improvement in his symptoms however once that has finished, his symptoms returned, for the last week. Patient states he called Dr. Armstrong's office on Thursday and he recommended going into the ER for further evaluation/treatment. Patient denies any fevers, no chest pains. He states he wears 2 L of oxygen at night, does daily a beat are all treatments, 4 times daily. She denies any abdominal pain, no nausea or vomiting. He has no further complaints. Upon arrival to the ER, he is slightly tachycardia at 103, 94% on room air, afebrile. - Related Data Home Medications Medication Instructions Recorded Confirmed Omeprazole [PriLOSEC] 20 mg PO BID 01/05/14 11/12/20 Ipratropium-Albuterol Nebulize 3 ml INHALATION RT-QID PRN 04/03/15 11/12/20 [Duoneb 0.5 mg-3 mg/3 ml Soln] Fluticasone Propionate [Flovent 2 puff INHALATION RT-BID 08/08/15 11/12/20 Hfa 220 mcg] Salmeterol Xinafoate [Serevent 1 puff INHALATION RT-BID 10/13/15 11/12/20 Diskus] Insulin Degludec [Tresiba 40 unit SQ AC-BRKFST 09/09/17 11/12/20 Flextouch U-100] Azithromycin 250 mg PO MOWEFR 05/06/18 11/12/20 sitaGLIPtin [Januvia] 100 mg PO DAILY 12/16/18 11/12/20 Albuterol Sulfate [Proair Hfa] 2 puff INHALATION RT-QID PRN 11/12/20 11/12/20 Cholecalciferol [Vitamin D3 (25 25 mcg PO DAILY 11/12/20 11/12/20 Mcg = 1000 Iu)] Ciprofloxacin HCl [Cipro] 250 mg PO BID 11/12/20 11/12/20 EPINEPHrine (Auto Inject) [Epipen] 0.3 mg IM ONCE PRN 11/12/20 11/12/20 Furosemide [Lasix] 80 mg PO DAILY 11/12/20 11/12/20 Mometasone Inhalr 220 Mcg/Puff 2 puff INHALATION RT-BID 11/12/20 11/12/20 [Asmanex] Mupirocin 2% Oint [Bactroban 2% 1 applic TOPICAL BID PRN 11/12/20 11/12/20 Oint] Ozempic 0.25-0.5 0.5 mg SQ TH 11/12/20 11/12/20 Spironolactone [Aldactone] 25 mg PO DAILY 11/12/20 11/12/20 predniSONE 5 mg PO DAILY 11/12/20 11/12/20 Previous Rx's Medication Instructions Recorded Aspirin 81 mg PO DAILY #30 chew 08/27/17 Atorvastatin [Lipitor] 40 mg PO DAILY #30 tab 08/27/17 Clopidogrel [Plavix] 75 mg PO DAILY #30 tab 08/27/17 Losartan [Cozaar] 25 mg PO DAILY #30 tab 08/27/17 Metoprolol Succinate (ER) [Toprol 50 mg PO DAILY #30 tab.er.24h 08/27/17 XL] Nitroglycerin Sl Tabs [Nitrostat] 0.4 mg SUBLINGUAL Q5M PRN #25 tab 08/27/17 Allergies Allergy/AdvReac Type Severity Reaction Status Date / Time NUNU Inhibitors Allergy Dyspnea Verified 11/12/20 12:00 adhesive tape Allergy skin Verified 11/12/20 12:00 irritations aspirin Allergy Dyspnea Verified 11/12/20 12:00 levofloxacin [From Levaquin] Allergy "HAD Verified 11/12/20 12:00 RUPTURED TENDON" Milk Containing Products Allergy WAS TESTED Verified 11/12/20 12:00 [Dairy] & TOLD ALLERGIC NSAIDS (Non-Steroidal Allergy Dyspnea Verified 11/12/20 12:00 Anti-Inflamma Sulfa (Sulfonamide Allergy Rash/Hives Verified 11/12/20 12:00 Antibiotics) cephalexin [Cephalexin] AdvReac Nausea & Verified 11/12/20 12:00 Vomiting codeine phosphate AdvReac Vomiting Verified 11/12/20 12:00 [From Tylenol-Codeine #3] erythromycin base AdvReac Abdominal Verified 11/12/20 12:00 [Erythromycin Base] Pain Review of Systems ROS Statement: Those systems with pertinent positive or pertinent negative responses have been documented in the HPI. ROS Other: All systems not noted in ROS Statement are negative. 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 port a cath left chest Last Myocardial Infarction Date:: 08/25/17 History of Any Multi-Drug Resistant Organisms: MRSA, Other MDRO Date of last positivie culture/infection: 08/13/2012 MDRO Source:: BRONCH WASH Past Surgical History: Heart Catheterization With Stent, Hernia Repair, Orthopedic Surgery Additional Past Surgical History / Comment(s): MULT BRONCHOSCOPIES, Rt Foot(Achilles) Surgery, Sinus Surgery x 3, Picc line/later removed,skin cancer removed from lower lip & nose- removal of part of lower lip with reconstruction, ray cataracts with lens implants, umbilical hernia, 3 cardiac stents placed on 08/26/17 and 2 stents 09/14/17, 05/12/18 port a cath removal and replaced on left side Past Anesthesia/Blood Transfusion Reactions: No Reported Reaction Additional Past Anesthesia/Blood Transfusion Reaction / Comment(s): diff IV starts Date of Last Stent Placement:: 09/24/17 Past Psychological History: No Psychological Hx Reported Smoking Status: Former smoker Past Alcohol Use History: None Reported Past Drug Use History: None Reported - Past Family History Mother Family Medical History: Deep Vein Thrombosis (DVT) Father Family Medical History: Osteoarthritis (OA) Sister(s) Family Medical History: Cancer, Deep Vein Thrombosis (DVT) Additional Family Medical History / Comment(s): one sister with colon ca- then went to lung & brain, General Exam - General Exam Comments Initial Comments: GENERAL: Patient is well-developed and well-nourished. Patient is nontoxic and in no acute distress. HEAD: Atraumatic, normocephalic. EYES: Pupils equal round and reactive to light, extraocular movements intact, sclera anicteric, conjunctiva are normal. Eyelids were unremarkable. ENT: TMs normal, nares patent, oropharynx clear without exudates. Moist mucous membranes. NECK: Normal range of motion, supple without lymphadenopathy or JVD. LUNGS: Unlabored respirations. Scattered wheezes and rhonchi, decreased sounds on the lower lentz. HEART: Regular rate and rhythm without murmurs, rubs or gallops. ABDOMEN: Soft, nontender, normoactive bowel sounds. No guarding, no rebound. No masses appreciated. : Deferred MUSCULOSKELETAL: Normal extremities with adequate strength and normal range of motion, no pitting or edema. No clubbing or cyanosis. NEUROLOGICAL: Patient is alert and oriented x 3. Motor and sensory are also intact. Cranial nerves II through XII grossly intact. Symmetrical smile. Normal speech, normal gait. PSYCH: Normal mood, normal affect. SKIN: Warm, Dry, normal turgor, no rashes or lesions noted. Limitations: no limitations Course Vital Signs 11/12/20 10:55 Temperature 97.8 F Pulse Rate 103 H Respiratory 18 Rate Blood Pressure 144/92 O2 Sat by Pulse 94 L Oximetry Medical Decision Making - Medical Decision Making Patient is an 80-year-old male with history of COPD, chronic lung infections here for cough, congestion or shortness of breath over the past week. He currently has a port, was on 10 days of Zosyn, has been off for one week and continues to feel worse. He was sent into the ER by Dr. Armstrong. He is currently 94% on room air, he wears 2 L at night. Scattered wheezes, rhonchi throughout. Labs show white count 13.4, lactic acid is 2.1. Creatinine is 1.92. Troponin is normal, BNP is 1000. Chest x-ray shows chronic emphysema Changes with new bibasilar opacities favoring atelectasis and/or developing acute infiltrate. Patient will be admitted with consult pulmonology. Patient will be started on cefepime, continue with breathing treatments. Patient accepted by Dr. Gonzalez with Nathaniel on consult. Case discussed with Dr. Holder. - Lab Data Result diagrams: 11/12/20 11:43 11/12/20 11:43 Lab Results 11/12/20 11/12/20 11/12/20 Range/Units 11:43 11:43 11:43 WBC 13.4 H (3.8-10.6) k/uL RBC 3.97 L (4.30-5.90) m/uL Hgb 12.5 L (13.0-17.5) gm/dL Hct 37.1 L (39.0-53.0) % MCV 93.4 (80.0-100.0) fL MCH 31.5 (25.0-35.0) pg MCHC 33.7 (31.0-37.0) g/dL RDW 13.2 (11.5-15.5) % Plt Count 167 (150-450) k/uL MPV 7.8 Neutrophils % 91 % Lymphocytes % 4 % Monocytes % 4 % Eosinophils % 1 % Basophils % 0 % Neutrophils # 12.2 H (1.3-7.7) k/uL Lymphocytes # 0.5 L (1.0-4.8) k/uL Monocytes # 0.5 (0-1.0) k/uL Eosinophils # 0.1 (0-0.7) k/uL Basophils # 0.0 (0-0.2) k/uL PT 9.6 (9.0-12.0) sec INR 0.9 (<1.2) APTT 19.6 L (22.0-30.0) sec Sodium 135 L (137-145) mmol/L Potassium 4.6 (3.5-5.1) mmol/L Chloride 100 (98-107) mmol/L Carbon Dioxide 27 (22-30) mmol/L Anion Gap 8 mmol/L BUN 43 H (9-20) mg/dL Creatinine 1.92 H (0.66-1.25) mg/dL Est GFR (CKD-EPI)AfAm 37 (>60 ml/min/1.73 sqM) Est GFR (CKD-EPI)NonAf 32 (>60 ml/min/1.73 sqM) Glucose 170 H (74-99) mg/dL POC Glucose (mg/dL) (75-99) mg/dL POC Glu Research Tech ID Plasma Lactic Acid Angelo (0.7-2.0) mmol/L Calcium 8.8 (8.4-10.2) mg/dL Magnesium 1.7 (1.6-2.3) mg/dL Total Bilirubin 0.7 (0.2-1.3) mg/dL AST 24 (17-59) U/L ALT 24 (4-49) U/L Alkaline Phosphatase 88 (38-126) U/L Troponin I (0.000-0.034) ng/mL NT-Pro-B Natriuret Pep pg/mL Total Protein 6.4 (6.3-8.2) g/dL Albumin 3.6 (3.5-5.0) g/dL 11/12/20 11/12/20 11/12/20 Range/Units 11:43 11:43 11:43 WBC (3.8-10.6) k/uL RBC (4.30-5.90) m/uL Hgb (13.0-17.5) gm/dL Hct (39.0-53.0) % MCV (80.0-100.0) fL MCH (25.0-35.0) pg MCHC (31.0-37.0) g/dL RDW (11.5-15.5) % Plt Count (150-450) k/uL MPV Neutrophils % % Lymphocytes % % Monocytes % % Eosinophils % % Basophils % % Neutrophils # (1.3-7.7) k/uL Lymphocytes # (1.0-4.8) k/uL Monocytes # (0-1.0) k/uL Eosinophils # (0-0.7) k/uL Basophils # (0-0.2) k/uL PT (9.0-12.0) sec INR (<1.2) APTT (22.0-30.0) sec Sodium (137-145) mmol/L Potassium (3.5-5.1) mmol/L Chloride (98-107) mmol/L Carbon Dioxide (22-30) mmol/L Anion Gap mmol/L BUN (9-20) mg/dL Creatinine (0.66-1.25) mg/dL Est GFR (CKD-EPI)AfAm (>60 ml/min/1.73 sqM) Est GFR (CKD-EPI)NonAf (>60 ml/min/1.73 sqM) Glucose (74-99) mg/dL POC Glucose (mg/dL) (75-99) mg/dL POC Glu Research Tech ID Plasma Lactic Acid Angelo 2.1 H* (0.7-2.0) mmol/L Calcium (8.4-10.2) mg/dL Magnesium (1.6-2.3) mg/dL Total Bilirubin (0.2-1.3) mg/dL AST (17-59) U/L ALT (4-49) U/L Alkaline Phosphatase (38-126) U/L Troponin I 0.024 (0.000-0.034) ng/mL NT-Pro-B Natriuret Pep 999 pg/mL Total Protein (6.3-8.2) g/dL Albumin (3.5-5.0) g/dL 11/12/20 Range/Units 12:29 WBC (3.8-10.6) k/uL RBC (4.30-5.90) m/uL Hgb (13.0-17.5) gm/dL Hct (39.0-53.0) % MCV (80.0-100.0) fL MCH (25.0-35.0) pg MCHC (31.0-37.0) g/dL RDW (11.5-15.5) % Plt Count (150-450) k/uL MPV Neutrophils % % Lymphocytes % % Monocytes % % Eosinophils % % Basophils % % Neutrophils # (1.3-7.7) k/uL Lymphocytes # (1.0-4.8) k/uL Monocytes # (0-1.0) k/uL Eosinophils # (0-0.7) k/uL Basophils # (0-0.2) k/uL PT (9.0-12.0) sec INR (<1.2) APTT (22.0-30.0) sec Sodium (137-145) mmol/L Potassium (3.5-5.1) mmol/L Chloride (98-107) mmol/L Carbon Dioxide (22-30) mmol/L Anion Gap mmol/L BUN (9-20) mg/dL Creatinine (0.66-1.25) mg/dL Est GFR (CKD-EPI)AfAm (>60 ml/min/1.73 sqM) Est GFR (CKD-EPI)NonAf (>60 ml/min/1.73 sqM) Glucose (74-99) mg/dL POC Glucose (mg/dL) 163 H (75-99) mg/dL POC Glu Research Tech ID Bárbara Colon Plasma Lactic Acid Angelo (0.7-2.0) mmol/L Calcium (8.4-10.2) mg/dL Magnesium (1.6-2.3) mg/dL Total Bilirubin (0.2-1.3) mg/dL AST (17-59) U/L ALT (4-49) U/L Alkaline Phosphatase (38-126) U/L Troponin I (0.000-0.034) ng/mL NT-Pro-B Natriuret Pep pg/mL Total Protein (6.3-8.2) g/dL Albumin (3.5-5.0) g/dL Disposition Clinical Impression: Dyspnea, COPD exacerbation Disposition: ADMITTED IP TO THIS HOSP Condition: Stable Decision Date: 11/12/20 Decision Time: 13:17
[2020-11-12 11:58] LABS: Basophils % (A) 0 %; Eosinophils # (A) 0.1 k/uL (0-0.7); Eosinophils % (A) 1 %; HCT 37.1 % (39.0-53.0); HGB 12.5 gm/dL (13.0-17.5); Lymphocytes # (A) 0.5 k/uL (1.0-4.8); Lymphocytes % (A) 4 %; MCH 31.5 pg (25.0-35.0); MCHC 33.7 g/dL (31.0-37.0); MCV 93.4 fL (80.0-100.0); Mean Platelet Volume 7.8; Monocytes # (A) 0.5 k/uL (0-1.0); Monocytes % (A) 4 %; Neutrophils # (A) 12.2 k/uL (1.3-7.7); Neutrophils % (A) 91 %; Platelet Count 167 k/uL (150-450); RBC 3.97 m/uL (4.30-5.90); RDW 13.2 % (11.5-15.5); WBC 13.4 k/uL (3.8-10.6)
--- NOTE | 2020-11-12 12:04 | XR ---
EXAMINATION TYPE: XR chest 2V DATE OF EXAM: 11/12/2020 COMPARISON: Chest x-ray January 24, 2019. HISTORY: Cough and congestion. TECHNIQUE: Frontal and lateral views of the chest are obtained. FINDINGS: Stable left internal jugular Mediport catheter. There is chronic parenchymal change in low lung volumes with new patchy bibasilar opacities. The cardiac silhouette size is more prominent but remains within normal limits. The osseous structures are intact. Left circumflex coronary stent red emonstrated. IMPRESSION: Chronic emphysematous and parenchymal fibrotic changes with new bibasilar opacities favo ring atelectasis and/or developing acute infiltrate.
[2020-11-12 12:09] LABS: Albumin 3.6 g/dL (3.5-5.0); Calcium 8.8 mg/dL (8.4-10.2); INR 0.9 (<1.2); Magnesium 1.7 mg/dL (1.6-2.3); Potassium 4.6 mmol/L (3.5-5.1); Prothrombin Time 9.6 sec (9.0-12.0); Total Bilirubin 0.7 mg/dL (0.2-1.3); Total Protein 6.4 g/dL (6.3-8.2)
[2020-11-12 12:19] LABS: Partial Thromboplastin Time 19.6 sec (22.0-30.0)
[2020-11-12 12:32] LABS: Glucose,Whole Blood 163 mg/dL (75-99)
[2020-11-12] MEDS ORDERED: ONDANSETRON 4 MG/2 ML VIAL IVP PRN (13:10)
[2020-11-12] MEDS ORDERED: NALOXONE 0.4 MG/ML 1 ML VIAL IV PRN (13:10)
[2020-11-12] MEDS ORDERED: ACETAMINOPHEN TAB 325 MG TAB PO PRN (13:10)
[2020-11-12] MEDS ORDERED: CEFEPIME 2 GM in SODIUM CHLORIDE 0.9% 100 ML IVPB STA (13:15)
[2020-11-12] MEDS: ALBUTEROL NEBULIZED 2.5 MG/3 ML INHALATION SCH (18:15)
--- NOTE | 2020-11-12 18:16 | P.CNPUL ---
History of Present Illness Consult date: 11/12/20 Requesting physician: Jose Gonzalez Reason for consult: COPD Chief complaint: Shortness of breath and cough History of present illness: This is an 80-year-old white male with history of severe COPD, bronchiectasis, tracheobronchomalacia, right middle lobe syndrome, recurrent pulmonary infection s including infections normally Pseudomonas, and most recently stenotrophomonas, this was based on a bronchoscopy that was done by Dr. zhang on 09/10/2020. However this was mostly sensitive to Levaquin, Fortaz, and Bactrim. Patient had poor tolerance to Levaquin and to Bactrim, hence he was placed on IV Zosyn on outpatient basis. Finished at least 2 weeks course of treatment but continues to have significant cough, cough is productive with greenish and sometimes brownish phlegm. Associated with wheezing, no fever, no chills, no hemoptysis. Patient called Dr. Zhang today about his symptoms, and he suggested that he comes into the ER. Workup in the ER included a chest x-ray showing chronic emphysematous changes and parenchymal fibrotic changes with a new bibasilar opacities could be atelectasis or acute infiltrate. Patient was admitted, and this consult was initiated. CBC showed a bit of a leukocytosis with WBC count of 13.4. Hemoglobin is 12.5. Creatinine 1.92. And lactic acid was 2.1, follow-up lactic was 1.4. After evaluating the patient and noting his last BAL culture, I recommended that he goes on Fortaz. In the meantime we have requested sputum for Gram stain culture and sensitivity, patient may or may not require bronchoscopy and BAL. Review of Systems Constitutional: No fever no chills no weight loss. HEENT: Negative. Pulmonary: As noted in HPI. Cardiac: Negative. Endocrine: Negative. Hematologic: Negative. Psychiatric: Negative. Endocrine: Negative. Genitourinary: Negative. GI: Negative. Neurologic: Negative. Musculoskeletal: Negative. Past Medical History Past Medical History: Asthma, Coronary Artery Disease (CAD), Cancer, COPD, Diabetes Mellitus, GERD/Reflux, Hypertension, Myocardial Infarction ([place]), Respiratory Disorder, Skin Disorder Additional Past Medical History / Comment(s): Bronchiectasis, acquired bronchomalacia, recurrent pseudomonal infections in lungs, right middle lobe syndrome, skin cancer of the nose and lip, pt has dry thin fragile skin- please use paper tape only. port a cath left chest Last Myocardial Infarction Date:: 08/25/17 History of Any Multi-Drug Resistant Organisms: MRSA, Other MDRO Date of last positivie culture/infection: 08/13/2012 MDRO Source:: BRONCH WASH Past Surgical History: Heart Catheterization With Stent, Hernia Repair, Orthopedic Surgery Additional Past Surgical History / Comment(s): MULT BRONCHOSCOPIES, Rt Foot(Achilles) Surgery, Sinus Surgery x 3, Picc line/later removed,skin cancer removed from lower lip & nose- removal of part of lower lip with reconstruction, ray cataracts with lens implants, umbilical hernia, 3 cardiac stents placed on 08/26/17 and 2 stents 09/14/17, 05/12/18 port a cath removal and replaced on left side Past Anesthesia/Blood Transfusion Reactions: No Reported Reaction Additional Past Anesthesia/Blood Transfusion Reaction / Comment(s): diff IV starts Date of Last Stent Placement:: 09/24/17 Past Psychological History: No Psychological Hx Reported Smoking Status: Former smoker Past Alcohol Use History: None Reported Past Drug Use History: None Reported - Past Family History Mother Family Medical History: Deep Vein Thrombosis (DVT) Father Family Medical History: Osteoarthritis (OA) Sister(s) Family Medical History: Cancer, Deep Vein Thrombosis (DVT) Additional Family Medical History / Comment(s): one sister with colon ca- then went to lung & brain, Medications and Allergies Home Medications Medication Instructions Recorded Confirmed Type Omeprazole [PriLOSEC] 20 mg PO BID 01/05/14 11/12/20 History Ipratropium-Albuterol Nebulize 3 ml INHALATION RT-QID PRN 04/03/15 11/12/20 History [Duoneb 0.5 mg-3 mg/3 ml Soln] Fluticasone Propionate [Flovent 2 puff INHALATION RT-BID 08/08/15 11/12/20 History Hfa 220 mcg] Salmeterol Xinafoate [Serevent 1 puff INHALATION RT-BID 10/13/15 11/12/20 History Diskus] Aspirin 81 mg PO DAILY #30 chew 08/27/17 11/12/20 Rx Atorvastatin [Lipitor] 40 mg PO DAILY #30 tab 08/27/17 11/12/20 Rx Clopidogrel [Plavix] 75 mg PO DAILY #30 tab 08/27/17 11/12/20 Rx Losartan [Cozaar] 25 mg PO DAILY #30 tab 08/27/17 11/12/20 Rx Metoprolol Succinate (ER) [Toprol 50 mg PO DAILY #30 tab.er.24h 08/27/17 11/12/20 Rx XL] Nitroglycerin Sl Tabs [Nitrostat] 0.4 mg SUBLINGUAL Q5M PRN #25 tab 08/27/17 11/12/20 Rx Insulin Degludec [Tresiba 40 unit SQ AC-BRKFST 09/09/17 11/12/20 History Flextouch U-100] Azithromycin 250 mg PO MOWEFR 05/06/18 11/12/20 History sitaGLIPtin [Januvia] 100 mg PO DAILY 12/16/18 11/12/20 History Albuterol Sulfate [Proair Hfa] 2 puff INHALATION RT-QID PRN 11/12/20 11/12/20 History Cholecalciferol [Vitamin D3 (25 25 mcg PO DAILY 11/12/20 11/12/20 History Mcg = 1000 Iu)] Ciprofloxacin HCl [Cipro] 250 mg PO BID 11/12/20 11/12/20 History EPINEPHrine (Auto Inject) [Epipen] 0.3 mg IM ONCE PRN 11/12/20 11/12/20 History Furosemide [Lasix] 80 mg PO DAILY 11/12/20 11/12/20 History Mometasone Inhalr 220 Mcg/Puff 2 puff INHALATION RT-BID 11/12/20 11/12/20 History [Asmanex] Mupirocin 2% Oint [Bactroban 2% 1 applic TOPICAL BID PRN 11/12/20 11/12/20 History Oint] Ozempic 0.25-0.5 0.5 mg SQ TH 11/12/20 11/12/20 History Spironolactone [Aldactone] 25 mg PO DAILY 11/12/20 11/12/20 History predniSONE 5 mg PO DAILY 11/12/20 11/12/20 History Allergies Allergy/AdvReac Type Severity Reaction Status Date / Time NUNU Inhibitors Allergy Dyspnea Verified 11/12/20 12:00 adhesive tape Allergy skin Verified 11/12/20 12:00 irritations aspirin Allergy Dyspnea Verified 11/12/20 12:00 levofloxacin [From Levaquin] Allergy "HAD Verified 11/12/20 12:00 RUPTURED TENDON" Milk Containing Products Allergy WAS TESTED Verified 11/12/20 12:00 [Dairy] & TOLD ALLERGIC NSAIDS (Non-Steroidal Allergy Dyspnea Verified 11/12/20 12:00 Anti-Inflamma Sulfa (Sulfonamide Allergy Rash/Hives Verified 11/12/20 12:00 Antibiotics) cephalexin [Cephalexin] AdvReac Nausea & Verified 11/12/20 12:00 Vomiting codeine phosphate AdvReac Vomiting Verified 11/12/20 12:00 [From Tylenol-Codeine #3] erythromycin base AdvReac Abdominal Verified 11/12/20 12:00 [Erythromycin Base] Pain Physical Exam Vitals: Vital Signs Temp Pulse Resp BP Pulse Ox 11/12/20 10:55 97.8 F 103 H 18 144/92 94 L Intake and Output 11/12/20 11/12/20 11/12/20 06:59 14:59 22:59 Other: Weight 97.522 kg Physical Exam: Revealed 80-year-old white male pleasant in no distress, on room air. Head: Atraumatic, normocephalic. HEENT:[Neck is supple.] [No neck masses.] [No thyromegaly.] [No JVD.] Chest: [Minimal fine crackles at the bases, wheezing on forced expiratory maneuver only. Cardiac Exam: [Normal S1 and S2, no S3 gallop, no murmur.] Abdomen: [Soft, nontender, no megaly, no rebound, no guarding, normal bowel sounds.] Extremities: [No clubbing, no edema, no cyanosis.] Neurological Exam: [No focal neurologic deficit.] Alert and oriented 3. Psychiatric: Normal mood, affect and normal mental status examination. Skin: No rashes. Musculoskeletal: Normal range of motion, no limitations, and no deformities. Results - Laboratory Findings CBC and BMP: 11/12/20 11:43 11/12/20 11:43 PT/INR, D-dimer PT 9.6 sec (9.0-12.0) 11/12/20 11:43 INR 0.9 (<1.2) 11/12/20 11:43 Abnormal lab findings: Abnormal Labs 11/12/20 11/12/20 11/12/20 11:43 11:43 11:43 WBC 13.4 H RBC 3.97 L Hgb 12.5 L Hct 37.1 L Neutrophils # 12.2 H Lymphocytes # 0.5 L APTT 19.6 L Sodium 135 L BUN 43 H Creatinine 1.92 H Glucose 170 H POC Glucose (mg/dL) Plasma Lactic Acid Angelo 11/12/20 11/12/20 11:43 12:29 WBC RBC Hgb Hct Neutrophils # Lymphocytes # APTT Sodium BUN Creatinine Glucose POC Glucose (mg/dL) 163 H Plasma Lactic Acid Angelo 2.1 H* - Diagnostic Findings Chest x-ray: image reviewed (As noted in history) Assessment and Plan Assessment: Impression: Acute exacerbation of COPD Bronchiectasis, possible underlying pneumonia secondary to pseudomonas or stenotrophomonas History of tracheobronchomalacia History of ischemic cardiomyopathy and LV dysfunction. History of coronary artery disease and previous stenting of LAD. As well as stenting of RCA. Benign essential hypertension Dyslipidemia Bronchiectasis requiring multiple bronchoscopies and BAL. History of right middle lobe syndrome Type 2 diabetes Recommendation: Patient will be placed on bronchodilators in the form of DuoNeb. Antibiotics in the form of Fortaz. Methylprednisolone 60 mg IV push every 6 hours. Sputum cultures were ordered, patient may or may not require bronchoscopy. GI and DVT prophylaxis. Resume home meds and specifically cardiac meds. We will continue to follow. We will decide on bronchoscopy in the next 24-48 hours. Time with Patient: Greater than 30
[2020-11-12] MEDS: methylPREDNISolone SOD SUCCI 125 MG/2 ML VIAL IV SCH (18:40)
[2020-11-12] MEDS: SYMBICORT 160-4.5 MCG INHALER INHALATION SCH (20:36)
[2020-11-12] MEDS: IPRATROPIUM-ALBUTEROL 3 ML NEB INHALATION SCH (20:36)
[2020-11-13] MEDS: IPRATROPIUM-ALBUTEROL 3 ML NEB INHALATION SCH ×5 (00:43→15:37)
[2020-11-13] MEDS: INSULIN ASPART (NovoLOG) 100 UNIT/ML VIAL SQ SCH ×3 (00:43→12:23)
[2020-11-13] MEDS: methylPREDNISolone SOD SUCCI 125 MG/2 ML VIAL IV SCH ×3 (00:52→12:23)
[2020-11-13 06:17] LABS: Glucose,Whole Blood 458 mg/dL (75-99)
[2020-11-13] MEDS ORDERED: PANTOPRAZOLE 40 MG TABLET PO SCH (07:30)
[2020-11-13] MEDS: SYMBICORT 160-4.5 MCG INHALER INHALATION SCH (07:39)
[2020-11-13] MEDS: ALBUTEROL NEBULIZED 2.5 MG/3 ML INHALATION SCH (07:42)
[2020-11-13] MEDS ORDERED: CHOLECALCIFEROL 25 MCG (1000 IU) TABLET PO SCH (09:00)
[2020-11-13] MEDS ORDERED: LINAGLIPTIN 5 MG TABLET PO SCH (09:00)
[2020-11-13] MEDS ORDERED: METOPROLOL SUCCINATE (ER) 50 MG TAB.ER.24H PO SCH (09:00)
[2020-11-13] MEDS ORDERED: LOSARTAN 25 MG TAB PO SCH (09:00)
[2020-11-13] MEDS ORDERED: CLOPIDOGREL 75 MG TAB PO SCH (09:00)
[2020-11-13] MEDS ORDERED: ASPIRIN 81 MG PO SCH (09:00)
[2020-11-13] MEDS ORDERED: ENOXAPARIN 30 MG/0.3 ML SYRINGE SQ SCH (09:00)
[2020-11-13] MEDS ORDERED: ATORVASTATIN 40 MG TAB PO SCH (09:00)
[2020-11-13] MEDS ORDERED: FUROSEMIDE 80 MG TAB PO SCH (09:45)
[2020-11-13] MEDS ORDERED: MUPIROCIN 2% OINT 22 GM TUBE TOPICAL PRN (11:10)
[2020-11-13] MEDS ORDERED: NITROGLYCERIN SL TABS 0.4 MG TAB SUBLINGUAL PRN (11:10)
[2020-11-13] MEDS ORDERED: SPIRONOLACTONE 25 MG TAB PO SCH (11:15)
[2020-11-13 11:48] VITALS: PULSE 84
[2020-11-13 12:15] LABS: Glucose,Whole Blood 232 mg/dL (75-99)
[2020-11-13] MEDS ORDERED: INSULIN ASPART (NovoLOG) 100 UNIT/ML VIAL SQ ONE (13:08)
--- NOTE | 2020-11-13 13:13 | P.PN ---
Subjective Progress Note Date: 11/13/20 Principal diagnosis: Acute exacerbation of COPD and bronchiectasis This is an 80-year-old white male with history of severe COPD, bronchiectasis, tracheobronchomalacia, right middle lobe syndrome, recurrent pulmonary infections including infections normally Pseudomonas, and most recently stenotrophomonas, this was based on a bronchoscopy that was done by Dr. zhang on 09/10/2020. However this was mostly sensitive to Levaquin, Fortaz, and Bactrim. Patient had poor tolerance to Levaquin and to Bactrim, hence he was placed on IV Zosyn on outpatient basis. Finished at least 2 weeks course of treatment but continues to have significant cough, cough is productive with greenish and sometimes brownish phlegm. Associated with wheezing, no fever, no chills, no hemoptysis. Patient called Dr. Zhang today about his symptoms, and he suggested that he comes into the ER. Workup in the ER included a chest x-ray showing chronic emphysematous changes and parenchymal fibrotic changes with a new bibasilar opacities could be atelectasis or acute infiltrate. Patient was admitted, and this consult was initiated. CBC showed a bit of a leukocytosis with WBC count of 13.4. Hemoglobin is 12.5. Creatinine 1.92. And lactic acid was 2.1, follow-up lactic was 1.4. After evaluating the patient and noting his last BAL culture, I recommended that he goes on Fortaz. In the meantime we have requested sputum for Gram stain culture and sensitivity, patient may or may not require bronchoscopy and BAL. Patient was reevaluated today on 11/13/2020, patient is feeling much better today, breathing a lot easier, has been ambulating in the hallway without any difficulty, he is on room air, his dose of Fortaz was adjusted by pharmacy because of his renal functioning down to 2 g every 24 hours. Patient is clinically doing great, hence I recommended that we could potentially treat him with bronchodilators, IV ceftazidime and oral prednisone burst and taper on outpatient basis and he is to see Dr. Zhang in 2 weeks. Patient tolerated his first dose of Fortaz quite well, and had no side effects related to the Fortaz. Objective - Vital Signs Vital signs: Vital Signs Temp 97.8 F 11/12/20 10:55 Pulse 84 11/13/20 11:48 Resp 18 11/13/20 04:13 BP 135/85 11/13/20 04:13 Pulse Ox 93 L 11/13/20 04:13 Intake & Output 11/12/20 11/13/20 11/13/20 18:59 06:59 18:59 Weight 97.522 kg 97.522 kg - Exam Physical Exam: Revealed 80-year-old white male pleasant in no distress, on room air. Head: Atraumatic, normocephalic. HEENT:[Neck is supple.] [No neck masses.] [No thyromegaly.] [No JVD.] Chest: [Minimal fine crackles at the bases, no rhonchi no wheezes. Cardiac Exam: [Normal S1 and S2, no S3 gallop, no murmur.] Abdomen: [Soft, nontender, no megaly, no rebound, no guarding, normal bowel sounds.] Extremities: [No clubbing, no edema, no cyanosis.] Neurological Exam: [No focal neurologic deficit.] Alert and oriented 3. Psychiatric: Normal mood, affect and normal mental status examination. Skin: No rashes. Musculoskeletal: Normal range of motion, no limitations, and no deformities. - Labs CBC & Chem 7: 11/12/20 11:43 11/12/20 11:43 Labs: Abnormal Lab Results - Last 24 Hours (Table) 11/13/20 11/13/20 Range/Units 06:16 12:11 POC Glucose (mg/dL) 458 H 232 H (75-99) mg/dL Microbiology - Last 24 Hours (Table) 11/13/20 04:15 Sputum Culture - Preliminary Sputum Assessment and Plan Assessment: Impression: Acute exacerbation of COPD Bronchiectasis, possible underlying pneumonia secondary to pseudomonas or stenotrophomonas History of tracheobronchomalacia History of ischemic cardiomyopathy and LV dysfunction. History of coronary artery disease and previous stenting of LAD. As well as stenting of RCA. Benign essential hypertension Dyslipidemia Bronchiectasis requiring multiple bronchoscopies and BAL. History of right middle lobe syndrome Type 2 diabetes Recommendation: Clear patient to be discharged home today on oral prednisone burst and taper, Fortaz 2 g IV piggyback every 24 hours for the next 10 days, and back on his usual bronchodilators. Patient to follow-up with Dr. Zhang in 2 weeks. No need for bronchoscopy. Clinically the patient is doing great, Discussed his condition with Dr. Gonzalez, Cleared for discharge. Time with Patient: Less than 30
[2020-11-13 14:33] VITALS: BP 128/69; RESP 16; TEMP 96.4
[2020-11-13 15:21] LABS: Hemoglobin A1C 9.2 % (4.0-6.0)
--- NOTE | 2020-11-14 16:51 | P.HPIM ---
History of Present Illness H&P Date: 11/13/20 Chief Complaint: Cough shortness of breath History of presenting complaint: This is a pleasant 80-year-old patient follows a Dr. Alberto Rodriguez. He follows with agility instructor Dr. Armstrong. Patient's chronic stable medical conditions include coronary artery disease with stent, diabetes, GERD, hypertension, chronic kidney disease, bronchiectasis, bronchomalacia, iron deficiency anemia. Patient's had multiple pulmonary infections been treated by Dr. Cifuentes. Patient's had Aspergillus fumigatus infections before and and Pseudomonas. Last course of antibiotics was 7 days ago. Patient again started feeling unwell some shortness of breath. Started bringing up brown and green sputum. Patient does bronchoscopy was in September of this year. Patient was sent in for IV antibi otics. Patient was started on IV cefepime in the ER. Denies any obvious fever and chills. Appetite has been fair Patient's son at the bedside. Review of systems: GEN.: Tired EYES: None HEENT: None NECK: None RESPIRATORY: [As above CARDIOVASCULAR: None GASTROINTESTINAL: None GENITOURINARY: None MUSCULOSKELETAL: Some joint pains LYMPHATICS: None HEMATOLOGICAL: None PSYCHIATRY: None NEUROLOGICAL: None Past medical history to include: COPD, coronary artery disease with stent, diabetes, GERD, hypertension, chronic kidney disease, frequent lung infections including Aspergillus and Pseudomonas, bronchomalacia Social history: Lives alone. Smoked from 1956 through 1974. No alcohol. Physical examination: VITAL SIGNS: 97.8, 103, 18, 144/92, 94% on room air GENERAL: BMI 32.7, sitting up on the chair, awake. EYES: Pupils equal. Conjunctiva normal. HEENT: External appearance of nose and ears normal, oral cavity grossly normal. NECK: JVD not raised; masses not palpable. HEART: First and second heart sounds are normal; no edema. LUNGS: Respiratory rate increased; decreased breath sounds mild crackle. ABDOMEN: Soft, nontender, liver spleen not palpable, no masses palpable. PSYCH: Alert and oriented x3; mood and affect normal. NEUROLOGICAL: Cranial nerves grossly intact; no facial asymmetry, power and sensation grossly intact. Muscular skeletal: Evidence of OA, the hands LYMPHATICS: No lymph nodes palpable in the axilla and neck INVESTIGATIONS, reviewed in the clinical context: White count 13.4 hemoglobin 12.5 platelets 167 potassium 4.6 bun 43 creatinine 1.9 to blood glucose 170 lactic acid 2.1 ProBNP 999 Troponin I 0.024 Coronavirus [PCR]-not detected EKG tracing personally reviewed by me-normal sinus rhythm Chest x-ray film personally reviewed by me-right basilar infiltrate Assessment and plan: -This is a patient with recurrent pulmonary infections from underlying bronchiectasis present multiple course of antibiotic sent the past and again presents with pneumonia suspected Pseudomonas. Last was of antibiotic was about a week ago. Patient was started on IV cefepime in the ER. -Acute COPD exacerbation in an ex-smoker. Put on bronchodilators, steroids -Diabetes mellitus type 2 chronically on insulin, uncontrolled with hyperglycemia -Coronary artery disease with stent, continue with aspirin and Lipitor Plavix, Toprol-XL -GERD continue with Prilosec -Essential hypertension continue with Cozaar, beta rip -Chronic kidney disease, stage III likely from nephrosclerosis and diabetic nephropathy -Acquired bronchomalacia from recurrent infections Dr. Keyes from pulmonary was consulted. Other medications to continue. Past Medical History Past Medical History: Asthma, Coronary Artery Disease (CAD), Cancer, COPD, Diabetes Mellitus, GERD/Reflux, Hypertension, Myocardial Infarction ([place]), Pneumonia, Renal Disease, Respiratory Disorder, Skin Disorder Additional Past Medical History / Comment(s): Frequent lung infections tx with antibiotics and bronch/BALs, bronchiectasis, acquired bronchomalacia, recurrent pseudomonal infections in lungs, right middle lobe syndrome, IDDM type II, CKD stage unknown, iron anemia, skin cancer of the nose and lip, pt has dry thin fragile skin- please use paper tape only and has port a cath left chest, bilateral lower leg edema. Last Myocardial Infarction Date:: 08/25/17 History of Any Multi-Drug Resistant Organisms: MRSA, Other MDRO Date of last positivie culture/infection: 08/13/2012 MDRO Source:: BRONCH WASH Past Surgical History: Heart Catheterization With Stent, Hernia Repair, Orthopedic Surgery Additional Past Surgical History / Comment(s): MULT BRONCHOSCOPIES, Rt Foot(Achilles) Surgery, Sinus Surgery x 4, Picc line/later removed,skin cancer removed from lower lip & nose- removal of part of lower lip with reconstruction, ray cataracts with lens implants, umbilical hernia, 3 cardiac stents placed on 08/26/17 and 2 stents 09/14/17, 05/12/18 R port a cath removal and replaced on left side Past Anesthesia/Blood Transfusion Reactions: No Reported Reaction Additional Past Anesthesia/Blood Transfusion Reaction / Comment(s): diff IV starts Date of Last Stent Placement:: 09/24/17 Smoking Status: Former smoker - Past Family History Mother Family Medical History: Deep Vein Thrombosis (DVT) Father Family Medical History: Osteoarthritis (OA) Sister(s) Family Medical History: Cancer, Deep Vein Thrombosis (DVT) Additional Family Medical History / Comment(s): One sister with 3 different types of cancer, 1 or 2 sisters with DVTS Son(s) Family Medical History: Deep Vein Thrombosis (DVT) Medications and Allergies Home Medications Medication Instructions Recorded Confirmed Type Omeprazole [PriLOSEC] 20 mg PO BID 01/05/14 11/14/20 History Ipratropium-Albuterol Nebulize 3 ml INHALATION RT-QID PRN 04/03/15 11/14/20 History [Duoneb 0.5 mg-3 mg/3 ml Soln] Fluticasone Propionate [Flovent 2 puff INHALATION RT-BID 08/08/15 11/14/20 History Hfa 220 mcg] Salmeterol Xinafoate [Serevent 1 puff INHALATION RT-BID 10/13/15 11/14/20 History Diskus] Aspirin 81 mg PO DAILY #30 chew 08/27/17 11/14/20 Rx Atorvastatin [Lipitor] 40 mg PO DAILY #30 tab 08/27/17 11/14/20 Rx Clopidogrel [Plavix] 75 mg PO DAILY #30 tab 08/27/17 11/14/20 Rx Losartan [Cozaar] 25 mg PO DAILY #30 tab 08/27/17 11/14/20 Rx Metoprolol Succinate (ER) [Toprol 50 mg PO DAILY #30 tab.er.24h 08/27/17 11/14/20 Rx XL] Nitroglycerin Sl Tabs [Nitrostat] 0.4 mg SUBLINGUAL Q5M PRN #25 tab 08/27/17 11/14/20 Rx Insulin Degludec [Tresiba 40 unit SQ AC-BRKFST 09/09/17 11/14/20 History Flextouch U-100] sitaGLIPtin [Januvia] 100 mg PO DAILY 12/16/18 11/14/20 History Albuterol Sulfate [Proair Hfa] 2 puff INHALATION RT-QID PRN 11/12/20 11/14/20 History Cholecalciferol [Vitamin D3 (25 25 mcg PO DAILY 11/12/20 11/14/20 History Mcg = 1000 Iu)] Furosemide [Lasix] 80 mg PO DAILY 11/12/20 11/14/20 History Mometasone Inhalr 220 Mcg/Puff 2 puff INHALATION RT-BID 11/12/20 11/14/20 History [Asmanex] Mupirocin 2% Oint [Bactroban 2% 1 applic TOPICAL BID PRN 11/12/20 11/14/20 History Oint] Ozempic 0.25-0.5 0.5 mg SQ TH 11/12/20 11/14/20 History Spironolactone [Aldactone] 25 mg PO DAILY 11/12/20 11/14/20 History predniSONE 5 mg PO DAILY 11/12/20 11/14/20 History predniSONE 0 mg PO DIRECTED #10 tab 11/13/20 11/14/20 Rx Allergies Allergy/AdvReac Type Severity Reaction Status Date / Time NUNU Inhibitors Allergy Dyspnea Verified 11/14/20 08:54 adhesive tape Allergy skin Verified 11/14/20 08:54 irritations aspirin Allergy Dyspnea Verified 11/14/20 08:54 levofloxacin [From Levaquin] Allergy "HAD Verified 11/14/20 08:54 RUPTURED TENDON" Milk Containing Products Allergy WAS TESTED Verified 11/14/20 08:54 [Dairy] & TOLD ALLERGIC NSAIDS (Non-Steroidal Allergy Dyspnea Verified 11/14/20 08:54 Anti-Inflamma Sulfa (Sulfonamide Allergy Rash/Hives Verified 11/14/20 08:54 Antibiotics) cephalexin [Cephalexin] AdvReac Nausea & Verified 11/14/20 08:54 Vomiting codeine phosphate AdvReac Vomiting Verified 11/14/20 08:54 [From Tylenol-Codeine #3] erythromycin base AdvReac Abdominal Verified 11/14/20 08:54 [Erythromycin Base] Pain Physical Exam Vitals: Vital Signs Pulse Resp BP Pulse Ox 11/13/20 07:49 80 11/13/20 07:39 84 11/13/20 04:31 86 11/13/20 04:18 88 11/13/20 04:13 86 18 135/85 93 L 11/13/20 00:57 84 11/13/20 00:56 84 15 127/85 98 11/13/20 00:43 86 11/12/20 20:50 82 11/12/20 20:37 81 11/12/20 18:28 104 H 11/12/20 18:18 101 H Intake and Output 11/12/20 11/13/20 11/13/20 22:59 06:59 14:59 Other: Weight 97.522 kg Results CBC & Chem 7: 11/12/20 11:43 11/12/20 11:43 Labs: Abnormal Lab Results - Last 24 Hours (Table) 11/12/20 11/12/20 11/12/20 Range/Units 11:43 11:43 11:43 WBC 13.4 H (3.8-10.6) k/uL RBC 3.97 L (4.30-5.90) m/uL Hgb 12.5 L (13.0-17.5) gm/dL Hct 37.1 L (39.0-53.0) % Neutrophils # 12.2 H (1.3-7.7) k/uL Lymphocytes # 0.5 L (1.0-4.8) k/uL APTT 19.6 L (22.0-30.0) sec Sodium 135 L (137-145) mmol/L BUN 43 H (9-20) mg/dL Creatinine 1.92 H (0.66-1.25) mg/dL Glucose 170 H (74-99) mg/dL POC Glucose (mg/dL) (75-99) mg/dL Plasma Lactic Acid Angelo (0.7-2.0) mmol/L 11/12/20 11/12/20 11/13/20 Range/Units 11:43 12:29 06:16 WBC (3.8-10.6) k/uL RBC (4.30-5.90) m/uL Hgb (13.0-17.5) gm/dL Hct (39.0-53.0) % Neutrophils # (1.3-7.7) k/uL Lymphocytes # (1.0-4.8) k/uL APTT (22.0-30.0) sec Sodium (137-145) mmol/L BUN (9-20) mg/dL Creatinine (0.66-1.25) mg/dL Glucose (74-99) mg/dL POC Glucose (mg/dL) 163 H 458 H (75-99) mg/dL Plasma Lactic Acid Angelo 2.1 H* (0.7-2.0) mmol/L Microbiology - Last 24 Hours (Table) 11/13/20 04:15 Sputum Culture - Preliminary Sputum Thrombosis Risk Factor Assmnt - Choose All That Apply Any of the Below Risk Factors Present?: Yes Each Factor Represents 1 point: Abnormal pulmonary function (COPD), Obesity (BMI >25), Serious lung disease incl. pneumonia (< 1month) Other Risk Factors: Yes Each Risk Factor Represents 2 Points: Malignancy Each Risk Factor Represents 3 Points: Age 75 years or older Other congenital or acquired thrombophilia - If yes, enter type in comment: No Thrombosis Risk Factor Assessment Total Risk Factor Score: 8 Thrombosis Risk Factor Assessment Level: High Risk
--- NOTE | 2020-11-14 16:57 | P.DS ---
Providers Date of admission: 11/12/20 13:17 Expected date of discharge: 11/13/20 Attending physician: Jose Gonzalez Consults: 11/12/20 13:11 Consult Physician Urgent Consulting Provider: Moe Armstrong Consult Reason/Comments: cough, dyspnea, chronic lung infections Do you want consulting provider notified?: Yes Primary care physician: Alberto Saeed [facility] Hospital Course: Chief Complaint: Cough shortness of breath History of presenting complaint: This is a pleasant 80-year-old patient follows a DrAbdoul Rodriguez. He follows with diamond selector Dr. Armstrong. Patient's chronic stable medical conditions include coronary artery disease with stent, diabetes, GERD, hypertension, chronic kidney disease, bronchiectasis, bronchomalacia, iron deficiency anemia. Patient's had multiple pulmonary infections been treated by Dr. Cifuentes. Patient's had Aspergillus fumigatus infections before and and Pseudomonas. Last course of antibiotics was 7 days ago. Patient again started feeling unwell some shortness of breath. Started bringing up brown and green sputum. Patient does bronchoscopy was in September of this year. Patient was sent in for IV antibiotics. Patient was started on IV cefepime in the ER. Denies any obvious fever and chills. Appetite has been fair Patient's son at the bedside. Patient admitted with pneumonia. Seen by Dr. Dyson from pulmonary. Patient with swished over to IV ceftaz. Home antibiotics and being arranged. Care was discussed with the patient. She did respond well to bronchodilators steroids burst. I discussed with Dr. Dyson. Okay to DC home. He'll follow up with Dr. Armstrong in the office. Propellant Charge Loader: Dr. Keyes from pulmonary Past medical history to include: COPD, coronary artery disease with stent, diabetes, GERD, hypertension, chronic kidney disease, frequent lung infections including Aspergillus and Pseudomonas, bronchomalacia Social history: Lives alone. Smoked from 1956 through 1974. No alcohol. Physical examination: VITAL SIGNS: 97.8, 103, 18, 144/92, 94% on room air GENERAL: BMI 32.7, sitting up on the chair, awake. EYES: Pupils equal. Conjunctiva normal. HEENT: External appearance of nose and ears normal, oral cavity grossly normal. NECK: JVD not raised; masses not palpable. HEART: First and second heart sounds are normal; no edema. LUNGS: Respiratory rate increased; decreased breath sounds mild crackle. ABDOMEN: Soft, nontender, liver spleen not palpable, no masses palpable. PSYCH: Alert and oriented x3; mood and affect normal. Muscular skeletal: Evidence of OA, the hands INVESTIGATIONS, reviewed in the clinical context: White count 13.4 hemoglobin 12.5 platelets 167 potassium 4.6 bun 43 creatinine 1.9 to blood glucose 170 lactic acid 2.1 ProBNP 999 Troponin I 0.024 Coronavirus [PCR]-not detected EKG tracing personally reviewed by me-normal sinus rhythm Chest x-ray film personally reviewed by me-right basilar infiltrate Assessment and plan: -This is a patient with recurrent pulmonary infections from underlying bronchiectasis present multiple course of antibiotic sent the past and again presents with pneumonia suspected Pseudomonas. Last was of antibiotic was about a week ago. Patient being discharged on IV ceftazidime -Acute COPD exacerbation in an ex-smoker. Put on bronchodilators, steroids -Diabetes mellitus type 2 chronically on insulin, uncontrolled with hyperglycemia -Coronary artery disease with stent, continue with aspirin and Lipitor Plavix, Toprol-XL -GERD continue with Prilosec -Essential hypertension continue with Cozaar, beta rip -Chronic kidney disease, stage III likely from nephrosclerosis and diabetic nephropathy -Acquired bronchomalacia from recurrent infections Disposition: Home Patient Condition at Discharge: Stable Plan - Discharge Summary Discharge Rx Participant: No New Discharge Prescriptions: New predniSONE 0 mg PO DIRECTED #10 tab Continue Omeprazole [PriLOSEC] 20 mg PO BID Ipratropium-Albuterol Nebulize [Duoneb 0.5 mg-3 mg/3 ml Soln] 3 ml INHALATION RT-QID PRN PRN Reason: Wheezing Fluticasone Propionate [Flovent Hfa 220 mcg] 2 puff INHALATION RT-BID Salmeterol Xinafoate [Serevent Diskus] 1 puff INHALATION RT-BID Clopidogrel [Plavix] 75 mg PO DAILY #30 tab Aspirin 81 mg PO DAILY #30 chew Atorvastatin [Lipitor] 40 mg PO DAILY #30 tab Losartan [Cozaar] 25 mg PO DAILY #30 tab Metoprolol Succinate (ER) [Toprol XL] 50 mg PO DAILY #30 tab.er.24h Nitroglycerin Sl Tabs [Nitrostat] 0.4 mg SUBLINGUAL Q5M PRN #25 tab PRN Reason: Chest Pain Insulin Degludec [Tresiba Flextouch U-100] 40 unit SQ AC-BRKFST sitaGLIPtin [Januvia] 100 mg PO DAILY Ozempic 0.25-0.5 0.5 mg SQ TH Mometasone Inhalr 220 Mcg/Puff [Asmanex] 2 puff INHALATION RT-BID Cholecalciferol [Vitamin D3 (25 Mcg = 1000 Iu)] 25 mcg PO DAILY Albuterol Sulfate [Proair Hfa] 2 puff INHALATION RT-QID PRN PRN Reason: Shortness Of Breath predniSONE 5 mg PO DAILY Spironolactone [Aldactone] 25 mg PO DAILY Mupirocin 2% Oint [Bactroban 2% Oint] 1 applic TOPICAL BID PRN PRN Reason: Rash Furosemide [Lasix] 80 mg PO DAILY Discontinued Azithromycin 250 mg PO MOWEFR EPINEPHrine (Auto Inject) [Epipen] 0.3 mg IM ONCE PRN PRN Reason: Anaphylaxis Ciprofloxacin HCl [Cipro] 250 mg PO BID Discharge Medication List Omeprazole [PriLOSEC] 20 mg PO BID 01/05/14 [History] Ipratropium-Albuterol Nebulize [Duoneb 0.5 mg-3 mg/3 ml Soln] 3 ml INHALATION RT-QID PRN 04/03/15 [History] Fluticasone Propionate [Flovent Hfa 220 mcg] 2 puff INHALATION RT-BID 08/08/15 [History] Salmeterol Xinafoate [Serevent Diskus] 1 puff INHALATION RT-BID 10/13/15 [History] Aspirin 81 mg PO DAILY #30 chew 08/27/17 [Rx] Atorvastatin [Lipitor] 40 mg PO DAILY #30 tab 08/27/17 [Rx] Clopidogrel [Plavix] 75 mg PO DAILY #30 tab 08/27/17 [Rx] Losartan [Cozaar] 25 mg PO DAILY #30 tab 08/27/17 [Rx] Metoprolol Succinate (ER) [Toprol XL] 50 mg PO DAILY #30 tab.er.24h 08/27/17 [Rx] Nitroglycerin Sl Tabs [Nitrostat] 0.4 mg SUBLINGUAL Q5M PRN #25 tab 08/27/17 [Rx] Insulin Degludec [Tresiba Flextouch U-100] 40 unit SQ AC-BRKFST 09/09/17 [History] sitaGLIPtin [Januvia] 100 mg PO DAILY 12/16/18 [History] Albuterol Sulfate [Proair Hfa] 2 puff INHALATION RT-QID PRN 11/12/20 [History] Cholecalciferol [Vitamin D3 (25 Mcg = 1000 Iu)] 25 mcg PO DAILY 11/12/20 [History] Furosemide [Lasix] 80 mg PO DAILY 11/12/20 [History] Mometasone Inhalr 220 Mcg/Puff [Asmanex] 2 puff INHALATION RT-BID 11/12/20 [History] Mupirocin 2% Oint [Bactroban 2% Oint] 1 applic TOPICAL BID PRN 11/12/20 [History] Ozempic 0.25-0.5 0.5 mg SQ TH 11/12/20 [History] Spironolactone [Aldactone] 25 mg PO DAILY 11/12/20 [History] predniSONE 5 mg PO DAILY 11/12/20 [History] predniSONE 0 mg PO DIRECTED #10 tab 11/13/20 [Rx] Follow up Appointment(s)/Referral(s): [facility] [NON-STAFF] - 1-2 Days Alberto Rodriguez MD [Primary Care Provider] - 11/20/20 3:00 pm Moe Armstrong DO [Doctor of Osteopathic Medicine] - 11/16/20 3:15 pm & Silva Hernandez Procedures [REFERRING] - 11/14/20 9:00 am Patient Instructions/Handouts: COPD (Chronic Obstructive Pulmonary Disease) (DC) Discharge Disposition: HOME SELF-CARE
== END 2020-11-13 16:01 | disposition home health service (06) ==
LOC: EC 10:52 → INTOOBSV 13:17 → 4SSUR 13:17 → 1SOBS 11-13 07:09 → UNDODISIN 11-13 16:01
PROVIDERS: ADMIT Hospitalist; ATTEND Hospitalist
DX: J18.9 Pneumonia, unspecified organism (principal); J47.0 Bronchiectasis with acute lower respiratory infection; I25.10 Atherosclerotic heart disease of native coronary artery without angina pectoris; Z95.5 Presence of coronary angioplasty implant and graft; K21.9 Gastro-esophageal reflux disease without esophagitis; D63.1 Anemia in chronic kidney disease; Z20.822 Contact with and (suspected) exposure to COVID-19; I12.9 Hypertensive chronic kidney disease with stage 1 through stage 4 chronic kidney disease, or unspecified chronic kidney disease; E11.65 Type 2 diabetes mellitus with hyperglycemia; E11.22 Type 2 diabetes mellitus with diabetic chronic kidney disease; N18.30 Chronic kidney disease, stage 3 unspecified; R21 Rash and other nonspecific skin eruption; E78.5 Hyperlipidemia, unspecified; J98.11 Atelectasis; I25.5 Ischemic cardiomyopathy; Z91.048 Other nonmedicinal substance allergy status; E66.9 Obesity, unspecified; Z68.32 Body mass index [BMI] 32.0-32.9, adult; J98.09 Other diseases of bronchus, not elsewhere classified; R00.0 Tachycardia, unspecified; I25.2 Old myocardial infarction; Z87.891 Personal history of nicotine dependence; Z98.890 Other specified postprocedural states; Z79.4 Long term (current) use of insulin; Z79.51 Long term (current) use of inhaled steroids; Z79.899 Other long term (current) drug therapy; Z79.82 Long term (current) use of aspirin; Z79.02 Long term (current) use of antithrombotics/antiplatelets; Z88.6 Allergy status to analgesic agent; Z88.1 Allergy status to other antibiotic agents; Z91.011 Allergy to milk products; Z88.5 Allergy status to narcotic agent; Z88.2 Allergy status to sulfonamides; Z88.8 Allergy status to other drugs, medicaments and biological substances; Z87.01 Personal history of pneumonia (recurrent); Z85.828 Personal history of other malignant neoplasm of skin; Z86.14 Personal history of Methicillin resistant Staphylococcus aureus infection; Z80.0 Family history of malignant neoplasm of digestive organs; Z82.49 Family history of ischemic heart disease and other diseases of the circulatory system; Z82.61 Family history of arthritis
CPT/HCPCS: 96372; 96376 ×2; 96365; 96366; 96375; 99285; 36415; 94640 ×3; 93005; 83880; 80053; 83605; 83735; 84484; 85025; 85610; 85730; 87070; 87205; 83036; 87635; 71046; G0378 ×3; J2930 ×2; J0692; J1650; J0713

== ENCOUNTER 2021-02-28 09:38 | Day surgery (SDC) | payer MEDICARE ==
[~2021-02-28 09:38] MED LIST changes: -DEXAMETHASONE SOD PHOSPHATE 4 MG/ML 1 ML VIAL IV ONE; -GLYCOPYRROLATE 0.2 MG/ML 2 ML VIAL ONE; -KETAMINE 10 MG/ML 20 ML VIAL ONE; -LIDOCAINE 1% (10MG/ML) FOR IV START INTRADERMA PRN; -LIDOCAINE 1% INJ 10MG/ML (20 ML MDV) ONE; -ONDANSETRON 4 MG/2 ML VIAL IVP ONE; -PROPOFOL 10 MG/ML 20 ML VIAL IV ONE; -SODIUM CHLORIDE 0.9% 1,000 ML IV SCH; -fentaNYL (PF) 50 MCG/ML 2 ML AMP ONE
[2021-02-28 10:09] VITALS: TEMP 98.1
[2021-02-28 10:27] LABS: Glucose,Whole Blood 81 mg/dL (75-99)
[2021-02-28] MEDS ORDERED: LIDOCAINE 1% INJ 10MG/ML (20 ML MDV) ONE (10:28)
[2021-02-28] MEDS ORDERED: PROPOFOL 10 MG/ML 20 ML VIAL IV ONE (10:28)
[2021-02-28 11:02] VITALS: BP 127/69; PULSE 84; RESP 20
--- NOTE | 2021-02-28 12:28 | PCN ---
PROCEDURE NOTE PULMONARY/CRITICAL CARE PROCEDURE NOTE: PROCEDURE PERFORMED: Bronchoscopy, airway examination, therapeutic lavage and BAL. PREOP DIAGNOSES: Bronchiectasis, bronchomalacia, and chronic obstructive pulmonary disease. POSTOP DIAGNOSES: Bronchiectasis, bronchomalacia, and chronic obstructive pulmonary disease. ANESTHESIA: QI SPECIALIST provided general anesthesia. PROCEDURE DETAILS: The procedure was done in room #2. There was informed consent. There was universal timeout. After the patient was adequately sedated, the bronchoscope was inserted through the right nostril. It passed through the right nasopharynx into the oropharynx. From the oropharynx into the hypopharynx. The hypopharyngeal structures were evaluated, including anterior commissure, true cords, false cords, arytenoids, piriform sinuses, right and left valleculae and epiglottis. There appeared to be some granulation tissue noted on the vocal cords, particularly the right lung. After topicalization, the bronchoscope was pushed through the glottic opening into the trachea. There was some bright red blood noted in the distal trachea. The trachea was very collapsible and exhibited significant tracheomalacia. Tracheal callie was sharp. The right and left mainstem were topicalized. The right upper lobe and its 3 segments right middle lobe and its 2 segments, right lower lobe and its 5 segments, the left upper lobe proper and its 2 segments, the lingula and its 2 segments and the left lower lobe and its 4 segments were all evaluated. There were thick secretions noted throughout. The patient had severe amount of tracheomalacia and tracheobronchomalacia. There was very collapsible. There were thick secretions noted throughout. There was some material noted in the right upper lobe. It may be vegetable matter and the patient may have aspirated. I had a hard time and was not able to suction the material out. There was no distinct mass or tumor. The patient tolerated the procedure well. We did a BAL of the right middle lobe, right lower lobe and about 30-35 mL of fluid was recovered. The fluid will be sent to the laboratory for analysis. There was no immediate complication after the bronchoscope was withdrawn. The patient will be recovered. MMODL / IJN: [id number] /
== END 2021-02-28 11:41 | disposition home or self-care (01) ==
LOC: ORWHC2ENDO 09:38
PROVIDERS: ATTEND Internal Medicine Critical Care Medicine
DX: J47.9 Bronchiectasis, uncomplicated (principal); J98.09 Other diseases of bronchus, not elsewhere classified; Z88.6 Allergy status to analgesic agent; Z88.1 Allergy status to other antibiotic agents; Z88.5 Allergy status to narcotic agent; Z88.2 Allergy status to sulfonamides; Z79.02 Long term (current) use of antithrombotics/antiplatelets; Z79.82 Long term (current) use of aspirin; Z79.51 Long term (current) use of inhaled steroids; Z79.52 Long term (current) use of systemic steroids; Z79.4 Long term (current) use of insulin; I25.10 Atherosclerotic heart disease of native coronary artery without angina pectoris; I25.2 Old myocardial infarction; J98.19 Other pulmonary collapse; I10 Essential (primary) hypertension; D50.9 Iron deficiency anemia, unspecified; E11.9 Type 2 diabetes mellitus without complications; Z87.891 Personal history of nicotine dependence; Z98.49 Cataract extraction status, unspecified eye; Z95.5 Presence of coronary angioplasty implant and graft; Z98.890 Other specified postprocedural states
CPT/HCPCS: 88104; 88305; 31624; J2001; J2704

== ENCOUNTER 2021-04-03 04:28 | Inpatient (IN) | payer MEDICARE ==
[2021-04-03] MEDS ORDERED: ONDANSETRON 4 MG/2 ML VIAL IVP PRN (07:55)
[2021-04-03 08:40] LABS: ALT 16 U/L (4-49); AST 24 U/L (17-59); African American GFR (CKD) 42 (>60 ml/min/1.73 sqM); Albumin 3.8 g/dL (3.5-5.0); Albumin/Globulin Ratio 1.5; Alkaline Phosphatase 76 U/L (38-126); Anion Gap 12 mmol/L; Blood Urea Nitrogen 57 mg/dL (9-20); Calcium 9.2 mg/dL (8.4-10.2); Carbon Dioxide 23 mmol/L (22-30); Chloride 103 mmol/L (98-107); Globulin 2.6 g/dL; Glucose 81 mg/dL (74-99); Non-African American GFR(CKD) 36 (>60 ml/min/1.73 sqM); Phosphorus 3.7 mg/dL (2.5-4.5); Potassium 4.5 mmol/L (3.5-5.1); Sodium 138 mmol/L (137-145); Total Bilirubin 0.5 mg/dL (0.2-1.3); Total Protein 6.4 g/dL (6.3-8.2)
[2021-04-03 08:43] LABS: Basophils % (A) 0 %; Eosinophils # (A) 0.1 k/uL (0-0.7); Eosinophils % (A) 1 %; HCT 33.7 % (39.0-53.0); HGB 10.8 gm/dL (13.0-17.5); Lymphocytes # (A) 0.7 k/uL (1.0-4.8); Lymphocytes % (A) 7 %; MCH 30.5 pg (25.0-35.0); MCHC 32.1 g/dL (31.0-37.0); Mean Platelet Volume 7.3; Monocytes # (A) 0.4 k/uL (0-1.0); Monocytes % (A) 4 %; Neutrophils # (A) 9.3 k/uL (1.3-7.7); Neutrophils % (A) 87 %; Platelet Count 315 k/uL (150-450); RBC 3.55 m/uL (4.30-5.90); RDW 14.9 % (11.5-15.5); WBC 10.6 k/uL (3.8-10.6)
[2021-04-03 10:32] LABS: Glucose,Whole Blood 153 mg/dL (75-99)
[2021-04-03] MEDS: IPRATROPIUM-ALBUTEROL 3 ML NEB INHALATION SCH ×3 (11:23→19:21)
[2021-04-03] MEDS: methylPREDNISolone SOD SUCCI 40 MG/ML 1 ML VIAL IV SCH ×2 (11:40→20:30)
[2021-04-03] MEDS: CEFEPIME 2 GM in SODIUM CHLORIDE 0.9% 100 ML IVPB SCH ×2 (11:41→20:30)
[2021-04-03] MEDS: SODIUM CHLORIDE 0.9% 1,000 ML IV SCH ×2 (11:41→17:09)
--- NOTE | 2021-04-03 12:00 | P.CNPUL ---
History of Present Illness Consult date: 04/03/21 Requesting physician: Afsaneh Martin Reason for consult: dyspnea, COPD Chief complaint: Shortness of breath, cough, congestion History of present illness: This is a very pleasant 80-year-old white male with history of coronary artery disease with previous stent placements 5, diabetes mellitus, severe COPD, bronchiectasis, tracheobronchomalacia, right middle lobe syndrome, recurrent pulmonary infections including infections normally Pseudomonas, and most recently stenotrophomonas, this was based on a bronchoscopy that was done by Dr. Armstrong on 09/10/2020. His most recent bronchoscopy was 02/28/2021. He had most recently been on meropenem for 14 days. On 03/31/2021 he started feeling as though he was getting more congested again. He started himself on amoxicillin and prednisone that he had at home. He has not been seen much improvement and came to the emergency room early this morning. He is seen there in consultation. He is sitting up on the stretcher. Awake and alert in no acute distress. He has a loose productive cough. He's had ongoing issues with hoarseness and follows with Dr. Valenzuela for the same. White count 10.6. Hemoglobin 10.8. Sodium 138. Potassium 4.5. Creatinine 1.75. He is currently afebrile. Maintaining O2 saturations in the mid to upper 90s on 3 L/m per nasal cannula. Review of Systems REVIEW OF SYSTEMS: CONSTITUTIONAL: Denies any recent significant weight loss or weight gain. EYES: Denies change in vision. EARS, NOSE, MOUTH, THROAT: Positive for hoarseness. Denies headaches, denies sore throat. CARDIOVASCULAR: Denies chest pain, palpitations or syncopal episodes. RESPIRATORY: Positive for shortness of breath, cough, congestion no hemoptysis. GASTROINTESTINAL: Denies change in appetite, denies abdominal pain GENITOURINARY: Denies hematuria, denies infections. MUSKULOSKELETAL: Denies pain, denies swelling. INTEGUMENTARY: Denies rash, denies eczema. NEUROLOGICAL: Denies recent memory loss, no recent seizure activity. PSYCHIATRIC: Denies anxiety, denies depression. HEMATOLOGIC/LYMPHATIC: Denies anemia, denies enlarged lymph nodes. Past Medical History Past Medical History: Asthma, Coronary Artery Disease (CAD), Cancer, COPD, Diabetes Mellitus, GERD/Reflux, Hypertension, Myocardial Infarction ([place]), Pneumonia, Renal Disease, Respiratory Disorder, Skin Disorder Additional Past Medical History / Comment(s): Frequent lung infections tx with antibiotics and bronch/BALs, bronchiectasis, acquired bronchomalacia, recurrent pseudomonal infections in lungs, right middle lobe syndrome, IDDM type II, CKD stage unknown, iron anemia, skin cancer of the nose and lip, pt has dry thin fragile skin- please use paper tape only and has port a cath left chest, bilateral lower leg edema. Last Myocardial Infarction Date:: 08/25/17 History of Any Multi-Drug Resistant Organisms: MRSA, Other MDRO Date of last positivie culture/infection: 08/13/2012 MDRO Source:: BRONCH WASH Past Surgical History: Heart Catheterization With Stent, Hernia Repair, Orthopedic Surgery Additional Past Surgical History / Comment(s): MULTIPLE BRONCHOSCOPIES. HAS PORT A CATH FOR POSSIBLE IV ANTIBIOTIC INFUSIONS. Rt Foot(Achilles) Surgery, Sinus Surgery x 4, Picc line/later removed,skin cancer removed from lower lip & nose- removal of part of lower lip with reconstruction, ray cataracts with lens implants, umbilical hernia, 3 cardiac stents placed on 08/26/17 and 2 stents 09/14/17, 05/12/18 R port a cath removal and replaced on left side Past Anesthesia/Blood Transfusion Reactions: No Reported Reaction Additional Past Anesthesia/Blood Transfusion Reaction / Comment(s): diff IV starts Date of Last Stent Placement:: 09/24/17 Past Psychological History: No Psychological Hx Reported Additional Psychological History / Comment(s): Pt resides alone. He is independent. Smoking Status: Former smoker Past Alcohol Use History: None Reported Additional Past Alcohol Use History / Comment(s): Pt started smoking in 1956 and quit in 1974. Past Drug Use History: None Reported - Past Family History Mother Family Medical History: Deep Vein Thrombosis (DVT) Father Family Medical History: Osteoarthritis (OA) Sister(s) Family Medical History: Cancer, Deep Vein Thrombosis (DVT) Additional Family Medical History / Comment(s): One sister with 3 different types of cancer, 1 or 2 sisters with DVTS Son(s) Family Medical History: Deep Vein Thrombosis (DVT) Medications and Allergies Home Medications Medication Instructions Recorded Confirmed Type Omeprazole [PriLOSEC] 20 mg PO BID 01/05/14 04/03/21 History Fluticasone Propionate [Flovent 2 puff INHALATION RT-BID 08/08/15 04/03/21 History Hfa 220 mcg] Salmeterol Xinafoate [Serevent 1 puff INHALATION RT-BID 10/13/15 04/03/21 History Diskus] Aspirin 81 mg PO DAILY #30 chew 08/27/17 04/03/21 Rx Clopidogrel [Plavix] 75 mg PO DAILY #30 tab 08/27/17 04/03/21 Rx Nitroglycerin Sl Tabs [Nitrostat] 0.4 mg SUBLINGUAL Q5M PRN #25 tab 08/27/17 04/03/21 Rx sitaGLIPtin [Januvia] 100 mg PO QAM 12/16/18 04/03/21 History Albuterol Sulfate [Proair Hfa] 2 puff INHALATION RT-QID PRN 11/12/20 04/03/21 History Furosemide [Lasix] 80 mg PO QAM 11/12/20 04/03/21 History Spironolactone [Aldactone] 25 mg PO QAM 11/12/20 04/03/21 History Atorvastatin [Lipitor] 40 mg PO QAM 02/25/21 04/03/21 History Losartan [Cozaar] 25 mg PO QAM 02/25/21 04/03/21 History Metoprolol Succinate (ER) [Toprol 50 mg PO QAM 02/25/21 04/03/21 History XL] predniSONE 10 mg PO DAILY 02/25/21 04/03/21 History Azithromycin [Zithromax] 250 mg PO MOWEFR 04/03/21 04/03/21 History Bumetanide [BUMEX] 2 mg PO Q72H 04/03/21 04/03/21 History Clotrimazole Sydney [Mycelex 10 mg MUCOUS MEM 5XD 04/03/21 04/03/21 History Sydney] Insulin Degludec [Tresiba 50 units SQ DAILY 04/03/21 04/03/21 History Flextouch U-200] Semaglutide [Ozempic] 0.5 mg SQ FR 04/03/21 04/03/21 History Allergies Allergy/AdvReac Type Severity Reaction Status Date / Time NUNU Inhibitors Allergy Dyspnea Verified 04/03/21 08:47 adhesive tape Allergy skin Verified 04/03/21 08:47 irritations aspirin Allergy Dyspnea Verified 04/03/21 08:47 avibactam sodium Allergy Unknown Verified 04/03/21 08:47 [From Avycaz] ceftazidime [From Avycaz] Allergy Unknown Verified 04/03/21 08:47 ciprofloxacin [From Cipro] Allergy Unknown Verified 04/03/21 08:47 clindamycin Allergy Unknown Verified 04/03/21 08:47 levofloxacin [From Levaquin] Allergy "HAD Verified 04/03/21 08:47 RUPTURED TENDON" Milk Containing Products Allergy WAS TESTED Verified 04/03/21 08:47 [Dairy] & TOLD ALLERGIC NSAIDS (Non-Steroidal Allergy Dyspnea Verified 04/03/21 08:47 Anti-Inflamma Penicillins Allergy see comment Verified 04/03/21 08:47 Sulfa (Sulfonamide Allergy Rash/Hives Verified 04/03/21 08:47 Antibiotics) sulfamethoxazole Allergy Rash/Hives Verified 04/03/21 08:49 [From Bactrim] trimethoprim [From Bactrim] Allergy Rash/Hives Verified 04/03/21 08:49 cephalexin [Cephalexin] AdvReac Nausea & Verified 04/03/21 08:47 Vomiting codeine phosphate AdvReac Vomiting Verified 04/03/21 08:47 [From Tylenol-Codeine #3] erythromycin base AdvReac Abdominal Verified 04/03/21 08:47 [Erythromycin Base] Pain Physical Exam Vitals: Vital Signs Temp Pulse Resp BP Pulse Ox 04/03/21 11:39 98.8 F 93 24 134/84 96 04/03/21 11:33 94 18 04/03/21 11:23 91 18 99 04/03/21 10:32 93 18 148/75 98 04/03/21 06:05 95 04/03/21 05:50 95 Intake and Output 04/02/21 04/03/21 04/03/21 22:59 06:59 14:59 Other: Weight 97.522 kg GENERAL EXAM: Alert, very pleasant 80-year-old gentleman, on 3 L nasal cannula, fairly comfortable in no apparent distress. HEAD: Normocephalic. EYES: Normal reaction of pupils, equal size. NOSE: Clear with pink turbinates. THROAT: No erythema or exudates. NECK: No masses, no JVD. CHEST: No chest wall deformity. LUNGS: Equal air entry with bilateral scattered rhonchi. CVS: S1 and S2 normal with no audible murmur, regular rhythm. ABDOMEN: No hepatosplenomegaly, normal bowel sounds, no guarding or rigidity. SPINE: No scoliosis or deformity SKIN: No rashes CENTRAL NERVOUS SYSTEM: No focal deficits, tone is normal in all 4 extremities. EXTREMITIES: There is no peripheral edema. No clubbing, no cyanosis. Peripheral pulses are intact. Results - Laboratory Findings CBC and BMP: 04/03/21 05:00 04/03/21 05:00 Abnormal lab findings: Abnormal Labs 04/03/21 04/03/21 04/03/21 05:00 05:00 05:00 RBC 3.55 L Hgb 10.8 L Hct 33.7 L Neutrophils # 9.3 H Lymphocytes # 0.7 L BUN 57 H Creatinine 1.75 H POC Glucose (mg/dL) Troponin I 0.055 H* 04/03/21 04/03/21 10:00 10:31 RBC Hgb Hct Neutrophils # Lymphocytes # BUN Creatinine POC Glucose (mg/dL) 153 H Troponin I 0.055 H* - Diagnostic Findings Chest x-ray: image reviewed Assessment and Plan Assessment: 1 Acute exacerbation of chronic obstructive pulmonary disease complicated by purulent tracheobronchitis 2 Bronchiectasis with previous infections of pseudomonas and stenotrophomonas. Previous bronchoscopies greater than 20 times 3 History of tracheobronchomalacia, right middle lobe syndrome 4 Hoarseness, being followed in the outpatient setting by ENT 5 Coronary artery disease with previous stent placements 5 6 Ischemic cardiomyopathy 7 Diabetes mellitus 8 Hypertension 9 Gastroesophageal reflux disease 10 Former smoker Plan: The patient was seen and evaluated by Dr. Lowe Initiate cefepime, bronchodilators, IV Solu-Medrol Decrease IV fluids Plan for bronchoscopy with BAL tomorrow Nothing by mouth after midnight We will continue to follow and make further recommendations based on his clinical status I, the cosigning physician, performed a history & physical examination of the patient. Lungs sounds bilateral scattered rhonchi. Maintaining good O2 saturations in the 90s on 3 L/m per nasal cannula. I discussed the assessment and plan of care with my nurse practitioner, Holly Pak. I attest to the above consultation as dictated by her. Time with Patient: Greater than 30
--- NOTE | 2021-04-03 13:38 | XR ---
EXAM: XR Chest, 2 Views CLINICAL HISTORY: SOB TECHNIQUE: Frontal and lateral views of the chest. COMPARISON: No relevant prior studies available. FINDINGS: Lungs: Mild bilateral lower lobe atelectatic changes. Pleural space: Unremarkable. No pneumothorax. Heart: The heart is large in size. Mediastinum: Unremarkable. Bones/joints: Unremarkable. Tubes, lines and devices: There is a left-sided central line with the tip in the upper SVC. IMPRESSION: Atelectasis.
[2021-04-03] MEDS ORDERED: NALOXONE 0.4 MG/ML 1 ML VIAL IV PRN (15:13)
--- NOTE | 2021-04-03 15:17 | P.HPIM ---
History of Present Illness H&P Date: 04/03/21 Chief Complaint: shortness of breath Patient is an 80-year-old male with a past medical history of bronchiectasis 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 He typically follows with Dr. Armstrong. Initial lab work was consistent with his known chronic kidney disease. Initial troponin was positive at 0.055, EKG nonischemic. Chest x-ray shows chronic changes. His concerns for worsening of his bronchiectasis with possible infection. He was admitted for further monitoring. Pulmonary was consulted as already seen him and they had started him on cefepime and IV Solu-Medrol with hands for brought in the a.m. Patient seen and examined at bedside.Shortness of breath for the last 4 days. + coughing up phlegm that is green and brown. No chest pain. No nausea, vomiting, or diarrhea. Completed 14 days of meropenem on 03/26/21. Took Augmentin S-Tu and Prednisone 30 mg daily Sun-Tues Pertinent positives and negatives as discussed in HPI, a complete review of systems was performed and all other systems are negative. General: non toxic, no distress, appears at stated age Derm: multiple areas of ecchymosis, warm, dry Head: atraumatic, normocephalic, symmetric Eyes: EOMI, no lid lag, anicteric sclera, pupils equal round reactive to light ENT: Nose and ears atraumatic, no thrush, no pharyngeal erythema Neck: No thyromegaly, no cervical lymphadenopathy, trachea midline, supple Mouth: no lip lesion, mucus membranes moist Cardiovascular: S1S2 reg, no murmur, positive posterior tibial pulse bilateral, trace edema, capillary refill less than 2 seconds Lungs: Course bs bilateral, no ronchi, no rales, no wheeze, no accessory muscle use, + 3 word conversational dyspnea Abdominal: soft, nontender to palpation, no guarding, no appreciable organomegaly, normal bowel sounds Ext: no gross muscle atrophy, muscle strength muscle strength 5 out of 5 in all 4 extremities, no contractures Neuro: CN II-XI grossly intact, light touch intact all 4 extremities, finger to nose within normal limits, Psych: Alert, oriented, appropriate affect Acute exacerbation of COPD with purulent tracheobronchitis history of Pseudomonas and stenotrophomonas. Bronchiectasis Tracheobronchial malacia -Pulmonary recommendations appreciated: Cefepime, bronchodilators, Solu-Medrol, bronch in a.m. - sputum culture Hoarseness -Being followed by Dr. Valenzuela in the outpatient setting - throat losenges Diabetes mellitus type 2 - long acting, SSI, follow BS - Januvia - Ozempic from home once weekly CKD stage III - baseline Cr 1.7 - follow closely avoid additional nephrotoxic agents. Chronic Systolic CHF with EF 35-40% - Lasix, bumex - Metoprolol - losartan - monitor fluid status closely patient reports that he gets edema with steroids Chronic: Hypertension GERD Ischemic cardiomyopathy The patient is admitted with an anticipated greater than 2 midnight stay for evaluation of shortness of breath. Surrogate decision-maker: son CODE STATUS:+ CPR, no intubation DVT prophylaxis: heparin Discussed with: patient, nursing, family Anticipated discharge date: in 2-[address]: home A total of 65 minutes was spent on the care of this complex patient more than 50% of the time was spent in counseling and care coordination. Past Medical History Past Medical History: Asthma, Coronary Artery Disease (CAD), Cancer, COPD, Diabetes Mellitus, GERD/Reflux, Hypertension, Myocardial Infarction ([place]), Pneumonia, Renal Disease, Respiratory Disorder, Skin Disorder Additional Past Medical History / Comment(s): Frequent lung infections tx with antibiotics and bronch/BALs, bronchiectasis, acquired bronchomalacia, recurrent pseudomonal infections in lungs, right middle lobe syndrome, IDDM type II, CKD stage unknown, iron anemia, skin cancer of the nose and lip, pt has dry thin fragile skin- please use paper tape only and has port a cath left chest, bilateral lower leg edema. Last Myocardial Infarction Date:: 08/25/17 History of Any Multi-Drug Resistant Organisms: MRSA, Other MDRO Date of last positivie culture/infection: 08/13/2012 MDRO Source:: BRONCH WASH Past Surgical History: Heart Catheterization With Stent, Hernia Repair, Ort hopedic Surgery Additional Past Surgical History / Comment(s): MULTIPLE BRONCHOSCOPIES. HAS PORT A CATH FOR POSSIBLE IV ANTIBIOTIC INFUSIONS. Rt Foot(Achilles) Surgery, Sinus Surgery x 4, Picc line/later removed,skin cancer removed from lower lip & nose- removal of part of lower lip with reconstruction, ray cataracts with lens implants, umbilical hernia, 3 cardiac stents placed on 08/26/17 and 2 stents 09/14/17, 05/12/18 R port a cath removal and replaced on left side Past Anesthesia/Blood Transfusion Reactions: No Reported Reaction Additional Past Anesthesia/Blood Transfusion Reaction / Comment(s): diff IV starts Date of Last Stent Placement:: 09/24/17 Past Psychological History: No Psychological Hx Reported Additional Psychological History / Comment(s): Pt resides alone. He is independent. Smoking Status: Former smoker Past Alcohol Use History: None Reported Additional Past Alcohol Use History / Comment(s): Pt started smoking in 1955 and quit in 1974. Past Drug Use History: None Reported - Past Family History Mother Family Medical History: Deep Vein Thrombosis (DVT) Father Family Medical History: Osteoarthritis (OA) Sister(s) Family Medical History: Cancer, Deep Vein Thrombosis (DVT) Additional Family Medical History / Comment(s): One sister with 3 different types of cancer, 1 or 2 sisters with DVTS Son(s) Family Medical History: Deep Vein Thrombosis (DVT) Medications and Allergies Home Medications Medication Instructions Recorded Confirmed Type Omeprazole [PriLOSEC] 20 mg PO BID 01/05/14 04/03/21 History Fluticasone Propionate [Flovent 2 puff INHALATION RT-BID 08/08/15 04/03/21 History Hfa 220 mcg] Salmeterol Xinafoate [Serevent 1 puff INHALATION RT-BID 10/13/15 04/03/21 History Diskus] Aspirin 81 mg PO DAILY #30 chew 08/27/17 04/03/21 Rx Clopidogrel [Plavix] 75 mg PO DAILY #30 tab 08/27/17 04/03/21 Rx Nitroglycerin Sl Tabs [Nitrostat] 0.4 mg SUBLINGUAL Q5M PRN #25 tab 08/27/17 04/03/21 Rx sitaGLIPtin [Januvia] 100 mg PO QAM 12/16/18 04/03/21 History Albuterol Sulfate [Proair Hfa] 2 puff INHALATION RT-QID PRN 11/12/20 04/03/21 History Furosemide [Lasix] 80 mg PO QAM 11/12/20 04/03/21 History Spironolactone [Aldactone] 25 mg PO QAM 11/12/20 04/03/21 History Atorvastatin [Lipitor] 40 mg PO QAM 02/25/21 04/03/21 History Losartan [Cozaar] 25 mg PO QAM 02/25/21 04/03/21 History Metoprolol Succinate (ER) [Toprol 50 mg PO QAM 02/25/21 04/03/21 History XL] predniSONE 10 mg PO DAILY 02/25/21 04/03/21 History Azithromycin [Zithromax] 250 mg PO MOWEFR 04/03/21 04/03/21 History Bumetanide [BUMEX] 2 mg PO Q72H 04/03/21 04/03/21 History Clotrimazole Sydney [Mycelex 10 mg MUCOUS MEM 5XD 04/03/21 04/03/21 History Sydney] Insulin Degludec [Tresiba 50 units SQ DAILY 04/03/21 04/03/21 History Flextouch U-200] Semaglutide [Ozempic] 0.5 mg SQ FR 04/03/21 04/03/21 History Allergies Allergy/AdvReac Type Severity Reaction Status Date / Time NUNU Inhibitors Allergy Dyspnea Verified 04/03/21 08:47 adhesive tape Allergy skin Verified 04/03/21 08:47 irritations aspirin Allergy Dyspnea Verified 04/03/21 08:47 avibactam sodium Allergy Unknown Verified 04/03/21 08:47 [From Avycaz] ceftazidime [From Avycaz] Allergy Unknown Verified 04/03/21 08:47 ciprofloxacin [From Cipro] Allergy Unknown Verified 04/03/21 08:47 clindamycin Allergy Unknown Verified 04/03/21 08:47 levofloxacin [From Levaquin] Allergy "HAD Verified 04/03/21 08:47 RUPTURED TENDON" Milk Containing Products Allergy WAS TESTED Verified 04/03/21 08:47 [Dairy] & TOLD ALLERGIC NSAIDS (Non-Steroidal Allergy Dyspnea Verified 04/03/21 08:47 Anti-Inflamma Penicillins Allergy see comment Verified 04/03/21 08:47 Sulfa (Sulfonamide Allergy Rash/Hives Verified 04/03/21 08:47 Antibiotics) sulfamethoxazole Allergy Rash/Hives Verified 04/03/21 08:49 [From Bactrim] trimethoprim [From Bactrim] Allergy Rash/Hives Verified 04/03/21 08:49 cephalexin [Cephalexin] AdvReac Nausea & Verified 04/03/21 08:47 Vomiting codeine phosphate AdvReac Vomiting Verified 04/03/21 08:47 [From Tylenol-Codeine #3] erythromycin base AdvReac Abdominal Verified 04/03/21 08:47 [Erythromycin Base] Pain Physical Exam Osteopathic Statement: *. No significant issues noted on an osteopathic structural exam other than those noted in the History and Physical/Consult. Vitals: Vital Signs Temp Pulse Resp BP Pulse Ox 04/03/21 14:19 100 18 04/03/21 14:06 101 H 18 04/03/21 11:39 98.8 F 93 24 134/84 96 04/03/21 11:33 94 18 04/03/21 11:23 91 18 99 04/03/21 10:32 93 18 148/75 98 04/03/21 06:05 95 04/03/21 05:50 95 Intake and Output 04/03/21 04/03/21 04/03/21 06:59 14:59 22:59 Other: Weight 97.522 kg Results CBC & Chem 7: 04/03/21 05:00 04/03/21 05:00 Labs: Abnormal Lab Results - Last 24 Hours (Table) 04/03/21 04/03/21 04/03/21 Range/Units 05:00 05:00 05:00 RBC 3.55 L (4.30-5.90) m/uL Hgb 10.8 L (13.0-17.5) gm/dL Hct 33.7 L (39.0-53.0) % Neutrophils # 9.3 H (1.3-7.7) k/uL Lymphocytes # 0.7 L (1.0-4.8) k/uL BUN 57 H (9-20) mg/dL Creatinine 1.75 H (0.66-1.25) mg/dL POC Glucose (mg/dL) (75-99) mg/dL Troponin I 0.055 H* (0.000-0.034) ng/mL 04/03/21 04/03/21 Range/Units 10:00 10:31 RBC (4.30-5.90) m/uL Hgb (13.0-17.5) gm/dL Hct (39.0-53.0) % Neutrophils # (1.3-7.7) k/uL Lymphocytes # (1.0-4.8) k/uL BUN (9-20) mg/dL Creatinine (0.66-1.25) mg/dL POC Glucose (mg/dL) 153 H (75-99) mg/dL Troponin I 0.055 H* (0.000-0.034) ng/mL
[2021-04-03] MEDS: FUROSEMIDE 80 MG TAB PO SCH (15:30)
[2021-04-03] MEDS: CLOTRIMAZOLE TROCHE 10 MG TROCHE MUCOUS MEM SCH ×2 (15:31→20:29)
[2021-04-03] MEDS: METOPROLOL SUCCINATE (ER) 50 MG TAB.ER.24H PO SCH (15:31)
[2021-04-03] MEDS: SPIRONOLACTONE 25 MG TAB PO SCH (15:31)
[2021-04-03] MEDS: LINAGLIPTIN 5 MG TABLET PO SCH (15:31)
[2021-04-03] MEDS: LOSARTAN 25 MG TAB PO SCH (15:31)
[2021-04-03] MEDS: CLOPIDOGREL 75 MG TAB PO SCH (15:31)
[2021-04-03] MEDS: INSULIN DETEMIR (LEVEMIR) 100 UNIT/ML SYR SQ SCH (15:32)
[2021-04-03] MEDS: HEPARIN SODIUM,PORCINE/PF 5,000 UNIT/0.5 ML SYRINGE SQ SCH (15:32)
[2021-04-03] MEDS: LACTATED RINGERS 1,000 ML IV SCH (16:58)
[2021-04-03 17:04] LABS: Glucose,Whole Blood 251 mg/dL (75-99)
[2021-04-03] MEDS: PANTOPRAZOLE 40 MG TABLET PO SCH (18:20)
[2021-04-03] MEDS: INSULIN ASPART (NovoLOG) 100 UNIT/ML VIAL SQ SCH ×2 (18:20→20:31)
[2021-04-03] MEDS: FORMOTEROL FUMARATE 20 MCG/2 ML NEBU INHALATION SCH (19:21)
[2021-04-03] MEDS: BUDESONIDE 1 MG/2 ML NEBU INHALATION SCH (19:21)
[2021-04-03 20:08] LABS: Glucose,Whole Blood 297 mg/dL (75-99)
[2021-04-03] MEDS ORDERED: MORPHINE SULFATE 4 MG/ML SYRINGE ONE (23:59)
[2021-04-03] MEDS ORDERED: DEXAMETHASONE SOD PHOSPHATE 10 MG/ML 1 ML VIAL ONE (23:59)
[2021-04-04] MEDS: HEPARIN SODIUM,PORCINE/PF 5,000 UNIT/0.5 ML SYRINGE SQ SCH ×3 (00:08→16:29)
[2021-04-04] MEDS: CLOTRIMAZOLE TROCHE 10 MG TROCHE MUCOUS MEM SCH ×5 (00:09→22:02)
[2021-04-04 01:08] LABS: Glucose,Whole Blood 206 mg/dL (75-99)
[2021-04-04 01:08] LABS: Glucose,Whole Blood 183 mg/dL (75-99)
[2021-04-04] MEDS: IPRATROPIUM-ALBUTEROL 3 ML NEB INHALATION SCH ×5 (02:30→21:40)
[2021-04-04] MEDS: ACETAMINOPHEN TAB 325 MG TAB PO PRN (02:52)
[2021-04-04] MEDS: methylPREDNISolone SOD SUCCI 40 MG/ML 1 ML VIAL IV SCH ×3 (04:06→20:47)
[2021-04-04] MEDS: MORPHINE SULFATE 4 MG/ML SYRINGE IVP PRN (07:36)
[2021-04-04] MEDS: CEFEPIME 2 GM in SODIUM CHLORIDE 0.9% 100 ML IVPB SCH (07:38)
[2021-04-04] MEDS: ASPIRIN 81 MG PO SCH (07:39)
[2021-04-04] MEDS: PANTOPRAZOLE 40 MG TABLET PO SCH ×2 (07:39→16:29)
[2021-04-04 07:40] LABS: Glucose,Whole Blood 112 mg/dL (75-99)
[2021-04-04] MEDS: METOPROLOL SUCCINATE (ER) 50 MG TAB.ER.24H PO SCH (07:40)
[2021-04-04] MEDS: LOSARTAN 25 MG TAB PO SCH (07:40)
[2021-04-04] MEDS: CLOPIDOGREL 75 MG TAB PO SCH (07:40)
[2021-04-04] MEDS: FUROSEMIDE 80 MG TAB PO SCH (07:40)
[2021-04-04] MEDS: LINAGLIPTIN 5 MG TABLET PO SCH (07:41)
[2021-04-04] MEDS: SPIRONOLACTONE 25 MG TAB PO SCH (07:41)
[2021-04-04] MEDS: ATORVASTATIN 40 MG TAB PO SCH (07:41)
[2021-04-04] MEDS: BUDESONIDE 1 MG/2 ML NEBU INHALATION SCH ×2 (08:17→21:40)
[2021-04-04] MEDS: FORMOTEROL FUMARATE 20 MCG/2 ML NEBU INHALATION SCH ×2 (08:17→21:40)
[2021-04-04 08:32] LABS: HCT 33.2 % (39.0-53.0); HGB 10.6 gm/dL (13.0-17.5); Hypochromasia Slight; MCH 31.1 pg (25.0-35.0); MCHC 31.8 g/dL (31.0-37.0); MCV 97.9 fL (80.0-100.0); Mean Platelet Volume 8.4; Platelet Count 284 k/uL (150-450); RBC 3.39 m/uL (4.30-5.90); RDW 14.4 % (11.5-15.5); WBC 17.1 k/uL (3.8-10.6)
[2021-04-04 08:46] LABS: African American GFR (CKD) 30 (>60 ml/min/1.73 sqM); Anion Gap 9 mmol/L; Blood Urea Nitrogen 73 mg/dL (9-20); Calcium 9.5 mg/dL (8.4-10.2); Carbon Dioxide 25 mmol/L (22-30); Chloride 105 mmol/L (98-107); Glucose 105 mg/dL (74-99); Non-African American GFR(CKD) 26 (>60 ml/min/1.73 sqM); Potassium 5.5 mmol/L (3.5-5.1); Sodium 139 mmol/L (137-145)
[2021-04-04] MEDS ORDERED: SPIRONOLACTONE 25 MG TAB PO SCH (09:00)
[2021-04-04] MEDS ORDERED: FUROSEMIDE 80 MG TAB PO SCH (09:00)
[2021-04-04] MEDS ORDERED: BUMETANIDE 1 MG TAB PO SCH (09:00)
[2021-04-04] MEDS ORDERED: METOPROLOL SUCCINATE (ER) 50 MG TAB.ER.24H PO SCH (09:00)
[2021-04-04] MEDS ORDERED: LOSARTAN 25 MG TAB PO SCH (09:00)
[2021-04-04] MEDS ORDERED: CLOPIDOGREL 75 MG TAB PO SCH (09:00)
[2021-04-04] MEDS: INSULIN DETEMIR (LEVEMIR) 100 UNIT/ML SYR SQ SCH (09:01)
[2021-04-04] MEDS: INSULIN ASPART (NovoLOG) 100 UNIT/ML VIAL SQ SCH ×4 (09:02→22:13)
[2021-04-04 11:45] LABS: Glucose,Whole Blood 113 mg/dL (75-99)
[2021-04-04] MEDS ORDERED: PROPOFOL 10 MG/ML 20 ML VIAL IV ONE (12:00)
[2021-04-04] MEDS ORDERED: LIDOCAINE 2% SYG (PF) 100 MG/5 ML ONE (12:00)
[2021-04-04] MEDS ORDERED: IV FLUID CONTINUATION 1,000 ML IV ONE ×2 (12:02)
[2021-04-04] MEDS ORDERED: LIDOCAINE 2% INJ 20 MG/ML INTRATRACH ONE (12:27)
--- NOTE | 2021-04-04 12:31 | P.PN ---
Subjective Progress Note Date: 04/04/21 This is a very pleasant 80-year-old white male with history of coronary artery disease with previous stent placements 5, diabetes mellitus, severe COPD, bronchiectasis, tracheobronchomalacia, right middle lobe syndrome, recurrent pulmonary infections including infections normally Pseudomonas, and most r ecently stenotrophomonas, this was based on a bronchoscopy that was done by Dr. Armstrong on 09/10/2020. His most recent bronchoscopy was 02/28/2021. He had most recently been on meropenem for 14 days. On 03/31/2021 he started feeling as though he was getting more congested again. He started himself on amoxicillin and prednisone that he had at home. He has not been seen much improvement and came to the emergency room early this morning. He is seen there in consultation. He is sitting up on the stretcher. Awake and alert in no acute distress. He has a loose productive cough. He's had ongoing issues with hoarseness and follows with Dr. Valenzuela for the same. White count 10.6. Hemoglobin 10.8. Sodium 138. Potassium 4.5. Creatinine 1.75. He is currently afebrile. Maintaining O2 saturations in the mid to upper 90s on 3 L/m per nasal cannula. On 04/04/2021, the patient is being seen for a follow-up. Significantly congested and having respiratory difficulties. He is bringing some limited mucous. Most of the congestion in his lungs and unable to bring up the rest or secretions. No fever. No chills. He was seen in consultation yesterday. He has completed outpatient antibiotic course with IV meropenem. While in the hospital, he was placed on IV cefepime. He is also on bronchodilators. He is known to have bronchiectasis. Objective - Vital Signs Vital signs: Vital Signs Temp 97.7 F 04/04/21 07:00 Pulse 96 04/04/21 08:30 Resp 20 04/04/21 08:00 BP 160/76 04/04/21 07:00 Pulse Ox 97 04/04/21 07:00 Intake & Output 04/03/21 04/04/21 04/04/21 18:59 06:59 18:59 Output Total 175 Balance -175 Weight 97.522 kg Output: Urine 175 Other: Voiding Method Toilet Toilet Urinal Urinal # Voids 1 - Exam GENERAL EXAM: Alert, very pleasant 80-year-old gentleman, on 3 L nasal cannula, fairly comfortable in no apparent distress. HEAD: Normocephalic. EYES: Normal reaction of pupils, equal size. NOSE: Clear with pink turbinates. THROAT: No erythema or exudates. NECK: No masses, no JVD. CHEST: No chest wall deformity. LUNGS: Equal air entry with bilateral scattered rhonchi. CVS: S1 and S2 normal with no audible murmur, regular rhythm. ABDOMEN: No hepatosplenomegaly, normal bowel sounds, no guarding or rigidity. SPINE: No scoliosis or deformity SKIN: No rashes CENTRAL NERVOUS SYSTEM: No focal deficits, tone is normal in all 4 extremities. EXTREMITIES: There is no peripheral edema. No clubbing, no cyanosis. Peripheral pulses are intact. - Labs CBC & Chem 7: 04/04/21 08:07 04/04/21 08:07 Labs: Abnormal Lab Results - Last 24 Hours (Table) 04/03/21 04/03/21 04/04/21 Range/Units 17:02 20:06 01:05 WBC (3.8-10.6) k/uL RBC (4.30-5.90) m/uL Hgb (13.0-17.5) gm/dL Hct (39.0-53.0) % Potassium (3.5-5.1) mmol/L BUN (9-20) mg/dL Creatinine (0.66-1.25) mg/dL Glucose (74-99) mg/dL POC Glucose (mg/dL) 251 H 297 H 183 H (75-99) mg/dL 04/04/21 04/04/21 04/04/21 Range/Units 01:06 07:38 08:07 WBC 17.1 H (3.8-10.6) k/uL RBC 3.39 L (4.30-5.90) m/uL Hgb 10.6 L (13.0-17.5) gm/dL Hct 33.2 L (39.0-53.0) % Potassium (3.5-5.1) mmol/L BUN (9-20) mg/dL Creatinine (0.66-1.25) mg/dL Glucose (74-99) mg/dL POC Glucose (mg/dL) 206 H 112 H (75-99) mg/dL 04/04/21 04/04/21 Range/Units 08:07 11:43 WBC (3.8-10.6) k/uL RBC (4.30-5.90) m/uL Hgb (13.0-17.5) gm/dL Hct (39.0-53.0) % Potassium 5.5 H (3.5-5.1) mmol/L BUN 73 H (9-20) mg/dL Creatinine 2.29 H (0.66-1.25) mg/dL Glucose 105 H (74-99) mg/dL POC Glucose (mg/dL) 113 H (75-99) mg/dL Assessment and Plan Plan: 1 Acute exacerbation of chronic obstructive pulmonary disease complicated by purulent tracheobronchitis 2 Bronchiectasis with previous infections of pseudomonas and stenotrophomonas. Previous bronchoscopies greater than 20 times 3 History of tracheobronchomalacia, right middle lobe syndrome 4 Hoarseness, being followed in the outpatient setting by ENT 5 Coronary artery disease with previous stent placements 5 6 Ischemic cardiomyopathy 7 Diabetes mellitus 8 Hypertension 9 Gastroesophageal reflux disease 10 Former smoker Plan: Treatments, associated with a colostomy with therapeutic was suctioning and will cover lavage. Continue same respiratory treatments including DuoNeb nebulized treatments around the clock, IV Solu-Medrol and IV cefepime. Further recommendations are to follow based on the results of the bronchoscopy.
--- NOTE | 2021-04-04 12:42 | P.PCN ---
Date of Procedure: 04/04/21 Preoperative Diagnosis: Bronchiectasis Recurrent respiratory infections with pseudomonas aeruginosa and jakob notrophomonas Postoperative Diagnosis: 1 severe tracheal bronchomalacia 2 copious amount of thick purulent respiratory secretions occupying airways 3 extensive mucosal abnormalities where the patient has fibrillation tissue formation and polyp-like lesions (polypoid abnormalities) growing throughout airways mainly the lateral wall of the trachea in its midportion addition to similar abnormalities in the callie and more significant right upper lobe. 4 evidence of diffuse tracheobronchitis with diffuse mucosal inflammatory changes throughout the airways 5 vocal cord thickening, no issues with mobility and there was normal abduction and adduction. Anesthesia: MAC Surgeon: Loraine Lowe Estimated Blood Loss (ml): 0 Pathology: other Condition: stable Disposition: floor Operative Findings: This flexible bronchoscopy was done in the bronchoscopy suite. A timeout was obtained. A consent was obtained. After achieving adequate sedation, the flexible bronchoscope was introduced through the left nostril. The upper airway. Examination of the posterior pharynx was normal. There is a mention the larynx showed dynamic obstruction with breathing and evidence of obstructive sleep apnea. There was yellowish to Cross respiratory secretions scattered throughout the patient's pharyngeal and laryngeal wall was easily suctioned out. Similar secretions were OCCUPYING the epiglottis and the vocal cords. These secretions were rather loose and there was suctioned out without any major difficulties. The true vocal cords were inspected. There was normal abduction and adduction. Nevertheless, the surface of the vocal cord was quite irregular and thickened anteriorly and posteriorly. There was normal functionality of the vocal cords. Vallecula and arytenoids were within normal limits. Adequate suctioning of the secretions were done and following that the bronchoscope was used and the subglottic trachea. There was no evidence of any subglottic stenosis. Immediately post. The patient has severe degree of tracheal bronchomalacia with the membranous trachea was positive dynamic obstruction of the airway with near complete obstruction with exhalation maneuvers and coug renetta. At the same time, copious amount of purulent respiratory secretions was encountered throughout the patient's airways. At the secretions were some being suctioned out, the underlying bronchial mucosa was significantly abnormal. There was diffuse tracheobronchitis. There was also tortuous airways, and the airways were quite abnormal in a way that the mucosa was showing polypoid growth more so in the lateral wall of the trachea and the midportion of the mid trachea. Similar abnormalities were seen in the right upper lobe where some of these polypoid lesions were quite necrotic and there were outgoing the vascular supply. I did not appreciate any major airway obstruction. Despite his irregular mucosa abnormalities, the airways were patent. The right mainstem bronchus is patent. The right upper lobe was hyfrecated. The callie the various times of the right upper lobe was significantly abnormal, necrotic, covered by purulent respiratory secretions. Copious amount of respiratory secretions were also encountered in the right lower lobe with therapeutic airway suctioning was done and the various segments of the lower lobe and lower lobe including the medial basilar anterior lateral posterior and superior were visualized. Right middle lobe was also visualized with medial and lateral segments. Examination of the left side showed a minimal amount of purulent respiratory secretions were suctioned out. Mucosal irregularities were less abundant and left lower lobe. The bronchioloalveolar lavage of the right lower lobe was done. A total of 100 mL of fluid was infused and 35-40 mL of purulent material was aspirated. Endobronchial biopsies of the lateral wall of the tracheal polypoid lesion was done. Endobronchial biopsies of the right upper lobe necrotic polypoid lesion was also done. Therapeutic airway suctioning was done. Bronchoscope was removed and the patient was transferred recovery in stable condition. Postoperative diagnosis 1 tracheal bronchomalacia, severe 2 irregular mucosa abnormalities, consider viral-induced polypoid lesions/growth. Consider malignancy. Consider amyloidosis. 3 recurrent respiratory tract infection more likely gram-negative pseudomonas 4 bronchiectasis involving the lower lobes 5 chronic hoarseness related to vocal cord thickening and irregularities, Normal mobility and functionality.
--- NOTE | 2021-04-04 15:35 | P.PN ---
Subjective Progress Note Date: 04/04/21 Principal diagnosis: shortness of breath Patient is an 80-year-old male with a past medical history of bronchiectasis 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 He typically follows with Dr. Armstrong. Initial lab work was consistent with his known chronic kidney disease. Initial troponin was positive at 0.055, EKG nonischemic. Chest x-ray shows chronic changes. His concerns for worsening of his bronchiectasis with possible infection. He was admitted for further monitoring. Pulmonary was consulted he was started on IV steroids and his bronchodilators were continued. He went for a brown on the morning of 04/04/21. Patient seen and examined at bedside. He reports his breathing is somewhat better than before the bronchoscope he still feels pretty wheezy. He denies any chest discomfort, nausea, vomiting, or diarrhea. General: Ill-appearing, no distress, appears at stated age Derm: Bruising bilateral upper arms warm, dry Head: atraumatic, normocephalic, symmetric Eyes: EOMI, no lid lag, anicteric sclera Mouth: no lip lesion, mucus membranes moist Cardiovascular: S1S2 reg, no murmur, positive posterior tibial pulse bilateral, Lungs: Wheezing breath sounds bilateral , no accessory muscle use Abdominal: soft, nontender to palpation, no guarding, no appreciable organomegaly Ext: no gross muscle atrophy, no edema, no contractures Neuro: CN II-XI grossly intact, no focal neuro deficits Psych: Alert, oriented, appropriate affect Acute exacerbation of COPD with purulent tracheobronchitis history of Pseudomonas and stenotrophomonas. Bronchiectasis Tracheobronchial malacia -Pulmonary recommendations appreciated: Cefepime, bronchodilators, Solu-Medrol - sputum culture from bronch pending - anticipate that he will need to stay until culture results are available with history of recent meropenem use and Augmentin. Hoarseness -Being followed by Dr. Valenzuela in the outpatient setting - throat losenges Diabetes mellitus type 2 - long acting, SSI, follow BS - Januvia - Ozempic from home once weekly YUNIER on CKD stage III, hyperkalemia - baseline Cr 1.7 - follow closely avoid additional nephrotoxic agents. Hold Bumex and aldactone Chronic Systolic CHF with EF 35-40% - Lasix - Metoprolol - losartan (on hold due to hihg K+) - monitor fluid status closely patient reports that he gets edema with steroids Elevated troponin, flat, not consistent with acute coronary syndrome -Likely related to his chronic kidney disease -No need for further evaluation. Leukocytosis - due to steroids - follow CBC Chronic: Hypertension GERD Ischemic cardiomyopathy DVT prophylaxis: heparin Discussed with: patient, nursing, family Anticipated discharge date: in 2-[address]: home A total of 65 minutes was spent on the care of this complex patient more than 50% of the time was spent in counseling and care coordination. Objective - Vital Signs Vital signs: Vital Signs Temp 97.7 F 04/04/21 14:01 Pulse 86 04/04/21 14:01 Resp 18 04/04/21 14:01 BP 108/63 04/04/21 14:01 Pulse Ox 98 04/04/21 14:01 Intake & Output 04/03/21 04/04/21 04/04/21 18:59 06:59 18:59 Intake Total 250 Output Total 175 Balance 75 Weight 97.522 kg Intake: IV 250 Output: Urine 175 Other: Voiding Method Toilet Toilet Urinal Urinal # Voids 1 - Labs CBC & Chem 7: 04/04/21 08:07 04/04/21 08:07 Labs: Abnormal Lab Results - Last 24 Hours (Table) 04/03/21 04/03/21 04/04/21 Range/Units 17:02 20:06 01:05 WBC (3.8-10.6) k/uL RBC (4.30-5.90) m/uL Hgb (13.0-17.5) gm/dL Hct (39.0-53.0) % Potassium (3.5-5.1) mmol/L BUN (9-20) mg/dL Creatinine (0.66-1.25) mg/dL Glucose (74-99) mg/dL POC Glucose (mg/dL) 251 H 297 H 183 H (75-99) mg/dL 04/04/21 04/04/21 04/04/21 Range/Units 01:06 07:38 08:07 WBC 17.1 H (3.8-10.6) k/uL RBC 3.39 L (4.30-5.90) m/uL Hgb 10.6 L (13.0-17.5) gm/dL Hct 33.2 L (39.0-53.0) % Potassium (3.5-5.1) mmol/L BUN (9-20) mg/dL Creatinine (0.66-1.25) mg/dL Glucose (74-99) mg/dL POC Glucose (mg/dL) 206 H 112 H (75-99) mg/dL 04/04/21 04/04/21 Range/Units 08:07 11:43 WBC (3.8-10.6) k/uL RBC (4.30-5.90) m/uL Hgb (13.0-17.5) gm/dL Hct (39.0-53.0) % Potassium 5.5 H (3.5-5.1) mmol/L BUN 73 H (9-20) mg/dL Creatinine 2.29 H (0.66-1.25) mg/dL Glucose 105 H (74-99) mg/dL POC Glucose (mg/dL) 113 H (75-99) mg/dL
--- NOTE | 2021-04-04 15:38 | P.PN ---
Progress Note - Text Progress Note Date: 04/04/21 Advanced Care Planning: Diagnoses: Tracheobronchial malacia Discussion: Person(s) present and participating in discussion: Patient Summary: We discussed that patient has become frustrated with healthcare providers as he feels he continues to decline and they do not send to his needs. He is aware that he has chronic kidney dysfunction but often when he asks for increase Lasix secondary to fluid overload and difficulty breathing his primary care provider has not wanted to provided secondary to his kidneys. Patient feels as though he wants to focus on his breathing and comfort to continue to e njoy every day. He realizes the kidneys are important but he also feels that his breathing treatments, diuretics, and antibiotics need to be optimized regardless of kidney function. We discussed having palliative care, health help coordinate these goals are kept at the forefront of all healthcare providers treatments for him. He is in agreement. He realizes that he does not have good lungs and he has lived much longer than he initially thought possible. He still wants to continue to have the best quality of life that he can walk battling his chronic illness. A total of 17 minutes of face to face time was spent discussing advanced care planning.
[2021-04-04] MEDS: LACTATED RINGERS 1,000 ML IV SCH (16:32)
[2021-04-04 17:24] LABS: African American GFR (CKD) 28 (>60 ml/min/1.73 sqM); Anion Gap 12 mmol/L; Blood Urea Nitrogen 78 mg/dL (9-20); Calcium 8.9 mg/dL (8.4-10.2); Carbon Dioxide 18 mmol/L (22-30); Chloride 105 mmol/L (98-107); Glucose 92 mg/dL (74-99); Non-African American GFR(CKD) 24 (>60 ml/min/1.73 sqM); Potassium 5.6 mmol/L (3.5-5.1); Sodium 135 mmol/L (137-145)
[2021-04-04 17:27] LABS: Glucose,Whole Blood 105 mg/dL (75-99)
[2021-04-04] MEDS ORDERED: SODIUM CHLORIDE 0.9% 500 ML 500 ML IV ONE (17:52)
[2021-04-04] MEDS: SODIUM CHLORIDE 0.9% 1,000 ML IV SCH ×2 (19:56→21:25)
[2021-04-04 20:59] LABS: Glucose,Whole Blood 191 mg/dL (75-99)
[2021-04-04] MEDS: CEFEPIME 1 GM in SODIUM CHLORIDE 0.9% 50 ML IVPB SCH (22:01)
[2021-04-04] MEDS ORDERED: MELATONIN 5 MG TABLET PO SCH (23:45)
[2021-04-05] MEDS: MORPHINE SULFATE 4 MG/ML SYRINGE IVP PRN (00:19)
[2021-04-05] MEDS: HEPARIN SODIUM,PORCINE/PF 5,000 UNIT/0.5 ML SYRINGE SQ SCH ×3 (00:20→15:55)
[2021-04-05] MEDS: CLOTRIMAZOLE TROCHE 10 MG TROCHE MUCOUS MEM SCH ×3 (00:20→12:48)
[2021-04-05] MEDS ORDERED: ALBUTEROL NEBULIZED 2.5 MG/3 ML INHALATION PRN (01:15)
[2021-04-05] MEDS: ACETAMINOPHEN TAB 325 MG TAB PO PRN ×2 (01:39→19:17)
[2021-04-05] MEDS: methylPREDNISolone SOD SUCCI 40 MG/ML 1 ML VIAL IV SCH ×3 (04:20→21:11)
[2021-04-05 06:35] LABS: HCT 32.5 % (39.0-53.0); HGB 10.5 gm/dL (13.0-17.5); Hypochromasia Slight; MCH 31.9 pg (25.0-35.0); MCHC 32.4 g/dL (31.0-37.0); MCV 98.4 fL (80.0-100.0); Mean Platelet Volume 8.1; Platelet Count 254 k/uL (150-450); RDW 14.4 % (11.5-15.5); WBC 13.1 k/uL (3.8-10.6)
[2021-04-05 06:40] LABS: African American GFR (CKD) 24 (>60 ml/min/1.73 sqM); Anion Gap 10 mmol/L; Blood Urea Nitrogen 85 mg/dL (9-20); Calcium 9.2 mg/dL (8.4-10.2); Carbon Dioxide 22 mmol/L (22-30); Chloride 106 mmol/L (98-107); Glucose 228 mg/dL (74-99); Non-African American GFR(CKD) 21 (>60 ml/min/1.73 sqM); Potassium 5.2 mmol/L (3.5-5.1); Sodium 138 mmol/L (137-145)
[2021-04-05] MEDS: BUDESONIDE 1 MG/2 ML NEBU INHALATION SCH ×2 (07:14→20:04)
[2021-04-05] MEDS: FORMOTEROL FUMARATE 20 MCG/2 ML NEBU INHALATION SCH ×2 (07:14→20:04)
[2021-04-05] MEDS: IPRATROPIUM-ALBUTEROL 3 ML NEB INHALATION SCH ×5 (07:14→23:22)
[2021-04-05 07:17] LABS: Glucose,Whole Blood 219 mg/dL (75-99)
[2021-04-05] MEDS: INSULIN ASPART (NovoLOG) 100 UNIT/ML VIAL SQ SCH ×4 (08:40→20:38)
[2021-04-05] MEDS: INSULIN DETEMIR (LEVEMIR) 100 UNIT/ML SYR SQ SCH (08:40)
[2021-04-05] MEDS: LINAGLIPTIN 5 MG TABLET PO SCH (08:41)
[2021-04-05] MEDS: ATORVASTATIN 40 MG TAB PO SCH (08:41)
[2021-04-05] MEDS: PANTOPRAZOLE 40 MG TABLET PO SCH ×2 (08:41→18:03)
[2021-04-05] MEDS: CEFEPIME 1 GM in SODIUM CHLORIDE 0.9% 50 ML IVPB SCH ×2 (08:41→21:11)
[2021-04-05] MEDS: METOPROLOL SUCCINATE (ER) 50 MG TAB.ER.24H PO SCH (08:41)
[2021-04-05] MEDS: ASPIRIN 81 MG PO SCH (08:41)
[2021-04-05] MEDS: CLOPIDOGREL 75 MG TAB PO SCH (08:41)
[2021-04-05] MEDS: LACTATED RINGERS 1,000 ML IV SCH (08:47)
[2021-04-05] MEDS: guaiFENesin 600 MG TABLET.ER PO SCH ×2 (10:17→21:11)
[2021-04-05 11:44] LABS: Glucose,Whole Blood 238 mg/dL (75-99)
--- NOTE | 2021-04-05 11:53 | P.PN ---
Subjective Progress Note Date: 04/05/212020, the patient reports limited success and improvement in his breathing compared to prior to the procedure. As mentioned earlier in the bronchoscope, I evacuated massive amount of rest or secretions and mucous and the bronchial mucosa was abnormal, polypoid, inflamed, and there was severe trache obronchomalacia will also. Biopsies of the polypoid lesions from the trachea and the right upper lobe was done. Lavage results are still pending. Currently on IV Solu Medrol 40 mg every 8 hours. He is on bronchodilators. He is also on cefepime. He is afebrile. His cough obviously is more dry. Objective - Vital Signs Vital signs: Vital Signs Temp 96.7 F L 04/05/21 07:00 Pulse 100 04/05/21 11:26 Resp 20 04/05/21 07:00 BP 137/69 04/05/21 07:00 Pulse Ox 100 04/05/21 07:00 Intake & Output 04/04/21 04/05/21 04/05/21 18:59 06:59 18:59 Intake Total 250 Output Total 175 Balance 75 Intake: IV 250 Output: Urine 175 Other: Voiding Method Toilet Urinal # Voids 2 - Exam GENERAL EXAM: Alert, very pleasant 80-year-old gentleman, on 3 L nasal cannula, fairly comfortable in no apparent distress. HEAD: Normocephalic. EYES: Normal reaction of pupils, equal size. NOSE: Clear with pink turbinates. THROAT: No erythema or exudates. NECK: No masses, no JVD. CHEST: No chest wall deformity. LUNGS: Equal air entry with bilateral scattered rhonchi. CVS: S1 and S2 normal with no audible murmur, regular rhythm. ABDOMEN: No hepatosplenomegaly, normal bowel sounds, no guarding or rigidity. SPINE: No scoliosis or deformity SKIN: No rashes CENTRAL NERVOUS SYSTEM: No focal deficits, tone is normal in all 4 extremities. EXTREMITIES: There is no peripheral edema. No clubbing, no cyanosis. Peripheral pulses are intact. - Labs CBC & Chem 7: 04/05/21 06:05 04/05/21 06:05 Labs: Abnormal Lab Results - Last 24 Hours (Table) 04/04/21 04/04/21 04/04/21 Range/Units 16:39 17:25 20:56 WBC (3.8-10.6) k/uL RBC (4.30-5.90) m/uL Hgb (13.0-17.5) gm/dL Hct (39.0-53.0) % Sodium 135 L (137-145) mmol/L Potassium 5.6 H (3.5-5.1) mmol/L Carbon Dioxide 18 L (22-30) mmol/L BUN 78 H (9-20) mg/dL Creatinine 2.45 H (0.66-1.25) mg/dL Glucose (74-99) mg/dL POC Glucose (mg/dL) 105 H 191 H (75-99) mg/dL 04/05/21 04/05/21 04/05/21 Range/Units 06:05 06:05 07:16 WBC 13.1 H (3.8-10.6) k/uL RBC 3.30 L (4.30-5.90) m/uL Hgb 10.5 L (13.0-17.5) gm/dL Hct 32.5 L (39.0-53.0) % Sodium (137-145) mmol/L Potassium 5.2 H (3.5-5.1) mmol/L Carbon Dioxide (22-30) mmol/L BUN 85 H (9-20) mg/dL Creatinine 2.77 H (0.66-1.25) mg/dL Glucose 228 H (74-99) mg/dL POC Glucose (mg/dL) 219 H (75-99) mg/dL 04/05/21 Range/Units 11:43 WBC (3.8-10.6) k/uL RBC (4.30-5.90) m/uL Hgb (13.0-17.5) gm/dL Hct (39.0-53.0) % Sodium (137-145) mmol/L Potassium (3.5-5.1) mmol/L Carbon Dioxide (22-30) mmol/L BUN (9-20) mg/dL Creatinine (0.66-1.25) mg/dL Glucose (74-99) mg/dL POC Glucose (mg/dL) 238 H (75-99) mg/dL Microbiology - Last 24 Hours (Table) 04/04/21 12:30 Gram Stain - Preliminary Bronchial Washings - Random Bronchial Washings Culture - Preliminary 04/04/21 12:30 Fungal Culture - Preliminary Bronchial Washings - Random 04/04/21 12:30 Acid Fast Bacilli Culture - Preliminary Bronchial Washings - Random Assessment and Plan Plan: 1 Acute exacerbation of chronic obstructive pulmonary disease complicated by purulent tracheobronchitis. The patient had significant amount of mucous plugging and therapeutic it was suctioning was done. There was also obvious tracheal bronchomalacia encountered throughout the airways. No other abnormality was irregular airways, tortuous, polypoid lesions scattered throughout the airways mainly in the lateral wall of the trachea in the mid and distal portion addition to him if the necrotic mucosal abnormalities in polypoid lesions involving the right upper lobe. Biopsies of both were taken. Lavage was also taken. Awaiting final cultures. 2 Bronchiectasis with previous infections of pseudomonas and stenotrophomonas. Previous bronchoscopies greater than 20 times 3 History of tracheobronchomalacia, 4 Hoarseness, being followed in the outpatient setting by ENT 5 Coronary artery disease with previous stent placements 5 6 Ischemic cardiomyopathy 7 Diabetes mellitus 8 Hypertension 9 Gastroesophageal reflux disease 10 Former smoker Plan: Continue same treatment Awaiting results of the bronchioloalveolar lavage Awaiting results of the endobronchial biopsies Continue IV Solu Medrol 40 mg every 8 hours Monitor blood sugar continue the bronchodilators We'll continue to follow. Prognosis poor.
--- NOTE | 2021-04-05 16:34 | P.PN ---
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 He typically follows with Dr. Armstrong. Initial lab work was consistent with his known chronic kidney disease. Initial troponin was positive at 0.055, EKG nonischemic. Chest x-ray shows chronic changes. His concerns for worsening of his bronchiectasis with possible infection. He was admitted for further monitoring. Pulmonary was consulted he was started on IV steroids and his bronchodilators were continued. He went for a brown on the morning of 04/04/21. Patient seen and examined at bedside. States he does not feel like the bronchoscope was as effective as it typically is. Reports continued shortness of breath, coughing difficulties, no nausea or vomiting. States he did not do well with the fluid bolus yesterday. General: Ill-appearing, no distress, appears at stated age Derm: Bruising bilateral upper arms warm, dry Head: atraumatic, normocephalic, symmetric Eyes: EOMI, no lid lag, anicteric sclera Mouth: no lip lesion, mucus membranes moist Cardiovascular: S1S2 reg, no murmur, positive posterior tibial pulse bilateral, Lungs: Wheezing breath sounds bilateral , no accessory muscle use Abdominal: soft, nontender to palpation, no guarding, no appreciable organomegaly Ext: no gross muscle atrophy, trace edema, no contractures Neuro: CN II-XI grossly intact, no focal neuro deficits Psych: Alert, oriented, appropriate affect Acute exacerbation of COPD with purulent tracheobronchitis history of Pseudomonas and stenotrophomonas. Bronchiectasis Tracheobronchial malacia -Pulmonary recommendations appreciated: Cefepime, bronchodilators, Solu-Medrol - sputum culture from bronch pending - anticipate that he will need to stay until culture results are available with history of recent meropenem use and Augmentin. - add mucinex YUNIER on CKD stage III, hyperkalemia Chronic Systolic CHF with EF 35-40% - baseline Cr 1.7 - hold all diuretics and cozaar - given IVF yesterday patient states that he did not tolerate well - repeat labs in AM -Avoid nephrotoxic agents - Metoprolol - monitor fluid status closely patient reports that he gets edema with steroids Hoarseness -Being followed by Dr. Valenzuela in the outpatient setting - throat lozenges Diabetes mellitus type 2 - long acting, SSI, follow BS - Wendy Braswell from home once weekly, admin today Elevated troponin, flat, not consistent with acute coronary syndrome -Likely related to his chronic kidney disease -No need for further evaluation. Leukocytosis - due to steroids - follow CBC Chronic: Hypertension GERD Ischemic cardiomyopathy DVT prophylaxis: heparin Discussed with: patient, nursing, family Anticipated discharge date: in 2-[address]: home A total of 25 minutes was spent on the care of this complex patient more than 50% of the time was spent in counseling and care coordination. Objective - Vital Signs Vital signs: Vital Signs Temp 97.9 F 04/05/21 15:00 Pulse 92 04/05/21 15:46 Resp 20 04/05/21 15:00 BP 123/81 04/05/21 15:00 Pulse Ox 99 04/05/21 15:00 Intake & Output 04/04/21 04/05/21 04/05/21 18:59 06:59 18:59 Intake Total 250 Output Total 175 Balance 75 Intake: IV 250 Output: Urine 175 Other: Voiding Method Toilet Urinal # Voids 2 5 - Labs CBC & Chem 7: 04/05/21 06:05 04/05/21 06:05 Labs: Abnormal Lab Results - Last 24 Hours (Table) 04/04/21 04/04/21 04/04/21 Range/Units 12:30 16:39 17:25 WBC (3.8-10.6) k/uL RBC (4.30-5.90) m/uL Hgb (13.0-17.5) gm/dL Hct (39.0-53.0) % Sodium 135 L (137-145) mmol/L Potassium 5.6 H (3.5-5.1) mmol/L Carbon Dioxide 18 L (22-30) mmol/L BUN 78 H (9-20) mg/dL Creatinine 2.45 H (0.66-1.25) mg/dL Glucose (74-99) mg/dL POC Glucose (mg/dL) 105 H (75-99) mg/dL Viral Test See Below A 04/04/21 04/05/21 04/05/21 Range/Units 20:56 06:05 06:05 WBC 13.1 H (3.8-10.6) k/uL RBC 3.30 L (4.30-5.90) m/uL Hgb 10.5 L (13.0-17.5) gm/dL Hct 32.5 L (39.0-53.0) % Sodium (137-145) mmol/L Potassium 5.2 H (3.5-5.1) mmol/L Carbon Dioxide (22-30) mmol/L BUN 85 H (9-20) mg/dL Creatinine 2.77 H (0.66-1.25) mg/dL Glucose 228 H (74-99) mg/dL POC Glucose (mg/dL) 191 H (75-99) mg/dL Viral Test 04/05/21 04/05/21 Range/Units 07:16 11:43 WBC (3.8-10.6) k/uL RBC (4.30-5.90) m/uL Hgb (13.0-17.5) gm/dL Hct (39.0-53.0) % Sodium (137-145) mmol/L Potassium (3.5-5.1) mmol/L Carbon Dioxide (22-30) mmol/L BUN (9-20) mg/dL Creatinine (0.66-1.25) mg/dL Glucose (74-99) mg/dL POC Glucose (mg/dL) 219 H 238 H (75-99) mg/dL Viral Test Microbiology - Last 24 Hours (Table) 04/04/21 12:30 Gram Stain - Preliminary Bronchial Washings - Random Bronchial Washings Culture - Preliminary 04/04/21 12:30 Fungal Culture - Preliminary Bronchial Washings - Random 04/04/21 12:30 Acid Fast Bacilli Culture - Preliminary Bronchial Washings - Random
[2021-04-05 17:07] LABS: Glucose,Whole Blood 87 mg/dL (75-99)
[2021-04-05 20:31] LABS: Glucose,Whole Blood 67 mg/dL (75-99)
[2021-04-05 20:52] LABS: Glucose,Whole Blood 83 mg/dL (75-99)
[2021-04-05] MEDS ORDERED: ITRACONAZOLE 100 MG CAP PO SCH (21:00)
[2021-04-06] MEDS: HEPARIN SODIUM,PORCINE/PF 5,000 UNIT/0.5 ML SYRINGE SQ SCH ×4 (00:33→23:48)
[2021-04-06 02:13] LABS: Glucose,Whole Blood 195 mg/dL (75-99)
[2021-04-06] MEDS: IPRATROPIUM-ALBUTEROL 3 ML NEB INHALATION SCH ×5 (03:47→19:23)
[2021-04-06] MEDS: methylPREDNISolone SOD SUCCI 40 MG/ML 1 ML VIAL IV SCH ×3 (05:29→19:34)
[2021-04-06 06:42] LABS: Glucose,Whole Blood 216 mg/dL (75-99)
[2021-04-06] MEDS: BUDESONIDE 1 MG/2 ML NEBU INHALATION SCH ×2 (08:12→19:23)
[2021-04-06] MEDS: FORMOTEROL FUMARATE 20 MCG/2 ML NEBU INHALATION SCH ×2 (08:12→19:23)
[2021-04-06] MEDS ORDERED: BUMETANIDE 1 MG TAB PO SCH (09:00)
[2021-04-06 09:22] LABS: Basophils # (A) 0.02 X 10*3/uL (0.00-0.10); Basophils % (A) 0.2 %; Eosinophils # (A) 0 X 10*3/uL (0.04-0.35); Eosinophils % (A) 0 %; HCT 32.6 % (39.6-50.0); HGB 9.9 g/dL (13.0-17.0); Lymphocytes # (A) 0.21 X 10*3/uL (0.90-5.00); Lymphocytes % (A) 1.6 %; MCH 30.3 pg (27.0-32.0); MCHC 30.4 g/dL (32.0-37.0); MCV 99.7 fL (80.0-97.0); Mean Platelet Volume 10.8 fL (9.5-12.2); Monocytes # (A) 0.47 X 10*3/uL (0.20-1.00); Monocytes % (A) 3.7 %; Neutrophils # (A) 11.95 X 10*3/uL (1.80-7.70); Neutrophils % (A) 93.2 %; Platelet Count 263 X 10*3/uL (140-440); RBC 3.27 X 10*6/uL (4.40-5.60); RDW 14.7 % (11.5-14.5); WBC 12.82 X 10*3/uL (4.50-10.00)
[2021-04-06] MEDS: INSULIN DETEMIR (LEVEMIR) 100 UNIT/ML SYR SQ SCH (09:24)
[2021-04-06] MEDS: CLOPIDOGREL 75 MG TAB PO SCH (09:24)
[2021-04-06] MEDS: INSULIN ASPART (NovoLOG) 100 UNIT/ML VIAL SQ SCH ×6 (09:24→19:34)
[2021-04-06] MEDS: guaiFENesin 600 MG TABLET.ER PO SCH ×2 (09:24→19:34)
[2021-04-06] MEDS: ASPIRIN 81 MG PO SCH (09:24)
[2021-04-06] MEDS: CEFEPIME 1 GM in SODIUM CHLORIDE 0.9% 50 ML IVPB SCH ×2 (09:24→19:34)
[2021-04-06] MEDS: PANTOPRAZOLE 40 MG TABLET PO SCH ×2 (09:24→17:05)
[2021-04-06] MEDS: LINAGLIPTIN 5 MG TABLET PO SCH (09:25)
[2021-04-06] MEDS: METOPROLOL SUCCINATE (ER) 50 MG TAB.ER.24H PO SCH (09:25)
[2021-04-06] MEDS: bisacodyL 5 MG TABLET.DR PO PRN (09:27)
[2021-04-06 10:59] LABS: African American GFR (CKD) 25.8 (60.0-200.0); Albumin 3.8 g/dL (3.80-4.90); Albumin/Globulin Ratio 1.65 (1.60-3.17); Anion Gap 14.6 mmol/L (4.00-12.00); BUN/Creat Ratio 39.62 Ratio (12.00-20.00); Calcium 8.9 mg/dL (8.7-10.3); Carbon Dioxide 19.4 mmol/L (21.6-31.8); Globulin 2.3 g/dL (1.6-3.3); Non-African American GFR(CKD) 22.3 (60.0-200.0); Potassium 5.2 mmol/L (3.5-5.5); Total Bilirubin 0.5 mg/dL (0.3-1.2); Total Protein 6.1 g/dL (6.2-8.2)
[2021-04-06 11:36] LABS: Glucose,Whole Blood 313 mg/dL (75-99)
--- NOTE | 2021-04-06 13:08 | P.PN ---
Subjective Progress Note Date: 04/06/21 04/06/2021, the patient is feeling slightly better. Note that he had a significantly abnormal bronchoscopy. I did phone call from the pathologist indicating that there was invasive fungal tissue within the endobronchial biopsies obtained from the tracheal wall and there was suspicion for fungal infection in this patient. Unable to identify the fungus yet. The patient is otherwise being treated for pseudomonal infection as the patient has had recurrent pseudomonal infections he remains on cefepime. He has no new complaints. No chills. No fever. He remains on bronchodilators. He remains on steroids. Cuff and congestion and hoarseness is improved compared to yesterday. Awaiting final microbial diagnosis. Objective - Vital Signs Vital signs: Vital Signs Temp 97.8 F 04/06/21 07:25 Pulse 90 04/06/21 11:40 Resp 18 04/06/21 11:40 BP 147/77 04/06/21 07:25 Pulse Ox 96 04/06/21 08:13 Intake & Output 04/05/21 04/06/21 04/06/21 18:59 06:59 18:59 Intake Total 760 Output Total 175 Balance 585 Intake: Intake, IV Titration 160 Amount Lactated Ringers 1,000 ml 40 @ 20 mls/hr IV .Q24H [facility] Rx#:[id number] Sodium Chloride 0.9% 1, 120 000 ml @ 10 mls/hr IV . Q24H [facility] Rx#:[id number] Oral 600 Output: Urine 175 Other: Voiding Method Toilet Urinal # Voids 5 3 - Exam GENERAL EXAM: Alert, very pleasant 80-year-old gentleman, on 3 L nasal cannula, fairly comfortable in no apparent distress. HEAD: Normocephalic. EYES: Normal reaction of pupils, equal size. NOSE: Clear with pink turbinates. THROAT: No erythema or exudates. NECK: No masses, no JVD. CHEST: No chest wall deformity. LUNGS: Equal air entry with bilateral scattered rhonchi. CVS: S1 and S2 normal with no audible murmur, regular rhythm. ABDOMEN: No hepatosplenomegaly, normal bowel sounds, no guarding or rigidity. SPINE: No scoliosis or deformity SKIN: No rashes CENTRAL NERVOUS SYSTEM: No focal deficits, tone is normal in all 4 extremities. EXTREMITIES: There is no peripheral edema. No clubbing, no cyanosis. Peripheral pulses are intact. - Labs CBC & Chem 7: 04/06/21 05:56 04/06/21 05:56 Labs: Abnormal Lab Results - Last 24 Hours (Table) 04/04/21 04/05/21 04/06/21 Range/Units 12:30 20:23 02:12 WBC (4.50-10.00) X 10*3/uL RBC (4.40-5.60) X 10*6/uL Hgb (13.0-17.0) g/dL Hct (39.6-50.0) % MCV (80.0-97.0) fL MCHC (32.0-37.0) g/dL RDW (11.5-14.5) % Immature Gran # (0.00-0.04) X 10*3/uL Neutrophils # (1.80-7.70) X 10*3/uL Lymphocytes # (0.90-5.00) X 10*3/uL Eosinophils # (0.04-0.35) X 10*3/uL Carbon Dioxide (21.6-31.8) mmol/L Anion Gap (4.00-12.00) mmol/L BUN (9.0-27.0) mg/dL Creatinine (0.6-1.5) mg/dL Est GFR (CKD-EPI)AfAm (60.0-200.0) Est GFR (CKD-EPI)NonAf (60.0-200.0) BUN/Creatinine Ratio (12.00-20.00) Ratio Glucose (70-110) mg/dL POC Glucose (mg/dL) 67 L 195 H (75-99) mg/dL Total Protein (6.2-8.2) g/dL Viral Test See Below A 04/06/21 04/06/21 04/06/21 Range/Units 05:56 05:56 06:41 WBC 12.82 H (4.50-10.00) X 10*3/uL RBC 3.27 L (4.40-5.60) X 10*6/uL Hgb 9.9 L (13.0-17.0) g/dL Hct 32.6 L (39.6-50.0) % MCV 99.7 H (80.0-97.0) fL MCHC 30.4 L (32.0-37.0) g/dL RDW 14.7 H (11.5-14.5) % Immature Gran # 0.17 H (0.00-0.04) X 10*3/uL Neutrophils # 11.95 H (1.80-7.70) X 10*3/uL Lymphocytes # 0.21 L (0.90-5.00) X 10*3/uL Eosinophils # 0 L (0.04-0.35) X 10*3/uL Carbon Dioxide 19.4 L (21.6-31.8) mmol/L Anion Gap 14.60 H (4.00-12.00) mmol/L BUN 103.0 H* (9.0-27.0) mg/dL Creatinine 2.6 H (0.6-1.5) mg/dL Est GFR (CKD-EPI)AfAm 25.8 L (60.0-200.0) Est GFR (CKD-EPI)NonAf 22.3 L (60.0-200.0) BUN/Creatinine Ratio 39.62 H (12.00-20.00) Ratio Glucose 213 H (70-110) mg/dL POC Glucose (mg/dL) 216 H (75-99) mg/dL Total Protein 6.1 L (6.2-8.2) g/dL Viral Test 04/06/21 Range/Units 11:35 WBC (4.50-10.00) X 10*3/uL RBC (4.40-5.60) X 10*6/uL Hgb (13.0-17.0) g/dL Hct (39.6-50.0) % MCV (80.0-97.0) fL MCHC (32.0-37.0) g/dL RDW (11.5-14.5) % Immature Gran # (0.00-0.04) X 10*3/uL Neutrophils # (1.80-7.70) X 10*3/uL Lymphocytes # (0.90-5.00) X 10*3/uL Eosinophils # (0.04-0.35) X 10*3/uL Carbon Dioxide (21.6-31.8) mmol/L Anion Gap (4.00-12.00) mmol/L BUN (9.0-27.0) mg/dL Creatinine (0.6-1.5) mg/dL Est GFR (CKD-EPI)AfAm (60.0-200.0) Est GFR (CKD-EPI)NonAf (60.0-200.0) BUN/Creatinine Ratio (12.00-20.00) Ratio Glucose (70-110) mg/dL POC Glucose (mg/dL) 313 H (75-99) mg/dL Total Protein (6.2-8.2) g/dL Viral Test Microbiology - Last 24 Hours (Table) 04/04/21 12:30 Acid Fast Bacilli Smear - Final Bronchial Washings - Random Acid Fast Bacilli Culture - Preliminary 04/04/21 12:30 Gram Stain - Preliminary Bronchial Washings - Random Bronchial Washings Culture - Preliminary Assessment and Plan Plan: 1 Acute exacerbation of chronic obstructive pulmonary disease complicated by purulent tracheobronchitis. The patient had significant amount of mucous plugging and therapeutic it was suctioning was done. There was also obvious tracheal bronchomalacia encountered throughout the airways. No other abnormality was irregular airways, tortuous, polypoid lesions scattered thro ughout the airways mainly in the lateral wall of the trachea in the mid and distal portion addition to him if the necrotic mucosal abnormalities in polypoid lesions involving the right upper lobe. Biopsies of both were taken. Lavage was also taken. Awaiting final cultures. The endobronchial biopsies from the tracheal wall is indicating possibility of a fungal infection. Final culture are still pending for now. For that reason, I have not made any modifications treatment. We'll keep the same treatment for now specially the patient is improving. Awaiting final pathology type from biopsy 2 Bronchiectasis with previous infections of pseudomonas and stenotrophomonas. Previous bronchoscopies greater than 20 times 3 History of tracheobronchomalacia, 4 Hoarseness, being followed in the outpatient setting by ENT 5 Coronary artery disease with previous stent placements 5 6 Ischemic cardiomyopathy 7 Diabetes mellitus 8 Hypertension 9 Gastroesophageal reflux disease 10 Former smoker Plan: Continue same treatment Awaiting results of the bronchioloalveolar lavage Awaiting results of the endobronchial biopsies Continue IV Solu Medrol 40 mg every 8 hours Monitor blood sugar continue the bronchodilators We'll continue to follow. High suspicion for an underlying fungal infection based on the preliminary results of the endobronchial biopsy.
[2021-04-06] MEDS: LACTATED RINGERS 1,000 ML IV SCH (13:30)
--- NOTE | 2021-04-06 15:14 | P.PN ---
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 He typically follows with Dr. Armstrong. Initial lab work was consistent with his known chronic kidney disease. Initial troponin was positive at 0.055, EKG nonischemic. Chest x-ray shows chronic changes. His concerns for worsening of his bronchiectasis with possible infection. He was admitted for further monitoring. Pulmonary was consulted he was started on IV steroids and his bronchodilators were continued. He went for a brown on the morning of 04/04/21. Possible fungal infection identified. He did develop YUNIER and his diuretic were held. BUN increasing du to steroids. Patient seen and examined at bedside. Feeling slightly better today than yesterday. Continues to feel short of breath and congested. No vomiting. Feels also he'll have a BM today. General: Ill-appearing, no distress, appears at stated age Derm: Bruising bilateral upper arms warm, dry Head: atraumatic, normocephalic, symmetric Eyes: EOMI, no lid lag, anicteric sclera Mouth: no lip lesion, mucus membranes moist Cardiovascular: S1S2 reg, no murmur, positive posterior tibial pulse bilateral, Lungs: Wheezing breath sounds bilateral , no accessory muscle use Abdominal: soft, nontender to palpation, no guarding, no appreciable organomegaly Ext: no gross muscle atrophy, trace edema, no contractures Neuro: CN II-XI grossly intact, no focal neuro deficits Psych: Alert, oriented, appropriate affect Acute exacerbation of COPD with purulent tracheobronchitis history of Pseudomonas and stenotrophomonas. Bronchiectasis Tracheobronchial malacia -Concerns for possible fungal infection, patient has been taken off of his statin, awaiting final culture results. -Pulmonary recommendations appreciated: Cefepime, bronchodilators, Solu-Medrol - anticipate that he will need to stay until culture results are available with history of recent meropenem use and Augmentin. - Mucinex YUNIER on CKD stage III, hyperkalemia Chronic Systolic CHF with EF 35-40% - baseline Cr 1.7 - hold all diuretics and cozaar - repeat labs in AM -Avoid nephrotoxic agents - Metoprolol - monitor fluid status closely patient reports that he gets edema with steroids Hoarseness -Being followed by Dr. Valenzuela in the outpatient setting - throat lozenges Diabetes mellitus type 2 -Patient with full-and hypoglycemia. We'll continue to monitor with long-acting insulin, will add some fixed dose with meals and check blood sugar both with meals and at 2 AM - long acting, SSI, follow BS - Wendy Braswell from home once weekly, admin today Elevated troponin, flat, not consistent with acute coronary syndrome -Likely related to his chronic kidney disease -No need for further evaluation. Leukocytosis - due to steroids - follow CBC Chronic: Hypertension GERD Ischemic cardiomyopathy DVT prophylaxis: heparin Discussed with: patient, nursing, family Anticipated discharge date: in 2-[address]: home A total of 25 minutes was spent on the care of this complex patient more than 50% of the time was spent in counseling and care coordination. Objective - Vital Signs Vital signs: Vital Signs Temp 98.0 F 04/06/21 14:59 Pulse 91 04/06/21 14:59 Resp 18 04/06/21 14:59 BP 124/69 04/06/21 14:59 Pulse Ox 96 04/06/21 14:59 Intake & Output 04/05/21 04/06/21 04/06/21 18:59 06:59 18:59 Intake Total 760 Output Total 175 Balance 585 Intake: Intake, IV Titration 160 Amount Lactated Ringers 1,000 ml 40 @ 20 mls/hr IV .Q24H [facility] Rx#:[id number] Sodium Chloride 0.9% 1, 120 000 ml @ 10 mls/hr IV . Q24H [facility] Rx#:[id number] Oral 600 Output: Urine 175 Other: Voiding Method Toilet Urinal # Voids 5 3 2 - Labs CBC & Chem 7: 04/06/21 05:56 04/06/21 05:56 Labs: Abnormal Lab Results - Last 24 Hours (Table) 04/05/21 04/06/21 04/06/21 Range/Units 20:23 02:12 05:56 WBC 12.82 H (4.50-10.00) X 10*3/uL RBC 3.27 L (4.40-5.60) X 10*6/uL Hgb 9.9 L (13.0-17.0) g/dL Hct 32.6 L (39.6-50.0) % MCV 99.7 H (80.0-97.0) fL MCHC 30.4 L (32.0-37.0) g/dL RDW 14.7 H (11.5-14.5) % Immature Gran # 0.17 H (0.00-0.04) X 10*3/uL Neutrophils # 11.95 H (1.80-7.70) X 10*3/uL Lymphocytes # 0.21 L (0.90-5.00) X 10*3/uL Eosinophils # 0 L (0.04-0.35) X 10*3/uL Carbon Dioxide (21.6-31.8) mmol/L Anion Gap (4.00-12.00) mmol/L BUN (9.0-27.0) mg/dL Creatinine (0.6-1.5) mg/dL Est GFR (CKD-EPI)AfAm (60.0-200.0) Est GFR (CKD-EPI)NonAf (60.0-200.0) BUN/Creatinine Ratio (12.00-20.00) Ratio Glucose (70-110) mg/dL POC Glucose (mg/dL) 67 L 195 H (75-99) mg/dL Total Protein (6.2-8.2) g/dL 04/06/21 04/06/21 04/06/21 Range/Units 05:56 06:41 11:35 WBC (4.50-10.00) X 10*3/uL RBC (4.40-5.60) X 10*6/uL Hgb (13.0-17.0) g/dL Hct (39.6-50.0) % MCV (80.0-97.0) fL MCHC (32.0-37.0) g/dL RDW (11.5-14.5) % Immature Gran # (0.00-0.04) X 10*3/uL Neutrophils # (1.80-7.70) X 10*3/uL Lymphocytes # (0.90-5.00) X 10*3/uL Eosinophils # (0.04-0.35) X 10*3/uL Carbon Dioxide 19.4 L (21.6-31.8) mmol/L Anion Gap 14.60 H (4.00-12.00) mmol/L BUN 103.0 H* (9.0-27.0) mg/dL Creatinine 2.6 H (0.6-1.5) mg/dL Est GFR (CKD-EPI)AfAm 25.8 L (60.0-200.0) Est GFR (CKD-EPI)NonAf 22.3 L (60.0-200.0) BUN/Creatinine Ratio 39.62 H (12.00-20.00) Ratio Glucose 213 H (70-110) mg/dL POC Glucose (mg/dL) 216 H 313 H (75-99) mg/dL Total Protein 6.1 L (6.2-8.2) g/dL Microbiology - Last 24 Hours (Table) 04/04/21 12:30 Acid Fast Bacilli Smear - Final Bronchial Washings - Random Acid Fast Bacilli Culture - Preliminary
[2021-04-06 16:31] LABS: Glucose,Whole Blood 131 mg/dL (75-99)
[2021-04-06] MEDS: SODIUM CHLORIDE 0.9% 1,000 ML IV SCH (17:30)
[2021-04-06 19:17] LABS: Glucose,Whole Blood 145 mg/dL (75-99)
[2021-04-06] MEDS: ACETAMINOPHEN TAB 325 MG TAB PO PRN (19:40)
[2021-04-07] MEDS: IPRATROPIUM-ALBUTEROL 3 ML NEB INHALATION SCH ×7 (00:09→22:55)
[2021-04-07 02:53] LABS: Glucose,Whole Blood 221 mg/dL (75-99)
[2021-04-07] MEDS: ACETAMINOPHEN TAB 325 MG TAB PO PRN ×2 (05:08→20:41)
[2021-04-07] MEDS: methylPREDNISolone SOD SUCCI 40 MG/ML 1 ML VIAL IV SCH ×3 (05:08→20:40)
[2021-04-07 07:09] LABS: Glucose,Whole Blood 252 mg/dL (75-99)
[2021-04-07 07:19] LABS: HCT 34.1 % (39.0-53.0); HGB 10.8 gm/dL (13.0-17.5); Hypochromasia Slight; MCH 31.1 pg (25.0-35.0); MCHC 31.6 g/dL (31.0-37.0); MCV 98.7 fL (80.0-100.0); Mean Platelet Volume 8.6; Platelet Count 277 k/uL (150-450); RBC 3.45 m/uL (4.30-5.90); RDW 14.2 % (11.5-15.5); WBC 11.6 k/uL (3.8-10.6)
[2021-04-07 07:29] LABS: African American GFR (CKD) 24 (>60 ml/min/1.73 sqM); Anion Gap 13 mmol/L; Calcium 8.9 mg/dL (8.4-10.2); Carbon Dioxide 18 mmol/L (22-30); Chloride 104 mmol/L (98-107); Glucose 252 mg/dL (74-99); Non-African American GFR(CKD) 21 (>60 ml/min/1.73 sqM); Potassium 5.2 mmol/L (3.5-5.1); Sodium 135 mmol/L (137-145)
[2021-04-07 07:36] LABS: Blood Urea Nitrogen 106 mg/dL (9-20)
[2021-04-07] MEDS: LINAGLIPTIN 5 MG TABLET PO SCH (08:08)
[2021-04-07] MEDS: PANTOPRAZOLE 40 MG TABLET PO SCH ×2 (08:08→16:25)
[2021-04-07] MEDS: METOPROLOL SUCCINATE (ER) 50 MG TAB.ER.24H PO SCH (08:08)
[2021-04-07] MEDS: ASPIRIN 81 MG PO SCH (08:08)
[2021-04-07] MEDS: guaiFENesin 600 MG TABLET.ER PO SCH ×2 (08:08→20:41)
[2021-04-07] MEDS: CLOPIDOGREL 75 MG TAB PO SCH (08:08)
[2021-04-07] MEDS: CEFEPIME 1 GM in SODIUM CHLORIDE 0.9% 50 ML IVPB SCH ×2 (08:09→20:40)
[2021-04-07] MEDS: INSULIN DETEMIR (LEVEMIR) 100 UNIT/ML SYR SQ SCH (08:09)
[2021-04-07] MEDS: INSULIN ASPART (NovoLOG) 100 UNIT/ML VIAL SQ SCH ×7 (08:09→19:56)
[2021-04-07] MEDS: HEPARIN SODIUM,PORCINE/PF 5,000 UNIT/0.5 ML SYRINGE SQ SCH ×2 (08:10→16:25)
[2021-04-07] MEDS: bisacodyL 5 MG TABLET.DR PO PRN (08:14)
[2021-04-07] MEDS: BUDESONIDE 1 MG/2 ML NEBU INHALATION SCH ×2 (08:26→17:59)
[2021-04-07] MEDS: FORMOTEROL FUMARATE 20 MCG/2 ML NEBU INHALATION SCH ×3 (08:26→22:56)
[2021-04-07] MEDS ORDERED: MELATONIN 5 MG TABLET PO PRN (09:34)
[2021-04-07] MEDS ORDERED: FUROSEMIDE 10 MG/ML 4 ML VIAL IV STA (10:02)
[2021-04-07] MEDS: SODIUM BICARBONATE TAB 650 MG TAB PO SCH ×3 (10:34→20:39)
[2021-04-07] MEDS: polyethylene glycoL 3350 17 GM POWD.PACK PO SCH (10:35)
[2021-04-07 12:02] LABS: Glucose,Whole Blood 227 mg/dL (75-99)
[2021-04-07] MEDS: LACTATED RINGERS 1,000 ML IV SCH (12:22)
--- NOTE | 2021-04-07 14:10 | P.PN ---
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 He typically follows with Dr. Armstrong. Initial lab work was consistent with his known chronic kidney disease. Initial troponin was positive at 0.055, EKG nonischemic. Chest x-ray shows chronic changes. His concerns for worsening of his bronchiectasis with possible infection. He was admitted for further monitoring. Pulmonary was consulted he was started on IV steroids and his bronchodilators were continued. He went for a brown on the morning of 04/04/21. Possible fungal infection identified. He did develop YUNIER and his diuretic were held. BUN increasing du to steroids. His creatinine continued to increase and nephrology was consulted Patient seen and examined at bedside. He states his shortness of breath is worsening today and he feels more fluid building up in his chest. We discussed that his renal function has not stabilized we will give a dose of IV Lasix today to optimize fluid status, he will be seen by the client renewal specialist. He is aware that there is likely a fungal infection we are currently awaiting identification before initiating antifungal therapy. Still no BM. General: Ill-appearing, no distress, appears at stated age Derm: Bruising bilateral upper arms warm, dry Head: atraumatic, normocephalic, symmetric Eyes: EOMI, no lid lag, anicteric sclera Mouth: no lip lesion, mucus membranes moist Cardiovascular: S1S2 reg, no murmur, positive posterior tibial pulse bilateral, Lungs: Course bs b/l with exp wheeze, no accessory muscle use Abdominal: soft, nontender to palpation, no guarding, no appreciable organomegaly Ext: no gross muscle atrophy, trace edema, no contractures Neuro: CN II-XI grossly intact, no focal neuro deficits Psych: Alert, oriented, appropriate affect Acute exacerbation of COPD with Gram negative purulent tracheobronchitis history of Pseudomonas and stenotrophomonas. Bronchiectasis Tracheobronchial malacia -Concerns for possible fungal infection, patient has been taken off of his statin, awaiting final culture results. -Pulmonary recommendations appreciated: Cefepime, bronchodilators, Solu-Medrol - anticipate that he will need to stay until culture results are available with history of recent meropenem use and Augmentin. - Mucinex YUNIER on CKD stage III, hyperkalemia Chronic Systolic CHF with EF 35-40% - baseline Cr 1.7 - hold cozaar - lasix X 1 today - Consult nephrology - repeat labs in AM -Avoid nephrotoxic agents - Metoprolol - monitor fluid status closely patient reports that he gets edema with steroids Constipation - bowel regiment Hoarseness -Being followed by Dr. Valenzuela in the outpatient setting - throat lozenges Diabetes mellitus type 2, Brittle -Increase long-acting insulin, increase fixed dose with meals and check blood sugar both with meals and at 2 AM - long acting, SSI, follow BS - Januvia - Ozempic from home once weekly, admin today Elevated troponin, flat, not consistent with acute coronary syndrome -Likely related to his chronic kidney disease -No need for further evaluation. Leukocytosis - due to steroids - follow CBC Chronic: Hypertension GERD Ischemic cardiomyopathy Case discussed with Dr. Lowe. Awaiting fungal identification. CMV noted in the bronchial specimen and immuno competent patient. We did discuss that he is on prednisone quite often howeverCMV symptomatic infection seems quite limited at this point in time as pathology called that there is fungal specimen growing within the biopsy. Patient also does not appear to have systemic signs of illness. DVT prophylaxis: heparin Discussed with: patient, nursing, Dr. Lowe Anticipated discharge date: in 2-[address]: home A total of 25 minutes was spent on the care of this complex patient more than 50% of the time was spent in counseling and care coordination. Active Medications Acetaminophen (Acetaminophen Tab 325 Mg Tab) 650 mg PO Q6HR PRN PRN Reason: Mild Pain or Fever > 100.5 Last Admin: 04/07/21 05:08 Dose: 650 mg Documented by: Albuterol Sulfate (Albuterol Nebulized 2.5 Mg/3 Ml) 2.5 mg INHALATION RT-Q2H PRN PRN Reason: Shortness Of Breath Or Wheezing Last Admin: 04/05/21 18:11 Dose: 2.5 mg Documented by: Albuterol/Ipratropium (Ipratropium-Albuterol 3 Ml Neb) 3 ml INHALATION RT-Q4H [facility] Last Admin: 04/07/21 11:58 Dose: 3 ml Documented by: Aspirin (Aspirin 81 Mg) 81 mg PO DAILY [facility] Last Admin: 04/07/21 08:08 Dose: 81 mg Documented by: Benzocaine/Menthol (Benzocaine/Menthol Lozeng 1 Each Lozenge) 1 each MUCOUS MEM Q4HR PRN PRN Reason: Sore Throat Bisacodyl (Bisacodyl 5 Mg Tablet.Dr) 5 mg PO DAILY PRN PRN Reason: Constipation Last Admin: 04/07/21 08:14 Dose: 5 mg Documented by: Budesonide (Budesonide 1 Mg/2 Ml Nebu) 1 mg INHALATION RT-BID [facility] Last Admin: 04/07/21 08:26 Dose: 1 mg Documented by: Clopidogrel Bisulfate (Clopidogrel 75 Mg Tab) 75 mg PO DAILY [facility] Last Admin: 04/07/21 08:08 Dose: 75 mg Documented by: Formoterol Fumarate (Formoterol Fumarate 20 Mcg/2 Ml Nebu) 20 mcg INHALATION RT-BID [facility] Last Admin: 04/07/21 08:26 Dose: 20 mcg Documented by: Guaifenesin (Guaifenesin 600 Mg Tablet.Er) 1,200 mg PO Q12HR [facility] Last Admin: 04/07/21 08:08 Dose: 1,200 mg Documented by: Heparin Sodium (Porcine) (Heparin Sodium,Porcine/Pf 5,000 Unit/0.5 Ml Syringe) 5,000 unit SQ Q8HR [facility] Last Admin: 04/07/21 08:10 Dose: 5,000 unit Documented by: Sodium Chloride (Saline 0.9%) 1,000 mls @ 10 mls/hr IV .Q24H [facility] Last Admin: 04/06/21 17:30 Dose: 10 mls/hr Documented by: Lactated Ringer's (Lactated Ringers) 1,000 mls @ 20 mls/hr IV .Q24H [facility] Last Admin: 04/07/21 12:22 Dose: Not Given Documented by: Cefepime HCl 1 gm/ Sodium (Chloride) 50 mls @ 12.5 mls/hr IVPB Q12HR [facility] Last Admin: 04/07/21 08:09 Dose: 12.5 mls/hr Documented by: Insulin Aspart (Insulin Aspart (Novolog) 100 Unit/Ml Vial) 0 unit SQ ACHS [facility]; Protocol Last Admin: 04/07/21 12:21 Dose: 3 unit Documented by: Insulin Aspart (Insulin Aspart (Novolog) 100 Unit/Ml Vial) 4 unit SQ AC-TID [facility] Last Admin: 04/07/21 12:21 Dose: 4 unit Documented by: Insulin Detemir (Insulin Detemir (Levemir) 100 Unit/Ml Syr) 45 unit SQ DAILY@0700 [facility] Linagliptin (Linagliptin 5 Mg Tablet) 5 mg PO QAM [facility] Last Admin: 04/07/21 08:08 Dose: 5 mg Documented by: Melatonin (Melatonin 5 Mg Tablet) 5 mg PO HS PRN PRN Reason: Insomnia Methylprednisolone Sodium Succinate (Methylprednisolone Sod Succi 40 Mg/Ml 1 Ml Vial) 40 mg IV Q8H [facility] Last Admin: 04/07/21 12:21 Dose: 40 mg Documented by: Metoprolol Succinate (Metoprolol Succinate (Er) 50 Mg Tab.Er.24h) 50 mg PO QAM [facility] Last Admin: 04/07/21 08:08 Dose: 50 mg Documented by: Morphine Sulfate (Morphine Sulfate 4 Mg/Ml Syringe) 4 mg IVP Q4HR PRN PRN Reason: Pain Last Admin: 04/05/21 00:19 Dose: 4 mg Documented by: Naloxone HCl (Naloxone 0.4 Mg/Ml 1 Ml Vial) 0.2 mg IV Q2M PRN PRN Reason: Opioid Reversal Semaglutide [Ozempic ] 0.25 Mg/0.2 Ml Pen .Injctr 0.5 mg SQ FR [facility] Last Admin: 04/05/21 10:17 Dose: 0.5 mg Documented by: Ondansetron HCl (Ondansetron 4 Mg/2 Ml Vial) 4 mg IVP Q8HR PRN PRN Reason: Nausea And Vomiting Pantoprazole Sodium (Pantoprazole 40 Mg Tablet) 40 mg PO AC-BID [facility] Last Admin: 04/07/21 08:08 Dose: 40 mg Documented by: Polyethylene Glycol (Polyethylene Glycol 3350 17 Gm Powd.Pack) 17 gm PO DAILY [facility] Last Admin: 04/07/21 10:35 Dose: 17 gm Documented by: Sodium Bicarbonate (Sodium Bicarbonate Tab 650 Mg Tab) 325 mg PO TID [facility] Last Admin: 04/07/21 10:34 Dose: 325 mg Documented by: Objective - Vital Signs Vital signs: Vital Signs Temp 97.8 F 04/07/21 07:00 Pulse 97 04/07/21 12:09 Resp 22 08/01/21 07:00 BP 136/72 04/07/21 07:00 Pulse Ox 100 04/07/21 08:26 Intake & Output 04/06/21 04/07/21 04/07/21 18:59 06:59 18:59 Intake Total 990 Balance 990 Intake: Intake, IV Titration 90 Amount Cefepime 1 gm In Sodium 50 Chloride 0.9% 50 ml @ 12. 5 mls/hr IVPB Q12HR [facility] Rx#:[id number] Sodium Chloride 0.9% 1, 40 000 ml @ 10 mls/hr IV . Q24H [facility] Rx#:[id number] Oral 900 Other: Voiding Method Toilet Urinal # Voids 2 1 - Labs CBC & Chem 7: 04/07/21 05:50 04/07/21 05:50 Labs: Abnormal Lab Results - Last 24 Hours (Table) 04/06/21 04/06/21 04/07/21 Range/Units 16:30 19:17 02:51 WBC (3.8-10.6) k/uL RBC (4.30-5.90) m/uL Hgb (13.0-17.5) gm/dL Hct (39.0-53.0) % Sodium (137-145) mmol/L Potassium (3.5-5.1) mmol/L Carbon Dioxide (22-30) mmol/L BUN (9-20) mg/dL Creatinine (0.66-1.25) mg/dL Glucose (74-99) mg/dL POC Glucose (mg/dL) 131 H 145 H 221 H (75-99) mg/dL 04/07/21 04/07/21 04/07/21 Range/Units 05:50 05:50 07:07 WBC 11.6 H (3.8-10.6) k/uL RBC 3.45 L (4.30-5.90) m/uL Hgb 10.8 L (13.0-17.5) gm/dL Hct 34.1 L (39.0-53.0) % Sodium 135 L (137-145) mmol/L Potassium 5.2 H (3.5-5.1) mmol/L Carbon Dioxide 18 L (22-30) mmol/L BUN 106 H* (9-20) mg/dL Creatinine 2.78 H (0.66-1.25) mg/dL Glucose 252 H (74-99) mg/dL POC Glucose (mg/dL) 252 H (75-99) mg/dL 04/07/21 Range/Units 12:00 WBC (3.8-10.6) k/uL RBC (4.30-5.90) m/uL Hgb (13.0-17.5) gm/dL Hct (39.0-53.0) % Sodium (137-145) mmol/L Potassium (3.5-5.1) mmol/L Carbon Dioxide (22-30) mmol/L BUN (9-20) mg/dL Creatinine (0.66-1.25) mg/dL Glucose (74-99) mg/dL POC Glucose (mg/dL) 227 H (75-99) mg/dL Microbiology - Last 24 Hours (Table) 04/04/21 12:30 Gram Stain - Preliminary Bronchial Washings - Random Bronchial Washings Culture - Preliminary Gram Neg Bacilli
[2021-04-07] MEDS: BENZOCAINE/MENTHOL LOZENG 1 EACH LOZENGE MUCOUS MEM PRN ×2 (14:17→21:16)
--- NOTE | 2021-04-07 15:54 | P.NPCON ---
History of Present Illness - Reason for Consult Consult date: 04/07/21 acute renal failure - Chief Complaint Shortness of breath - History of Present Illness 80-year-old gentleman coming to the hospital with shortness of breath. He has history of bronchiectasis with recurrent pseudomonal infections in the past. He does have chronic kidney disease stage III B suspected nephrosclerosis with a baseline creatinine of 1.6-1.8 MG per DL. On admission his creatinine was around baseline. Still has CHF with systolic dysfunction. He takes losartan, Lasix, Aldactone, Bumex every 72 hours. When he was in the hospital his diuretics were held. But losartan was continued which was stopped today. He developed worsening lower extremity edema with creeping creatinine. But creatinine stable for the last 2 days. He has elevated BUNs and also on steroids. No drop in hemoglobin or GI bleed. 96 urinary retention or incomplete emptying of the bladder. No recent contrast studies or NSAID use. Review of Systems Constitutional: Reports as per HPI Past Medical History Past Medical History: Asthma, Coronary Artery Disease (CAD), Cancer, COPD, Diabetes Mellitus, GERD/Reflux, Hypertension, Myocardial Infarction ([place]), Pneumonia, Renal Disease, Respiratory Disorder, Skin Disorder Additional Past Medical History / Comment(s): Frequent lung infections tx with antibiotics and bronch/BALs, bronchiectasis, acquired bronchomalacia, recurrent pseudomonal infections in lungs, right middle lobe syndrome, IDDM type II, CKD stage unknown, iron anemia, skin cancer of the nose and lip, pt has dry thin fragile skin- please use paper tape only and has port a cath left chest, bilateral lower leg edema. Last Myocardial Infarction Date:: 08/25/17 History of Any Multi-Drug Resistant Organisms: MRSA, Other MDRO Date of last positivie culture/infection: 08/13/2012 MDRO Source:: BRONCH WASH Past Surgical History: Heart Catheterization With Stent, Hernia Repair, Orthopedic Surgery Additional Past Surgical History / Comment(s): MULTIPLE BRONCHOSCOPIES. HAS PORT A CATH FOR POSSIBLE IV ANTIBIOTIC INFUSIONS. Rt Foot(Achilles) Surgery, Sinus Surgery x 4, Picc line/later removed,skin cancer removed from lower lip & nose- removal of part of lower lip with reconstruction, ray cataracts with lens implants, umbilical hernia, 3 cardiac stents placed on 08/26/17 and 2 stents 09/14/17, 05/12/18 R port a cath removal and replaced on left side Past Anesthesia/Blood Transfusion Reactions: No Reported Reaction Additional Past Anesthesia/Blood Transfusion Reaction / Comment(s): diff IV starts Date of Last Stent Placement:: 09/24/17 Past Psychological History: No Psychological Hx Reported Additional Psychological History / Comment(s): Pt resides alone. He is independent. Smoking Status: Former smoker Past Alcohol Use History: None Reported Additional Past Alcohol Use History / Comment(s): Pt started smoking in 1955 and quit in 1974. Past Drug Use History: None Reported - Past Family History Mother Family Medical History: Deep Vein Thrombosis (DVT) Father Family Medical History: Osteoarthritis (OA) Sister(s) Family Medical History: Cancer, Deep Vein Thrombosis (DVT) Additional Family Medical History / Comment(s): One sister with 3 different types of cancer, 1 or 2 sisters with DVTS Son(s) Family Medical History: Deep Vein Thrombosis (DVT) Medications and Allergies Home Medications Medication Instructions Recorded Confirmed Type Omeprazole [PriLOSEC] 20 mg PO BID 01/05/14 04/03/21 History Fluticasone Propionate [Flovent 2 puff INHALATION RT-BID 08/08/15 04/03/21 History Hfa 220 mcg] Salmeterol Xinafoate [Serevent 1 puff INHALATION RT-BID 10/13/15 04/03/21 History Diskus] Aspirin 81 mg PO DAILY #30 chew 08/27/17 04/03/21 Rx Clopidogrel [Plavix] 75 mg PO DAILY #30 tab 08/27/17 04/03/21 Rx Nitroglycerin Sl Tabs [Nitrostat] 0.4 mg SUBLINGUAL Q5M PRN #25 tab 08/27/17 04/03/21 Rx sitaGLIPtin [Januvia] 100 mg PO QAM 12/16/18 04/03/21 History Albuterol Sulfate [Proair Hfa] 2 puff INHALATION RT-QID PRN 11/12/20 04/03/21 History Furosemide [Lasix] 80 mg PO QAM 11/12/20 04/03/21 History Spironolactone [Aldactone] 25 mg PO QAM 11/12/20 04/03/21 History Atorvastatin [Lipitor] 40 mg PO QAM 02/25/21 04/03/21 History Losartan [Cozaar] 25 mg PO QAM 02/25/21 04/03/21 History Metoprolol Succinate (ER) [Toprol 50 mg PO QAM 02/25/21 04/03/21 History XL] predniSONE 10 mg PO DAILY 02/25/21 04/03/21 History Azithromycin [Zithromax] 250 mg PO MOWEFR 04/03/21 04/03/21 History Bumetanide [BUMEX] 2 mg PO Q72H 04/03/21 04/03/21 History Clotrimazole [place] [Mycelex 10 mg MUCOUS MEM 5XD 04/03/21 04/03/21 History [place]] Insulin Degludec [Tresiba 50 units SQ DAILY 04/03/21 04/03/21 History Flextouch U-200] Semaglutide [Ozempic] 0.5 mg SQ FR 04/03/21 04/03/21 History Allergies Allergy/AdvReac Type Severity Reaction Status Date / Time NUNU Inhibitors Allergy Dyspnea Verified 04/03/21 08:47 adhesive tape Allergy skin Verified 04/03/21 08:47 irritations aspirin Allergy Dyspnea Verified 04/03/21 08:47 avibactam sodium Allergy Unknown Verified 04/03/21 08:47 [From Avycaz] ceftazidime [From Avycaz] Allergy Unknown Verified 04/03/21 08:47 ciprofloxacin [From Cipro] Allergy Unknown Verified 04/03/21 08:47 clindamycin Allergy Unknown Verified 04/03/21 08:47 levofloxacin [From Levaquin] Allergy "HAD Verified 04/03/21 08:47 RUPTURED TENDON" Milk Containing Products Allergy WAS TESTED Verified 04/03/21 08:47 [Dairy] & TOLD ALLERGIC NSAIDS (Non-Steroidal Allergy Dyspnea Verified 04/03/21 08:47 Anti-Inflamma Penicillins Allergy see comment Verified 04/03/21 08:47 Sulfa (Sulfonamide Allergy Rash/Hives Verified 04/03/21 08:47 Antibiotics) sulfamethoxazole Allergy Rash/Hives Verified 04/03/21 08:49 [From Bactrim] trimethoprim [From Bactrim] Allergy Rash/Hives Verified 04/03/21 08:49 cephalexin [Cephalexin] AdvReac Nausea & Verified 04/03/21 08:47 Vomiting codeine phosphate AdvReac Vomiting Verified 04/03/21 08:47 [From Tylenol-Codeine #3] erythromycin base AdvReac Abdominal Verified 04/03/21 08:47 [Erythromycin Base] Pain Physical Exam Vitals: Vital Signs Temp Pulse Pulse Resp BP Pulse Ox 04/07/21 15:40 94 04/07/21 15:24 92 04/07/21 15:00 97.9 F 89 22 154/76 99 04/07/21 12:09 97 04/07/21 11:58 96 04/07/21 08:49 90 04/07/21 08:38 91 04/07/21 08:26 88 100 04/07/21 07:00 97.8 F 90 22 136/72 100 04/07/21 04:24 90 04/07/21 04:14 90 04/07/21 02:00 97.6 F 94 19 148/70 99 04/07/21 00:22 88 04/07/21 00:11 88 04/06/21 19:50 88 04/06/21 19:37 88 04/06/21 19:25 86 83 18 04/06/21 19:19 97.9 F 83 148/80 99 Intake and Output 04/07/21 04/07/21 04/07/21 06:59 14:59 22:59 Intake Total 600 Balance 600 Intake: Oral 600 Other: Voiding Method Toilet Urinal No acute distress S1-S2 heard Decreased breath sounds Abdomen distended Edema Results - Lab Results Most recent lab results Calcium 8.9 mg/dL (8.4-10.2) 04/07/21 05:50 Phosphorus 3.7 mg/dL (2.5-4.5) 04/03/21 05:00 Magnesium 2.0 mg/dL (1.6-2.3) 04/03/21 05:00 04/07/21 05:50 04/07/21 05:50 Assessment and Plan Assessment: #1 acute kidney injury suspect cardiorenal syndrome. -Rule out urinary retention #2 CK D stage III B secondary to nephrosclerosis with a baseline creatinine of 1.6-1.8 MG per DL. #3 lower extremity edema. #4 CHF with systolic dysfunction #5 disproportionate rise in BUNs 2 creatinine suspected due to steroids #6 bronchiectasis with bronchomalacia. Plan: #1 agree with holding losartan. Restart Lasix 40 mg IV twice a day. #2 bladder scan to rule out urinary retention #3 avoid nephrotoxic agents and hypotensive episodes #4 check renal ultrasound, urine studies and labs in the morning
[2021-04-07 17:00] LABS: Glucose,Whole Blood 86 mg/dL (75-99)
[2021-04-07] MEDS: SODIUM CHLORIDE 0.9% 1,000 ML IV SCH (17:31)
--- NOTE | 2021-04-07 19:07 | US ---
EXAMINATION TYPE: US kidneys/renal and bladder DATE OF EXAM: 04/07/2021 1633 COMPARISON: NONE CLINICAL HISTORY: hydronephrosis. Very limited exam due to overlying bowel gas EXAM MEASUREMENTS: Right Kidney: 10.0 x 5.5 x 4.9 cm Left Kidney: Unable to measure in sagittal Right Kidney: No hydronephrosis. No cystic or solid masses visualized Left Kidney: Very limited due to overlying bowel gas. No hydronephrosis visualized on limited exam Bladder: wnl Bilateral Jets seen: No IMPRESSION: 1. No evidence of right sided obstructive uropathy. 2. Limited examination of the left kidney; however, there is no evidence of hydronephrosis on this li mited examination.
[2021-04-07 19:15] LABS: Appearance,Urine Clear (Clear); Bilirubin,Urine Negative (Negative); Blood,Urine Small (Negative); Color,Urine Light Yellow; Glucose,Urine (UA) Negative (Negative); Ketones,Urine Negative (Negative); Leukocyte Esterase,Urine Negative (Negative); Mucus,Urine Rare /hpf; Nitrite,Urine Negative (Negative); Protein,Urine Trace (Negative); RBC,Urine <1 /hpf (0-5); Specific Gravity,Urine 1.013 (1.001-1.035); Urobilinogen,Urine <2.0 mg/dL (<2.0); WBC,Urine 2 /hpf (0-5)
[2021-04-07 19:55] LABS: Glucose,Whole Blood 55 mg/dL (75-99)
[2021-04-07] MEDS: FUROSEMIDE 10 MG/ML 4 ML VIAL IV SCH (20:40)
[2021-04-07 22:55] LABS: Creatinine,Urine Random 39.3 mg/dL
[2021-04-08] MEDS: HEPARIN SODIUM,PORCINE/PF 5,000 UNIT/0.5 ML SYRINGE SQ SCH ×3 (01:23→17:38)
[2021-04-08] MEDS: methylPREDNISolone SOD SUCCI 40 MG/ML 1 ML VIAL IV SCH ×3 (03:33→21:49)
[2021-04-08] MEDS: BENZOCAINE/MENTHOL LOZENG 1 EACH LOZENGE MUCOUS MEM PRN ×2 (03:33→21:48)
[2021-04-08] MEDS: IPRATROPIUM-ALBUTEROL 3 ML NEB INHALATION SCH ×5 (03:42→19:23)
[2021-04-08] MEDS ORDERED: INSULIN DETEMIR (LEVEMIR) 100 UNIT/ML SYR SQ SCH (07:00)
[2021-04-08 07:12] LABS: HGB 10.9 gm/dL (13.0-17.5); MCV 96.7 fL (80.0-100.0); Mean Platelet Volume 8.1; Platelet Count 301 k/uL (150-450); RBC 3.52 m/uL (4.30-5.90); RDW 14.9 % (11.5-15.5); WBC 13.5 k/uL (3.8-10.6)
[2021-04-08 07:28] LABS: Anion Gap 12 mmol/L; Calcium 9.4 mg/dL (8.4-10.2); Carbon Dioxide 19 mmol/L (22-30); Chloride 105 mmol/L (98-107); Glucose 171 mg/dL (74-99); Magnesium 2.2 mg/dL (1.6-2.3); Potassium 5.6 mmol/L (3.5-5.1); Sodium 136 mmol/L (137-145)
[2021-04-08 07:34] LABS: African American GFR (CKD) 24 (>60 ml/min/1.73 sqM); Non-African American GFR(CKD) 21 (>60 ml/min/1.73 sqM)
[2021-04-08 07:37] LABS: Glucose,Whole Blood 173 mg/dL (75-99)
[2021-04-08 07:40] LABS: Blood Urea Nitrogen 118 mg/dL (9-20)
[2021-04-08] MEDS: BUDESONIDE 1 MG/2 ML NEBU INHALATION SCH ×2 (07:52→16:11)
[2021-04-08] MEDS: PANTOPRAZOLE 40 MG TABLET PO SCH ×2 (08:01→17:38)
[2021-04-08] MEDS: SODIUM BICARBONATE TAB 650 MG TAB PO SCH ×3 (08:01→21:48)
[2021-04-08] MEDS: ASPIRIN 81 MG PO SCH (08:01)
[2021-04-08] MEDS: guaiFENesin 600 MG TABLET.ER PO SCH ×2 (08:01→21:49)
[2021-04-08] MEDS: CLOPIDOGREL 75 MG TAB PO SCH (08:02)
[2021-04-08] MEDS: INSULIN ASPART (NovoLOG) 100 UNIT/ML VIAL SQ SCH ×4 (08:02→17:35)
[2021-04-08] MEDS: polyethylene glycoL 3350 17 GM POWD.PACK PO SCH (08:02)
[2021-04-08] MEDS: FUROSEMIDE 10 MG/ML 4 ML VIAL IV SCH ×2 (08:02→21:49)
[2021-04-08] MEDS: METOPROLOL SUCCINATE (ER) 50 MG TAB.ER.24H PO SCH (08:02)
[2021-04-08] MEDS: LINAGLIPTIN 5 MG TABLET PO SCH (08:02)
[2021-04-08] MEDS: CEFEPIME 1 GM in SODIUM CHLORIDE 0.9% 50 ML IVPB SCH ×2 (08:03→21:46)
--- NOTE | 2021-04-08 10:38 | P.PN ---
Subjective Patient is seen in follow-up for acute kidney injury on chronic kidney disease. Renal function is stable. BUN 118. Good urine output. On IV Lasix. Required straight catheterization last night and again this morning for hypertension. Currently on 3 L is cannula. Vital signs are stable. General: The patient appeared well nourished and normally developed. HEENT: Head exam is unremarkable. Neck is without jugular venous distension. LUNGS: Breath sounds decreased. HEART: Rate and Rhythm are regular. ABDOMEN: Soft, obese. No distention. EXTREMITITES: 1+ edema. Objective - Vital Signs Vital signs: Vital Signs Temp 97.7 F 04/08/21 07:00 Pulse 96 04/08/21 08:12 Resp 18 04/08/21 07:00 BP 143/73 04/08/21 07:00 Pulse Ox 98 04/08/21 07:00 Intake & Output 04/07/21 04/08/21 04/08/21 18:59 06:59 18:59 Intake Total 50 Output Total 934 700 700 Balance -934 650 -700 Intake: Intake, IV Titration 50 Amount Cefepime 1 gm In Sodium 50 Chloride 0.9% 50 ml @ 12. 5 mls/hr IVPB Q12HR [facility] Rx#:[id number] Output: Urine 600 700 700 Straight 500 500 Post Void Residual 334 Other: Voiding Method Toilet Urinal # Voids 1 1 # Bowel Movements 1 1 1 - Labs CBC & Chem 7: 04/08/21 06:47 04/08/21 06:47 Labs: Abnormal Lab Results - Last 24 Hours (Table) 04/07/21 04/07/21 04/07/21 Range/Units 12:00 16:56 19:54 WBC (3.8-10.6) k/uL RBC (4.30-5.90) m/uL Hgb (13.0-17.5) gm/dL Hct (39.0-53.0) % Sodium (137-145) mmol/L Potassium (3.5-5.1) mmol/L Carbon Dioxide (22-30) mmol/L BUN (9-20) mg/dL Creatinine (0.66-1.25) mg/dL Glucose (74-99) mg/dL POC Glucose (mg/dL) 227 H 55 L (75-99) mg/dL Urine Protein Trace H (Negative) Urine Blood Small H (Negative) Urine Mucus Rare H (None) /hpf 04/08/21 04/08/21 04/08/21 Range/Units 06:47 06:47 06:58 WBC 13.5 H (3.8-10.6) k/uL RBC 3.52 L (4.30-5.90) m/uL Hgb 10.9 L (13.0-17.5) gm/dL Hct 34.0 L (39.0-53.0) % Sodium 136 L (137-145) mmol/L Potassium 5.6 H (3.5-5.1) mmol/L Carbon Dioxide 19 L (22-30) mmol/L BUN 118 H* (9-20) mg/dL Creatinine 2.77 H (0.66-1.25) mg/dL Glucose 171 H (74-99) mg/dL POC Glucose (mg/dL) 173 H (75-99) mg/dL Urine Protein (Negative) Urine Blood (Negative) Urine Mucus (None) /hpf Microbiology - Last 24 Hours (Table) 04/04/21 12:30 Gram Stain - Final Bronchial Washings - Random Bronchial Washings Culture - Final Pseudomonas aeruginosa Assessment and Plan Plan: Assessment: 1. Acute kidney injury secondary to ATN secondary to cardiorenal syndrome and urinary retention. Creatinine stable at 2.77 today. 2. Chronic kidney disease stage IIIB. Baseline creatinine in the range of 1.6- 1.8 secondary to nephrosclerosis. 3. Urinary retention. No evidence of hydronephrosis noted on kidney ultrasound. On Flomax. 4. Acute on chronic systolic CHF with ejection fraction of 35-40%. 5. Bronchiectasis with bronchomalacia. Pulmonology following. 6. Disproportionally elevated BUN secondary to acute kidney injury and steroids. No evidence of GI bleed. 7. Hyperkalemia secondary to acute kidney injury and metabolic acidosis. Also component of urinary retention. 8. Diabetes mellitus. Plan: Maintain IV Lasix. Increase dose of oral bicarb. If again has urinary retention, insert Lozano catheter. Avoid nephrotoxins. Continue to monitor renal function and urine output. Tight blood sugar control.
[2021-04-08] MEDS: TAMSULOSIN 0.4 MG CAP.ER.24H PO SCH (10:40)
[2021-04-08] MEDS: LACTATED RINGERS 1,000 ML IV SCH (11:16)
[2021-04-08] MEDS: AMMONIUM LACTATE 12% LOTION 225 GM BTL TOPICAL SCH (11:26)
[2021-04-08] MEDS: FORMOTEROL FUMARATE 20 MCG/2 ML NEBU INHALATION SCH ×2 (11:27→19:23)
[2021-04-08 11:35] LABS: Glucose,Whole Blood 210 mg/dL (75-99)
--- NOTE | 2021-04-08 12:07 | P.PN ---
Subjective Progress Note Date: 04/08/21 Principal diagnosis: Dyspnea, cough On 04/08/2021 patient seen in follow-up on medical surgical floor. He is seen sitting up in the recliner, he is on 3 L of oxygen his pulse ox is 98%, patient does have mild conversational dyspnea, and still moderate to severe exertional dyspnea. He states he walks to the bathroom and he is very short of breath, and requires time to recover. Sr. fairly comfortable right now, does not appear to be in any acute distress, his been afebrile, hemodynamically he is stable, denies any hemoptysis. She has not had any recent chest x-rays, patient is status post bronchoscopy with BAL and endobronchial biopsy. A was on 03/26/2021. There was a copious amount of thick purulent rest or secretions removed. There was extensive mucosal abnormalities and a polyp-like lesions growing throughout the airways seem to be more significant in the callie and more significant in the right upper lobe. His transbronchial lung biopsies are still pending at this time, cytology showed acute inflammatory cells with scattered squamous cells and few macrophages, but it was nondiagnostic for malignancy. He is BAL cultures were positive for pseudomonas aeruginosa and the patient was started on cefepime, his fungal cultures from the BAL are still pending at this time. A fungal serology panel has been sent and is pending at this time. Today's labs have been reviewed. White blood cell count is 13.5, hemoglobin is 10.9, sodium is 136, potassium is 5.6, chloride is 105, CO2 is 19, B1 is 118, creatinine is 2.77. he remains on breathing treatments, he was also started on IV Lasix 40 mg IV every 12 hours, he is on Mucinex, he is on nebulized bronchodilators and IV steroids at 40 mg every 8 hours. Objective - Vital Signs Vital signs: Vital Signs Temp 97.7 F 04/08/21 07:00 Pulse 92 04/08/21 11:48 Resp 18 04/08/21 07:00 BP 143/73 04/08/21 07:00 Pulse Ox 98 04/08/21 07:00 Intake & Output 04/07/21 04/08/21 04/08/21 18:59 06:59 18:59 Intake Total 50 Output Total 292 781 463 Balance -929 -182 -224 Intake: Intake, IV Titration 50 Amount Cefepime 1 gm In Sodium 50 Chloride 0.9% 50 ml @ 12. 5 mls/hr IVPB Q12HR [facility] Rx#:[id number] Output: Urine 600 700 700 Straight 500 500 Post Void Residual 334 Other: Voiding Method Toilet Urinal # Voids 1 1 # Bowel Movements 1 1 1 - Exam GENERAL EXAM: Alert, very pleasant, 80-year-old white male, on 3 L of oxygen pulse ox of 98% comfortable in no apparent distress. HEAD: Normocephalic/atraumatic. EYES: Normal reaction of pupils, equal size. Conjunctiva pink, sclera white. NOSE: Clear with pink turbinates. THROAT: No erythema or exudates. NECK: No masses, no JVD, no thyroid enlargement, no adenopathy. CHEST: No chest wall deformity. Symmetrical expansion. LUNGS: Equal air entry with diffuse rhonchi, and mild wheezes CVS: Regular rate and rhythm, normal S1 and S2, no gallops, no murmurs, no rubs ABDOMEN: Soft, nontender. No hepatosplenomegaly, normal bowel sounds, no guarding or rigidity. EXTREMITIES: No clubbing, no edema, no cyanosis, 2+ pulses and upper and lower extremities. MUSCULOSKELETAL: Muscle strength and tone normal. SPINE: No scoliosis or deformity SKIN: No rashes CENTRAL NERVOUS SYSTEM: Alert and oriented -3. No focal deficits, tone is nor mal in all 4 extremities. PSYCHIATRIC: Alert and oriented -3. Appropriate affect. Intact judgment and insight. - Labs CBC & Chem 7: 04/08/21 06:47 04/08/21 06:47 Labs: Abnormal Lab Results - Last 24 Hours (Table) 04/07/21 04/07/21 04/07/21 Range/Units 12:00 16:56 19:54 WBC (3.8-10.6) k/uL RBC (4.30-5.90) m/uL Hgb (13.0-17.5) gm/dL Hct (39.0-53.0) % Sodium (137-145) mmol/L Potassium (3.5-5.1) mmol/L Carbon Dioxide (22-30) mmol/L BUN (9-20) mg/dL Creatinine (0.66-1.25) mg/dL Glucose (74-99) mg/dL POC Glucose (mg/dL) 227 H 55 L (75-99) mg/dL Urine Protein Trace H (Negative) Urine Blood Small H (Negative) Urine Mucus Rare H (None) /hpf 04/08/21 04/08/21 04/08/21 Range/Units 06:47 06:47 06:58 WBC 13.5 H (3.8-10.6) k/uL RBC 3.52 L (4.30-5.90) m/uL Hgb 10.9 L (13.0-17.5) gm/dL Hct 34.0 L (39.0-53.0) % Sodium 136 L (137-145) mmol/L Potassium 5.6 H (3.5-5.1) mmol/L Carbon Dioxide 19 L (22-30) mmol/L BUN 118 H* (9-20) mg/dL Creatinine 2.77 H (0.66-1.25) mg/dL Glucose 171 H (74-99) mg/dL POC Glucose (mg/dL) 173 H (75-99) mg/dL Urine Protein (Negative) Urine Blood (Negative) Urine Mucus (None) /hpf 04/08/21 Range/Units 11:34 WBC (3.8-10.6) k/uL RBC (4.30-5.90) m/uL Hgb (13.0-17.5) gm/dL Hct (39.0-53.0) % Sodium (137-145) mmol/L Potassium (3.5-5.1) mmol/L Carbon Dioxide (22-30) mmol/L BUN (9-20) mg/dL Creatinine (0.66-1.25) mg/dL Glucose (74-99) mg/dL POC Glucose (mg/dL) 210 H (75-99) mg/dL Urine Protein (Negative) Urine Blood (Negative) Urine Mucus (None) /hpf Microbiology - Last 24 Hours (Table) 04/04/21 12:30 Gram Stain - Final Bronchial Washings - Random Bronchial Washings Culture - Final Pseudomonas aeruginosa Assessment and Plan Plan: Assessment: #1. Acute exacerbation of COPD complicated by prolonged tracheobronchitis. Patient has significant amount of mucus plugging and therapeutic airway suctioning was done on 03/26/2021. There was evidence of obvious tracheobronchomalacia, and irregular airways, tortuous with polypoid lesions scattered throughout the airways mainly in the lateral wall of the trachea and there was necrotic mucosal abnormalities and polypoid lesions involving the right upper lobe. Endobronchial biopsies were taken and are pending at this time, cytology was nondiagnostic. BAL culture revealed pseudomonas aeruginosa. Fungal cultures are pending, fungal serology results are pending. The endobronchial biopsies from the tracheal wall is indicating possibility of a fungal infection. Fungal cultures are still pending for now. Currently on cefepime. #2. Bronchiectasis with previous infections of Pseudomonas and stenotrophomonas. Patient has had a greater than 20 biopsies with BAL in the past #3. History of tracheobronchomalacia #4. Hoarseness, being followed in the outpatient setting by ENT #5. Coronary artery disease previous stent placement 5 #6. Ischemic cardiomyopathy #7. Diabetes mellitus type 2 #8. Hypertension #9. GERD/reflux #10. Former smoker Plan: Awaiting results of the fungal BAL cultures Awaiting results of the fungal serology Continue current antibiotics Continue IV steroids Continue nebulized bronchodilators Consult physical therapy to help ambulate the patient Follow-up chest x-ray tomorrow and follow up labs I performed a history & physical examination of the patient and discussed their management with my nurse practitioner, Priscila Lucero. I reviewed the nurse practitioner's note and agree with the documented findings and plan of care. Lung sounds are positive for diminished breath sounds throughout the lung lentz. The findings and the impression was discussed with the patient. I attest to the documentation by the nurse practitioner. Time with Patient: Less than 30
[2021-04-08] MEDS ORDERED: INSULIN ASPART (NovoLOG) 100 UNIT/ML VIAL SQ SCH (12:30)
--- NOTE | 2021-04-08 15:18 | P.PN ---
Subjective Progress Note Date: 04/08/21 Principal diagnosis: shortness of breath Patient is an 80-year-old male with a past medical history of bronchiectasis 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 He typically follows with Dr. Armstrong. Initial lab work was consistent with his known chronic kidney disease. Initial troponin was positive at 0.055, EKG nonischemic. Chest x-ray shows chronic changes. His concerns for worsening of his bronchiectasis with possible infection. He was admitted for further monitoring. Pulmonary was consulted he was started on IV steroids and his bronchodilators were continued. He went for a brown on the morning of 04/04/21. Possible fungal infection identified. He did develop YUNIER and his diuretic were held. BUN increasing du to steroids. His creatinine continued to increase and nephrology was consulted. There were possible fungal elements on bronchial biopsy. Cultures grew back pseudomonas. He has had difficult with hy poglycemia and hyperglycemia. Patient seen and examined at bedside. Still continues to have shortness of breath, + cough, no diarrhea, no chest pain, no nausea General: Ill-appearing, no distress, appears at stated age Derm: Bruising bilateral upper arms with edema, warm, dry Head: atraumatic, normocephalic, symmetric Eyes: EOMI, no lid lag, anicteric sclera Mouth: no lip lesion, mucus membranes moist Cardiovascular: S1S2 reg, no murmur, positive posterior tibial pulse bilateral, Lungs: Course bs b/l with exp wheeze, no accessory muscle use Abdominal: soft, nontender to palpation, no guarding, no appreciable organomegaly Ext: no gross muscle atrophy, trace edema, no contractures Neuro: CN II-XI grossly intact, no focal neuro deficits Psych: Alert, oriented, appropriate affect Acute exacerbation of COPD with Gram negative purulent tracheobronchitis history of Pseudomonas and stenotrophomonas. Bronchiectasis Tracheobronchial malacia -Concerns for possible fungal infection, patient has been taken off of his statin, awaiting final culture results. -Pulmonary recommendations appreciated: Cefepime, bronchodilators, Solu-Medrol decrease - anticipate that he will need to stay until culture results are available with history of recent meropenem use and Augmentin. - Mucinex YUNIER on CKD stage III, hyperkalemia Chronic Systolic CHF with EF 35-40% - baseline Cr 1.7 - hold messi - erwin - Nephrology recs - repeat labs in AM -Avoid nephrotoxic agents - Metoprolol - monitor fluid status closely patient reports that he gets edema with steroids Constipation - bowel regiment Hoarseness -Being followed by Dr. Valenzuela in the outpatient setting - throat lozenges Diabetes mellitus type 2, Brittle - long-acting insulin, fixed dose with meals and check blood sugar both with meals and at 2 AM - long acting, SSI, follow BS - Wendy - Emeryempic from home once weekly on fridays Elevated troponin, flat, not consistent with acute coronary syndrome -Likely related to his chronic kidney disease -No need for further evaluation. Leukocytosis - due to steroids - follow CBC Chronic: Hypertension GERD Ischemic cardiomyopathy DVT prophylaxis: heparin Discussed with: patient, nursing Anticipated discharge date: in 2-[address]: home A total of 25 minutes was spent on the care of this complex patient more than 50% of the time was spent in counseling and care coordination. Active Medications Acetaminophen (Acetaminophen Tab 325 Mg Tab) 650 mg PO Q6HR PRN PRN Reason: Mild Pain or Fever > 100.5 Last Admin: 04/07/21 20:41 Dose: 650 mg Documented by: Albuterol Sulfate (Albuterol Nebulized 2.5 Mg/3 Ml) 2.5 mg INHALATION RT-Q2H PRN PRN Reason: Shortness Of Breath Or Wheezing Last Admin: 04/05/21 18:11 Dose: 2.5 mg Documented by: Albuterol/Ipratropium (Ipratropium-Albuterol 3 Ml Neb) 3 ml INHALATION RT-Q4H [facility] Last Admin: 04/08/21 11:27 Dose: 3 ml Documented by: Aspirin (Aspirin 81 Mg) 81 mg PO DAILY [facility] Last Admin: 04/08/21 08:01 Dose: 81 mg Documented by: Benzocaine/Menthol (Benzocaine/Menthol Lozeng 1 Each Lozenge) 1 each MUCOUS MEM Q4HR PRN PRN Reason: Sore Throat Last Admin: 04/08/21 03:33 Dose: 1 each Documented by: Bisacodyl (Bisacodyl 5 Mg Tablet.) 5 mg PO DAILY PRN PRN Reason: Constipation Last Admin: 04/07/21 08:14 Dose: 5 mg Documented by: Budesonide (Budesonide 1 Mg/2 Ml Nebu) 1 mg INHALATION RT-BID [facility] Last Admin: 04/08/21 07:52 Dose: 1 mg Documented by: Clopidogrel Bisulfate (Clopidogrel 75 Mg Tab) 75 mg PO DAILY [facility] Last Admin: 04/08/21 08:02 Dose: 75 mg Documented by: Formoterol Fumarate (Formoterol Fumarate 20 Mcg/2 Ml Nebu) 20 mcg INHALATION RT-BID [facility] Last Admin: 04/08/21 11:27 Dose: 20 mcg Documented by: Furosemide (Furosemide 10 Mg/Ml 4 Ml Vial) 40 mg IV Q12HR [facility] Last Admin: 04/08/21 08:02 Dose: 40 mg Documented by: Guaifenesin (Guaifenesin 600 Mg Tablet.Er) 1,200 mg PO Q12HR [facility] Last Admin: 04/08/21 08:01 Dose: 1,200 mg Documented by: Heparin Sodium (Porcine) (Heparin Sodium,Porcine/Pf 5,000 Unit/0.5 Ml Syringe) 5,000 unit SQ Q8HR [facility] Last Admin: 04/08/21 08:03 Dose: 5,000 unit Documented by: Sodium Chloride (Saline 0.9%) 1,000 mls @ 10 mls/hr IV .Q24H [facility] Last Admin: 04/07/21 17:31 Dose: 10 mls/hr Documented by: Lactated Ringer's (Lactated Ringers) 1,000 mls @ 20 mls/hr IV .Q24H [facility] Last Admin: 04/08/21 11:16 Dose: Not Given Documented by: Cefepime HCl 1 gm/ Sodium (Chloride) 50 mls @ 12.5 mls/hr IVPB Q12HR [facility] Last Admin: 04/08/21 08:03 Dose: 12.5 mls/hr Documented by: Insulin Aspart (Insulin Aspart (Novolog) 100 Unit/Ml Vial) 0 unit SQ ACHS [facility]; Protocol Last Admin: 04/08/21 11:58 Dose: 3 unit Documented by: Insulin Aspart (Insulin Aspart (Novolog) 100 Unit/Ml Vial) 2 unit SQ AC-TID [facility] Last Admin: 04/08/21 11:58 Dose: 2 unit Documented by: Insulin Detemir (Insulin Detemir (Levemir) 100 Unit/Ml Syr) 42 unit SQ DAILY@0700 [facility] Lactic Acid (Ammonium Lactate 12% Lotion 225 Gm Btl) 1 applic TOPICAL BID [facility]; Protocol Last Admin: 04/08/21 11:26 Dose: 1 applic Documented by: Linagliptin (Linagliptin 5 Mg Tablet) 5 mg PO QAM [facility] Last Admin: 04/08/21 08:02 Dose: 5 mg Documented by: Melatonin (Melatonin 5 Mg Tablet) 5 mg PO HS PRN PRN Reason: Insomnia Last Admin: 04/07/21 21:06 Dose: 5 mg Documented by: Methylprednisolone Sodium Succinate (Methylprednisolone Sod Succi 40 Mg/Ml 1 Ml Vial) 30 mg IV Q12HR [facility] Metoprolol Succinate (Metoprolol Succinate (Er) 50 Mg Tab.Er.24h) [facility] Last Admin: 04/08/21 08:02 Dose: 50 mg Documented by: Morphine Sulfate (Morphine Sulfate 4 Mg/Ml Syringe) 4 mg IVP Q4HR PRN PRN Reason: Pain Last Admin: 04/05/21 00:19 Dose: 4 mg Documented by: Naloxone HCl (Naloxone 0.4 Mg/Ml 1 Ml Vial) 0.2 mg IV Q2M PRN PRN Reason: Opioid Reversal Semaglutide [Ozempic ] 0.25 Mg/0.2 Ml Pen .Injctr 0.5 mg SQ FR [facility] Last Admin: 04/05/21 10:17 Dose: 0.5 mg Documented by: Ondansetron HCl (Ondansetron 4 Mg/2 Ml Vial) 4 mg IVP Q8HR PRN PRN Reason: Nausea And Vomiting Pantoprazole Sodium (Pantoprazole 40 Mg Tablet) 40 mg PO AC-BID [facility] Last Admin: 04/08/21 08:01 Dose: 40 mg Documented by: Polyethylene Glycol (Polyethylene Glycol 3350 17 Gm Powd.Pack) 17 gm PO DAILY [facility] Last Admin: 04/08/21 08:02 Dose: 17 gm Documented by: Sodium Bicarbonate (Sodium Bicarbonate Tab 650 Mg Tab) 650 mg PO TID [facility] Tamsulosin HCl (Tamsulosin 0.4 Mg Cap.Er.24h) 0.4 mg PO PC-BRKFST [facility] Last Admin: 04/08/21 10:40 Dose: 0.4 mg Documented by: Objective - Vital Signs Vital signs: Vital Signs Temp 97.7 F 04/08/21 07:00 Pulse 92 04/08/21 11:48 Resp 18 04/08/21 07:00 BP 143/73 04/08/21 07:00 Pulse Ox 98 04/08/21 07:00 Intake & Output 04/07/21 04/08/21 04/08/21 18:59 06:59 18:59 Intake Total 50 Output Total 934 700 700 Balance -005 -650 -700 Intake: Intake, IV Titration 50 Amount Cefepime 1 gm In Sodium 50 Chloride 0.9% 50 ml @ 12. 5 mls/hr IVPB Q12HR [facility] Rx#:[id number] Output: Urine 600 700 700 Straight 500 500 Post Void Residual 334 Other: Voiding Method Toilet Urinal # Voids 1 1 # Bowel Movements 1 1 1 - Labs CBC & Chem 7: 04/08/21 06:47 04/08/21 06:47 Labs: Abnormal Lab Results - Last 24 Hours (Table) 04/07/21 04/07/21 04/08/21 Range/Units 16:56 19:54 06:47 WBC (3.8-10.6) k/uL RBC (4.30-5.90) m/uL Hgb (13.0-17.5) gm/dL Hct (39.0-53.0) % Sodium 136 L (137-145) mmol/L Potassium 5.6 H (3.5-5.1) mmol/L Carbon Dioxide 19 L (22-30) mmol/L BUN 118 H* (9-20) mg/dL Creatinine 2.77 H (0.66-1.25) mg/dL Glucose 171 H (74-99) mg/dL POC Glucose (mg/dL) 55 L (75-99) mg/dL Urine Protein Trace H (Negative) Urine Blood Small H (Negative) Urine Mucus Rare H (None) /hpf 04/08/21 04/08/21 04/08/21 Range/Units 06:47 06:58 11:34 WBC 13.5 H (3.8-10.6) k/uL RBC 3.52 L (4.30-5.90) m/uL Hgb 10.9 L (13.0-17.5) gm/dL Hct 34.0 L (39.0-53.0) % Sodium (137-145) mmol/L Potassium (3.5-5.1) mmol/L Carbon Dioxide (22-30) mmol/L BUN (9-20) mg/dL Creatinine (0.66-1.25) mg/dL Glucose (74-99) mg/dL POC Glucose (mg/dL) 173 H 210 H (75-99) mg/dL Urine Protein (Negative) Urine Blood (Negative) Urine Mucus (None) /hpf Microbiology - Last 24 Hours (Table) 04/04/21 12:30 Gram Stain - Final Bronchial Washings - Random Bronchial Washings Culture - Final Pseudomonas aeruginosa
[2021-04-08 16:48] LABS: Glucose,Whole Blood 58 mg/dL (75-99)
[2021-04-08 17:06] LABS: Glucose,Whole Blood 89 mg/dL (75-99)
[2021-04-08] MEDS: SODIUM CHLORIDE 0.9% 1,000 ML IV SCH (17:38)
[2021-04-08] MEDS: bisacodyL 5 MG TABLET.DR PO PRN (17:40)
[2021-04-08] MEDS ORDERED: CALCIUM GLUCONATE 1 GM in SODIUM CHLORIDE 0.9% 100 ML IVPB ONE (18:32)
[2021-04-08] MEDS ORDERED: DEXTROSE 50% SYRINGE 50 ML IVP STA (18:33)
[2021-04-08] MEDS ORDERED: INSULIN REGULAR 100 UNIT/ML VIAL (IV) IV ONE (18:35)
[2021-04-08] MEDS ORDERED: SODIUM BICARB 8.4% 50 ML SYR (1 MEQ/ML) IV STA ×2 (18:38→18:39)
[2021-04-08 21:11] LABS: Glucose,Whole Blood 129 mg/dL (75-99)
[2021-04-09] LABS: Glucose,Whole Blood 36 mg/dL (75-99)
[2021-04-09 00:15] LABS: Glucose,Whole Blood 54 mg/dL (75-99)
[2021-04-09] MEDS: IPRATROPIUM-ALBUTEROL 3 ML NEB INHALATION SCH ×4 (00:23→12:07)
[2021-04-09 00:32] LABS: Glucose,Whole Blood 73 mg/dL (75-99)
[2021-04-09 00:58] LABS: Glucose,Whole Blood 167 mg/dL (75-99)
[2021-04-09] MEDS: INSULIN ASPART (NovoLOG) 100 UNIT/ML VIAL SQ SCH ×3 (01:22→12:51)
[2021-04-09] MEDS: HEPARIN SODIUM,PORCINE/PF 5,000 UNIT/0.5 ML SYRINGE SQ SCH ×3 (01:29→15:12)
[2021-04-09] MEDS: AMMONIUM LACTATE 12% LOTION 225 GM BTL TOPICAL SCH ×2 (01:43→09:54)
[2021-04-09 05:08] LABS: Glucose,Whole Blood 248 mg/dL (75-99)
--- NOTE | 2021-04-09 06:39 | XR ---
EXAMINATION TYPE: XR chest 1V portable DATE OF EXAM: 04/09/2021 CLINICAL HISTORY: Difficulty breathing progress study. TECHNIQUE: Single AP portable upright view of the chest is obtained. COMPARISON: Chest x-ray from April 03, 2021 and older studies FINDINGS: Stable left internal jugular Mediport catheter. Background chronic parenchymal changes wit h persistent left greater than right bibasilar linear scarring and/or atelectasis. Cardiac silhouette size is stable and within normal limits. Left circumflex coronary stent suspected. Underlying scolio tic curvature centered upper lumbar spine. IMPRESSION: Chronic changes without new acute pulmonary process.
[2021-04-09] MEDS ORDERED: INSULIN DETEMIR (LEVEMIR) 100 UNIT/ML SYR SQ SCH (07:00)
[2021-04-09] MEDS: ACETAMINOPHEN TAB 325 MG TAB PO PRN (07:14)
[2021-04-09 07:15] LABS: Glucose,Whole Blood 303 mg/dL (75-99)
[2021-04-09] MEDS: BENZOCAINE/MENTHOL LOZENG 1 EACH LOZENGE MUCOUS MEM PRN (07:16)
[2021-04-09 07:28] VITALS: TEMP 97.9
[2021-04-09] MEDS: BUDESONIDE 1 MG/2 ML NEBU INHALATION SCH (07:52)
[2021-04-09 08:28] LABS: Anion Gap 11 mmol/L; Carbon Dioxide 19 mmol/L (22-30); Chloride 103 mmol/L (98-107); Glucose 239 mg/dL (74-99); Potassium 5.7 mmol/L (3.5-5.1); Sodium 133 mmol/L (137-145)
[2021-04-09 08:34] LABS: African American GFR (CKD) 25 (>60 ml/min/1.73 sqM); Non-African American GFR(CKD) 22 (>60 ml/min/1.73 sqM)
[2021-04-09 08:46] LABS: Basophils # (A) 0.1 k/uL (0-0.2); Basophils % (A) 0 %; Eosinophils % (A) 0 %; HCT 32.4 % (39.0-53.0); HGB 10.9 gm/dL (13.0-17.5); Lymphocytes # (A) 0.1 k/uL (1.0-4.8); Lymphocytes % (A) 1 %; MCH 32.4 pg (25.0-35.0); MCHC 33.6 g/dL (31.0-37.0); MCV 96.4 fL (80.0-100.0); Mean Platelet Volume 8.8; Monocytes # (A) 0.3 k/uL (0-1.0); Monocytes % (A) 1 %; Neutrophils # (A) 22.9 k/uL (1.3-7.7); Neutrophils % (A) 98 %; Platelet Count 220 k/uL (150-450); RBC 3.36 m/uL (4.30-5.90); RDW 14.8 % (11.5-15.5); WBC 23.4 k/uL (3.8-10.6)
[2021-04-09] MEDS: METOPROLOL SUCCINATE (ER) 50 MG TAB.ER.24H PO SCH (09:06)
[2021-04-09] MEDS: ASPIRIN 81 MG PO SCH (09:06)
[2021-04-09] MEDS: polyethylene glycoL 3350 17 GM POWD.PACK PO SCH (09:06)
[2021-04-09] MEDS: PANTOPRAZOLE 40 MG TABLET PO SCH (09:07)
[2021-04-09] MEDS: guaiFENesin 600 MG TABLET.ER PO SCH (09:07)
[2021-04-09] MEDS: SODIUM BICARBONATE TAB 650 MG TAB PO SCH ×2 (09:08→15:14)
[2021-04-09] MEDS: TAMSULOSIN 0.4 MG CAP.ER.24H PO SCH (09:08)
[2021-04-09] MEDS: CLOPIDOGREL 75 MG TAB PO SCH (09:09)
[2021-04-09] MEDS: LINAGLIPTIN 5 MG TABLET PO SCH (09:09)
[2021-04-09 09:13] LABS: Blood Urea Nitrogen 136 mg/dL (9-20)
[2021-04-09 09:29] LABS: Glucose,Whole Blood 272 mg/dL (75-99)
[2021-04-09] MEDS ORDERED: ALPRAZolam 0.5 MG TAB PO PRN (09:50)
[2021-04-09] MEDS: FUROSEMIDE 10 MG/ML 4 ML VIAL IV SCH (09:54)
--- NOTE | 2021-04-09 10:03 | XR ---
EXAMINATION TYPE: XR chest 1V DATE OF EXAM: 04/09/2021 CLINICAL HISTORY: Difficulty breathing progress study. TECHNIQUE: Single AP portable upright view of the chest is obtained. COMPARISON: Chest x-ray from earlier today and older studies FINDINGS: Stable left internal jugular Mediport catheter. Background chronic parenchymal changes with persistent bibasilar linear scarring and/or atelectasis. Cardiac silhouette size is stable and within normal limits with atherosclerotic change aortic knob re demonstrated. Left circumflex coronary stent again seen. Underlying scoliotic curvature or positionin g centered upper lumbar spine again seen. IMPRESSION: Chronic changes without new acute pulmonary process. No significant change from study ear lier today.
[2021-04-09] MEDS: methylPREDNISolone SOD SUCCI 40 MG/ML 1 ML VIAL IV SCH (10:04)
[2021-04-09] MEDS ORDERED: SODIUM BICARB 8.4% 50 ML SYR (1 MEQ/ML) IV STA (10:05)
--- NOTE | 2021-04-09 10:07 | P.PN ---
Subjective Patient is seen in follow-up for acute kidney injury on chronic kidney disease. Renal function is stable. BUN 136. Good urine output. On IV Lasix. Has a Lozano catheter for urinary retention. Feels short of breath. On 5 L nasal cannula. Vital signs are stable. General: The patient appeared well nourished and normally developed. HEENT: Head exam is unremarkable. Neck is without jugular venous distension. LUNGS: Breath sounds decreased. HEART: Tachycardic. ABDOMEN: Soft, obese. No distention. EXTREMITITES: 1+ edema. Objective - Vital Signs Vital signs: Vital Signs Temp 97.9 F 04/09/21 07:28 Pulse 111 H 04/09/21 08:07 Resp 22 04/09/21 08:07 BP 105/68 04/09/21 07:28 Pulse Ox 95 04/09/21 07:53 Intake & Output 04/08/21 04/09/21 04/09/21 18:59 06:59 18:59 Intake Total 1380 Output Total 2250 1600 Balance -870 -1600 Weight 91.626 kg Intake: Oral 1380 Output: Urine 2250 1600 Straight 500 Other: Voiding Method Indwelling Catheter # Bowel Movements 1 - Labs CBC & Chem 7: 04/09/21 07:01 04/09/21 07:01 Labs: Abnormal Lab Results - Last 24 Hours (Table) 04/08/21 04/08/21 04/08/21 Range/Units 11:34 16:43 17:58 WBC (3.8-10.6) k/uL RBC (4.30-5.90) m/uL Hgb (13.0-17.5) gm/dL Hct (39.0-53.0) % Neutrophils # (1.3-7.7) k/uL Lymphocytes # (1.0-4.8) k/uL Sodium (137-145) mmol/L Potassium 6.2 H* (3.5-5.1) mmol/L Carbon Dioxide (22-30) mmol/L BUN (9-20) mg/dL Creatinine (0.66-1.25) mg/dL Glucose (74-99) mg/dL POC Glucose (mg/dL) 210 H 58 L (75-99) mg/dL 04/08/21 04/08/21 04/08/21 Range/Units 21:08 23:25 23:58 WBC (3.8-10.6) k/uL RBC (4.30-5.90) m/uL Hgb (13.0-17.5) gm/dL Hct (39.0-53.0) % Neutrophils # (1.3-7.7) k/uL Lymphocytes # (1.0-4.8) k/uL Sodium (137-145) mmol/L Potassium 5.2 H (3.5-5.1) mmol/L Carbon Dioxide (22-30) mmol/L BUN (9-20) mg/dL Creatinine (0.66-1.25) mg/dL Glucose (74-99) mg/dL POC Glucose (mg/dL) 129 H 36 L (75-99) mg/dL 04/09/21 04/09/21 04/09/21 Range/Units 00:14 00:31 00:56 WBC (3.8-10.6) k/uL RBC (4.30-5.90) m/uL Hgb (13.0-17.5) gm/dL Hct (39.0-53.0) % Neutrophils # (1.3-7.7) k/uL Lymphocytes # (1.0-4.8) k/uL Sodium (137-145) mmol/L Potassium (3.5-5.1) mmol/L Carbon Dioxide (22-30) mmol/L BUN (9-20) mg/dL Creatinine (0.66-1.25) mg/dL Glucose (74-99) mg/dL POC Glucose (mg/dL) 54 L 73 L 167 H (75-99) mg/dL 04/09/21 04/09/21 04/09/21 Range/Units 05:07 07:01 07:01 WBC 23.4 H (3.8-10.6) k/uL RBC 3.36 L (4.30-5.90) m/uL Hgb 10.9 L (13.0-17.5) gm/dL Hct 32.4 L (39.0-53.0) % Neutrophils # 22.9 H (1.3-7.7) k/uL Lymphocytes # 0.1 L (1.0-4.8) k/uL Sodium 133 L (137-145) mmol/L Potassium 5.7 H (3.5-5.1) mmol/L Carbon Dioxide 19 L (22-30) mmol/L BUN 136 H* (9-20) mg/dL Creatinine 2.66 H (0.66-1.25) mg/dL Glucose 239 H (74-99) mg/dL POC Glucose (mg/dL) 248 H (75-99) mg/dL 04/09/21 04/09/21 Range/Units 07:14 09:28 WBC (3.8-10.6) k/uL RBC (4.30-5.90) m/uL Hgb (13.0-17.5) gm/dL Hct (39.0-53.0) % Neutrophils # (1.3-7.7) k/uL Lymphocytes # (1.0-4.8) k/uL Sodium (137-145) mmol/L Potassium (3.5-5.1) mmol/L Carbon Dioxide (22-30) mmol/L BUN (9-20) mg/dL Creatinine (0.66-1.25) mg/dL Glucose (74-99) mg/dL POC Glucose (mg/dL) 303 H 272 H (75-99) mg/dL Assessment and Plan Plan: Assessment: 1. Acute kidney injury secondary to ATN secondary to cardiorenal syndrome and urinary retention. Creatinine stable at 2.66 today. 2. Chronic kidney disease stage IIIB. Baseline creatinine in the range of 1.6- 1.8 secondary to nephrosclerosis. 3. Urinary retention. No evidence of hydronephrosis noted on kidney ultrasound. On Flomax. Has a Lozano catheter. 4. Acute on chronic systolic CHF with ejection fraction of 35-40%. 5. Bronchiectasis with bronchomalacia. Pulmonology following. 6. Disproportionally elevated BUN secondary to acute kidney injury and steroids. No evidence of GI bleed. 7. Hyperkalemia secondary to acute kidney injury and metabolic acidosis. Also component of hyperglycemia. Improved with medical management. 8. Diabetes mellitus. Plan: Maintain IV Lasix. Avoid nephrotoxins. Continue to monitor renal function and urine output. Tight blood sugar control. 2 A of sodium bicarb IV push now. Repeat potassium level this evening. Check chest x-ray.
[2021-04-09 10:51] LABS: Glucose,Whole Blood 208 mg/dL (75-99)
--- NOTE | 2021-04-09 10:57 | P.PN ---
Subjective Progress Note Date: 04/09/21 Principal diagnosis: Dyspnea, cough On 04/08/2021 patient seen in follow-up on medical surgical floor. He is seen sitting up in the recliner, he is on 3 L of oxygen his pulse ox is 98%, patient does have mild conversational dyspnea, and still moderate to severe exertional dyspnea. He states he walks to the bathroom and he is very short of breath, and requires time to recover. Sr. fairly comfortable right now, does not appear to be in any acute distress, his been afebrile, hemodynamically he is stable, denies any hemoptysis. She has not had any recent chest x-rays, patient is status post bronchoscopy with BAL and endobronchial biopsy. A was on 03/26/2021. There was a copious amount of thick purulent rest or secretions removed. There was extensive mucosal abnormalities and a polyp-like lesions growing throughout the airways seem to be more significant in the callie and more significant in the right upper lobe. His transbronchial lung biopsies are still pending at this time, cytology showed acute inflammatory cells with scattered squamous cells and few macrophages, but it was nondiagnostic for malignancy. He is BAL cultures were positive for pseudomonas aeruginosa and the patient was started on cefepime, his fungal cultures from the BAL are still pending at this time. A fungal serology panel has been sent and is pending at this time. Today's labs have been reviewed. White blood cell count is 13.5, hemoglobin is 10.9, sodium is 136, potassium is 5.6, chloride is 105, CO2 is 19, B1 is 118, creatinine is 2.77. he remains on breathing treatments, he was also started on IV Lasix 40 mg IV every 12 hours, he is on Mucinex, he is on nebulized bronchodilators and IV steroids at 40 mg every 8 hours. On 04/09/2021 patient seen in follow-up on medical surgical floor. He reports increased shortness of breath today, he is quite dyspneic, anxious. Is currently on 5 L of oxygen and the pulse ox of 95-98%, his been afebrile, is a bit tachycardic, but hemodynamically stable, lung sounds are quite diminished. Neck is without jugular venous distention, occasional cough, but no significant phlegm production. The chest x-ray was obtained showing chronic changes without new acute pulmonary process. Patient remains on IV steroids currently Solu-M edrol 30 mg every 12 hours, he is on antibiotics in the form of cefepime, for evidence of pseudomonal infection in his BAL, his fungal cultures are still pending, fungal serology results are still pending. His labs have been reviewed, his with blood cell count has trended and is up to 23.4, hemoglobin is 10.9, his sodium was 133, potassium is 5.7, CO2 is 19, BUN of 136, and creatinine is 2.6. Patient has been on IV Lasix 40 mg every 12 hours per nephrology. Is in -1.5 minutes fluid balance over the last 24 hours. Objective - Vital Signs Vital signs: Vital Signs Temp 97.9 F 04/09/21 07:28 Pulse 111 H 04/09/21 08:07 Resp 22 04/09/21 08:07 BP 105/68 04/09/21 07:28 Pulse Ox 95 04/09/21 07:53 Intake & Output 04/08/21 04/09/21 04/09/21 18:59 06:59 18:59 Intake Total 1380 Output Total 2250 1600 Balance -870 -1600 Weight 91.626 kg Intake: Oral 1380 Output: Urine 2250 1600 Straight 500 Other: Voiding Method Indwelling Catheter # Bowel Movements 1 - Exam GENERAL EXAM: Alert, anxious, hyperventilating, dyspneic,, 80-year-old white male, on 5 L of oxygen pulse ox of 98% comfortable HEAD: Normocephalic/atraumatic. EYES: Normal reaction of pupils, equal size. Conjunctiva pink, sclera white. NOSE: Clear with pink turbinates. THROAT: No erythema or exudates. NECK: No masses, no JVD, no thyroid enlargement, no adenopathy. CHEST: No chest wall deformity. Symmetrical expansion. LUNGS: Equal air entry with diffuse rhonchi, and mild wheezes CVS: Regular rate and rhythm, normal S1 and S2, no gallops, no murmurs, no rubs ABDOMEN: Soft, nontender. No hepatosplenomegaly, normal bowel sounds, no gu arding or rigidity. EXTREMITIES: No clubbing, no edema, no cyanosis, 2+ pulses and upper and lower e xtremities. MUSCULOSKELETAL: Muscle strength and tone normal. SPINE: No scoliosis or deformity SKIN: No rashes CENTRAL NERVOUS SYSTEM: Alert and oriented -3. No focal deficits, tone is normal in all 4 extremities. PSYCHIATRIC: Alert and oriented -3. Appropriate affect. Intact judgment and insight. - Labs CBC & Chem 7: 04/09/21 07:01 04/09/21 07:01 Labs: Abnormal Lab Results - Last 24 Hours (Table) 04/08/21 04/08/21 04/08/21 Range/Units 11:34 16:43 17:58 WBC (3.8-10.6) k/uL RBC (4.30-5.90) m/uL Hgb (13.0-17.5) gm/dL Hct (39.0-53.0) % Neutrophils # (1.3-7.7) k/uL Lymphocytes # (1.0-4.8) k/uL Sodium (137-145) mmol/L Potassium 6.2 H* (3.5-5.1) mmol/L Carbon Dioxide (22-30) mmol/L BUN (9-20) mg/dL Creatinine (0.66-1.25) mg/dL Glucose (74-99) mg/dL POC Glucose (mg/dL) 210 H 58 L (75-99) mg/dL 04/08/21 04/08/21 04/08/21 Range/Units 21:08 23:25 23:58 WBC (3.8-10.6) k/uL RBC (4.30-5.90) m/uL Hgb (13.0-17.5) gm/dL Hct (39.0-53.0) % Neutrophils # (1.3-7.7) k/uL Lymphocytes # (1.0-4.8) k/uL Sodium (137-145) mmol/L Potassium 5.2 H (3.5-5.1) mmol/L Carbon Dioxide (22-30) mmol/L BUN (9-20) mg/dL Creatinine (0.66-1.25) mg/dL Glucose (74-99) mg/dL POC Glucose (mg/dL) 129 H 36 L (75-99) mg/dL 04/09/21 04/09/21 04/09/21 Range/Units 00:14 00:31 00:56 WBC (3.8-10.6) k/uL RBC (4.30-5.90) m/uL Hgb (13.0-17.5) gm/dL Hct (39.0-53.0) % Neutrophils # (1.3-7.7) k/uL Lymphocytes # (1.0-4.8) k/uL Sodium (137-145) mmol/L Potassium (3.5-5.1) mmol/L Carbon Dioxide (22-30) mmol/L BUN (9-20) mg/dL Creatinine (0.66-1.25) mg/dL Glucose (74-99) mg/dL POC Glucose (mg/dL) 54 L 73 L 167 H (75-99) mg/dL 04/09/21 04/09/21 04/09/21 Range/Units 05:07 07:01 07:01 WBC 23.4 H (3.8-10.6) k/uL RBC 3.36 L (4.30-5.90) m/uL Hgb 10.9 L (13.0-17.5) gm/dL Hct 32.4 L (39.0-53.0) % Neutrophils # 22.9 H (1.3-7.7) k/uL Lymphocytes # 0.1 L (1.0-4.8) k/uL Sodium 133 L (137-145) mmol/L Potassium 5.7 H (3.5-5.1) mmol/L Carbon Dioxide 19 L (22-30) mmol/L BUN 136 H* (9-20) mg/dL Creatinine 2.66 H (0.66-1.25) mg/dL Glucose 239 H (74-99) mg/dL POC Glucose (mg/dL) 248 H (75-99) mg/dL 04/09/21 04/09/21 04/09/21 Range/Units 07:14 09:28 10:46 WBC (3.8-10.6) k/uL RBC (4.30-5.90) m/uL Hgb (13.0-17.5) gm/dL Hct (39.0-53.0) % Neutrophils # (1.3-7.7) k/uL Lymphocytes # (1.0-4.8) k/uL Sodium (137-145) mmol/L Potassium (3.5-5.1) mmol/L Carbon Dioxide (22-30) mmol/L BUN (9-20) mg/dL Creatinine (0.66-1.25) mg/dL Glucose (74-99) mg/dL POC Glucose (mg/dL) 303 H 272 H 208 H (75-99) mg/dL Assessment and Plan Plan: Assessment: #1. Acute exacerbation of COPD complicated by prolonged tracheobronchitis. Patient has significant amount of mucus plugging and therapeutic airway suctioning was done on 03/26/2021. There was evidence of obvious tracheobronchomalacia, and irregular airways, tortuous with polypoid lesions scattered throughout the airways mainly in the lateral wall of the trachea and there was necrotic mucosal abnormalities and polypoid lesions involving the right upper lobe. Endobronchial biopsies were taken and are pending at this time, cytology was nondiagnostic. BAL culture revealed pseudomonas aeruginosa. Fungal cultures are pending, fungal serology results are pending. The endobronchial biopsies from the tracheal wall is indicating possibility of a fungal infection. Fungal cultures are still pending for now. Currently on cefepime. #2. Bronchiectasis with previous infections of Pseudomonas and stenotrophomonas. Patient has had a greater than 20 biopsies with BAL in the past #3. History of tracheobronchomalacia #4. Hoarseness, being followed in the outpatient setting by ENT #5. Coronary artery disease previous stent placement 5 #6. Ischemic cardiomyopathy #7. Diabetes mellitus type 2 #8. Hypertension #9. GERD/reflux #10. Former smoker Plan: Today chest x-ray has been reviewed, labs reviewed We'll increase IV steroids to 30 mg every 8 hours Continue same antibiotics Continue nebulized bronchodilators Add Xanax 0.5 mg 3 times daily Continue GI and DVT prophylaxis. Awaiting fungal serology and fungal cultures results I performed a history & physical examination of the patient and discussed their management with my nurse practitioner, Priscila Lucero. I reviewed the nurse practitioner's note and agree with the documented findings and plan of care. Lung sounds are positive for diminished breath sounds throughout the lung lentz. The findings and the impression was discussed with the patient. I attest to the documentation by the nurse practitioner. Time with Patient: Less than 30
[2021-04-09] MEDS: CEFEPIME 1 GM in SODIUM CHLORIDE 0.9% 50 ML IVPB SCH (11:14)
[2021-04-09 11:21] VITALS: PULSE 62
[2021-04-09 11:32] VITALS: BP 83/48; RESP 34
[2021-04-09 11:43] LABS: Glucose,Whole Blood 156 mg/dL (75-99)
[2021-04-09] MEDS ORDERED: MORPHINE SULFATE 2 MG/ML SYRINGE IVP STA (12:05)
[2021-04-09] MEDS: FORMOTEROL FUMARATE 20 MCG/2 ML NEBU INHALATION SCH (12:07)
--- NOTE | 2021-04-09 12:11 | XR ---
EXAMINATION TYPE: XR chest 1V DATE OF EXAM: 04/09/2021 CLINICAL HISTORY: Difficulty breathing progress study. TECHNIQUE: Single AP portable upright view of the chest is obtained. COMPARISON: Chest x-ray from earlier today and older studies. FINDINGS: Stable left internal jugular Mediport catheter. Background chronic parenchymal changes with persistent bibasilar linear scarring and/or atelectasis. Cardiac silhouette size is stable and within normal limits with atherosclerotic and ectatic aorta red emonstrated. Left circumflex coronary stent again seen. Underlying scoliotic curvature or positioning centered upper lumbar spine again seen. IMPRESSION: Chronic changes without new acute pulmonary process. No significant change from studies e shashi today.
--- NOTE | 2021-04-09 12:40 | P.PN ---
Subjective Progress Note Date: 04/09/21 Patient was seen and evaluated by me this morning. He was complaining of difficulty breathing and told me that his symptoms are not better compared to yesterday. He continue to cough up brownish phlegm. He denies any fevers or chills. Later in the morning, a rapid response was called by nursing staff regarding increasing work of breathing and hypotension. I was busy running a CODE BLUE on a different patient and my partner saw this patient and assessed him. The BiPAP was recommended the patient was refusing to wear the BiPAP. He verbalizes wishes to pursue comfort care and hospice. He did not want to have any aggressive measures anymore. He also changed his CODE STATUS to DO NOT RESUSCITATE/DO NOT INTUBATE. Objective - Vital Signs Vital signs: Vital Signs Temp 97.9 F 04/09/21 10:45 Pulse 62 04/09/21 10:57 Resp 34 H 04/09/21 11:30 BP 83/48 04/09/21 11:30 Pulse Ox 97 04/09/21 11:30 Intake & Output 04/08/21 04/09/21 04/09/21 18:59 06:59 18:59 Intake Total 1380 Output Total 2250 1600 Balance -870 -1600 Weight 91.626 kg Intake: Oral 1380 Output: Urine 2250 1600 Straight 500 Other: Voiding Method Indwelling Catheter Indwelling Catheter # Bowel Movements 1 1 - Exam General: The patient is awake and alert, in no distress Eye: there is normal conjunctiva bilaterally. Neck: The neck is supple, there is no JVD. Cardiovascular: Normal S1-S2, no S3-S4, no murmurs. Respiratory: Lungs with scattered rhonchi Gastrointestinal: Abdomen is soft, nontender Musculoskeletal: There is no pedal edema. Neurological:. Speech is normal. Skin: Skin is warm and dry - Labs CBC & Chem 7: 04/09/21 07:01 04/09/21 07:01 Labs: Abnormal Lab Results - Last 24 Hours (Table) 04/08/21 04/08/21 04/08/21 Range/Units 16:43 17:58 21:08 WBC (3.8-10.6) k/uL RBC (4.30-5.90) m/uL Hgb (13.0-17.5) gm/dL Hct (39.0-53.0) % Neutrophils # (1.3-7.7) k/uL Lymphocytes # (1.0-4.8) k/uL Sodium (137-145) mmol/L Potassium 6.2 H* (3.5-5.1) mmol/L Carbon Dioxide (22-30) mmol/L BUN (9-20) mg/dL Creatinine (0.66-1.25) mg/dL Glucose (74-99) mg/dL POC Glucose (mg/dL) 58 L 129 H (75-99) mg/dL Plasma Lactic Acid Angelo (0.7-2.0) mmol/L 04/08/21 04/08/21 04/09/21 Range/Units 23:25 23:58 00:14 WBC (3.8-10.6) k/uL RBC (4.30-5.90) m/uL Hgb (13.0-17.5) gm/dL Hct (39.0-53.0) % Neutrophils # (1.3-7.7) k/uL Lymphocytes # (1.0-4.8) k/uL Sodium (137-145) mmol/L Potassium 5.2 H (3.5-5.1) mmol/L Carbon Dioxide (22-30) mmol/L BUN (9-20) mg/dL Creatinine (0.66-1.25) mg/dL Glucose (74-99) mg/dL POC Glucose (mg/dL) 36 L 54 L (75-99) mg/dL Plasma Lactic Acid Angelo (0.7-2.0) mmol/L 04/09/21 04/09/21 04/09/21 Range/Units 00:31 00:56 05:07 WBC (3.8-10.6) k/uL RBC (4.30-5.90) m/uL Hgb (13.0-17.5) gm/dL Hct (39.0-53.0) % Neutrophils # (1.3-7.7) k/uL Lymphocytes # (1.0-4.8) k/uL Sodium (137-145) mmol/L Potassium (3.5-5.1) mmol/L Carbon Dioxide (22-30) mmol/L BUN (9-20) mg/dL Creatinine (0.66-1.25) mg/dL Glucose (74-99) mg/dL POC Glucose (mg/dL) 73 L 167 H 248 H (75-99) mg/dL Plasma Lactic Acid Angelo (0.7-2.0) mmol/L 04/09/21 04/09/21 04/09/21 Range/Units 07:01 07:01 07:14 WBC 23.4 H (3.8-10.6) k/uL RBC 3.36 L (4.30-5.90) m/uL Hgb 10.9 L (13.0-17.5) gm/dL Hct 32.4 L (39.0-53.0) % Neutrophils # 22.9 H (1.3-7.7) k/uL Lymphocytes # 0.1 L (1.0-4.8) k/uL Sodium 133 L (137-145) mmol/L Potassium 5.7 H (3.5-5.1) mmol/L Carbon Dioxide 19 L (22-30) mmol/L BUN 136 H* (9-20) mg/dL Creatinine 2.66 H (0.66-1.25) mg/dL Glucose 239 H (74-99) mg/dL POC Glucose (mg/dL) 303 H (75-99) mg/dL Plasma Lactic Acid Angelo (0.7-2.0) mmol/L 04/09/21 04/09/21 04/09/21 Range/Units 09:28 10:46 11:36 WBC (3.8-10.6) k/uL RBC (4.30-5.90) m/uL Hgb (13.0-17.5) gm/dL Hct (39.0-53.0) % Neutrophils # (1.3-7.7) k/uL Lymphocytes # (1.0-4.8) k/uL Sodium (137-145) mmol/L Potassium (3.5-5.1) mmol/L Carbon Dioxide (22-30) mmol/L BUN (9-20) mg/dL Creatinine (0.66-1.25) mg/dL Glucose (74-99) mg/dL POC Glucose (mg/dL) 272 H 208 H (75-99) mg/dL Plasma Lactic Acid Angelo 5.4 H* (0.7-2.0) mmol/L 08/03/21 Range/Units 11:42 WBC (3.8-10.6) k/uL RBC (4.30-5.90) m/uL Hgb (13.0-17.5) gm/dL Hct (39.0-53.0) % Neutrophils # (1.3-7.7) k/uL Lymphocytes # (1.0-4.8) k/uL Sodium (137-145) mmol/L Potassium (3.5-5.1) mmol/L Carbon Dioxide (22-30) mmol/L BUN (9-20) mg/dL Creatinine (0.66-1.25) mg/dL Glucose (74-99) mg/dL POC Glucose (mg/dL) 156 H (75-99) mg/dL Plasma Lactic Acid Angelo (0.7-2.0) mmol/L Assessment and Plan Assessment: Patient is an 80-year-old male with a past medical history of bronchiectasis 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 He typically follows with Dr. Armstrong. Patient was evaluated in the ER and admitted to the hospital for further management of his medical problems noted below Acute exacerbation of COPD with recurrent Pseudomonas tracheobronchitis Bronchiectasis Tracheobronchial malacia -Pulmonary recommendations appreciated: Cefepime, bronchodilators, Solu-Medrol decrease - Mucinex YUNIER on CKD stage III, hyperkalemia Chronic Systolic CHF with EF 35-40% - baseline Cr 1.7 - hold cozaar - lasix - Nephrology recs - repeat labs in AM -Avoid nephrotoxic agents - Metoprolol - monitor fluid status closely patient reports that he gets edema with steroids Constipation - bowel regiment Hoarseness -Being followed by Dr. Valenzuela in the outpatient setting - throat lozenges Diabetes mellitus type 2, Brittle - long-acting insulin, fixed dose with meals and check blood sugar both with meals and at 2 AM - long acting, SSI, follow BS - Januvia - Ozempic from home once weekly on fridays Elevated troponin, flat, not consistent with acute coronary syndrome -Likely related to his chronic kidney disease -No need for further evaluation. Chronic: Hypertension GERD Ischemic cardiomyopathy Today, patient and family would have an informative meeting with hospice. Patient is now DO NOT RESUSCITATE/DO NOT INTUBATE per his wishes DVT prophylaxis: heparin Discussed with: patient, nursing Anticipated discharge date: 09-[address]: home A total of 25 minutes was spent on the care of this complex patient more than 50% of the time was spent in counseling and care coordination.
[2021-04-09] MEDS: LACTATED RINGERS 1,000 ML IV SCH (12:53)
[2021-04-09] MEDS: MORPHINE SULFATE 4 MG/ML SYRINGE IVP PRN (15:25)
[2021-04-09] MEDS ORDERED: MORPHINE SULFATE ER 15 MG TABLET PO SCH (16:00)
[2021-04-09] MEDS ORDERED: methylPREDNISolone SOD SUCCI 40 MG/ML 1 ML VIAL IV SCH (16:00)
--- NOTE | 2021-04-10 17:05 | P.DS ---
Providers Date of admission: 04/04/21 12:07 Expected date of discharge: 04/10/21 Attending physician: Afsaneh Martin MD Consults: 04/03/21 07:53 Consult Physician Stat Consulting Provider: Moe Armstrong Consult Reason/Comments: COPD Do you want consulting provider notified?: Yes 04/07/21 09:55 Consult Physician Routine Consulting Provider: Christen Lomax Consult Reason/Comments: YUNIER and CKD acidosis Do you want consulting provider notified?: Yes Primary care physician: Alberto Saeed [facility] Course: Patient on comfort care. Goals of care discussed with him and his family and he elected to pursue comfort care. For exact date and time that he is referred to the nursing documentation. 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 He typically follows with Dr. Armstrong. Patient was evaluated in the ER and admitted to the hospital for further management of his medical problems noted below Acute exacerbation of COPD with recurrent Pseudomonas tracheobronchitis Bronchiectasis Tracheobronchial malacia YUNIER on CKD stage III, hyperkalemia Chronic Systolic CHF with EF 35-40% Diabetes mellitus type 2, Brittle Elevated troponin Hypertension GERD Ischemic cardiomyopathy Plan - Discharge Summary Discharge Rx Participant: No New Discharge Prescriptions: No Action Omeprazole [PriLOSEC] 20 mg PO BID Fluticasone Propionate [Flovent Hfa 220 mcg] 2 puff INHALATION RT-BID Salmeterol Xinafoate [Serevent Diskus] 1 puff INHALATION RT-BID Clopidogrel [Plavix] 75 mg PO DAILY #30 tab Aspirin 81 mg PO DAILY #30 chew Nitroglycerin Sl Tabs [Nitrostat] 0.4 mg SUBLINGUAL Q5M PRN #25 tab PRN Reason: Chest Pain sitaGLIPtin [Januvia] 100 mg PO QAM Albuterol Sulfate [Proair Hfa] 2 puff INHALATION RT-QID PRN PRN Reason: Shortness Of Breath Spironolactone [Aldactone] 25 mg PO QAM Furosemide [Lasix] 80 mg PO QAM Metoprolol Succinate (ER) [Toprol XL] 50 mg PO QAM Atorvastatin [Lipitor] 40 mg PO QAM Bumetanide [BUMEX] 2 mg PO Q72H Azithromycin [Zithromax] 250 mg PO MOWEFR Insulin Degludec [Tresiba Flextouch U-200] 50 units SQ DAILY Losartan [Cozaar] 25 mg PO QAM predniSONE 10 mg PO DAILY Clotrimazole Sydney [Mycelex Sydney] 10 mg MUCOUS MEM 5XD Semaglutide [Ozempic] 0.5 mg SQ FR Discharge Medication List Omeprazole [PriLOSEC] 20 mg PO BID 01/05/14 [History] Fluticasone Propionate [Flovent Hfa 220 mcg] 2 puff INHALATION RT-BID 08/08/15 [History] Salmeterol Xinafoate [Serevent Diskus] 1 puff INHALATION RT-BID 10/13/15 [History] Aspirin 81 mg PO DAILY #30 chew 08/27/17 [Rx] Clopidogrel [Plavix] 75 mg PO DAILY #30 tab 08/27/17 [Rx] Nitroglycerin Sl Tabs [Nitrostat] 0.4 mg SUBLINGUAL Q5M PRN #25 tab 08/27/17 [Rx] sitaGLIPtin [Januvia] 100 mg PO QAM 12/16/18 [History] Albuterol Sulfate [Proair Hfa] 2 puff INHALATION RT-QID PRN 11/12/20 [History] Furosemide [Lasix] 80 mg PO QAM 11/12/20 [History] Spironolactone [Aldactone] 25 mg PO QAM 11/12/20 [History] Atorvastatin [Lipitor] 40 mg PO QAM 02/25/21 [History] Losartan [Cozaar] 25 mg PO QAM 02/25/21 [History] Metoprolol Succinate (ER) [Toprol XL] 50 mg PO QAM 02/25/21 [History] predniSONE 10 mg PO DAILY 02/25/21 [History] Azithromycin [Zithromax] 250 mg PO MOWEFR 04/03/21 [History] Bumetanide [BUMEX] 2 mg PO Q72H 04/03/21 [History] Clotrimazole Sydney [Mycelex Sydney] 10 mg MUCOUS MEM 5XD 04/03/21 [History] Insulin Degludec [Tresiba Flextouch U-200] 50 units SQ DAILY 04/03/21 [History] Semaglutide [Ozempic] 0.5 mg SQ FR 04/03/21 [History] Follow up Appointment(s)/Referral(s): Alberto Rodriguez MD [Primary Care Provider] - 1 Week Activity/Diet/Wound Care/Special Instructions: [facility] set up for Nursing care upon discharge. [phone] Discharge Disposition: HOME WITH HOSPICE
== END 2021-04-09 15:35 | disposition hospice, home (50) | DRG 166 ==
LOC: EC 04:28 → 1SOBS 05:10 → 6NMEDSUR 07:13 → OBSVTOIN 04-04 12:07 → 4SSUR 04-04 18:21
PROVIDERS: ADMIT Internal Medicine; ATTEND Internal Medicine
PROC: 0B9C8ZX Drainage of Right Upper Lung Lobe, Via Natural or Artificial Opening Endoscopic, Diagnostic (ICD-10-PCS; principal; 2021-04-04 12:00)
PROC: 0BB18ZZ Excision of Trachea, Via Natural or Artificial Opening Endoscopic (ICD-10-PCS; principal; 2021-04-04 12:00)
DX: J44.1 Chronic obstructive pulmonary disease with (acute) exacerbation (principal); I50.23 Acute on chronic systolic (congestive) heart failure; N17.0 Acute kidney failure with tubular necrosis; E87.2 Acidosis; I13.0 Hypertensive heart and chronic kidney disease with heart failure and stage 1 through stage 4 chronic kidney disease, or unspecified chronic kidney disease; I25.5 Ischemic cardiomyopathy; J39.8 Other specified diseases of upper respiratory tract; E11.649 Type 2 diabetes mellitus with hypoglycemia without coma; J98.09 Other diseases of bronchus, not elsewhere classified; E11.65 Type 2 diabetes mellitus with hyperglycemia; K21.9 Gastro-esophageal reflux disease without esophagitis; E87.5 Hyperkalemia; E66.9 Obesity, unspecified; K59.00 Constipation, unspecified; E11.22 Type 2 diabetes mellitus with diabetic chronic kidney disease; N18.32 Chronic kidney disease, stage 3b; D72.828 Other elevated white blood cell count; T38.0X5A Adverse effect of glucocorticoids and synthetic analogues, initial encounter; Z66 Do not resuscitate; Z51.5 Encounter for palliative care; Z68.30 Body mass index [BMI] 30.0-30.9, adult; Z85.828 Personal history of other malignant neoplasm of skin; B96.5 Pseudomonas (aeruginosa) (mallei) (pseudomallei) as the cause of diseases classified elsewhere; G47.00 Insomnia, unspecified; G47.33 Obstructive sleep apnea (adult) (pediatric); I25.10 Atherosclerotic heart disease of native coronary artery without angina pectoris; I25.2 Old myocardial infarction; J38.1 Polyp of vocal cord and larynx; Z79.02 Long term (current) use of antithrombotics/antiplatelets; Z79.4 Long term (current) use of insulin; Z79.51 Long term (current) use of inhaled steroids; Z79.82 Long term (current) use of aspirin; Z79.899 Other long term (current) drug therapy; Z87.891 Personal history of nicotine dependence; Z95.5 Presence of coronary angioplasty implant and graft; Z98.42 Cataract extraction status, left eye; Z98.41 Cataract extraction status, right eye; Z96.1 Presence of intraocular lens; Z82.61 Family history of arthritis; Z83.2 Family history of diseases of the blood and blood-forming organs and certain disorders involving the immune mechanism; Z80.9 Family history of malignant neoplasm, unspecified; Z60.2 Problems related to living alone; Z98.890 Other specified postprocedural states; Z88.5 Allergy status to narcotic agent; Z88.2 Allergy status to sulfonamides; Z88.8 Allergy status to other drugs, medicaments and biological substances; Z88.6 Allergy status to analgesic agent; Z88.1 Allergy status to other antibiotic agents; Z91.011 Allergy to milk products
CPT/HCPCS: 31624; 31625; 71045; 71046; 76770; 80048; 80053; 81001; 82570; 83605; 83735; 84100; 84132; 84300; 84484; 84540; 85025; 85027; 86606; 87070; 87077; 87102; 87116; 87186; 87205; 87206; 87252; 87327; 87496; 87498; 87502; 87529; 87634; 87798; 88108; 88305; 88313; 94640; 94660; 94760; 96365; 96366; 96372; 96374; 99285

== ENCOUNTER 2021-04-09 13:32 | Inpatient (IN) | payer MEDICAID ==
[2021-04-09] MEDS ORDERED: ATROPINE OPHTH SOLN 1% 5ML BTL SUBLINGUAL PRN (14:11)
[2021-04-09] MEDS ORDERED: ACETAMINOPHEN SUPPOSITORY 650 MG SUPP RECTAL PRN (14:11)
[2021-04-09] MEDS ORDERED: GLYCOPYRROLATE 0.2 MG/ML 2 ML VIAL IVP PRN (14:11)
[2021-04-09] MEDS ORDERED: MORPHINE SULFATE 2 MG/ML SYRINGE IV PRN (14:11)
[2021-04-09] MEDS ORDERED: ONDANSETRON 4 MG/2 ML VIAL IVP PRN (14:11)
[2021-04-09] MEDS ORDERED: LORazepam 2 MG/ML INJ IV PRN (14:11)
[2021-04-09] MEDS ORDERED: MORPHINE SULFATE (100 MG/2 ML) 100 MG in SODIUM CHLORIDE 0.9% 100 ML IV SCH (14:15)
[2021-04-09] MEDS ORDERED: SCOPOLAMINE 1.5MG/72HR PATCH TRANSDERM SCH (14:15)
[2021-04-09] MEDS ORDERED: IPRATROPIUM-ALBUTEROL 3 ML NEB INHALATION SCH (16:00)
--- NOTE | 2021-04-09 17:36 | P.PN ---
Progress Note - Text Progress Note Date: 04/09/21 80-year-old man with acute on chronic congestive heart failure, tracheomalacia, pseudomonal pneumonia, likely fungal pneumonia, atrial fibrillation with RVR who has been admitted to our facility since 04/04. We were called to patient's bedside for an A-Team due to hypotension and dyspnea. Patient appears in acute distress, tachypneic to 30, hypotensive to 79/50, HR 105, 98%% on NC. Diffuse wheezing and crackles on lung sounds. Tachycardic with no murmurs. LE edema with +JVD. ABG was attempted but could not be completed. CXR from this AM demonstrated volume overload. A/P: 1. Acute on Chronic Hypoxemic and Hypercarbic Respiratory Failure secondary to tracheomalacia, heart failure, and pseudomonal pneumonia -Patient was started on BIPAP, however, he refused to wear it after a 20 minute trial -GoC discussion was had in the room and patient expressed wish to be made comfortable -Patient loaded with morphine 4mg IV, then hospice consult I spent 55 minutes with this critical patient today. 40 minutes was critical care time, 15 minutes was [id number] ACP planning.
== END 2021-04-09 16:20 | disposition expired | DRG 951 ==
LOC: 4SSUR 15:40
PROVIDERS: ADMIT Internal Medicine; ATTEND Internal Medicine
DX: Z51.5 Encounter for palliative care (principal); J16.8 Pneumonia due to other specified infectious organisms; J96.22 Acute and chronic respiratory failure with hypercapnia; J96.21 Acute and chronic respiratory failure with hypoxia; J15.1 Pneumonia due to Pseudomonas; B49 Unspecified mycosis; J39.8 Other specified diseases of upper respiratory tract; I50.9 Heart failure, unspecified; I48.91 Unspecified atrial fibrillation